=== PATIENT | female | born 1960 | race Caucasian/White ===

== ENCOUNTER 2016-06-13 12:26 | Inpatient (IN) | payer MEDICAID ==
[~2016-06-13] VITALS: Ht 157.5 cm; Wt 61.2 kg
[~2016-06-13 12:26] MED LIST: ALBU18; COLCRYS 0.6 MG TABLET PO; ENAL2.5T PO; LEVO500T3 PO; METO25TA5 PO; NOR5T PO; ONDA4TAB8 SL; PANT40TA2 PO; SUCR1TAB36 PO
[2016-06-13] MEDS ORDERED: SODIUM CHLORIDE 0.9% 1,000 ML IV ONE ×2 (13:19→21:45)
[2016-06-13] MEDS ORDERED: NALBUPHINE HCL 10 MG/1ml INJECTION IV ONE (13:30)
[2016-06-13] MEDS ORDERED: ONDANSETRON HCL 4 MG/2 ML VIAL IV ONE (13:30)
[2016-06-13 13:43] LABS: Basophils # (auto) 0 uL; Basophils % (auto) 0.1 % (0.0-2.0); Eosinophils # (auto) 0 uL; Eosinophils % (auto) 0.1 % (0.0-7.0); Hematocrit 43.8 % (36.0-46.0); Hemoglobin 14.3 g/dL (12.2-16.2); Lymphocytes # (auto) 0.5 uL; Lymphocytes % (auto) 4.2 % (10.0-50.0); Mean Corpuscular Hemoglobin 28.9 pg (28.0-32.0); Mean Corpuscular Hgb Conc. 32.6 g/dL (32.0-36.0); Mean Corpuscular Volume 88.7 fL (80.0-100.0); Mean Platelet Volume 8.5 fL (7.4-10.4); Monocytes # (auto) 0.5 uL; Monocytes % (auto) 4.6 % (0.0-12.0); Neutrophils # (auto) 10.1 uL; Platelet Count (auto) 272 10^3/uL (140-450); Red Cell Distribution Width 13.8 % (11.6-16.0); SUSPECT VIEW TRANSMISSION; White Blood Cell 11.1 10^3/uL (4.4-10.8)
[2016-06-13 13:55] LABS: Amylase 141 U/L (25-115)
[2016-06-13] MEDS ORDERED: PROMETHAZINE HCL 25 MG/ML 1ML IV ONE ×2 (14:45→15:30)
[2016-06-13 14:51] LABS: Albumin 4.2 g/dL (3.4-5.0); Bilirubin, Total 0.8 mg/dL (0.2-1.0); Calcium 9.6 mg/dL (8.5-10.1); Potassium 3.6 mmol/L (3.5-5.1); Total Protein 8.1 g/dL (6.4-8.2)
[2016-06-13] MEDS ORDERED: METOCLOPRAMIDE HCL 5MG/ml INJ 2ml VIAL IV ONE (15:15)
[2016-06-13 18:30] LABS: Urine Bilirubin Negative (Negative); Urine Color Yellow (Yellow); Urine Glucose Normal (Normal); Urine Mucus FEW (None Seen); Urine Nitrite Negative (Negative); Urine RBC 25 /hpf (0 - 4); Urine Squamous Epithelial Cell FEW /hpf (<5); Urine Urobilinogen Normal (Negative); Urine pH 5.5 (5.0-8.0)
[2016-06-13 18:31] LABS: Urine Blood 2+ /uL (Negative); Urine Ketone 2+ (Negative)
[2016-06-13] MEDS ORDERED: CIPROFLOXACIN 400MG/200ML 200 ML IV ONE (20:00)
[2016-06-13] MEDS ORDERED: NITROGLYCERIN 0.4 MG SL TAB SL PRN (21:45)
[2016-06-13] MEDS ORDERED: MORPHINE SULF INJ 2 MG/ML SYRINGE 1ML IV PRN (21:45)
[2016-06-13] MEDS: METOPROLOL TARTRATE 25 MG TAB PO SCH (22:00)
[2016-06-13] MEDS: ENOXAPARIN SOD 30 MG/0.3 ML SYRINGE SC SCH (22:17)
[2016-06-13] MEDS: SUCRALFATE 1 GM TAB PO SCH (22:17)
[2016-06-13] MEDS: ALBUTEROL SULF 2.5 MG/0.5ML(0.5%) NEB SOLN NEB SCH (22:20)
[2016-06-13 23:30] VITALS: BP 144/79
[2016-06-13] MEDS: ONDANSETRON HCL 4 MG/2 ML VIAL IV PRN (23:56)
[2016-06-13] MEDS: HYDROmorphone HCL 2 MG/ML VL IV PRN (23:56)
[2016-06-14] MEDS: ALBUTEROL SULF 2.5 MG/0.5ML(0.5%) NEB SOLN NEB SCH ×6 (02:33→22:20)
[2016-06-14 02:56] VITALS: BP 120/64
[2016-06-14 04:33] VITALS: BP 134/74
[2016-06-14] MEDS: ONDANSETRON HCL 4 MG/2 ML VIAL IV PRN ×4 (05:17→20:33)
[2016-06-14] MEDS: HYDROmorphone HCL 2 MG/ML VL IV PRN ×4 (05:17→20:33)
[2016-06-14] MEDS: SUCRALFATE 1 GM TAB PO SCH ×4 (05:59→22:19)
[2016-06-14 07:25] LABS: Albumin 3.3 g/dL (3.4-5.0); BUN/Creatinine Ratio 24.6; Bilirubin, Total 0.4 mg/dL (0.2-1.0); Calcium 8.2 mg/dL (8.5-10.1); Potassium 3.1 mmol/L (3.5-5.1); Total Protein 6.7 g/dL (6.4-8.2)
[2016-06-14 07:35] LABS: Basophils # (auto) 0 uL; Basophils % (auto) 0.2 % (0.0-2.0); Eosinophils # (auto) 0 uL; Hematocrit 37.7 % (36.0-46.0); Hemoglobin 12.1 g/dL (12.2-16.2); Lymphocytes # (auto) 1.2 uL; Lymphocytes % (auto) 15.3 % (10.0-50.0); Mean Corpuscular Hemoglobin 28.7 pg (28.0-32.0); Mean Corpuscular Hgb Conc. 32.1 g/dL (32.0-36.0); Mean Corpuscular Volume 89.3 fL (80.0-100.0); Mean Platelet Volume 8.8 fL (7.4-10.4); Monocytes # (auto) 0.9 uL; Monocytes % (auto) 11.5 % (0.0-12.0); Neutrophils # (auto) 5.8 uL; Platelet Count (auto) 196 10^3/uL (140-450); Red Cell Distribution Width 14.2 % (11.6-16.0); White Blood Cell 7.9 10^3/uL (4.4-10.8)
[2016-06-14 09:00] VITALS: BP 131/67
[2016-06-14] MEDS: METOPROLOL TARTRATE 25 MG TAB PO SCH ×2 (10:33→21:53)
[2016-06-14] MEDS: ENOXAPARIN SOD 30 MG/0.3 ML SYRINGE SC SCH (10:34)
[2016-06-14] MEDS: LEVOFLOXACIN 500MG 100 ML IV SCH (10:34)
[2016-06-14] MEDS: PANTOPRAZOLE SODIUM 40 MG/10 ML VIAL IV SCH (10:34)
[2016-06-14 13:09] VITALS: BP 140/80
[2016-06-14] MEDS ORDERED: HYDROcodone-ACET 7.5/325MG TAB PO PRN (15:00)
[2016-06-14 17:24] VITALS: BP 192/99
[2016-06-14] MEDS: METOCLOPRAMIDE HCL 5MG/ml INJ 2ml VIAL IV SCH (18:00)
[2016-06-14] MEDS ORDERED: diphenhdrAMINE HCL 50 MG/1 ML VL IV PRN (20:45)
[2016-06-14] MEDS ORDERED: POTASSIUM CHLORIDE 40 MEQ, LIDOCAINE 1% (LOCAL ANESTH.) 4 ML in SODIUM CHL 0.9% 250 ML IV ONE (21:00)
[2016-06-14 21:30] VITALS: BP 136/85
[2016-06-14] MEDS ORDERED: LIDOCAINE 1% HCL (LOCAL ANESTH.) INJ 20ML MDV ONE (22:47)
[2016-06-14] MEDS ORDERED: POTASSIUM CHL 20MEQ/100ML 200 ML IV ONE (22:49)
[2016-06-15] MEDS: METOCLOPRAMIDE HCL 5MG/ml INJ 2ml VIAL IV SCH ×3 (00:01→12:11)
[2016-06-15] MEDS: ONDANSETRON HCL 4 MG/2 ML VIAL IV PRN (01:44)
[2016-06-15 05:00] VITALS: BP 143/89
[2016-06-15] MEDS: SUCRALFATE 1 GM TAB PO SCH ×2 (06:20→12:11)
[2016-06-15] MEDS: ALBUTEROL SULF 2.5 MG/0.5ML(0.5%) NEB SOLN NEB SCH ×3 (06:53→14:00)
[2016-06-15 09:00] VITALS: BP 148/77
[2016-06-15] MEDS: ENOXAPARIN SOD 30 MG/0.3 ML SYRINGE SC SCH (10:13)
[2016-06-15] MEDS: PANTOPRAZOLE SODIUM 40 MG/10 ML VIAL IV SCH (10:13)
[2016-06-15] MEDS: METOPROLOL TARTRATE 25 MG TAB PO SCH (10:14)
[2016-06-15] MEDS: LEVOFLOXACIN 500MG 100 ML IV SCH (10:14)
[2016-06-15 14:01] VITALS: BP 148/77
== END 2016-06-15 14:45 | disposition home or self-care (01) | DRG 249 ==
LOC: EDBD 12:26 → ER 12:31 → CENTRAL 12:32
PROVIDERS: ADMIT Family Medicine; ATTEND Family Medicine
DX: A08.4 Viral intestinal infection, unspecified (principal); N39.0 Urinary tract infection, site not specified; K27.9 Peptic ulcer, site unspecified, unspecified as acute or chronic, without hemorrhage or perforation; K21.9 Gastro-esophageal reflux disease without esophagitis; K29.00 Acute gastritis without bleeding; I10 Essential (primary) hypertension; F17.210 Nicotine dependence, cigarettes, uncomplicated; F12.10 Cannabis abuse, uncomplicated; F41.9 Anxiety disorder, unspecified; Z91.018 Allergy to other foods; Z98.51 Tubal ligation status; Z90.49 Acquired absence of other specified parts of digestive tract
CPT/HCPCS: 36415; 71010; 74176; 80053; 81001; 82150; 83690; 84484; 85025; 86677; 87045; 87899; 93005; 94640; 96361; 96365; 96375; C9113; J1956; J2001; J2405; J3480

== ENCOUNTER 2017-09-26 20:27 | Emergency (ER) | payer MEDICAID ==
[~2017-09-26] VITALS: Ht 157.5 cm; Wt 68.0 kg
[~2017-09-26 20:27] MED LIST changes: +HYDR-4683 PO; -LEVO500T3 PO; -NOR5T PO; +ONDA-101 SL; -ONDA4TAB8 SL
[2017-09-26 22:12] LABS: Basophils # (auto) 0.1 uL; Basophils % (auto) 0.5 % (0.0-2.0); Eosinophils # (auto) 0 uL; Hematocrit 43.4 % (36.0-46.0); Hemoglobin 14.7 g/dL (12.2-16.2); Lymphocytes # (auto) 1.2 uL; Lymphocytes % (auto) 7.1 % (10.0-50.0); Mean Corpuscular Hemoglobin 30.1 pg (28.0-32.0); Mean Corpuscular Hgb Conc. 33.8 g/dL (32.0-36.0); Mean Corpuscular Volume 88.8 fL (80.0-100.0); Monocytes % (auto) 5.6 % (0.0-12.0); Neutrophils # (auto) 15.2 uL; Neutrophils % (auto) 86.8 % (37.0-80.0); Platelet Count (auto) 285 10^3/uL (140-450); Red Blood Cells 4.88 10^6/uL (4.0-5.20); Red Cell Distribution Width 13.9 % (11.8-14.3); White Blood Cell 17.5 10^3/uL (4.4-10.8)
[2017-09-26 22:38] LABS: Potassium 3.3 mmol/L (3.5-5.1)
[2017-09-26 22:45] LABS: Albumin 3.9 g/dL (3.4-5.0); BUN/Creatinine Ratio 16.2; Bilirubin, Total 0.9 mg/dL (0.2-1.0); Calcium 9.2 mg/dL (8.5-10.1)
[2017-09-26] MEDS ORDERED: SODIUM CHLORIDE 0.9% 1,000 ML IVB ONE (23:19)
[2017-09-26] MEDS ORDERED: ONDANSETRON HCL 4 MG/2 ML VIAL IV ONE (23:30)
[2017-09-26] MEDS ORDERED: MORPHINE SULFATE 4 MG/ML SYR/VIAL IV ONE (23:30)
[2017-09-26] MEDS ORDERED: PANTOPRAZOLE 40 MG/10 ML VIAL IV ONE (23:30)
[2017-09-26 23:37] LABS: Urine Bacteria NONE SEEN /hpf (None Seen); Urine Blood 1+ /uL (Negative); Urine Mucus FEW (None Seen); Urine Specific Gravity 1.018 (1.001-1.035); Urine WBC 1 /hpf (0 - 5)
[2017-09-26 23:50] LABS: INR 0.94 (0.9-1.15); Partial Thromboplastin Time 26.4 sec (22.64-33.71); Prothrombin Time 10.2 sec (9.37-12.3)
[2017-09-27 04:26] VITALS: BP 120/81
[2017-09-27] MEDS ORDERED: ONDANSETRON HCL 4 MG/2 ML VIAL IV ONE (04:30)
== END 2017-09-27 04:31 | disposition home or self-care (01) ==
LOC: EDBD 20:27 → ER 20:32
DX: K21.9 Gastro-esophageal reflux disease without esophagitis (principal); F17.210 Nicotine dependence, cigarettes, uncomplicated; F12.10 Cannabis abuse, uncomplicated; I10 Essential (primary) hypertension; Z98.51 Tubal ligation status; Z90.49 Acquired absence of other specified parts of digestive tract
CPT/HCPCS: 36415; 74176; 80053; 81001; 82150; 83690; 83735; 85025; 85610; 85730; 93005; 94761; 96361; 96374; 96375; 96376; 99285; C9113; J2270; J2405; J7030; 96360

== ENCOUNTER → 2017-09-28 18:25 | Emergency (ER) | payer MEDICAID ==
[~2017-09-28] VITALS: Ht 157.5 cm; Wt 63.5 kg
[~2017-09-28 18:25] MED LIST changes: +MORPHINE SULFATE 4 MG/ML SYR/VIAL IV ONE; +PANTOPRAZOLE 40 MG/10 ML VIAL IV STA; +POTASSIUM CHL 20 Meq TABLET PO ONE; +PROCHLORPERAZINE EDISYLATE 5 MG/ML 2ML VIAL IV ONE
[2017-09-28 19:10] LABS: Basophils # (auto) 0.1 uL; Basophils % (auto) 0.8 % (0.0-2.0); Eosinophils # (auto) 0 uL; Eosinophils % (auto) 0.1 % (0.0-7.0); Hematocrit 45.1 % (36.0-46.0); Hemoglobin 15.4 g/dL (12.2-16.2); Lymphocytes # (auto) 1.5 uL; Lymphocytes % (auto) 10.5 % (10.0-50.0); Mean Corpuscular Hemoglobin 30.8 pg (28.0-32.0); Mean Corpuscular Hgb Conc. 34.2 g/dL (32.0-36.0); Mean Corpuscular Volume 89.9 fL (80.0-100.0); Monocytes # (auto) 0.5 uL; Monocytes % (auto) 3.8 % (0.0-12.0); Neutrophils # (auto) 11.9 uL; Neutrophils % (auto) 84.8 % (37.0-80.0); Platelet Count (auto) 321 10^3/uL (140-450); Red Blood Cells 5.01 10^6/uL (4.0-5.20); Red Cell Distribution Width 13.7 % (11.8-14.3)
[2017-09-28 19:27] LABS: Albumin 4.5 g/dL (3.4-5.0); BUN/Creatinine Ratio 14.1; Bilirubin, Total 1.4 mg/dL (0.2-1.0); Calcium 9.5 mg/dL (8.5-10.1); Magnesium 2.2 mg/dL (1.6-2.6); Potassium 3.2 mmol/L (3.5-5.1); Total Protein 8.9 g/dL (6.4-8.2)
[2017-09-28 21:00] VITALS: BP 125/69
== END | disposition home or self-care (01) ==
LOC: EDUNIT# 18:10 → EDBD 18:25 → ER 18:25
DX: R10.84 Generalized abdominal pain (principal); R11.2 Nausea with vomiting, unspecified; F12.90 Cannabis use, unspecified, uncomplicated; F41.9 Anxiety disorder, unspecified; I10 Essential (primary) hypertension; J45.909 Unspecified asthma, uncomplicated; K21.9 Gastro-esophageal reflux disease without esophagitis; Z87.11 Personal history of peptic ulcer disease; F17.210 Nicotine dependence, cigarettes, uncomplicated; Z98.51 Tubal ligation status; Z90.49 Acquired absence of other specified parts of digestive tract
CPT/HCPCS: 36415; 80053; 83690; 83735; 84484; 85025; 93005; 94761; 96374; 96375; 99285; C9113; J0780; J2270; J7030

== ENCOUNTER 2017-10-04 20:51 | Emergency (ER) | payer MEDICAID ==
[~2017-10-04] VITALS: Ht 157.5 cm; Wt 59.0 kg
[~2017-10-04 20:51] MED LIST changes: -MORPHINE SULFATE 4 MG/ML SYR/VIAL IV ONE; -PANTOPRAZOLE 40 MG/10 ML VIAL IV STA; -POTASSIUM CHL 20 Meq TABLET PO ONE; -PROCHLORPERAZINE EDISYLATE 5 MG/ML 2ML VIAL IV ONE
[2017-10-05] MEDS ORDERED: NALBUPHINE HCL 10 MG/1ml INJECTION IV ONE
[2017-10-05] MEDS ORDERED: ONDANSETRON HCL 4 MG/2 ML VIAL IV ONE
[2017-10-05] MEDS ORDERED: SODIUM CHLORIDE 0.9% 1,000 ML IV ONE
[2017-10-05] MEDS ORDERED: PROMETHAZINE HCL 25 MG/ML 1ML ONE (03:28)
[2017-10-05] MEDS ORDERED: PROMETHAZINE HCL 25 MG/ML 1ML IV ONE (03:30)
[2017-10-05 04:24] LABS: Basophils # (auto) 0 uL; Basophils % (auto) 0.4 % (0.0-2.0); Eosinophils # (auto) 0.1 uL; Eosinophils % (auto) 1.2 % (0.0-7.0); Hematocrit 40.2 % (36.0-46.0); Lymphocytes % (auto) 19.1 % (10.0-50.0); Mean Corpuscular Hemoglobin 30.8 pg (28.0-32.0); Mean Corpuscular Hgb Conc. 34.7 g/dL (32.0-36.0); Mean Corpuscular Volume 88.7 fL (80.0-100.0); Monocytes # (auto) 1.1 uL; Monocytes % (auto) 10.6 % (0.0-12.0); Neutrophils # (auto) 7.3 uL; Neutrophils % (auto) 68.7 % (37.0-80.0); Platelet Count (auto) 284 10^3/uL (140-450); Red Blood Cells 4.53 10^6/uL (4.0-5.20); Red Cell Distribution Width 13.8 % (11.8-14.3); White Blood Cell 10.6 10^3/uL (4.4-10.8)
[2017-10-05 04:32] VITALS: BP 129/88
[2017-10-05 04:39] LABS: Albumin 3.5 g/dL (3.4-5.0); BUN/Creatinine Ratio 16.2; Calcium 8.1 mg/dL (8.5-10.1)
[2017-10-05 04:43] LABS: Bilirubin, Total 1.2 mg/dL (0.2-1.0); Total Protein 6.8 g/dL (6.4-8.2)
[2017-10-05 04:49] LABS: Potassium 2.7 mmol/L (3.5-5.1)
[2017-10-05] MEDS ORDERED: POTASSIUM CHL 20 Meq TABLET PO ONE (05:15)
[2017-10-05 06:09] LABS: Urine Bacteria NONE SEEN /hpf (None Seen); Urine Blood 1+ /uL (Negative); Urine Hyaline Cast FEW /lpf (0 - 2); Urine Mucus FEW (None Seen); Urine Specific Gravity 1.023 (1.001-1.035); Urine WBC 2 /hpf (0 - 5)
[2017-10-05 06:11] LABS: Alcohol, Urine < 3.0 mg/dL (0-5); Amphetamine Screen, Urine NEGATIVE (NEGATIVE); Barbiturate Scree,Urine NEGATIVE (NEGATIVE); Benzodiazephine Screen, Urine NEGATIVE (NEGATIVE); Cannabinoid Screen, Urine POSITIVE (NEGATIVE); Cocaine Screen, Urine NEGATIVE (NEGATIVE); Opiate Scree,Urine NEGATIVE (NEGATIVE); Phencyclidine Screen, Urine NEGATIVE (NEGATIVE)
== END 2017-10-05 06:31 | disposition home or self-care (01) ==
LOC: EDBD 20:51 → ER 20:51
DX: K29.00 Acute gastritis without bleeding (principal); R11.2 Nausea with vomiting, unspecified; F17.210 Nicotine dependence, cigarettes, uncomplicated; I10 Essential (primary) hypertension; J45.909 Unspecified asthma, uncomplicated; K21.9 Gastro-esophageal reflux disease without esophagitis; Z87.11 Personal history of peptic ulcer disease; Z90.49 Acquired absence of other specified parts of digestive tract; Z98.51 Tubal ligation status
CPT/HCPCS: 36415; 74176; 80053; 80307; 81001; 81002; 83690; 84484; 85025; 93005; 96361; 96374; 96375; 99285; J2300; J2405; J2550

== ENCOUNTER 2019-11-11 10:13 | Inpatient (IN) | payer MEDICAID ==
[~2019-11-11] VITALS: Ht 157.5 cm; Wt 62.1 kg
[~2019-11-11 10:13] MED LIST changes: -ALBU18; +ATOR20TA50 PO; -COLCRYS 0.6 MG TABLET PO; -ENAL2.5T PO; +ENAL2.5T7 PO; -HYDR-4683 PO; -ONDA-101 SL; +POTA10TA32 PO
--- NOTE | 2019-11-11 11:15 | NUR ---
Direct Admit Note SHEREELUIS admitted to Telemetry unit as a direct admit per MD order. Patient oriented to Janeth Gross RN primary RN, unit, room, bed, and unit policies regarding patient care and visiting hours. Patient now on continuous telemetry monitoring, tele box #[id number]. Patient placed on bedside oxygen, weighed by bedscale and encouraged to call if they need something. All questions and concerns addressed, patient verbalized understanding. MD notified of patients arrival and admit orders received.
[2019-11-11 11:30] VITALS: BP 115/84
[2019-11-11] MEDS ORDERED: MORPHINE SULF INJ 2 MG/ML SYRINGE 1ML IV PRN (11:30)
[2019-11-11] MEDS ORDERED: DOCUSATE SOD 100 MG CAP PO PRN (11:30)
[2019-11-11] MEDS ORDERED: NITROGLYCERIN 0.4 MG SL TAB SL PRN (11:30)
[2019-11-11] MEDS ORDERED: ALUM & MAG HYDROX-SIMETH LIQ(MAALOX) 30 ML PO PRN (11:30)
[2019-11-11] MEDS ORDERED: ACETAMINOPHEN 325 MG TAB PO PRN (11:30)
[2019-11-11] MEDS ORDERED: HYDROcodone-ACET 5/325MG TAB PO PRN (11:30)
[2019-11-11 12:00] VITALS: BP 115/84
--- NOTE | 2019-11-11 12:45 | NUR ---
EKG Done and filed in the chart.
--- NOTE | 2019-11-11 12:50 | NUR ---
Dr. Mcclendon at nurses station Dr. Mcclendon here for cardiology consultation. No new orders received. Will continue to monitor.
--- NOTE | 2019-11-11 13:35 | NUR ---
Urine sample Patient aware of need for urine sample. Supplies are at bedside. Will continue to monitor.
[2019-11-11 13:40] LABS: Basophils # (auto) 0.1 10 ^3/uL (0-0.2); Basophils % (auto) 0.3 % (0.0-2.0); Eosinophils # (auto) 0 10 ^3/uL (0-0.8); Eosinophils % (auto) 0.1 % (0.0-7.0); Hematocrit 43.8 % (36.0-46.0); Hemoglobin 14.5 g/dL (12.2-16.2); Lymphocytes # (auto) 2.1 10 ^3/uL (0.4-5.4); Lymphocytes % (auto) 11.5 % (10.0-50.0); Mean Corpuscular Hgb Conc. 33.1 g/dL (32.0-36.0); Mean Corpuscular Volume 90.7 fL (80.0-100.0); Monocytes # (auto) 1.4 10 ^3/uL (0-1.3); Neutrophils # (auto) 14.6 10 ^3/uL (1.6-8.6); Neutrophils % (auto) 80.1 % (37.0-80.0); Platelet Count (auto) 239 10^3/uL (140-450); Red Blood Cells 4.84 10^6/uL (4.0-5.20); Red Cell Distribution Width 14.8 % (11.8-14.3); White Blood Cell 18.2 10^3/uL (4.4-10.8)
[2019-11-11 13:59] LABS: Calcium 9.1 mg/dL (8.5-10.1); Potassium 4.3 mmol/L (3.5-5.1)
[2019-11-11 14:06] LABS: Albumin 3.9 g/dL (3.4-5.0); Bilirubin, Total 1.2 mg/dL (0.2-1.0); Magnesium 2.4 mg/dL (1.6-2.6); Total Protein 7.4 g/dL (6.4-8.2)
--- NOTE | 2019-11-11 14:23 | NUR ---
Critical Troponin Troponin: 0.649. MD Olmedo aware of critical troponin. No new orders received.
[2019-11-11] MEDS: SODIUM CHLOR 0.9% PF (SALINE LOCK) 10ML VIAL/SYR IV SCH ×2 (14:39→22:30)
[2019-11-11] MEDS: ONDANSETRON HCL 4 MG/2 ML VIAL IV PRN ×2 (15:55→22:48)
[2019-11-11] MEDS: MORPHINE SULF INJ 2 MG/ML SYRINGE 1ML IV PRN ×2 (15:56→22:49)
[2019-11-11 17:16] VITALS: BP 103/56
[2019-11-11 22:00] VITALS: BP 144/77
[2019-11-11] MEDS: CARVEDILOL 3.125 MG TAB PO SCH (22:30)
[2019-11-11] MEDS: ENOXAPARIN SOD 60 MG/0.6 ML SYRINGE SC SCH (22:31)
[2019-11-11] MEDS: ATORVASTATIN 20 MG TAB PO SCH (22:31)
[2019-11-12 05:30] VITALS: BP 106/72
[2019-11-12] MEDS: SODIUM CHLOR 0.9% PF (SALINE LOCK) 10ML VIAL/SYR IV SCH ×3 (06:39→22:00)
--- NOTE | 2019-11-12 07:15 | NUR ---
Opening Shift Note Assumed care of patient, resting with eyes closed at this time. Respirations are even and unlabored. No S/S of distress/SOB or pain. Bed is low, locked with 2x side rails up. Call light is within reach. Instructed on POC and to call for assist PRN, will continue to monitor for changes Q1hr and PRN.
--- NOTE | 2019-11-12 07:20 | NUR ---
Urine sample Collected and sent to lab for UA/UDS per MD order.
[2019-11-12 07:33] LABS: Urine Bacteria FEW /hpf (None Seen); Urine Blood 1+ /uL (Negative); Urine Hyaline Cast FEW /lpf (0 - 2); Urine Mucus FEW (None Seen); Urine Specific Gravity 1.033 (1.001-1.035); Urine WBC 13 /hpf (0 - 5)
[2019-11-12 07:52] LABS: Amphetamine Screen, Urine NEGATIVE (NEGATIVE); Barbiturate Scree,Urine POSITIVE (NEGATIVE); Benzodiazephine Screen, Urine NEGATIVE (NEGATIVE); Cannabinoid Screen, Urine POSITIVE (NEGATIVE); Cocaine Screen, Urine NEGATIVE (NEGATIVE); Phencyclidine Screen, Urine NEGATIVE (NEGATIVE)
[2019-11-12 07:59] LABS: Opiate Scree,Urine POSITIVE (NEGATIVE)
[2019-11-12 09:26] VITALS: BP 88/53
[2019-11-12] MEDS ORDERED: CLOPIDOGREL BISULFATE 75 MG TAB PO SCH (10:00)
[2019-11-12] MEDS ORDERED: PANTOPRAZOLE 40 MG TAB PO SCH (10:00)
[2019-11-12] MEDS: CARVEDILOL 3.125 MG TAB PO SCH ×2 (10:33→22:17)
[2019-11-12] MEDS: MORPHINE SULF INJ 2 MG/ML SYRINGE 1ML IV PRN ×2 (10:34→18:52)
[2019-11-12] MEDS: ONDANSETRON HCL 4 MG/2 ML VIAL IV PRN ×2 (10:34→18:52)
[2019-11-12] MEDS: ENOXAPARIN SOD 60 MG/0.6 ML SYRINGE SC SCH ×2 (10:34→22:16)
--- NOTE | 2019-11-12 10:34 | NUR ---
Pain Patient c/o right hip pain. 9/10 pain on adult pain scale. Medicated per MD order. Will reassess.
--- NOTE | 2019-11-12 11:04 | NUR ---
Pain reassessment 0/10 pain upon reassessment of pain level. Bed is low, locked with 2x side rails up. Call light is within reach. Will continue to monitor
[2019-11-12 13:00] VITALS: BP 91/50
[2019-11-12] MEDS ORDERED: ACETAMINOPHEN 325 MG TAB PO PRN (13:15)
[2019-11-12 15:35] LABS: Basophils # (auto) 0.1 10 ^3/uL (0-0.2); Basophils % (auto) 0.4 % (0.0-2.0); Eosinophils # (auto) 0.1 10 ^3/uL (0-0.8); Eosinophils % (auto) 1.1 % (0.0-7.0); Hematocrit 41.3 % (36.0-46.0); Hemoglobin 13.5 g/dL (12.2-16.2); Lymphocytes # (auto) 2.9 10 ^3/uL (0.4-5.4); Mean Corpuscular Hemoglobin 30.5 pg (28.0-32.0); Mean Corpuscular Hgb Conc. 32.6 g/dL (32.0-36.0); Mean Corpuscular Volume 93.4 fL (80.0-100.0); Neutrophils % (auto) 68.5 % (37.0-80.0); Nucleated Red Blood Cells % 0.1 %; Platelet Count (auto) 188 10^3/uL (140-450); Red Blood Cells 4.43 10^6/uL (4.0-5.20); Red Cell Distribution Width 14.1 % (11.8-14.3); White Blood Cell 13.1 10^3/uL (4.4-10.8)
[2019-11-12 15:52] LABS: BUN/Creatinine Ratio 21.9; Calcium 8.6 mg/dL (8.5-10.1); Potassium 3.4 mmol/L (3.5-5.1)
[2019-11-12] MEDS: SUCRALFATE 1 GM/10 ML ORAL SUSP PO SCH ×2 (16:41→22:20)
[2019-11-12 17:02] VITALS: BP 127/58
--- NOTE | 2019-11-12 19:30 | NUR ---
Opening Shift Note Assumed care of patient, awake and alert. Patient noted with nausea and vomiting. She states nausea and vomiting started after administration of Tylenol. Large amount of clear vomitus noted. Patient also complains of shortness of breath. O2 @ 2L/min via nasal canula O2 sat 97%. Skin color pink; denies chest pain. Head of bed up at 30 degrees. Instructed on POC and to call for assist PRN, will continue to monitor for changes Q1hr and PRN.
--- NOTE | 2019-11-12 20:00 | NUR ---
Patient continues to have nausea and vomiting. Dr. Robins notified of patient's status. New orders received: Reglan 10 mg IVP every 6 hours PRN and Phenergan 12.5 mg two hours later if N/V persist. Patient medicated with Reglan 10 mg as ordered.
[2019-11-12] MEDS ORDERED: PROMETHAZINE HCL 25 MG/ML 1ML IV ONE (20:15)
[2019-11-12] MEDS ORDERED: METOCLOPRAMIDE HCL 5MG/ml INJ 2ml VIAL IV ONE (20:15)
[2019-11-12 22:00] VITALS: BP 185/112
[2019-11-12] MEDS: PANTOPRAZOLE 40 MG TAB PO SCH (22:16)
[2019-11-12] MEDS: ATORVASTATIN 20 MG TAB PO SCH (22:16)
--- NOTE | 2019-11-12 23:00 | NUR ---
No vomiting noted at this time. Patient complains of nausea. Phenergan 12.5 mg IVP administered.
[2019-11-12] MEDS ORDERED: METOCLOPRAMIDE HCL 5MG/ml INJ 2ml VIAL IV PRN (23:30)
[2019-11-13] VITALS (7 sets, daily range): BP systolic 91–147; BP diastolic 51–96
[2019-11-13] MEDS ORDERED: METOCLOPRAMIDE HCL 5MG/ml INJ 2ml VIAL IV SCH
[2019-11-13] MEDS ORDERED: cloNIDine HCL 0.1 MG TAB PO ONE (01:00)
--- NOTE | 2019-11-13 01:15 | NUR ---
Patient's blood pressure 193/117. Patient noted sleeping. No acute distress. She is arousable denies C/P, dizziness and headache. Dr. Robins notified of elevated blood pressure. New order: Clonidine 0.1 mg now and Clonidine TID.
[2019-11-13] MEDS: SODIUM CHLOR 0.9% PF (SALINE LOCK) 10ML VIAL/SYR IV SCH (01:17)
--- NOTE | 2019-11-13 03:50 | NUR ---
B/P 147/96. Patient resting comfortably. No acute distress noted.
[2019-11-13] MEDS ORDERED: cloNIDine HCL 0.1 MG TAB PO SCH (06:00)
[2019-11-13] MEDS: SUCRALFATE 1 GM/10 ML ORAL SUSP PO SCH ×4 (06:40→21:08)
[2019-11-13 06:42] LABS: Basophils # (auto) 0 10 ^3/uL (0-0.2); Basophils % (auto) 0.2 % (0.0-2.0); Eosinophils # (auto) 0 10 ^3/uL (0-0.8); Hemoglobin 15.1 g/dL (12.2-16.2); Lymphocytes % (auto) 6.5 % (10.0-50.0); Mean Corpuscular Hemoglobin 30.3 pg (28.0-32.0); Mean Corpuscular Hgb Conc. 33.6 g/dL (32.0-36.0); Mean Corpuscular Volume 90.3 fL (80.0-100.0); Monocytes # (auto) 0.9 10 ^3/uL (0-1.3); Monocytes % (auto) 5.9 % (0.0-12.0); Neutrophils # (auto) 13.2 10 ^3/uL (1.6-8.6); Neutrophils % (auto) 87.4 % (37.0-80.0); Platelet Count (auto) 226 10^3/uL (140-450); Red Blood Cells 4.99 10^6/uL (4.0-5.20); Red Cell Distribution Width 13.8 % (11.8-14.3); White Blood Cell 15.1 10^3/uL (4.4-10.8)
[2019-11-13 06:47] LABS: INR 1.01 (0.9-1.15)
[2019-11-13 07:04] LABS: Potassium 3.1 mmol/L (3.5-5.1)
[2019-11-13 07:13] LABS: BUN/Creatinine Ratio 19.6; Calcium 9.4 mg/dL (8.5-10.1); Magnesium 2.2 mg/dL (1.6-2.6)
--- NOTE | 2019-11-13 07:20 | NUR ---
Opening Shift Note Assumed care of patient, alert and oriented x4. Respirations noted to be even and unlabored. No S/S of distress/SOB or pain. Bed is low, locked with 2x side rails up. Call light is within reach. Instructed on POC and to call for assist PRN, will continue to monitor for changes Q1hr and PRN.
[2019-11-13] MEDS: PANTOPRAZOLE 40 MG TAB PO SCH ×2 (09:52→21:09)
[2019-11-13] MEDS: CARVEDILOL 3.125 MG TAB PO SCH ×2 (09:53→21:07)
[2019-11-13] MEDS: ENOXAPARIN SOD 60 MG/0.6 ML SYRINGE SC SCH ×2 (10:00→16:04)
--- NOTE | 2019-11-13 10:30 | NUR ---
Medication held Patient is scheduled to have EGD tomorrow. Per Dr. Mcfarlane, do not administer Lovenox. Will continue to monitor.
--- NOTE | 2019-11-13 10:50 | NUR ---
Dr. Olmedo rounding Dr. Olmedo is at bedside updating patient on POC. New orders received/carried out. Will continue to monitor.
[2019-11-13] MEDS ORDERED: cloNIDine HCL 0.1 MG TAB PO PRN (11:30)
[2019-11-13] MEDS ORDERED: POTASSIUM CHL 20 Meq TABLET PO ONE (11:30)
--- NOTE | 2019-11-13 14:22 | NUR ---
Low blood pressure MD aware of low blood pressure (see interventions). New orders received for NS @ 125 ml/hr. Will carry out orders.
[2019-11-13] MEDS: SODIUM CHLORIDE 0.9% 1,000 ML IV SCH ×2 (14:37→21:26)
[2019-11-13] MEDS: MORPHINE SULF INJ 2 MG/ML SYRINGE 1ML IV PRN ×2 (17:11→21:25)
--- NOTE | 2019-11-13 17:11 | NUR ---
Pain Patient c/o abdominal and right hip pain. 10/10 pain on adult pain scale. Medicated with Morphine 2mg IV as per MD order. Will reassess.
--- NOTE | 2019-11-13 17:41 | NUR ---
Pain reassessment Upon reassessment pain is 6/10 on adult pain scale. Patient reports being comfortable at this time. IVF to left FA running at 125 ml/hr. Bed is low, locked with 2x side rails up. Call light is within reach.
--- NOTE | 2019-11-13 18:19 | NUR ---
Spoke with family Password verified Spoke with patient's son Volodymyr. Updated son on POC. Son aware of scheduled EGD tomorrow with Dr. Mcfarlane. All questions have been answered.
--- NOTE | 2019-11-13 18:51 | NUR ---
Reassessment: blood pressure BP: 102/65 HR: 89. Patient currently sitting up in a chair at this time. Patient is reporting some light headedness, no headache, N/V at this time. Advised patient to press call light when she wants to get back in bed. Patient verbalized understanding. NS at 125 ml/hr running at this time. Will continue to monitor.
--- NOTE | 2019-11-13 19:30 | NUR ---
Opening Shift Note Assumed care of patient, awake and alert, sitting up in chair. No S/S of distress/SOB or pain. Instructed on POC and to call for assist PRN, will continue to monitor for changes Q1hr and PRN.
--- NOTE | 2019-11-13 20:22 | NUR ---
Opening Shift Note Assumed care of patient, awake and alert, sitting up in chair, No S/S of distress/SOB or pain. Instructed on POC and to call for assist PRN, will continue to monitor for changes Q1hr and PRN.
[2019-11-13] MEDS: ATORVASTATIN 20 MG TAB PO SCH (21:09)
[2019-11-13] MEDS: ONDANSETRON HCL 4 MG/2 ML VIAL IV PRN (21:24)
--- NOTE | 2019-11-13 23:10 | NUR ---
pt signed consent for EGD. instructed pt to be NPO after midnight. verbalized understanding
[2019-11-14] MEDS: MORPHINE SULF INJ 2 MG/ML SYRINGE 1ML IV PRN ×2 (04:53→09:14)
[2019-11-14 05:00] VITALS: BP 123/75
[2019-11-14] MEDS: SUCRALFATE 1 GM/10 ML ORAL SUSP PO SCH ×3 (05:28→17:00)
[2019-11-14] MEDS: SODIUM CHLORIDE 0.9% 1,000 ML IV SCH ×2 (06:12→14:30)
[2019-11-14 07:09] LABS: Basophils # (auto) 0.1 10 ^3/uL (0-0.2); Basophils % (auto) 0.6 % (0.0-2.0); Eosinophils # (auto) 0.3 10 ^3/uL (0-0.8); Eosinophils % (auto) 3.1 % (0.0-7.0); Hematocrit 37.8 % (36.0-46.0); Hemoglobin 12.7 g/dL (12.2-16.2); Lymphocytes # (auto) 2.2 10 ^3/uL (0.4-5.4); Mean Corpuscular Hemoglobin 30.4 pg (28.0-32.0); Mean Corpuscular Hgb Conc. 33.5 g/dL (32.0-36.0); Mean Corpuscular Volume 90.7 fL (80.0-100.0); Monocytes # (auto) 0.8 10 ^3/uL (0-1.3); Monocytes % (auto) 7.7 % (0.0-12.0); Neutrophils # (auto) 6.7 10 ^3/uL (1.6-8.6); Neutrophils % (auto) 66.6 % (37.0-80.0); Nucleated Red Blood Cells % 0.1 %; Platelet Count (auto) 143 10^3/uL (140-450); Red Blood Cells 4.17 10^6/uL (4.0-5.20); White Blood Cell 10.1 10^3/uL (4.4-10.8)
--- NOTE | 2019-11-14 07:15 | NUR ---
pt sleeping at this time. respirations even and unlabored. Endorsed to ROMY Barron.
--- NOTE | 2019-11-14 07:30 | NUR ---
Opening Shift Note Assumed care of patient, awake and alert. No S/S of distress/SOB or pain. Instructed on POC and to call for assist PRN, will continue to monitor for changes Q1hr and PRN. Bed is locked and in lowest position. Call light within reach.
[2019-11-14 07:38] LABS: BUN/Creatinine Ratio 26.8; Calcium 8.6 mg/dL (8.5-10.1); Magnesium 2.3 mg/dL (1.6-2.6)
[2019-11-14 08:00] VITALS: BP 107/61
[2019-11-14] MEDS ORDERED: diphenhdrAMINE HCL 50 MG/1 ML VL ONE (08:11)
[2019-11-14] MEDS ORDERED: LIDOCAINE VISCOUS 2% 15ML UD ONE (08:11)
[2019-11-14] MEDS ORDERED: SODIUM CHLORIDE LOCK 10 ML ONE (08:11)
[2019-11-14 08:56] VITALS: BP 107/61
[2019-11-14] MEDS ORDERED: MORPHINE SULF INJ 2 MG/ML SYRINGE 1ML ONE (09:03)
[2019-11-14] MEDS: CARVEDILOL 3.125 MG TAB PO SCH (10:00)
[2019-11-14] MEDS: PANTOPRAZOLE 40 MG TAB PO SCH (10:00)
[2019-11-14] MEDS: ENOXAPARIN SOD 60 MG/0.6 ML SYRINGE SC SCH (10:00)
--- NOTE | 2019-11-14 10:00 | NUR ---
BP MEDS BLOOD PRESSURE MEDS HOLD FOR BP READING AT 107/61. PATIENT AWARE OF MEDICATION HOLD. WILL CONTINUE TO MONITOR BLOOD PRESSURE. PATIENT HAS NO S/S OF SOB OR CHEST PAIN.
--- NOTE | 2019-11-14 12:35 | NUR ---
PRE-OP PATIENT TAKEN DOWN TO PRE-OP WITH NO SIGNS OF DISTRESS OR SOB. PATIENT CONSENT SIGNED AND RING ON LEFT HAND TAPED. HU PRE-OP RN TOOK REPORT OF PATIENT.
[2019-11-14] MEDS: MIDAZOLAM HCL 5 MG/ML-1ML VIAL ONE ×2 (12:46→12:51)
[2019-11-14] MEDS: fentaNYL CITRATE 100 MCG/2 ML VL ONE ×2 (12:46→12:51)
[2019-11-14 13:07] VITALS: BP 130/80
--- NOTE | 2019-11-14 14:34 | NUR ---
Nutrition Assessment Notes please see attached link for complete assessment [employer] needs BW 62 [id number] kcals (23-25 kcal/kgBW), Est Protein needs: 62-68 gms/day (1.0-1.1 gm/kgBW). Will continue to monitor and reassess prn. Addendum: 11/14/19 at [address] Amended: Links added.
[2019-11-14 16:44] VITALS: BP 149/84
--- NOTE | 2019-11-14 19:02 | NUR ---
Discharge instructions given as ordered. Encourage to follow up with PMD as instructed. All questions and concerns addressed. Patient verbalized understanding. IV removed with catheter intact, pressure dressing applied, Telemetry unit returned to ICU. Patient taken to vehicle via wheelchair with all personal belongings, accompanied by staff and family member. No distress noted at time of departure.
== END 2019-11-14 18:30 | disposition home or self-care (01) | DRG 241 ==
LOC: TELE-WESTW 10:13
PROVIDERS: ADMIT Internal Medicine; ATTEND Internal Medicine
PROC: 0DJ08ZZ Inspection of Upper Intestinal Tract, Via Natural or Artificial Opening Endoscopic (ICD-10-PCS; principal; 2019-11-14 12:43)
DX: K29.70 Gastritis, unspecified, without bleeding (principal); D72.829 Elevated white blood cell count, unspecified; E78.5 Hyperlipidemia, unspecified; I10 Essential (primary) hypertension; K21.9 Gastro-esophageal reflux disease without esophagitis; K29.80 Duodenitis without bleeding; F12.90 Cannabis use, unspecified, uncomplicated; Z79.899 Other long term (current) drug therapy; Z90.49 Acquired absence of other specified parts of digestive tract; Z88.6 Allergy status to analgesic agent
CPT/HCPCS: 36415; 43235; 71046; 80048; 80053; 80307; 81001; 83735; 84484; 85025; 85610; 86677; 86850; 86900; 86901; 93005; 93306; G0378; J2250; J2405

== ENCOUNTER 2020-02-16 10:27 | Inpatient (IN) | payer MEDICAID ==
[~2020-02-16] VITALS: Ht 157.5 cm; Wt 62.0 kg
[2020-02-16] MEDS ORDERED: PANTOPRAZOLE 40 MG/10 ML VIAL INJ IV STA (10:59)
[2020-02-16] MEDS ORDERED: MORPHINE SULFATE 4 MG/ML SYR/VIAL IV ONE (11:00)
[2020-02-16] MEDS ORDERED: PROCHLORPERAZINE EDISYLATE 5 MG/ML 2ML VIAL IV ONE (11:00)
[2020-02-16] MEDS ORDERED: SODIUM CHLORIDE 0.9% 1,000 ML IVB ONE (11:00)
[2020-02-16 11:36] LABS: Basophils # (auto) 0.1 10 ^3/uL (0-0.2); Basophils % (auto) 0.5 % (0.0-2.0); Eosinophils # (auto) 0 10 ^3/uL (0-0.8); Eosinophils % (auto) 0.1 % (0.0-7.0); Hematocrit 43.2 % (36.0-46.0); Hemoglobin 14.7 g/dL (12.2-16.2); Lymphocytes # (auto) 1.2 10 ^3/uL (0.4-5.4); Lymphocytes % (auto) 8.5 % (10.0-50.0); Mean Corpuscular Hemoglobin 30.6 pg (28.0-32.0); Mean Corpuscular Hgb Conc. 34.1 g/dL (32.0-36.0); Mean Corpuscular Volume 89.9 fL (80.0-100.0); Monocytes # (auto) 0.5 10 ^3/uL (0-1.3); Monocytes % (auto) 3.6 % (0.0-12.0); Neutrophils # (auto) 12.4 10 ^3/uL (1.6-8.6); Neutrophils % (auto) 87.3 % (37.0-80.0); Platelet Count (auto) 335 10^3/uL (140-450); Red Cell Distribution Width 13.8 % (11.8-14.3); White Blood Cell 14.3 10^3/uL (4.4-10.8)
[2020-02-16 13:27] LABS: Albumin 4.4 g/dL (3.4-5.0); Calcium 9.5 mg/dL (8.5-10.1); Potassium 3.4 mmol/L (3.5-5.1)
[2020-02-16 13:39] LABS: BUN/Creatinine Ratio 16.1; Bilirubin, Total 1.1 mg/dL (0.2-1.0)
[2020-02-16] MEDS ORDERED: ONDANSETRON HCL 4 MG/2 ML VIAL IV ONE (15:00)
[2020-02-16] MEDS ORDERED: cloNIDine HCL 0.1 MG TAB PO ONE (15:00)
[2020-02-16] MEDS: hydrOXYzine HCL 10 MG TAB PO PRN ×2 (16:01→16:05)
[2020-02-16] MEDS ORDERED: NITROGLYCERIN 0.4 MG SL TAB SL PRN (16:15)
[2020-02-16] MEDS ORDERED: hydrALAZINE HCL 20 MG/ML VL IV PRN (17:00)
[2020-02-16] MEDS ORDERED: hydrALAZINE HCL 10 MG TAB PO PRN (17:15)
[2020-02-16] MEDS ORDERED: hydrALAZINE HCL 25 MG TAB PO ONE (18:00)
[2020-02-16] MEDS ORDERED: cloNIDine HCL 0.1 MG TAB PO PRN (18:00)
[2020-02-16 20:24] VITALS: BP 98/56
[2020-02-16] MEDS: ONDANSETRON HCL 4 MG/2 ML VIAL IV PRN (20:54)
[2020-02-16] MEDS: METOPROLOL TARTRATE 1MG/1ML-5ML VIAL IV SCH (22:00)
[2020-02-16] MEDS: MORPHINE SULF INJ 2 MG/ML SYRINGE 1ML IV PRN (23:33)
[2020-02-17 05:00] VITALS: BP 96/56
[2020-02-17 06:21] LABS: Basophils # (auto) 0 10 ^3/uL (0-0.2); Basophils % (auto) 0.3 % (0.0-2.0); Eosinophils # (auto) 0.1 10 ^3/uL (0-0.8); Eosinophils % (auto) 0.9 % (0.0-7.0); Hematocrit 39.5 % (36.0-46.0); Hemoglobin 13.2 g/dL (12.2-16.2); Lymphocytes # (auto) 2.4 10 ^3/uL (0.4-5.4); Lymphocytes % (auto) 20.2 % (10.0-50.0); Mean Corpuscular Hemoglobin 30.4 pg (28.0-32.0); Mean Corpuscular Hgb Conc. 33.3 g/dL (32.0-36.0); Monocytes % (auto) 8.1 % (0.0-12.0); Neutrophils # (auto) 8.4 10 ^3/uL (1.6-8.6); Neutrophils % (auto) 70.5 % (37.0-80.0); Nucleated Red Blood Cells % 0.1 %; Platelet Count (auto) 267 10^3/uL (140-450); Red Blood Cells 4.34 10^6/uL (4.0-5.20); White Blood Cell 11.9 10^3/uL (4.4-10.8)
[2020-02-17 06:32] LABS: Potassium 3.3 mmol/L (3.5-5.1)
[2020-02-17 06:45] LABS: Albumin 3.5 g/dL (3.4-5.0); BUN/Creatinine Ratio 16.2; Bilirubin, Total 1.2 mg/dL (0.2-1.0); Calcium 8.6 mg/dL (8.5-10.1); Total Protein 6.4 g/dL (6.4-8.2)
[2020-02-17 09:00] VITALS: BP 123/61
[2020-02-17] MEDS: METOPROLOL TARTRATE 1MG/1ML-5ML VIAL IV SCH ×2 (09:58→22:00)
[2020-02-17] MEDS ORDERED: POTASSIUM EFFERVESENT TAB 25 MEQ PO ONE (16:30)
[2020-02-17 17:06] VITALS: BP 110/63
[2020-02-17] MEDS: MORPHINE SULF INJ 2 MG/ML SYRINGE 1ML IV PRN (18:17)
[2020-02-17] MEDS: ONDANSETRON HCL 4 MG/2 ML VIAL IV PRN (18:17)
[2020-02-17 22:44] VITALS: BP 103/70
[2020-02-18] MEDS: MORPHINE SULF INJ 2 MG/ML SYRINGE 1ML IV PRN ×2 (01:48→09:34)
[2020-02-18] MEDS: ONDANSETRON HCL 4 MG/2 ML VIAL IV PRN ×2 (01:48→09:34)
[2020-02-18 09:00] VITALS: BP 124/75
[2020-02-18] MEDS: METOPROLOL TARTRATE 1MG/1ML-5ML VIAL IV SCH (09:29)
[2020-02-18 13:00] VITALS: BP 140/73
[2020-02-18 13:57] VITALS: BP 124/75
== END 2020-02-18 15:14 | disposition home or self-care (01) | DRG 251 ==
LOC: EDBD 10:27 → ER 10:27 → TELE 10:28 → TELE-WESTW 20:24 → UNDODISIN 02-18 15:14
PROVIDERS: ADMIT Internal Medicine; ATTEND Internal Medicine
DX: R10.9 Unspecified abdominal pain (principal); R11.2 Nausea with vomiting, unspecified; I10 Essential (primary) hypertension; I16.0 Hypertensive urgency; I25.10 Atherosclerotic heart disease of native coronary artery without angina pectoris; K21.9 Gastro-esophageal reflux disease without esophagitis; E87.6 Hypokalemia; R19.7 Diarrhea, unspecified; R77.8 Other specified abnormalities of plasma proteins; J44.9 Chronic obstructive pulmonary disease, unspecified; K59.09 Other constipation; E78.5 Hyperlipidemia, unspecified; I25.2 Old myocardial infarction; Z88.8 Allergy status to other drugs, medicaments and biological substances; Z88.6 Allergy status to analgesic agent; Z91.02 Food additives allergy status; Z98.51 Tubal ligation status; Z90.49 Acquired absence of other specified parts of digestive tract; Z87.11 Personal history of peptic ulcer disease; Z72.0 Tobacco use; Z88.1 Allergy status to other antibiotic agents
CPT/HCPCS: 36415; 74176; 80053; 83690; 84484; 85025; 96361; 96374; 96375; C9113; G0378; J2405

== ENCOUNTER 2020-12-11 15:17 | Inpatient (IN) | payer MEDICAID ==
[~2020-12-11] VITALS: Ht 157.5 cm; Wt 66.4 kg
[2020-12-11] MEDS ORDERED: SODIUM CHLORIDE 0.9% 1,000 ML IV ONE ×2 (15:30)
[2020-12-11] MEDS ORDERED: PROCHLORPERAZINE EDISYLATE 5 MG/ML 2ML VIAL IV ONE (15:30)
[2020-12-11] MEDS ORDERED: MORPHINE SULFATE 4 MG/ML SYR/VIAL IV ONE (15:30)
[2020-12-11] MEDS ORDERED: LABETALOL HCL 5 MG/ML 4ML SYRINGE IV ONE (17:00)
[2020-12-11 17:24] LABS: Basophils # (auto) 0.1 10 ^3/uL (0-0.2); Basophils % (auto) 0.3 % (0.0-2.0); Eosinophils # (auto) 0.2 10 ^3/uL (0-0.8); Eosinophils % (auto) 1.4 % (0.0-7.0); Hematocrit 42.3 % (36.0-46.0); Hemoglobin 14.3 g/dL (12.2-16.2); Lymphocytes # (auto) 2.1 10 ^3/uL (0.4-5.4); Lymphocytes % (auto) 11.8 % (10.0-50.0); Mean Corpuscular Hemoglobin 30.5 pg (28.0-32.0); Mean Corpuscular Hgb Conc. 33.8 g/dL (32.0-36.0); Mean Corpuscular Volume 90.2 fL (80.0-100.0); Monocytes # (auto) 0.9 10 ^3/uL (0-1.3); Monocytes % (auto) 5.4 % (0.0-12.0); Neutrophils # (auto) 14.2 10 ^3/uL (1.6-8.6); Neutrophils % (auto) 81.1 % (37.0-80.0); Red Blood Cells 4.69 10^6/uL (4.0-5.20); White Blood Cell 17.5 10^3/uL (4.4-10.8)
[2020-12-11 17:38] LABS: Blood Urea Nitrogen 10 mg/dL (7-18); Calcium 8.8 mg/dL (8.5-10.1); Chloride 111 mmol/L (98-107); Potassium 3.3 mmol/L (3.5-5.1); Sodium 142 mmol/L (136-145)
[2020-12-11 17:46] LABS: Alanine Aminotransferase 19 U/L (13-56); Alkaline Phosphatase 95 U/L (45-117); Anion Gap 9 (5-15); Aspartate Aminotransferase 14 U/L (15-37); BUN/Creatinine Ratio 12.7; Bilirubin, Total 0.9 mg/dL (0.2-1.0); Carbon Dioxide 22 mmol/L (21-32); GFR African American 96 mL/min; GFR Non-African American 79 mL/min; Glucose 104 mg/dL (74-106)
[2020-12-11] MEDS ORDERED: hydrALAZINE HCL 20 MG/ML VL IV ONE (18:15)
[2020-12-11] MEDS ORDERED: MORPHINE SULFATE INJECTION 2 MG/ML SYRG IV PRN (18:15)
[2020-12-11] MEDS ORDERED: LORazepam 2MG/ML-1ML VIAL IV PRN (18:15)
[2020-12-11] MEDS ORDERED: NITROGLYCERIN 0.4 MG SL TAB SL PRN (18:15)
[2020-12-11] MEDS: SODIUM CHLORIDE 0.9% 1,000 ML IV SCH (18:34)
[2020-12-11] MEDS ORDERED: POTASSIUM CHL 20MEQ/100ML 100 ML IV ONE (19:45)
[2020-12-11] MEDS: metroNIDAZOLE 500MG/100ML 100 ML IV SCH (22:30)
[2020-12-11] MEDS: ONDANSETRON HCL 4 MG/2 ML VIAL IV PRN (23:16)
[2020-12-11] MEDS: MORPHINE SULFATE INJECTION 2 MG/ML SYRG IV PRN (23:17)
[2020-12-11] MEDS: METOPROLOL TARTRATE 25 MG TAB PO SCH (23:19)
[2020-12-12] VITALS (7 sets, daily range): BP systolic 105–145; BP diastolic 60–85
[2020-12-12] MEDS ORDERED: hydrALAZINE HCL 20 MG/ML VL IV PRN
[2020-12-12 00:24] LABS: Alcohol, Urine < 3.0 mg/dL (0-10); Amphetamine Screen, Urine NEGATIVE (NEGATIVE); Barbiturate Scree,Urine NEGATIVE (NEGATIVE); Benzodiazephine Screen, Urine NEGATIVE (NEGATIVE); Cannabinoid Screen, Urine POSITIVE (NEGATIVE); Cocaine Screen, Urine NEGATIVE (NEGATIVE); Opiate Scree,Urine POSITIVE (NEGATIVE); Phencyclidine Screen, Urine NEGATIVE (NEGATIVE)
[2020-12-12 00:31] LABS: Urine Bacteria NONE SEEN /hpf (None Seen); Urine Blood Negative /uL (Negative); Urine Mucus FEW (None Seen); Urine Specific Gravity 1.013 (1.001-1.035); Urine WBC 2 /hpf (0 - 5)
[2020-12-12] MEDS: SODIUM CHLORIDE 0.9% 1,000 ML IV SCH ×2 (04:15→16:22)
[2020-12-12] MEDS: metroNIDAZOLE 500MG/100ML 100 ML IV SCH ×3 (05:22→21:51)
[2020-12-12] MEDS: MORPHINE SULFATE INJECTION 2 MG/ML SYRG IV PRN ×3 (05:22→20:09)
[2020-12-12] MEDS: ONDANSETRON HCL 4 MG/2 ML VIAL IV PRN ×2 (05:23→20:08)
[2020-12-12] MEDS: cefTRIAXone 1GM/50ML D5W 50 ML IV SCH (09:09)
[2020-12-12] MEDS: METOPROLOL TARTRATE 25 MG TAB PO SCH ×2 (09:10→21:52)
[2020-12-12] MEDS ORDERED: PANTOPRAZOLE 40 MG/10 ML VIAL INJ IV SCH (10:00)
[2020-12-12] MEDS ORDERED: FURO20TA3 PO (11:07)
[2020-12-12] MEDS ORDERED: FIDA200T PO (11:07)
[2020-12-12] MEDS ORDERED: MONT-8 PO (11:07)
[2020-12-12] MEDS: SUCRALFATE 1 GM/10 ML ORAL SUSP PO SCH ×3 (11:40→21:52)
[2020-12-12] MEDS ORDERED: ALBUTEROL SULF 2.5 MG/0.5ML(0.5%) NEB SOLN NEB PRN (11:45)
[2020-12-12] MEDS ORDERED: POLYETHYLENE GLYCOL 17 GM PWDR PO PRN (12:00)
[2020-12-12 13:05] LABS: Basophils # (auto) 0.1 10 ^3/uL (0-0.2); Basophils % (auto) 0.7 % (0.0-2.0); Eosinophils # (auto) 0.2 10 ^3/uL (0-0.8); Eosinophils % (auto) 2.1 % (0.0-7.0); Hematocrit 36.5 % (36.0-46.0); Hemoglobin 12.4 g/dL (12.2-16.2); Lymphocytes # (auto) 2.5 10 ^3/uL (0.4-5.4); Lymphocytes % (auto) 29.2 % (10.0-50.0); Mean Corpuscular Hemoglobin 30.7 pg (28.0-32.0); Mean Corpuscular Volume 90.4 fL (80.0-100.0); Monocytes # (auto) 0.5 10 ^3/uL (0-1.3); Monocytes % (auto) 6.3 % (0.0-12.0); Neutrophils # (auto) 5.3 10 ^3/uL (1.6-8.6); Neutrophils % (auto) 61.7 % (37.0-80.0); Nucleated Red Blood Cells % 0.1 %; Red Blood Cells 4.03 10^6/uL (4.0-5.20); Red Cell Distribution Width 13.8 % (11.8-14.3); White Blood Cell 8.7 10^3/uL (4.4-10.8)
[2020-12-12 13:50] LABS: Calcium 8.5 mg/dL (8.5-10.1); Potassium 3.5 mmol/L (3.5-5.1)
[2020-12-12] MEDS: ACETAMINOPHEN 500 MG TAB PO PRN (17:35)
[2020-12-12] MEDS: PANTOPRAZOLE 40 MG/10 ML VIAL INJ IV SCH (21:52)
[2020-12-13] MEDS: SODIUM CHLORIDE 0.9% 1,000 ML IV SCH ×3 (01:29→22:04)
[2020-12-13] MEDS: metroNIDAZOLE 500MG/100ML 100 ML IV SCH ×2 (04:57→13:36)
[2020-12-13] MEDS: ONDANSETRON HCL 4 MG/2 ML VIAL IV PRN ×3 (04:57→18:26)
[2020-12-13] MEDS: SUCRALFATE 1 GM/10 ML ORAL SUSP PO SCH ×3 (04:57→17:07)
[2020-12-13] MEDS: MORPHINE SULFATE INJECTION 2 MG/ML SYRG IV PRN ×4 (04:58→17:49)
[2020-12-13 05:00] VITALS: BP 153/94
[2020-12-13 06:25] LABS: Basophils # (auto) 0.1 10 ^3/uL (0-0.2); Eosinophils # (auto) 0.3 10 ^3/uL (0-0.8); Eosinophils % (auto) 4.2 % (0.0-7.0); Hematocrit 34.2 % (36.0-46.0); Lymphocytes # (auto) 2.1 10 ^3/uL (0.4-5.4); Lymphocytes % (auto) 31.3 % (10.0-50.0); Mean Corpuscular Hemoglobin 31.3 pg (28.0-32.0); Mean Corpuscular Hgb Conc. 34.9 g/dL (32.0-36.0); Mean Corpuscular Volume 89.7 fL (80.0-100.0); Monocytes # (auto) 0.5 10 ^3/uL (0-1.3); Monocytes % (auto) 7.1 % (0.0-12.0); Neutrophils # (auto) 3.7 10 ^3/uL (1.6-8.6); Neutrophils % (auto) 56.4 % (37.0-80.0); Nucleated Red Blood Cells % 0.1 %; Red Blood Cells 3.82 10^6/uL (4.0-5.20); Red Cell Distribution Width 13.6 % (11.8-14.3); White Blood Cell 6.6 10^3/uL (4.4-10.8)
[2020-12-13 06:46] LABS: Calcium 7.9 mg/dL (8.5-10.1); Potassium 3.2 mmol/L (3.5-5.1)
[2020-12-13 06:48] LABS: BUN/Creatinine Ratio 8.2
[2020-12-13 09:06] VITALS: BP 147/76
[2020-12-13] MEDS: cefTRIAXone 1GM/50ML D5W 50 ML IV SCH (09:10)
[2020-12-13] MEDS: METOPROLOL TARTRATE 25 MG TAB PO SCH (09:10)
[2020-12-13] MEDS: PANTOPRAZOLE 40 MG/10 ML VIAL INJ IV SCH (09:21)
[2020-12-13] MEDS ORDERED: ATORVASTATIN 20 MG TAB PO SCH (10:00)
[2020-12-13 12:42] VITALS: BP 138/74
[2020-12-13 16:29] VITALS: BP 143/87
[2020-12-13] MEDS ORDERED: POTASSIUM CHL 20 Meq TABLET PO ONE (18:30)
[2020-12-13 20:28] VITALS: BP 150/83
[2020-12-13] MEDS: ACETAMINOPHEN 500 MG TAB PO PRN (20:54)
== END 2020-12-13 22:11 | disposition home or self-care (01) | DRG 241 ==
LOC: ER 15:17 → EDBD 15:17 → TELE 18:19 → TELE-WESTW 22:47
PROVIDERS: ADMIT Nurse Practitioner Acute Care; ATTEND Internal Medicine
DX: K29.70 Gastritis, unspecified, without bleeding (principal); D25.9 Leiomyoma of uterus, unspecified; E78.5 Hyperlipidemia, unspecified; I16.0 Hypertensive urgency; K29.80 Duodenitis without bleeding; I25.10 Atherosclerotic heart disease of native coronary artery without angina pectoris; J45.909 Unspecified asthma, uncomplicated; E66.9 Obesity, unspecified; F17.210 Nicotine dependence, cigarettes, uncomplicated; I10 Essential (primary) hypertension; K43.9 Ventral hernia without obstruction or gangrene; K21.9 Gastro-esophageal reflux disease without esophagitis; F41.9 Anxiety disorder, unspecified; Z20.822 Contact with and (suspected) exposure to COVID-19; D72.829 Elevated white blood cell count, unspecified; F12.90 Cannabis use, unspecified, uncomplicated; Z79.899 Other long term (current) drug therapy; Z80.41 Family history of malignant neoplasm of ovary; Z68.26 Body mass index [BMI] 26.0-26.9, adult; I25.2 Old myocardial infarction; Z82.49 Family history of ischemic heart disease and other diseases of the circulatory system; Z87.11 Personal history of peptic ulcer disease; Z90.49 Acquired absence of other specified parts of digestive tract; Z88.5 Allergy status to narcotic agent; Z88.1 Allergy status to other antibiotic agents
CPT/HCPCS: 36415; 70450; 71045; 74176; 80048; 80053; 80307; 81001; 84484; 85025; 87040; 87426; 93005; 93306; 94640; 96361; 96365; 96375; C9113; G0378; J0696; J2405; J3480; J3490

== ENCOUNTER 2021-10-02 20:47 | Emergency (ER) | payer MEDICAID ==
[~2021-10-02] VITALS: Ht 162.6 cm; Wt 63.5 kg
[~2021-10-02 20:47] MED LIST changes: +FIDA200T PO; +FURO20TA3 PO; +MONT-8 PO
[2021-10-02 21:41] LABS: Basophils # (auto) 0.1 10 ^3/uL (0-0.2); Basophils % (auto) 0.3 % (0.0-2.0); Eosinophils # (auto) 0 10 ^3/uL (0-0.8); Hematocrit 46.6 % (36.0-46.0); Hemoglobin 15.8 g/dL (12.2-16.2); Lymphocytes # (auto) 1.1 10 ^3/uL (0.4-5.4); Mean Corpuscular Hemoglobin 30.3 pg (28.0-32.0); Mean Corpuscular Volume 89.3 fL (80.0-100.0); Monocytes # (auto) 0.8 10 ^3/uL (0-1.3); Monocytes % (auto) 3.8 % (0.0-12.0); Neutrophils # (auto) 20.3 10 ^3/uL (1.6-8.6); Neutrophils % (auto) 90.9 % (37.0-80.0); Red Blood Cells 5.22 10^6/uL (4.0-5.20); Red Cell Distribution Width 13.6 % (11.8-14.3); White Blood Cell 22.3 10^3/uL (4.4-10.8)
[2021-10-02] MEDS ORDERED: ONDANSETRON HCL 4 MG/2 ML VIAL IV ONE (21:45)
[2021-10-02] MEDS ORDERED: MORPHINE SULFATE 4 MG/ML SYR/VIAL IV ONE (21:45)
[2021-10-02 21:50] LABS: Albumin 4.5 g/dL (3.4-5.0); BUN/Creatinine Ratio 18.5; Calcium 10.3 mg/dL (8.5-10.1); Potassium 3.7 mmol/L (3.5-5.1)
[2021-10-02 21:53] LABS: Bilirubin, Total 1.4 mg/dL (0.2-1.0); Total Protein 8.2 g/dL (6.4-8.2)
[2021-10-02 23:48] VITALS: BP 98/48
[2021-10-02 23:56] LABS: Urine Bacteria NONE SEEN /hpf (None Seen); Urine Blood 2+ /uL (Negative); Urine Hyaline Cast FEW /lpf (0 - 2); Urine Mucus FEW (None Seen); Urine Specific Gravity 1.031 (1.001-1.035); Urine WBC 14 /hpf (0 - 5)
== END 2021-10-03 00:02 | disposition home or self-care (01) ==
LOC: EDBD 20:47 → ER 20:47
DX: R07.89 Other chest pain (principal); I25.2 Old myocardial infarction; F12.10 Cannabis abuse, uncomplicated; Z88.6 Allergy status to analgesic agent; Z90.49 Acquired absence of other specified parts of digestive tract; Z90.89 Acquired absence of other organs; Z98.51 Tubal ligation status
CPT/HCPCS: 36415; 71045; 74176; 80053; 81001; 83690; 84484; 85025; 93005; 96374; 96375; 99285; J2270; J2405

== ENCOUNTER 2021-12-07 21:08 | Inpatient (IN) | payer MEDICAID ==
[~2021-12-07] VITALS: Ht 157.5 cm; Wt 56.7 kg
[2021-12-07] MEDS ORDERED: MORPHINE SULFATE 4 MG/ML SYR/VIAL IV ONE (21:30)
[2021-12-07 22:01] LABS: Basophils # (auto) 0.1 10 ^3/uL (0-0.2); Basophils % (auto) 0.4 % (0.0-2.0); Eosinophils # (auto) 0 10 ^3/uL (0-0.8); Eosinophils % (auto) 0.1 % (0.0-7.0); Hematocrit 43.8 % (36.0-46.0); Hemoglobin 14.6 g/dL (12.2-16.2); Lymphocytes # (auto) 1.4 10 ^3/uL (0.4-5.4); Lymphocytes % (auto) 10.4 % (10.0-50.0); Mean Corpuscular Hemoglobin 29.3 pg (28.0-32.0); Mean Corpuscular Hgb Conc. 33.3 g/dL (32.0-36.0); Mean Corpuscular Volume 87.8 fL (80.0-100.0); Monocytes # (auto) 1.1 10 ^3/uL (0-1.3); Monocytes % (auto) 7.7 % (0.0-12.0); Neutrophils # (auto) 11.1 10 ^3/uL (1.6-8.6); Neutrophils % (auto) 81.4 % (37.0-80.0); Nucleated Red Blood Cells % 0.2 %; Red Blood Cells 4.98 10^6/uL (4.0-5.20); White Blood Cell 13.6 10^3/uL (4.4-10.8)
[2021-12-07 22:13] LABS: Albumin 4.2 g/dL (3.4-5.0); BUN/Creatinine Ratio 5.3; Calcium 9.6 mg/dL (8.5-10.1)
[2021-12-07 22:16] LABS: Bilirubin, Total 1.2 mg/dL (0.2-1.0); Total Protein 7.6 g/dL (6.4-8.2)
[2021-12-07] MEDS ORDERED: HEPARIN DRIP/D5W 100UNITS/ML 250 ML IV SCH (22:45)
[2021-12-07] MEDS ORDERED: HEPARIN SODIUM (PORCINE) 5000 UNITS/ML 1ML VIAL IV ONE (22:45)
[2021-12-07] MEDS ORDERED: ASPirin 325 MG TAB PO ONE (23:00)
[2021-12-07] MEDS ORDERED: DEXTROSE (50%) 50ML SYRG IV PRN (23:45)
[2021-12-07] MEDS ORDERED: FUROSEMIDE 20 MG/2 ML VIAL IV ONE (23:45)
[2021-12-07] MEDS ORDERED: NITROGLYCERIN 0.4 MG SL TAB SL PRN (23:45)
[2021-12-07] MEDS ORDERED: ACETAMINOPHEN 325 MG TAB PO PRN (23:45)
[2021-12-07] MEDS ORDERED: DOCUSATE SOD 100 MG CAP PO PRN (23:45)
[2021-12-07] MEDS ORDERED: hydrALAZINE HCL 20 MG/ML VL IV PRN (23:45)
[2021-12-07] MEDS ORDERED: MORPHINE SULFATE INJ 2 MG/ml SYRG IV PRN (23:45)
[2021-12-07 23:50] LABS: INR 1.03 (0.9-1.15); Partial Thromboplastin Time 27.9 sec (24.6-33.4)
[2021-12-08] MEDS: HEPARIN DRIP/D5W 100UNITS/ML 250 ML IV SCH
[2021-12-08] MEDS: ONDANSETRON HCL 4 MG/2 ML VIAL IV PRN ×4 (00:58→21:51)
[2021-12-08] MEDS: MAGNESIUM SULFATE 1GM/100ML 100 ML IV SCH ×2 (00:59→02:17)
[2021-12-08] MEDS: POTASSIUM CHL 20MEQ/100ML 100 ML IV SCH ×2 (01:00→04:21)
[2021-12-08] MEDS: MORPHINE SULFATE INJ 2 MG/ml SYRG IV PRN ×5 (01:23→21:51)
[2021-12-08 02:00] LABS: Alcohol, Urine < 3.0 mg/dL (0-10); Amphetamine Screen, Urine NEGATIVE (NEGATIVE); Barbiturate Scree,Urine NEGATIVE (NEGATIVE); Benzodiazephine Screen, Urine NEGATIVE (NEGATIVE); Cannabinoid Screen, Urine POSITIVE (NEGATIVE); Cocaine Screen, Urine NEGATIVE (NEGATIVE); Opiate Scree,Urine POSITIVE (NEGATIVE); Phencyclidine Screen, Urine NEGATIVE (NEGATIVE)
[2021-12-08 05:00] VITALS: BP 143/88
[2021-12-08] MEDS: SODIUM CHLOR 0.9% PF (SALINE LOCK) 10ML VIAL/SYR IV SCH ×3 (05:24→21:45)
[2021-12-08] MEDS: InsuLIN REG 1unit/0.01ml Soln (100units/ml) SC SCH ×4 (06:35→21:45)
[2021-12-08] MEDS: ACCU-CHEK COMFORT CURVE STRIP VI SCH ×4 (06:36→21:46)
[2021-12-08 08:56] LABS: Albumin 3.6 g/dL (3.4-5.0)
[2021-12-08 09:00] VITALS: BP 132/86
[2021-12-08 09:02] LABS: BUN/Creatinine Ratio 11.5; Bilirubin, Total 0.9 mg/dL (0.2-1.0); Calcium 8.3 mg/dL (8.5-10.1); Total Protein 6.6 g/dL (6.4-8.2)
[2021-12-08 09:03] LABS: Basophils # (auto) 0.1 10 ^3/uL (0-0.2); Basophils % (auto) 0.6 % (0.0-2.0); Eosinophils # (auto) 0.2 10 ^3/uL (0-0.8); Eosinophils % (auto) 1.9 % (0.0-7.0); Hematocrit 41.9 % (36.0-46.0); Lymphocytes # (auto) 2.4 10 ^3/uL (0.4-5.4); Lymphocytes % (auto) 23.7 % (10.0-50.0); Mean Corpuscular Hemoglobin 29.6 pg (28.0-32.0); Mean Corpuscular Hgb Conc. 33.5 g/dL (32.0-36.0); Mean Corpuscular Volume 88.5 fL (80.0-100.0); Monocytes % (auto) 9.5 % (0.0-12.0); Neutrophils # (auto) 6.6 10 ^3/uL (1.6-8.6); Neutrophils % (auto) 64.3 % (37.0-80.0); Nucleated Red Blood Cells % 0.1 %; Red Blood Cells 4.73 10^6/uL (4.0-5.20); Red Cell Distribution Width 13.7 % (11.8-14.3); White Blood Cell 10.2 10^3/uL (4.4-10.8)
[2021-12-08] MEDS: FAMOTIDINE (10MG/ML) 2ML VL IV SCH ×2 (09:54→21:51)
[2021-12-08] MEDS: ASPirin 81 mg TAB PO SCH (09:54)
[2021-12-08] MEDS: CARVEDILOL 12.5 MG TAB PO SCH ×2 (09:54→21:52)
[2021-12-08] MEDS ORDERED: FUROSEMIDE 20 MG/2 ML VIAL IV SCH (10:00)
[2021-12-08 10:21] LABS: INR 1.02 (0.9-1.15); Partial Thromboplastin Time 62.3 sec (24.6-33.4)
[2021-12-08 13:00] VITALS: BP 116/85
[2021-12-08] MEDS ORDERED: POTASSIUM CHL 20MEQ/100ML 100 ML IV ONE (13:00)
[2021-12-08] MEDS ORDERED: POTASSIUM CHL 20 Meq TABLET PO ONE (13:00)
[2021-12-08 15:54] LABS: INR 1.02 (0.9-1.15); Partial Thromboplastin Time 50.7 sec (24.6-33.4)
[2021-12-08 17:10] VITALS: BP 118/82
[2021-12-08 21:38] LABS: INR 0.97 (0.9-1.15); Partial Thromboplastin Time 50.3 sec (24.6-33.4)
[2021-12-08 22:00] VITALS: BP 113/69
[2021-12-08] MEDS ORDERED: ATORVASTATIN 20 MG TAB PO SCH (22:00)
[2021-12-09] MEDS: MORPHINE SULFATE INJ 2 MG/ml SYRG IV PRN ×2 (01:49→18:28)
[2021-12-09] MEDS: HEPARIN DRIP/D5W 100UNITS/ML 250 ML IV SCH (01:54)
[2021-12-09] MEDS: ONDANSETRON HCL 4 MG/2 ML VIAL IV PRN ×3 (01:56→18:31)
[2021-12-09] MEDS: SODIUM CHLOR 0.9% PF (SALINE LOCK) 10ML VIAL/SYR IV SCH ×2 (04:16→14:00)
[2021-12-09 05:04] VITALS: BP 101/64
[2021-12-09 05:29] LABS: Basophils # (auto) 0.1 10 ^3/uL (0-0.2); Basophils % (auto) 0.9 % (0.0-2.0); Eosinophils # (auto) 0.5 10 ^3/uL (0-0.8); Eosinophils % (auto) 6.1 % (0.0-7.0); Hematocrit 40.6 % (36.0-46.0); Hemoglobin 13.6 g/dL (12.2-16.2); Lymphocytes # (auto) 3.4 10 ^3/uL (0.4-5.4); Lymphocytes % (auto) 38.7 % (10.0-50.0); Mean Corpuscular Hemoglobin 29.7 pg (28.0-32.0); Mean Corpuscular Hgb Conc. 33.5 g/dL (32.0-36.0); Mean Corpuscular Volume 88.7 fL (80.0-100.0); Monocytes # (auto) 0.8 10 ^3/uL (0-1.3); Monocytes % (auto) 8.6 % (0.0-12.0); Neutrophils # (auto) 4.1 10 ^3/uL (1.6-8.6); Neutrophils % (auto) 45.7 % (37.0-80.0); Nucleated Red Blood Cells % 0.1 %; Red Blood Cells 4.58 10^6/uL (4.0-5.20); Red Cell Distribution Width 13.5 % (11.8-14.3); White Blood Cell 8.9 10^3/uL (4.4-10.8)
[2021-12-09 05:44] LABS: BUN/Creatinine Ratio 9.7; Calcium 8.8 mg/dL (8.5-10.1)
[2021-12-09] MEDS: InsuLIN REG 1unit/0.01ml Soln (100units/ml) SC SCH ×3 (06:07→17:00)
[2021-12-09] MEDS: ACCU-CHEK COMFORT CURVE STRIP VI SCH ×3 (06:07→17:00)
[2021-12-09 09:27] VITALS: BP 123/78
[2021-12-09] MEDS ORDERED: POTASSIUM CHL 20 Meq TABLET PO SCH (10:00)
[2021-12-09] MEDS ORDERED: FUROSEMIDE 20 MG TAB PO SCH (10:00)
[2021-12-09] MEDS: ASPirin 81 mg TAB PO SCH (10:51)
[2021-12-09] MEDS: FAMOTIDINE (10MG/ML) 2ML VL IV SCH (10:52)
[2021-12-09] MEDS: CARVEDILOL 12.5 MG TAB PO SCH (10:54)
[2021-12-09 13:00] VITALS: BP 109/74
[2021-12-09] MEDS ORDERED: POTASSIUM CHL 20MEQ/100ML 100 ML IV ONE (14:45)
[2021-12-09] MEDS ORDERED: POTASSIUM CHL 20 Meq TABLET PO ONE (14:45)
[2021-12-09] MEDS ORDERED: POTA-220 PO (14:54)
[2021-12-09 16:52] VITALS: BP 94/57
[2021-12-09 19:37] VITALS: BP 95/59
== END 2021-12-09 19:45 | disposition home or self-care (01) | DRG 198 ==
LOC: ER 21:08 → EDBD 21:08 → TELE 23:44 → TELE-EAST 12-08 04:57
PROVIDERS: ADMIT Nurse Practitioner Family; ATTEND Internal Medicine
DX: R07.9 Chest pain, unspecified (principal); I25.10 Atherosclerotic heart disease of native coronary artery without angina pectoris; D72.828 Other elevated white blood cell count; E78.5 Hyperlipidemia, unspecified; E87.6 Hypokalemia; I10 Essential (primary) hypertension; J45.909 Unspecified asthma, uncomplicated; F41.9 Anxiety disorder, unspecified; R73.9 Hyperglycemia, unspecified; F12.90 Cannabis use, unspecified, uncomplicated; Z20.822 Contact with and (suspected) exposure to COVID-19; K21.9 Gastro-esophageal reflux disease without esophagitis; I25.2 Old myocardial infarction; Z80.41 Family history of malignant neoplasm of ovary; Z82.49 Family history of ischemic heart disease and other diseases of the circulatory system; Z87.11 Personal history of peptic ulcer disease; Z90.49 Acquired absence of other specified parts of digestive tract; Z91.19 Patient's noncompliance with other medical treatment and regimen; Z88.5 Allergy status to narcotic agent; Z91.018 Allergy to other foods; Z71.6 Tobacco abuse counseling
CPT/HCPCS: 36415; 71045; 74176; 80048; 80053; 80307; 82962; 83036; 83690; 83735; 83880; 84484; 85025; 85610; 85730; 93005; 93306; 96365; 96375; 99291; G0378; J2405; J3480; J3490

== ENCOUNTER 2022-02-02 14:28 | Emergency (ER) | payer MEDICAID ==
[~2022-02-02] VITALS: Ht 167.6 cm; Wt 77.0 kg
[~2022-02-02 14:28] MED LIST changes: +POTA-220 PO
[2022-02-02] MEDS ORDERED: MORPHINE SULFATE 4 MG/ML SYR/VIAL IV ONE (14:30)
[2022-02-02] MEDS ORDERED: PANTOPRAZOLE 40 MG/10 ML VIAL INJ IV ONE (14:30)
[2022-02-02] MEDS ORDERED: SODIUM CHLORIDE 0.9% 500 ML IVB ONE (14:30)
[2022-02-02] MEDS ORDERED: PROCHLORPERAZINE EDISYLATE 5 MG/ML 2ML VIAL IV ONE (14:30)
[2022-02-02 15:30] LABS: Hematocrit 45.4 % (36.0-46.0); Hemoglobin 14.8 g/dL (12.2-16.2); Mean Corpuscular Hemoglobin 29.5 pg (28.0-32.0); Mean Corpuscular Hgb Conc. 32.6 g/dL (32.0-36.0); Mean Corpuscular Volume 90.6 fL (80.0-100.0); Red Blood Cells 5.01 10^6/uL (4.0-5.20); Red Cell Distribution Width 14.4 % (11.8-14.3); White Blood Cell 15.5 10^3/uL (4.4-10.8)
[2022-02-02 15:43] LABS: Basophils % (manual) 0 (0.0-2.0); Blast Cells 0; Eosinophils % (manual) 0 (0-7); Metamyelocytes % 0; Myelocytes % 0; Promyelocytes % 0; Reactive Lymphocytes 0
[2022-02-02 15:45] LABS: Albumin 4.3 g/dL (3.4-5.0); Calcium 9.7 mg/dL (8.5-10.1); Potassium 3.9 mmol/L (3.5-5.1)
[2022-02-02 15:49] LABS: Bilirubin, Total 0.7 mg/dL (0.2-1.0)
[2022-02-02 16:00] LABS: Band Neutrophils % (manual) 2; Lymphocytes % (manual) 14 (10.0-50.0); Monocytes % (manual) 5 (0-12)
[2022-02-02] MEDS ORDERED: ONDA-144 PO (19:18)
[2022-02-02] MEDS ORDERED: PANT40TA2 PO (19:18)
[2022-02-02 22:42] VITALS: BP 115/64
== END 2022-02-02 23:20 | disposition home or self-care (01) ==
LOC: EDBD 14:28 → ER 14:28
DX: R10.84 Generalized abdominal pain (principal); R11.2 Nausea with vomiting, unspecified; I10 Essential (primary) hypertension; I25.2 Old myocardial infarction; I25.10 Atherosclerotic heart disease of native coronary artery without angina pectoris; K21.9 Gastro-esophageal reflux disease without esophagitis; E78.5 Hyperlipidemia, unspecified; J45.909 Unspecified asthma, uncomplicated; Z90.49 Acquired absence of other specified parts of digestive tract; Z90.89 Acquired absence of other organs; Z79.899 Other long term (current) drug therapy; Z91.018 Allergy to other foods; Z88.5 Allergy status to narcotic agent
CPT/HCPCS: 36415; 74176; 80053; 82150; 83690; 84484; 85007; 85027; 93005; 96361; 96374; 96375; 99285; C9113; J0780; J2270; J7040

== ENCOUNTER 2022-10-13 17:24 | Inpatient (IN) | payer MEDICAID, OTHER ==
[~2022-10-13] VITALS: Ht 160 cm; Wt 62.4 kg
[~2022-10-13 17:24] MED LIST changes: +ENAL1TAB42 PO; -ENAL2.5T7 PO; +ONDA-144 PO; +POTA-228 PO; -POTA10TA32 PO
[2022-10-13] MEDS ORDERED: MORPHINE SULFATE INJ 2 MG/ml SYRG IV PRN (19:45)
[2022-10-13] MEDS ORDERED: NITROGLYCERIN 0.4 MG SL TAB SL PRN (19:45)
[2022-10-13] MEDS ORDERED: ALBUTEROL SULF 2.5 MG/0.5ML(0.5%) NEB SOLN NEB PRN (19:45)
[2022-10-13] MEDS ORDERED: hydrALAZINE HCL 10 MG TAB PO PRN (19:45)
[2022-10-13] MEDS ORDERED: ACETAMINOPHEN 325 MG TAB PO PRN (19:45)
[2022-10-13] MEDS: ONDANSETRON HCL 4 MG/2 ML VIAL IV PRN (20:36)
[2022-10-13] MEDS: HYDROcodone-ACET 5/325MG TAB PO PRN (20:37)
[2022-10-13] MEDS ORDERED: cefTRIAXone 1GM/50ML D5W 50 ML IV SCH (21:00)
[2022-10-13 21:09] VITALS: BP 129/95
[2022-10-13] MEDS: ATORVASTATIN 20 MG TAB PO SCH (21:37)
[2022-10-13 22:00] VITALS: BP 164/119
[2022-10-13] MEDS ORDERED: METOPROLOL TARTRATE 25 MG TAB PO SCH (22:00)
[2022-10-13] MEDS ORDERED: ENOXAPARIN SOD 100 MG/1 ML SYRINGE SC SCH (22:00)
[2022-10-13 22:31] LABS: Basophils # (auto) 0 10 ^3/uL (0-0.2); Basophils % (auto) 0.1 % (0.0-2.0); Eosinophils # (auto) 0 10 ^3/uL (0-0.8); Hematocrit 43.2 % (36.0-46.0); Hemoglobin 14.5 g/dL (12.2-16.2); Lymphocytes # (auto) 1.2 10 ^3/uL (0.4-5.4); Lymphocytes % (auto) 6.9 % (10.0-50.0); Mean Corpuscular Hemoglobin 30.6 pg (28.0-32.0); Mean Corpuscular Hgb Conc. 33.5 g/dL (32.0-36.0); Mean Corpuscular Volume 91.4 fL (80.0-100.0); Monocytes # (auto) 1.1 10 ^3/uL (0-1.3); Monocytes % (auto) 6.6 % (0.0-12.0); Neutrophils # (auto) 14.5 10 ^3/uL (1.6-8.6); Neutrophils % (auto) 86.4 % (37.0-80.0); Red Blood Cells 4.73 10^6/uL (4.0-5.20); Red Cell Distribution Width 13.7 % (11.8-14.3); White Blood Cell 16.8 10^3/uL (4.4-10.8)
[2022-10-13 22:57] LABS: Calcium 8.7 mg/dL (8.5-10.1); Potassium 3.5 mmol/L (3.5-5.1)
[2022-10-14] VITALS (51 sets, daily range): BP systolic 78–139; BP diastolic 55–100
[2022-10-14] MEDS ORDERED: MORPHINE SULFATE INJ 2 MG/ml SYRG ONE (03:34)
[2022-10-14] MEDS: ONDANSETRON HCL 4 MG/2 ML VIAL IV PRN ×2 (03:35→21:59)
[2022-10-14] MEDS ORDERED: SODIUM CHLORIDE 0.9% 1,000 ML IV SCH (04:00)
[2022-10-14] MEDS ORDERED: MORPHINE SULFATE 4 MG/ML SYR/VIAL IV PRN (04:00)
[2022-10-14 04:38] LABS: Basophils # (auto) 0 10 ^3/uL (0-0.2); Basophils % (auto) 0.2 % (0.0-2.0); Eosinophils # (auto) 0 10 ^3/uL (0-0.8); Eosinophils % (auto) 0.1 % (0.0-7.0); Hematocrit 39.7 % (36.0-46.0); Hemoglobin 13.9 g/dL (12.2-16.2); Lymphocytes # (auto) 2.1 10 ^3/uL (0.4-5.4); Lymphocytes % (auto) 10.3 % (10.0-50.0); Mean Corpuscular Hemoglobin 31.1 pg (28.0-32.0); Mean Corpuscular Hgb Conc. 34.9 g/dL (32.0-36.0); Mean Corpuscular Volume 88.9 fL (80.0-100.0); Monocytes # (auto) 1.5 10 ^3/uL (0-1.3); Monocytes % (auto) 7.7 % (0.0-12.0); Neutrophils # (auto) 16.3 10 ^3/uL (1.6-8.6); Neutrophils % (auto) 81.7 % (37.0-80.0); Nucleated Red Blood Cells % 0.1 %; Red Blood Cells 4.46 10^6/uL (4.0-5.20); White Blood Cell 19.9 10^3/uL (4.4-10.8)
[2022-10-14 05:00] LABS: Lactic Acid w/Reflex 2.9 mmol/L (0.4-2.0)
[2022-10-14 05:02] LABS: Anion Gap 13 (5-15); BUN/Creatinine Ratio 18.9 (10.0-20.0); Blood Urea Nitrogen 14 mg/dL (7-18); Calcium 9.1 mg/dL (8.5-10.1); Carbon Dioxide 17 mmol/L (21-32); Chloride 109 mmol/L (98-107); GFR African American 103 mL/min; GFR Non-African American 85 mL/min; Glucose 136 mg/dL (74-106); Potassium 3.3 mmol/L (3.5-5.1); Sodium 139 mmol/L (136-145)
[2022-10-14] MEDS: HYDROcodone-ACET 5/325MG TAB PO PRN (05:47)
[2022-10-14] MEDS: ASPirin 81 mg TAB PO SCH (10:00)
[2022-10-14] MEDS: ENOXAPARIN SOD 60 MG/0.6 ML SYRINGE SC SCH ×2 (10:28→22:00)
[2022-10-14] MEDS: PANTOPRAZOLE 40 MG/10 ML VIAL INJ IV SCH (10:28)
[2022-10-14] MEDS ORDERED: POTASSIUM CHL 20MEQ/100ML 100 ML IV ONE (10:45)
[2022-10-14] MEDS ORDERED: AZITHROMYCIN 500MG/ 250ML 250 ML IV SCH (10:45)
[2022-10-14] MEDS ORDERED: OPTISON 3ml Vial for INJ IV ONE (10:54)
[2022-10-14] MEDS ORDERED: SODIUM CHLORIDE 0.9% 500 ML IV ONE (11:00)
[2022-10-14] MEDS: SODIUM CHLORIDE 0.9% 1,000 ML IV SCH (11:40)
[2022-10-14 12:03] LABS: Urine Bacteria NONE SEEN /hpf (None Seen); Urine Blood 2+ /uL (Negative); Urine Mucus FEW (None Seen); Urine Specific Gravity 1.025 (1.001-1.035); Urine WBC 71 /hpf (0 - 5)
[2022-10-14 12:37] LABS: Alcohol, Urine < 3.0 mg/dL (0-10)
[2022-10-14] MEDS: CEFEPIME 1GM/ 50ML 50 ML IV SCH ×3 (12:47→22:01)
[2022-10-14 12:58] LABS: Amphetamine Screen, Urine NEGATIVE (NEGATIVE); Barbiturate Scree,Urine NEGATIVE (NEGATIVE); Benzodiazephine Screen, Urine NEGATIVE (NEGATIVE); Cannabinoid Screen, Urine POSITIVE (NEGATIVE); Cocaine Screen, Urine NEGATIVE (NEGATIVE); Opiate Scree,Urine POSITIVE (NEGATIVE); Phencyclidine Screen, Urine NEGATIVE (NEGATIVE)
[2022-10-14] MEDS ORDERED: VERAPAMIL 2.5MG/ML INJ 2ML VIAL IV ONE (14:51)
[2022-10-14] MEDS ORDERED: HEPARIN SODIUM (PORCINE) 5000 UNITS/ML 1ML VIAL ONE (14:51)
[2022-10-14] MEDS ORDERED: fentaNYL CITRATE 100 MCG/2 ML VL ONE (14:51)
[2022-10-14] MEDS ORDERED: ANGIOMAX 250 MG VIAL IV ONE (14:51)
[2022-10-14] MEDS ORDERED: SODIUM CHL 0.9% 0 ML ONE (14:52)
[2022-10-14] MEDS ORDERED: MIDAZOLAM HCL 2MG/2ML 2ml VIAL (1mg/ml) ONE (14:52)
[2022-10-14] MEDS ORDERED: IODIXANOL 320MG/ML 100ML BTL IV ONE (14:52)
[2022-10-14 18:32] LABS: INR 1.05 (0.9-1.15); Partial Thromboplastin Time 50.4 sec (24.6-33.4)
[2022-10-14] MEDS: MORPHINE SULFATE INJ 2 MG/ml SYRG IV PRN (21:58)
[2022-10-14] MEDS: ATORVASTATIN 20 MG TAB PO SCH (21:59)
[2022-10-14] MEDS ORDERED: SACUBITRIL-VALSARTAN 24mg/26mg TAB PO SCH (22:00)
[2022-10-15] VITALS (18 sets, daily range): BP systolic 81–125; BP diastolic 45–85
[2022-10-15] MEDS: SODIUM CHLORIDE 0.9% 1,000 ML IV SCH ×2 (01:07→07:00)
[2022-10-15] MEDS: ONDANSETRON HCL 4 MG/2 ML VIAL IV PRN (03:19)
[2022-10-15] MEDS: MORPHINE SULFATE INJ 2 MG/ml SYRG IV PRN ×2 (03:20→08:56)
[2022-10-15 04:24] LABS: Basophils # (auto) 0.1 10 ^3/uL (0-0.2); Basophils % (auto) 0.7 % (0.0-2.0); Eosinophils # (auto) 0.1 10 ^3/uL (0-0.8); Eosinophils % (auto) 0.7 % (0.0-7.0); Hematocrit 35.8 % (36.0-46.0); Hemoglobin 11.9 g/dL (12.2-16.2); Lymphocytes # (auto) 2.8 10 ^3/uL (0.4-5.4); Mean Corpuscular Hemoglobin 30.9 pg (28.0-32.0); Mean Corpuscular Hgb Conc. 33.3 g/dL (32.0-36.0); Mean Corpuscular Volume 92.6 fL (80.0-100.0); Monocytes # (auto) 0.9 10 ^3/uL (0-1.3); Monocytes % (auto) 6.8 % (0.0-12.0); Neutrophils # (auto) 8.8 10 ^3/uL (1.6-8.6); Neutrophils % (auto) 69.8 % (37.0-80.0); Nucleated Red Blood Cells % 0.1 %; Red Blood Cells 3.87 10^6/uL (4.0-5.20); Red Cell Distribution Width 13.6 % (11.8-14.3); White Blood Cell 12.6 10^3/uL (4.4-10.8)
[2022-10-15 04:53] LABS: BUN/Creatinine Ratio 22.6 (10.0-20.0); Calcium 8.3 mg/dL (8.5-10.1); Potassium 3.5 mmol/L (3.5-5.1)
[2022-10-15] MEDS: CEFEPIME 1GM/ 50ML 50 ML IV SCH (05:30)
[2022-10-15] MEDS ORDERED: HCTZ 25 MG TAB PO SCH (10:00)
[2022-10-15] MEDS ORDERED: POTASSIUM CHL 20 Meq TABLET PO SCH (10:00)
[2022-10-15] MEDS ORDERED: POTASSIUM CHL 20 Meq TABLET PO ONE (10:45)
[2022-10-15] MEDS ORDERED: SACU1TAB PO (10:51)
[2022-10-15] MEDS ORDERED: ASPI-325 PO (10:51)
[2022-10-15] MEDS ORDERED: BACDST PO (10:52)
[2022-10-15] MEDS: PANTOPRAZOLE 40 MG/10 ML VIAL INJ IV SCH (11:12)
[2022-10-15] MEDS: ASPirin 81 mg TAB PO SCH (11:12)
[2022-10-16] MEDS ORDERED: ENOXAPARIN SOD 40 MG/0.4 ML SYRINGE SC SCH (10:00)
== END 2022-10-15 17:00 | disposition home or self-care (01) | DRG 720 ==
LOC: EAST 19:22 → TELE-EAST 19:56 → ICU WEST 10-14 02:11
PROVIDERS: ADMIT Internal Medicine; ATTEND Internal Medicine
PROC: 4A023N7 Measurement of Cardiac Sampling and Pressure, Left Heart, Percutaneous Approach (ICD-10-PCS; principal; 2022-10-14)
PROC: B211YZZ Fluoroscopy of Multiple Coronary Arteries using Other Contrast (ICD-10-PCS; 2022-10-14)
PROC: B215YZZ Fluoroscopy of Left Heart using Other Contrast (ICD-10-PCS; 2022-10-14)
PROC: 05HF33Z Insertion of Infusion Device into Left Cephalic Vein, Percutaneous Approach (ICD-10-PCS; 2022-10-14)
PROC: B54NZZA Ultrasonography of Left Upper Extremity Veins, Guidance (ICD-10-PCS; 2022-10-14)
DX: A41.9 Sepsis, unspecified organism (principal); I21.4 Non-ST elevation (NSTEMI) myocardial infarction; I51.81 Takotsubo syndrome; N39.0 Urinary tract infection, site not specified; I10 Essential (primary) hypertension; D64.9 Anemia, unspecified; F41.9 Anxiety disorder, unspecified; I25.10 Atherosclerotic heart disease of native coronary artery without angina pectoris; J45.909 Unspecified asthma, uncomplicated; K21.9 Gastro-esophageal reflux disease without esophagitis; E78.5 Hyperlipidemia, unspecified; R73.9 Hyperglycemia, unspecified; E87.6 Hypokalemia; I25.2 Old myocardial infarction; Z90.49 Acquired absence of other specified parts of digestive tract
CPT/HCPCS: 36415; 71045; 76937; 80048; 80307; 81001; 83036; 83605; 83735; 84484; 85025; 85610; 85730; 87040; 87081; 87086; 93005; 93306; 99152; 99153; C9113; G0378; J0696; J2250; J2405; J3480; Q9956; Q9967

== ENCOUNTER 2022-10-16 12:50 | Inpatient (IN) | payer MEDICAID, OTHER ==
[~2022-10-16] VITALS: Ht 157.5 cm; Wt 60.5 kg
[~2022-10-16 12:50] MED LIST changes: +ASPI-325 PO; +BACDST PO; -ENAL1TAB42 PO; -FIDA200T PO; -METO25TA5 PO; -POTA-220 PO; +SACU1TAB PO
[2022-10-16 13:28] LABS: Basophils # (auto) 0.1 10 ^3/uL (0-0.2); Basophils % (auto) 0.6 % (0.0-2.0); Eosinophils # (auto) 0.1 10 ^3/uL (0-0.8); Eosinophils % (auto) 1.1 % (0.0-7.0); Hematocrit 33.9 % (36.0-46.0); Hemoglobin 11.6 g/dL (12.2-16.2); Lymphocytes % (auto) 22.3 % (10.0-50.0); Mean Corpuscular Hemoglobin 30.9 pg (28.0-32.0); Mean Corpuscular Hgb Conc. 34.2 g/dL (32.0-36.0); Mean Corpuscular Volume 90.5 fL (80.0-100.0); Monocytes # (auto) 0.9 10 ^3/uL (0-1.3); Monocytes % (auto) 9.9 % (0.0-12.0); Neutrophils # (auto) 5.8 10 ^3/uL (1.6-8.6); Neutrophils % (auto) 66.1 % (37.0-80.0); Nucleated Red Blood Cells % 0.1 %; Red Blood Cells 3.74 10^6/uL (4.0-5.20); Red Cell Distribution Width 13.4 % (11.8-14.3); White Blood Cell 8.8 10^3/uL (4.4-10.8)
[2022-10-16 13:41] LABS: Albumin 2.9 g/dL (3.4-5.0); Calcium 7.4 mg/dL (8.5-10.1); Magnesium 1.8 mg/dL (1.6-2.6)
[2022-10-16 13:44] LABS: BUN/Creatinine Ratio 11.8 (10.0-20.0); Bilirubin, Total 0.6 mg/dL (0.2-1.0); Total Protein 5.4 g/dL (6.4-8.2)
[2022-10-16 14:17] LABS: INR 1.03 (0.9-1.15); Partial Thromboplastin Time 30.5 sec (24.6-33.4)
[2022-10-16] MEDS ORDERED: POTASSIUM CHL 20 Meq TABLET PO ONE (14:30)
[2022-10-16 18:42] LABS: Urine Bacteria NONE SEEN /hpf (None Seen); Urine Blood TRACE /uL (Negative); Urine Hyaline Cast FEW /lpf (0 - 2); Urine Mucus FEW (None Seen); Urine Specific Gravity 1.013 (1.001-1.035); Urine WBC 2 /hpf (0 - 5)
[2022-10-16] MEDS ORDERED: ALBUMIN 25% 100 ML IV ONE (21:30)
[2022-10-16] MEDS ORDERED: HEPARIN SODIUM (PORCINE) 5000 UNITS/ML 1ML VIAL IV ONE (21:30)
[2022-10-16] MEDS ORDERED: FUROSEMIDE 20 MG/2 ML VIAL IV ONE (21:30)
[2022-10-16] MEDS ORDERED: DOCUSATE SOD 100 MG CAP PO PRN (21:30)
[2022-10-16] MEDS: SODIUM CHLOR 0.9% PF (SALINE LOCK) 10ML VIAL/SYR IV SCH (21:51)
[2022-10-16] MEDS: ATORVASTATIN 20 MG TAB PO SCH (21:52)
[2022-10-16] MEDS: ACETAMINOPHEN 325 MG TAB PO PRN (21:52)
[2022-10-16] MEDS: CARVEDILOL 3.125 MG TAB PO SCH (22:44)
[2022-10-16] MEDS ORDERED: NITROGLYCERIN 0.4 MG SL TAB SL PRN (23:30)
[2022-10-16] MEDS ORDERED: MORPHINE SULFATE INJ 2 MG/ml SYRG IV PRN (23:30)
[2022-10-17 04:48] LABS: Basophils # (auto) 0.1 10 ^3/uL (0-0.2); Basophils % (auto) 1.1 % (0.0-2.0); Eosinophils # (auto) 0.4 10 ^3/uL (0-0.8); Eosinophils % (auto) 4.8 % (0.0-7.0); Hematocrit 35.4 % (36.0-46.0); Hemoglobin 12.2 g/dL (12.2-16.2); Lymphocytes # (auto) 2.4 10 ^3/uL (0.4-5.4); Lymphocytes % (auto) 29.7 % (10.0-50.0); Mean Corpuscular Hemoglobin 30.6 pg (28.0-32.0); Mean Corpuscular Hgb Conc. 34.4 g/dL (32.0-36.0); Mean Corpuscular Volume 88.9 fL (80.0-100.0); Monocytes # (auto) 0.7 10 ^3/uL (0-1.3); Monocytes % (auto) 9.1 % (0.0-12.0); Neutrophils # (auto) 4.4 10 ^3/uL (1.6-8.6); Neutrophils % (auto) 55.3 % (37.0-80.0); Nucleated Red Blood Cells % 0.2 %; Red Blood Cells 3.98 10^6/uL (4.0-5.20); Red Cell Distribution Width 13.5 % (11.8-14.3)
[2022-10-17 05:03] LABS: Albumin 3.8 g/dL (3.4-5.0); Calcium 8.5 mg/dL (8.5-10.1); Potassium 3.5 mmol/L (3.5-5.1)
[2022-10-17 05:07] LABS: BUN/Creatinine Ratio 10.5 (10.0-20.0); Bilirubin, Total 0.7 mg/dL (0.2-1.0)
[2022-10-17] MEDS: SODIUM CHLOR 0.9% PF (SALINE LOCK) 10ML VIAL/SYR IV SCH ×3 (06:00→23:30)
[2022-10-17] MEDS: ACETAMINOPHEN 325 MG TAB PO PRN ×2 (06:46→12:53)
[2022-10-17] MEDS: ONDANSETRON HCL 4 MG/2 ML VIAL IV PRN ×2 (06:46→12:54)
[2022-10-17] MEDS: CARVEDILOL 3.125 MG TAB PO SCH ×2 (10:28→22:00)
[2022-10-17] MEDS: ASPirin 81 mg TAB PO SCH (10:28)
[2022-10-17] MEDS: FUROSEMIDE 20 MG/2 ML VIAL IV SCH (10:29)
[2022-10-17] MEDS: HEPARIN SODIUM (PORCINE) 5000 UNITS/ML 1ML VIAL SC SCH ×3 (10:31→23:17)
[2022-10-17 10:59] VITALS: BP 128/91
[2022-10-17 12:21] VITALS: BP 128/91
[2022-10-17 13:00] VITALS: BP 128/91
[2022-10-17 17:00] VITALS: BP 119/88
[2022-10-17 18:16] VITALS: BP 119/88
[2022-10-17] MEDS: HYDROcodone-ACET 5/325MG TAB PO PRN (18:36)
[2022-10-17 22:00] VITALS: BP 102/70
[2022-10-17] MEDS: ATORVASTATIN 20 MG TAB PO SCH (23:16)
[2022-10-18] MEDS: HYDROcodone-ACET 5/325MG TAB PO PRN (00:43)
[2022-10-18] MEDS: ONDANSETRON HCL 4 MG/2 ML VIAL IV PRN (00:47)
[2022-10-18 05:00] VITALS: BP 99/62
[2022-10-18] MEDS: SODIUM CHLOR 0.9% PF (SALINE LOCK) 10ML VIAL/SYR IV SCH ×2 (06:27→14:00)
[2022-10-18 08:59] VITALS: BP 101/63
[2022-10-18] MEDS: HEPARIN SODIUM (PORCINE) 5000 UNITS/ML 1ML VIAL SC SCH (10:00)
[2022-10-18] MEDS: ASPirin 81 mg TAB PO SCH (10:50)
[2022-10-18] MEDS: FUROSEMIDE 20 MG/2 ML VIAL IV SCH (10:50)
[2022-10-18] MEDS: CARVEDILOL 3.125 MG TAB PO SCH (10:50)
[2022-10-18 13:00] VITALS: BP 111/69
[2022-10-18 16:45] VITALS: BP 111/72
[2022-10-18 16:55] VITALS: BP 111/69
== END 2022-10-18 18:20 | disposition home health service (06) | DRG 198 ==
LOC: ER 12:50 → EDBD 12:50 → TELE 23:23 → TELE-WESTW 10-17 11:18
PROVIDERS: ADMIT Nurse Practitioner Family; ATTEND Internal Medicine
DX: R07.9 Chest pain, unspecified (principal); I25.2 Old myocardial infarction; I42.8 Other cardiomyopathies; I50.22 Chronic systolic (congestive) heart failure; I11.0 Hypertensive heart disease with heart failure; D64.9 Anemia, unspecified; E87.6 Hypokalemia; F41.9 Anxiety disorder, unspecified; K21.9 Gastro-esophageal reflux disease without esophagitis; E78.5 Hyperlipidemia, unspecified; J44.9 Chronic obstructive pulmonary disease, unspecified; F17.210 Nicotine dependence, cigarettes, uncomplicated; J45.909 Unspecified asthma, uncomplicated; Z80.41 Family history of malignant neoplasm of ovary; Z82.49 Family history of ischemic heart disease and other diseases of the circulatory system; Z87.11 Personal history of peptic ulcer disease; Z91.018 Allergy to other foods; Z88.5 Allergy status to narcotic agent; Z90.49 Acquired absence of other specified parts of digestive tract; Z90.89 Acquired absence of other organs; Z98.51 Tubal ligation status
CPT/HCPCS: 36415; 71046; 80053; 81001; 83735; 83880; 84484; 85025; 85610; 85730; 87081; 93005; 96365; 96375; G0378; J2405; P9047

== ENCOUNTER 2022-10-21 20:50 | Inpatient (IN) | payer MEDICAID, OTHER ==
[~2022-10-21] VITALS: Ht 157.5 cm; Wt 58.4 kg
[2022-10-21 21:59] LABS: Basophils # (auto) 0.1 10 ^3/uL (0-0.2); Basophils % (auto) 0.5 % (0.0-2.0); Eosinophils # (auto) 0.1 10 ^3/uL (0-0.8); Eosinophils % (auto) 0.5 % (0.0-7.0); Hematocrit 42.7 % (36.0-46.0); Hemoglobin 14.1 g/dL (12.2-16.2); Lymphocytes # (auto) 2.2 10 ^3/uL (0.4-5.4); Lymphocytes % (auto) 14.4 % (10.0-50.0); Mean Corpuscular Hemoglobin 30.1 pg (28.0-32.0); Mean Corpuscular Hgb Conc. 33.1 g/dL (32.0-36.0); Mean Corpuscular Volume 90.9 fL (80.0-100.0); Monocytes # (auto) 0.9 10 ^3/uL (0-1.3); Monocytes % (auto) 5.7 % (0.0-12.0); Neutrophils # (auto) 11.8 10 ^3/uL (1.6-8.6); Neutrophils % (auto) 78.9 % (37.0-80.0); Nucleated Red Blood Cells % 0.1 %
[2022-10-21 22:19] LABS: Partial Thromboplastin Time 27.6 sec (24.6-33.4)
[2022-10-21] MEDS ORDERED: ONDANSETRON HCL 4 MG/2 ML VIAL IV ONE (22:30)
[2022-10-21] MEDS ORDERED: HYDROmorphone HCL 2 MG/ML VL/or syr IV ONE (22:30)
[2022-10-21 22:38] LABS: Albumin 4.8 g/dL (3.4-5.0); Calcium 9.8 mg/dL (8.5-10.1); Magnesium 1.9 mg/dL (1.6-2.6); Potassium 3.6 mmol/L (3.5-5.1)
[2022-10-21 22:41] LABS: BUN/Creatinine Ratio 15.3 (10.0-20.0); Bilirubin, Total 0.9 mg/dL (0.2-1.0); Total Protein 8.2 g/dL (6.4-8.2)
[2022-10-22] MEDS ORDERED: ONDANSETRON HCL 4 MG/2 ML VIAL IV ONE ×2 (00:30→03:45)
[2022-10-22] MEDS ORDERED: amLODIPine BESYLATE 5 MG TAB PO ONE ×2 (00:30)
[2022-10-22] MEDS ORDERED: LORazepam 2MG/ML-1ML VIAL IV ONE ×3 (00:30→03:45)
[2022-10-22] MEDS ORDERED: AZITHROMYCIN 500MG/ 250ML 250 ML IV ONE (02:15)
[2022-10-22] MEDS ORDERED: cefTRIAXone 1GM/50ML D5W 50 ML IV ONE (02:15)
[2022-10-22] MEDS ORDERED: HALOPERIDOL LACTATE 5 MG/ML INJ VIAL IM ONE (05:00)
[2022-10-22] MEDS ORDERED: MORPHINE SULFATE INJ 2 MG/ml SYRG IV PRN (05:30)
[2022-10-22] MEDS ORDERED: NITROGLYCERIN 0.4 MG SL TAB SL PRN (05:30)
[2022-10-22] MEDS ORDERED: TEMAZEPAM 15 MG CAP PO PRN (05:30)
[2022-10-22] MEDS ORDERED: ONDANSETRON HCL 4 MG/2 ML VIAL IV PRN (05:30)
[2022-10-22 05:31] LABS: Urine Bacteria NONE SEEN /hpf (None Seen); Urine Blood Negative /uL (Negative); Urine Mucus FEW (None Seen); Urine WBC 1 /hpf (0 - 5)
[2022-10-22 06:06] LABS: Urine Specific Gravity > 1.050 (1.001-1.035)
[2022-10-22 09:19] LABS: Alcohol, Urine < 3.0 mg/dL (0-10); Amphetamine Screen, Urine NEGATIVE (NEGATIVE); Barbiturate Scree,Urine NEGATIVE (NEGATIVE); Benzodiazephine Screen, Urine NEGATIVE (NEGATIVE); Cannabinoid Screen, Urine POSITIVE (NEGATIVE); Cocaine Screen, Urine NEGATIVE (NEGATIVE)
[2022-10-22 09:27] LABS: Opiate Scree,Urine NEGATIVE (NEGATIVE); Phencyclidine Screen, Urine NEGATIVE (NEGATIVE)
[2022-10-22] MEDS: METOPROLOL TARTRATE 25 MG TAB PO SCH ×2 (10:00→22:48)
[2022-10-22] MEDS: cefTRIAXone 1GM/50ML D5W 50 ML IV SCH (10:14)
[2022-10-22] MEDS: PANTOPRAZOLE 40 MG TAB PO SCH (10:15)
[2022-10-22] MEDS: ASPirin 81 mg TAB PO SCH (10:15)
[2022-10-22] MEDS: ENOXAPARIN SOD 40 MG/0.4 ML SYRINGE SC SCH (10:16)
[2022-10-22 14:27] LABS: Basophils # (auto) 0.1 10 ^3/uL (0-0.2); Basophils % (auto) 0.6 % (0.0-2.0); Eosinophils # (auto) 0.1 10 ^3/uL (0-0.8); Eosinophils % (auto) 1.2 % (0.0-7.0); Hematocrit 36.1 % (36.0-46.0); Hemoglobin 12.3 g/dL (12.2-16.2); Lymphocytes # (auto) 3.1 10 ^3/uL (0.4-5.4); Lymphocytes % (auto) 29.8 % (10.0-50.0); Monocytes # (auto) 0.9 10 ^3/uL (0-1.3); Monocytes % (auto) 8.6 % (0.0-12.0); Neutrophils # (auto) 6.3 10 ^3/uL (1.6-8.6); Neutrophils % (auto) 59.8 % (37.0-80.0); Nucleated Red Blood Cells % 0.1 %; Red Blood Cells 3.97 10^6/uL (4.0-5.20); White Blood Cell 10.5 10^3/uL (4.4-10.8)
[2022-10-22] MEDS ORDERED: ALBUMIN 5% 250 ML IV ONE (21:45)
[2022-10-22] MEDS ORDERED: ATORVASTATIN 20 MG TAB PO SCH (22:00)
[2022-10-22] MEDS: SACUBITRIL-VALSARTAN 24mg/26mg TAB PO SCH (22:49)
[2022-10-22] MEDS: SUCRALFATE 1 GM TAB PO SCH (22:51)
[2022-10-22] MEDS ORDERED: IBUPROFEN 600 MG TAB PO ONE (23:30)
[2022-10-23] MEDS ORDERED: ALBUMIN 5% 250 ML IV ONE (02:45)
[2022-10-23] MEDS: SUCRALFATE 1 GM TAB PO SCH ×2 (06:22→14:16)
[2022-10-23 07:11] LABS: Basophils # (auto) 0.1 10 ^3/uL (0-0.2); Basophils % (auto) 0.9 % (0.0-2.0); Eosinophils # (auto) 0.2 10 ^3/uL (0-0.8); Eosinophils % (auto) 3.4 % (0.0-7.0); Hematocrit 37.2 % (36.0-46.0); Hemoglobin 12.7 g/dL (12.2-16.2); Lymphocytes # (auto) 2.3 10 ^3/uL (0.4-5.4); Lymphocytes % (auto) 38.5 % (10.0-50.0); Mean Corpuscular Hemoglobin 31.1 pg (28.0-32.0); Mean Corpuscular Hgb Conc. 34.2 g/dL (32.0-36.0); Mean Corpuscular Volume 90.9 fL (80.0-100.0); Monocytes # (auto) 0.6 10 ^3/uL (0-1.3); Monocytes % (auto) 9.2 % (0.0-12.0); Neutrophils # (auto) 2.9 10 ^3/uL (1.6-8.6); Nucleated Red Blood Cells % 0.1 %; Red Blood Cells 4.09 10^6/uL (4.0-5.20)
[2022-10-23 07:21] LABS: Albumin 3.8 g/dL (3.4-5.0); Potassium 3.7 mmol/L (3.5-5.1)
[2022-10-23 07:25] LABS: BUN/Creatinine Ratio 15.7 (10.0-20.0); Bilirubin, Total 1.2 mg/dL (0.2-1.0); Total Protein 6.5 g/dL (6.4-8.2)
[2022-10-23] MEDS: cefTRIAXone 1GM/50ML D5W 50 ML IV SCH (08:47)
[2022-10-23] MEDS: METOPROLOL TARTRATE 25 MG TAB PO SCH (10:00)
[2022-10-23] MEDS: SACUBITRIL-VALSARTAN 24mg/26mg TAB PO SCH (10:00)
[2022-10-23 10:26] VITALS: BP_SYST 100; BP_SYST 113; BP_DIAS 62; BP_DIAS 71
[2022-10-23 10:30] VITALS: BP 100/62
[2022-10-23] MEDS: PANTOPRAZOLE 40 MG TAB PO SCH (10:46)
[2022-10-23] MEDS: ASPirin 81 mg TAB PO SCH (10:46)
[2022-10-23] MEDS: ENOXAPARIN SOD 40 MG/0.4 ML SYRINGE SC SCH (10:47)
[2022-10-23 12:30] VITALS: BP 113/71
[2022-10-23] MEDS ORDERED: ACETAMINOPHEN/CODEINE#3 (300/30mg) TAB PO PRN (12:30)
[2022-10-23] MEDS ORDERED: POLYETHYLENE GLYCOL 17 GM PWDR PO ONE (12:30)
[2022-10-23 17:26] VITALS: BP 105/73
[2022-10-23 17:54] VITALS: BP 105/73
== END 2022-10-23 18:35 | disposition home or self-care (01) | DRG 249 ==
LOC: EDBD 20:50 → ER 20:56 → TELE 10-22 05:26 → TELE-EAST 10-23 09:39
PROVIDERS: ADMIT Nurse Practitioner; ATTEND Internal Medicine
DX: R11.2 Nausea with vomiting, unspecified (principal); I21.A1 Myocardial infarction type 2; I11.0 Hypertensive heart disease with heart failure; I42.8 Other cardiomyopathies; I95.9 Hypotension, unspecified; I50.9 Heart failure, unspecified; E86.0 Dehydration; D72.829 Elevated white blood cell count, unspecified; D25.9 Leiomyoma of uterus, unspecified; E78.5 Hyperlipidemia, unspecified; I25.10 Atherosclerotic heart disease of native coronary artery without angina pectoris; F12.90 Cannabis use, unspecified, uncomplicated; F41.9 Anxiety disorder, unspecified; F17.210 Nicotine dependence, cigarettes, uncomplicated; G89.29 Other chronic pain; K21.9 Gastro-esophageal reflux disease without esophagitis; J44.9 Chronic obstructive pulmonary disease, unspecified; Z80.41 Family history of malignant neoplasm of ovary; Z87.11 Personal history of peptic ulcer disease; Z82.49 Family history of ischemic heart disease and other diseases of the circulatory system; Z88.6 Allergy status to analgesic agent; Z91.018 Allergy to other foods; Z88.1 Allergy status to other antibiotic agents; Z88.5 Allergy status to narcotic agent; Z90.49 Acquired absence of other specified parts of digestive tract
CPT/HCPCS: 36415; 71045; 74176; 74177; 80053; 80307; 81001; 83690; 83735; 83880; 84484; 85025; 85610; 85730; 87081; 93005; 93306; 96365; 96375; G0378; J0696; J2405

== ENCOUNTER 2023-04-13 11:36 | Day surgery (SDC) | payer MEDICAID ==
[~2023-04-13] VITALS: Ht 157.5 cm; Wt 62.1 kg
[2023-04-13] VITALS (9 sets, daily range): BP systolic 107–141; BP diastolic 68–86; PULSE 52–74; RESP 11–16; TEMP 98.1; O2SAT 94–100
[~2023-04-13 11:36] MED LIST changes: -BACDST PO
[2023-04-13] MEDS ORDERED: VERAPAMIL 2.5MG/ML INJ 2ML VIAL IV ONE (13:53)
[2023-04-13] MEDS ORDERED: fentaNYL CITRATE 100 MCG/2 ML VL ONE (13:53)
[2023-04-13] MEDS ORDERED: SODIUM CHL 0.9% 0 ML ONE (13:53)
[2023-04-13] MEDS ORDERED: MIDAZOLAM HCL 2MG/2ML 2ml VIAL (1mg/ml) ONE (13:53)
[2023-04-13] MEDS ORDERED: HEPARIN SODIUM (PORCINE) 5000 UNITS/ML 1ML VIAL ONE (13:53)
[2023-04-13] MEDS ORDERED: ANGIOMAX 250 MG VIAL IV ONE (13:53)
[2023-04-13] MEDS ORDERED: LIDOCAINE 2%HCL (LOCAL ANESTH.) INJ 20ML MDV ONE (14:01)
[2023-04-13] MEDS ORDERED: ACETAMINOPHEN 500 MG TAB PO ONE ×2 (15:58→16:00)
== END 2023-04-13 16:35 | disposition home or self-care (01) ==
LOC: CATH 11:36
PROVIDERS: ATTEND Internal Medicine
DX: R94.39 Abnormal result of other cardiovascular function study (principal); I20.9 Angina pectoris, unspecified; J44.9 Chronic obstructive pulmonary disease, unspecified; I50.9 Heart failure, unspecified; F41.8 Other specified anxiety disorders; F17.210 Nicotine dependence, cigarettes, uncomplicated; F12.90 Cannabis use, unspecified, uncomplicated; Z82.49 Family history of ischemic heart disease and other diseases of the circulatory system; Z87.01 Personal history of pneumonia (recurrent); Z82.5 Family history of asthma and other chronic lower respiratory diseases; Z83.49 Family history of other endocrine, nutritional and metabolic diseases; Z83.42 Family history of familial hypercholesterolemia; Z80.41 Family history of malignant neoplasm of ovary; Z91.018 Allergy to other foods; Z88.6 Allergy status to analgesic agent; Z79.82 Long term (current) use of aspirin; Z79.899 Other long term (current) drug therapy; Z98.51 Tubal ligation status; Z98.891 History of uterine scar from previous surgery; Z98.890 Other specified postprocedural states
CPT/HCPCS: 93458; C1725; C1894; J1644; J2250; J3010; 99152

== ENCOUNTER 2023-10-26 14:30 | Inpatient (IN) | payer MEDICAID, OTHER ==
[~2023-10-26] VITALS: Ht 157.5 cm; Wt 75.0 kg
[2023-10-26 15:29] LABS: Basophils # (auto) 0.1 10 ^3/uL (0-0.2); Basophils % (auto) 0.8 % (0.0-2.0); Eosinophils # (auto) 0.1 10 ^3/uL (0-0.8); Hemoglobin 14.1 g/dL (12.2-16.2); Mean Corpuscular Hemoglobin 30.5 pg (28.0-32.0); Mean Corpuscular Hgb Conc. 33.6 g/dL (32.0-36.0); Mean Corpuscular Volume 90.8 fL (80.0-100.0); Monocytes # (auto) 0.6 10 ^3/uL (0-1.3); Monocytes % (auto) 5.7 % (0.0-12.0); Neutrophils # (auto) 7.1 10 ^3/uL (1.6-8.6); Neutrophils % (auto) 72.5 % (37.0-80.0); Red Blood Cells 4.62 10^6/uL (4.0-5.20); Red Cell Distribution Width 14.7 % (11.8-14.3); White Blood Cell 9.8 10^3/uL (4.4-10.8)
[2023-10-26 15:50] LABS: Alanine Aminotransferase 13 U/L (7-40); Albumin 4.8 g/dL (3.2-4.8); Alkaline Phosphatase 88 U/L (46-116); Anion Gap 6 (5-15); Aspartate Aminotransferase 11 U/L (13-40); Bilirubin, Total 0.8 mg/dL (0.2-1.0); Blood Urea Nitrogen 9 mg/dL (9-23); Calcium 10.5 mg/dL (8.5-10.1); Carbon Dioxide 20 mmol/L (20-30); Chloride 116 mmol/L (98-107); Glucose 121 mg/dL (74-106); Sodium 142 mmol/L (136-145); Total Protein 7.7 g/dL (5.7-8.2)
[2023-10-26] MEDS ORDERED: DOCUSATE SOD 100 MG CAP PO PRN (16:45)
[2023-10-26] MEDS ORDERED: HYDROcodone-ACET 5/325MG TAB PO PRN (16:45)
[2023-10-26] MEDS: SODIUM CHLORIDE 0.9% 1,000 ML IV ONE ×2 (20:30→20:31)
[2023-10-26] MEDS: KETOROLAC TROMETH 30 MG/ML 1ML VIAL IV ONE (20:30)
[2023-10-26] MEDS: ONDANSETRON HCL 4 MG/2 ML VIAL IV ONE (20:30)
[2023-10-26] MEDS: SODIUM CHLORIDE 0.9% 1,000 ML IV SCH (20:39)
[2023-10-26 20:57] VITALS: PULSE 99; RESP 16; O2SAT 95
[2023-10-26] MEDS: LORazepam 0.5 MG TAB PO PRN (22:21)
[2023-10-27] MEDS: hydrALAZINE HCL 20 MG/ML VL IV PRN (02:45)
[2023-10-27 09:27] VITALS: BP 138/92; PULSE 110; RESP 18; TEMP 98.9; O2SAT 98
[2023-10-27] MEDS: MORPHINE SULFATE INJ 2 MG/ml SYRG IV PRN (09:51)
[2023-10-27] MEDS: ENOXAPARIN SOD 40 MG/0.4 ML SYRINGE SC SCH (09:52)
[2023-10-27 10:00] VITALS: PULSE 108; RESP 20; O2SAT 97
[2023-10-27] MEDS: ACETAMINOPHEN 325 MG TAB PO PRN (12:05)
[2023-10-27 12:55] VITALS: BP 138/84; PULSE 103; RESP 16; TEMP 98.8; O2SAT 98
[2023-10-27 16:35] VITALS: BP 153/67; PULSE 75; RESP 18; TEMP 98.9; O2SAT 100
[2023-10-27 20:00] VITALS: PULSE 99
[2023-10-27 21:00] VITALS: BP 132/93; PULSE 79; RESP 14; TEMP 98; O2SAT 98
[2023-10-28 01:00] VITALS: BP 132/81; PULSE 80; RESP 18; TEMP 97.9; O2SAT 94
[2023-10-28 05:00] VITALS: BP 126/84; PULSE 67; RESP 18; TEMP 98.6; O2SAT 97
[2023-10-28 08:57] VITALS: BP 133/70; PULSE 52; RESP 19; TEMP 98.2; O2SAT 99
[2023-10-28 12:03] VITALS: BP 132/71; PULSE 64; RESP 19; TEMP 98.4; O2SAT 98
[2023-10-28 12:58] LABS: Urine Bacteria None Seen /hpf (None Seen)
[2023-10-28 13:11] LABS: Urine Blood 3+ /uL (Negative); Urine Clarity Ex.Turbid (Clear); Urine Color Light-Orange (Yellow); Urine Mucus MANY (None Seen); Urine Protein, UAD 2+ (Negative); Urine Urobilinogen 2 mg/dL (Negative); Urine WBC 50 /hpf (0 - 5)
[2023-10-28 13:25] LABS: Amphetamine Screen, Urine Neg (NEGATIVE); Barbiturate Scree,Urine Neg (NEGATIVE); Benzodiazephine Screen, Urine Neg (NEGATIVE); Cocaine Screen, Urine Neg (NEGATIVE); Opiate Scree,Urine Pos (NEGATIVE); Phencyclidine Screen, Urine Neg (NEGATIVE)
[2023-10-28 13:26] LABS: Cannabinoid Screen, Urine Pos (NEGATIVE)
[2023-10-28 15:29] VITALS: BP 131/71; PULSE 66; RESP 16; TEMP 36.9; O2SAT 98
[2023-10-28 16:44] VITALS: BP 150/87; PULSE 67; RESP 19; TEMP 97.9; O2SAT 97
== END 2023-10-28 17:15 | disposition home or self-care (01) | DRG 243 ==
LOC: ER 14:30 → EDBD 14:30 → OVERFLOW 16:40 → WEST WING 10-27 08:47
PROVIDERS: ADMIT Internal Medicine; ATTEND Internal Medicine
DX: K21.9 Gastro-esophageal reflux disease without esophagitis (principal); I11.0 Hypertensive heart disease with heart failure; I50.9 Heart failure, unspecified; E78.5 Hyperlipidemia, unspecified; F12.90 Cannabis use, unspecified, uncomplicated; F17.210 Nicotine dependence, cigarettes, uncomplicated; I25.10 Atherosclerotic heart disease of native coronary artery without angina pectoris; J44.9 Chronic obstructive pulmonary disease, unspecified; F41.9 Anxiety disorder, unspecified; Z88.5 Allergy status to narcotic agent; Z91.018 Allergy to other foods; Z90.49 Acquired absence of other specified parts of digestive tract; Z87.11 Personal history of peptic ulcer disease; Z79.82 Long term (current) use of aspirin; I25.2 Old myocardial infarction; Z98.51 Tubal ligation status; Z80.9 Family history of malignant neoplasm, unspecified; Z82.49 Family history of ischemic heart disease and other diseases of the circulatory system
CPT/HCPCS: 36415; 74176; 80053; 80307; 81001; 84484; 85025; 97163; G0378; J1885; J2405

== ENCOUNTER 2023-12-13 15:17 | Inpatient (IN) | payer MEDICAID ==
[~2023-12-13] VITALS: Ht 157.5 cm; Wt 62.0 kg
[~2023-12-13 15:17] MED LIST changes: +LACT10SO3 PO; +ONDA-188 PO
[2023-12-13] MEDS: PANTOPRAZOLE 40 MG/10 ML VIAL INJ IV ONE (15:30)
[2023-12-13] MEDS: SODIUM CHLORIDE 0.9% 1,000 ML IVB ONE (15:30)
[2023-12-13] MEDS: PROCHLORPERAZINE EDISYLATE 5 MG/ML 2ML VIAL IV ONE (15:30)
[2023-12-13] MEDS: MORPHINE SULFATE 4 MG/ML SYR/VIAL IV ONE ×2 (15:30→19:09)
[2023-12-13 16:18] LABS: Basophils # (auto) 0.1 10 ^3/uL (0-0.2); Basophils % (auto) 0.3 % (0.0-2.0); Eosinophils # (auto) 0 10 ^3/uL (0-0.8); Hematocrit 42.9 % (36.0-46.0); Hemoglobin 14.5 g/dL (12.2-16.2); Lymphocytes # (auto) 1.4 10 ^3/uL (0.4-5.4); Mean Corpuscular Hemoglobin 30.9 pg (28.0-32.0); Mean Corpuscular Hgb Conc. 33.7 g/dL (32.0-36.0); Mean Corpuscular Volume 91.6 fL (80.0-100.0); Monocytes % (auto) 4.9 % (0.0-12.0); Neutrophils # (auto) 17.5 10 ^3/uL (1.6-8.6); Neutrophils % (auto) 87.8 % (37.0-80.0); Red Blood Cells 4.69 10^6/uL (4.0-5.20); Red Cell Distribution Width 14.3 % (11.8-14.3)
[2023-12-13 16:36] LABS: Alanine Aminotransferase 11 U/L (7-40); Alkaline Phosphatase 80 U/L (46-116); Anion Gap 15 (5-15); Calcium 10.5 mg/dL (8.7-10.4); Carbon Dioxide 19 mmol/L (20-30); Chloride 112 mmol/L (98-107); Glucose 179 mg/dL (74-106); Lipase 28 U/L (12-53); Potassium 4.1 mmol/L (3.5-5.1); Sodium 146 mmol/L (136-145)
[2023-12-13 16:37] LABS: Albumin 4.9 g/dL (3.2-4.8); Aspartate Aminotransferase 13 U/L (13-40); BUN/Creatinine Ratio 12.9 (10.0-20.0); Bilirubin, Total 1.2 mg/dL (0.2-1.0); Blood Urea Nitrogen 11 mg/dL (9-23); Total Protein 7.8 g/dL (5.7-8.2)
[2023-12-13 17:00] VITALS: PULSE 94; RESP 14; O2SAT 95
[2023-12-13 17:57] LABS: Amphetamine Screen, Urine Neg (NEGATIVE); Barbiturate Scree,Urine Neg (NEGATIVE); Benzodiazephine Screen, Urine Neg (NEGATIVE); Cannabinoid Screen, Urine Pos (NEGATIVE); Cocaine Screen, Urine Neg (NEGATIVE); Opiate Scree,Urine Pos (NEGATIVE); Phencyclidine Screen, Urine Neg (NEGATIVE)
[2023-12-13 18:15] LABS: Urine Bacteria FEW /hpf (None Seen); Urine Blood 2+ /uL (Negative); Urine Budding Yeast OCCASIONAL /hpf (None Seen); Urine Clarity Clear (Clear); Urine Hyaline Cast FEW /lpf (0 - 2); Urine Mucus FEW (None Seen); Urine Protein, UAD TRACE (Negative); Urine Specific Gravity 1.008 (1.001-1.035); Urine Urobilinogen Normal (Negative); Urine WBC 2 /hpf (0 - 5); Urine pH 7.5 (5.0-9.0)
[2023-12-13 18:17] LABS: Urine Color STRAW (Yellow)
[2023-12-13] MEDS: hydrALAZINE HCL 20 MG/ML VL IV ONE (18:49)
[2023-12-13] MEDS: ONDANSETRON HCL 4 MG/2 ML VIAL IV ONE (19:09)
[2023-12-13 20:00] VITALS: PULSE 112; RESP 18; O2SAT 97
[2023-12-13] MEDS ORDERED: DOCUSATE SOD 100 MG CAP PO PRN (20:30)
[2023-12-13] MEDS ORDERED: MORPHINE SULFATE INJ 2 MG/ml SYRG IV PRN (20:30)
[2023-12-13] MEDS ORDERED: PROCHLORPERAZINE EDISYLATE 5 MG/ML 2ML VIAL IV PRN (20:30)
[2023-12-13] MEDS ORDERED: NITROGLYCERIN 0.4 MG SL TAB SL PRN (20:30)
[2023-12-13] MEDS: SOD CHL 0.45% 1,000 ML IV SCH (20:30)
[2023-12-13] MEDS ORDERED: cloNIDine HCL 0.1 MG TAB PO PRN (20:30)
[2023-12-13] MEDS ORDERED: ONDANSETRON HCL 4 MG/2 ML VIAL IV PRN (20:30)
[2023-12-13] MEDS ORDERED: ACETAMINOPHEN 325 MG TAB PO PRN (20:30)
[2023-12-13 20:58] LABS: Hematocrit 45.3 % (36.0-46.0); Mean Corpuscular Hemoglobin 30.5 pg (28.0-32.0); Mean Corpuscular Hgb Conc. 33.2 g/dL (32.0-36.0); Red Blood Cells 4.92 10^6/uL (4.0-5.20); Red Cell Distribution Width 14.4 % (11.8-14.3); White Blood Cell 19.7 10^3/uL (4.4-10.8)
[2023-12-13 21:00] LABS: Band Neutrophils % (manual) 0; Basophils % (manual) 0 (0.0-2.0); Eosinophils % (manual) 0 (0-7)
[2023-12-13 21:01] LABS: Blast Cells 0; Metamyelocytes % 0; Myelocytes % 0; Promyelocytes % 0; Reactive Lymphocytes 0
[2023-12-13] MEDS: hydrALAZINE HCL 20 MG/ML VL IV PRN (21:03)
[2023-12-13] MEDS: dilTIAZem 25 MG/5 ML VIAL IV ONE (22:10)
[2023-12-13] MEDS: LORazepam 2MG/ML-1ML VIAL IV PRN (22:26)
[2023-12-13 22:32] LABS: Lymphocytes % (manual) 6 (10.0-50.0); Monocytes % (manual) 3 (0-12); Platelet Estimate Adequate
[2023-12-13] MEDS: PIPERACILLIN-TAZOB 3.375GM 100 ML IV SCH (22:54)
[2023-12-14] VITALS (11 sets, daily range): BP systolic 92–166; BP diastolic 59–100; PULSE 61–100; RESP 16–20; TEMP 98.3–99.3; O2SAT 91–99
[2023-12-14] MEDS: METOPROLOL TARTRATE 25 MG TAB PO ONE (01:06)
[2023-12-14] MEDS: ONDANSETRON HCL 4 MG/2 ML VIAL IV PRN (01:34)
[2023-12-14] MEDS: MORPHINE SULFATE INJ 2 MG/ml SYRG IV PRN (01:36)
[2023-12-14 08:16] LABS: Basophils # (auto) 0 10 ^3/uL (0-0.2); Basophils % (auto) 0.3 % (0.0-2.0); Eosinophils # (auto) 0 10 ^3/uL (0-0.8); Hematocrit 43.9 % (36.0-46.0); Hemoglobin 14.6 g/dL (12.2-16.2); Lymphocytes # (auto) 1.4 10 ^3/uL (0.4-5.4); Lymphocytes % (auto) 8.2 % (10.0-50.0); Mean Corpuscular Hemoglobin 30.1 pg (28.0-32.0); Mean Corpuscular Hgb Conc. 33.1 g/dL (32.0-36.0); Mean Corpuscular Volume 90.7 fL (80.0-100.0); Monocytes # (auto) 1.3 10 ^3/uL (0-1.3); Monocytes % (auto) 7.6 % (0.0-12.0); Neutrophils # (auto) 14.2 10 ^3/uL (1.6-8.6); Neutrophils % (auto) 83.9 % (37.0-80.0); Red Blood Cells 4.84 10^6/uL (4.0-5.20); Red Cell Distribution Width 14.7 % (11.8-14.3)
[2023-12-14 08:32] LABS: Chloride 110 mmol/L (98-107); Potassium 3.3 mmol/L (3.5-5.1); Sodium 144 mmol/L (136-145)
[2023-12-14 08:33] LABS: Anion Gap 11 (5-15); Calcium 10.2 mg/dL (8.7-10.4); Carbon Dioxide 23 mmol/L (20-30)
[2023-12-14 08:38] LABS: BUN/Creatinine Ratio 18.9 (10.0-20.0); Blood Urea Nitrogen 14 mg/dL (9-23); Glucose 123 mg/dL (74-106); Magnesium 1.7 mg/dL (1.6-2.6)
[2023-12-14] MEDS: ENOXAPARIN SOD 40 MG/0.4 ML SYRINGE SC SCH (10:00)
[2023-12-14] MEDS: METOPROLOL TARTRATE 25 MG TAB PO SCH (11:27)
[2023-12-14] MEDS: MANNITOL 20% SOLN 100 gm/500ml 300 ML IV ONE (17:00)
[2023-12-15] VITALS (7 sets, daily range): BP systolic 102–137; BP diastolic 57–84; PULSE 54–63; RESP 16–18; TEMP 98–98.3; O2SAT 93–98
[2023-12-15 06:20] LABS: Chloride 105 mmol/L (98-107); Potassium 3.3 mmol/L (3.5-5.1); Sodium 140 mmol/L (136-145)
[2023-12-15 06:21] LABS: Anion Gap 9 (5-15); Calcium 9.9 mg/dL (8.7-10.4); Carbon Dioxide 26 mmol/L (20-30)
[2023-12-15 06:22] LABS: Basophils # (auto) 0.1 10 ^3/uL (0-0.2); Basophils % (auto) 0.5 % (0.0-2.0); Eosinophils # (auto) 0.1 10 ^3/uL (0-0.8); Eosinophils % (auto) 0.6 % (0.0-7.0); Hematocrit 41.3 % (36.0-46.0); Lymphocytes # (auto) 2.8 10 ^3/uL (0.4-5.4); Lymphocytes % (auto) 20.4 % (10.0-50.0); Mean Corpuscular Hemoglobin 30.7 pg (28.0-32.0); Mean Corpuscular Hgb Conc. 33.8 g/dL (32.0-36.0); Mean Corpuscular Volume 90.7 fL (80.0-100.0); Monocytes # (auto) 0.9 10 ^3/uL (0-1.3); Monocytes % (auto) 6.8 % (0.0-12.0); Neutrophils # (auto) 9.7 10 ^3/uL (1.6-8.6); Neutrophils % (auto) 71.7 % (37.0-80.0); Red Blood Cells 4.56 10^6/uL (4.0-5.20); Red Cell Distribution Width 14.6 % (11.8-14.3); White Blood Cell 13.5 10^3/uL (4.4-10.8)
[2023-12-15 06:26] LABS: BUN/Creatinine Ratio 16.9 (10.0-20.0); Blood Urea Nitrogen 12 mg/dL (9-23); Glucose 92 mg/dL (74-106)
[2023-12-15] MEDS: POTASSIUM CHL 20 Meq TABLET PO ONE (11:38)
[2023-12-15] MEDS: MAGNESIUM SULFATE 1GM/100ML 100 ML IV SCH (11:38)
[2023-12-15] MEDS: traMADol HCL 50 MG TAB PO PRN (13:09)
[2023-12-15] MEDS ORDERED: ESCI10TA PO (16:39)
[2023-12-15] MEDS ORDERED: PANT40TA2 PO (16:39)
[2023-12-15] MEDS ORDERED: ALBU108A5 INH (16:39)
[2023-12-15] MEDS ORDERED: MET25T PO (16:39)
[2023-12-15] MEDS ORDERED: DICY10CA PO (16:39)
[2023-12-15] MEDS ORDERED: FEZO45TA PO (16:39)
[2023-12-15] MEDS ORDERED: ZOLPIDEM TARTRATE 5 MG TAB PO PRN (20:15)
[2023-12-15] MEDS: ZOLPIDEM TARTRATE 5 MG TAB PO PRN (22:19)
[2023-12-16] VITALS (8 sets, daily range): BP systolic 99–139; BP diastolic 52–72; PULSE 48–62; RESP 16–19; TEMP 97.6–98.8; O2SAT 94–97
[2023-12-16 10:21] LABS: Basophils # (auto) 0.1 10 ^3/uL (0-0.2); Basophils % (auto) 0.6 % (0.0-2.0); Eosinophils # (auto) 0.1 10 ^3/uL (0-0.8); Eosinophils % (auto) 1.6 % (0.0-7.0); Hematocrit 41.2 % (36.0-46.0); Hemoglobin 13.5 g/dL (12.2-16.2); Lymphocytes # (auto) 2.1 10 ^3/uL (0.4-5.4); Lymphocytes % (auto) 27.5 % (10.0-50.0); Mean Corpuscular Hemoglobin 30.3 pg (28.0-32.0); Mean Corpuscular Hgb Conc. 32.9 g/dL (32.0-36.0); Mean Corpuscular Volume 92.1 fL (80.0-100.0); Monocytes # (auto) 0.6 10 ^3/uL (0-1.3); Monocytes % (auto) 7.4 % (0.0-12.0); Neutrophils # (auto) 4.9 10 ^3/uL (1.6-8.6); Neutrophils % (auto) 62.9 % (37.0-80.0); Red Blood Cells 4.47 10^6/uL (4.0-5.20); Red Cell Distribution Width 14.3 % (11.8-14.3); White Blood Cell 7.8 10^3/uL (4.4-10.8)
[2023-12-16 10:44] LABS: Chloride 105 mmol/L (98-107); Potassium 3.6 mmol/L (3.5-5.1); Sodium 138 mmol/L (136-145)
[2023-12-16 10:45] LABS: Anion Gap 6 (5-15); Carbon Dioxide 27 mmol/L (20-30)
[2023-12-16 10:46] LABS: Calcium 9.2 mg/dL (8.7-10.4)
[2023-12-16 10:50] LABS: BUN/Creatinine Ratio 9.2 (10.0-20.0); Blood Urea Nitrogen 7 mg/dL (9-23); Glucose 100 mg/dL (74-106)
[2023-12-17] VITALS (8 sets, daily range): BP systolic 106–152; BP diastolic 55–92; PULSE 51–58; RESP 16–20; TEMP 97.9–98.8; O2SAT 94–100
[2023-12-17 06:18] LABS: Chloride 106 mmol/L (98-107); Potassium 3.7 mmol/L (3.5-5.1); Sodium 141 mmol/L (136-145)
[2023-12-17 06:19] LABS: Anion Gap 6 (5-15); Carbon Dioxide 29 mmol/L (20-30)
[2023-12-17 06:20] LABS: Calcium 9.4 mg/dL (8.7-10.4)
[2023-12-17 06:22] LABS: Basophils # (auto) 0 10 ^3/uL (0-0.2); Basophils % (auto) 0.6 % (0.0-2.0); Eosinophils # (auto) 0.3 10 ^3/uL (0-0.8); Eosinophils % (auto) 4.4 % (0.0-7.0); Hematocrit 39.1 % (36.0-46.0); Lymphocytes # (auto) 2.2 10 ^3/uL (0.4-5.4); Lymphocytes % (auto) 34.4 % (10.0-50.0); Mean Corpuscular Hemoglobin 30.5 pg (28.0-32.0); Mean Corpuscular Hgb Conc. 33.3 g/dL (32.0-36.0); Mean Corpuscular Volume 91.8 fL (80.0-100.0); Monocytes # (auto) 0.6 10 ^3/uL (0-1.3); Monocytes % (auto) 9.5 % (0.0-12.0); Neutrophils # (auto) 3.3 10 ^3/uL (1.6-8.6); Neutrophils % (auto) 51.1 % (37.0-80.0); Red Blood Cells 4.25 10^6/uL (4.0-5.20); Red Cell Distribution Width 13.9 % (11.8-14.3); White Blood Cell 6.5 10^3/uL (4.4-10.8)
[2023-12-17 06:24] LABS: BUN/Creatinine Ratio 8.5 (10.0-20.0); Blood Urea Nitrogen 6 mg/dL (9-23); Glucose 105 mg/dL (74-106)
[2023-12-17 16:13] LABS: Prothrombin Time 10.6 sec (9.3-11.8)
[2023-12-18] VITALS (8 sets, daily range): BP systolic 92–129; BP diastolic 42–72; PULSE 51–92; RESP 11–22; TEMP 97.6–98.1; O2SAT 96–100
[2023-12-18 06:56] LABS: Anion Gap 6 (5-15); Carbon Dioxide 27 mmol/L (20-30); Chloride 108 mmol/L (98-107); Potassium 3.8 mmol/L (3.5-5.1); Sodium 141 mmol/L (136-145)
[2023-12-18 06:57] LABS: Calcium 9.1 mg/dL (8.7-10.4)
[2023-12-18 07:02] LABS: Glucose 99 mg/dL (74-106)
[2023-12-18 07:04] LABS: BUN/Creatinine Ratio 8.5 (10.0-20.0); Blood Urea Nitrogen < 5 mg/dL (9-23)
[2023-12-18] MEDS ORDERED: fentaNYL CITRATE 100 MCG/2 ML VL ONE (11:41)
[2023-12-18] MEDS ORDERED: KETOROLAC TROMETH 30 MG/ML 1ML VIAL ONE (11:41)
[2023-12-18] MEDS ORDERED: MIDAZOLAM HCL 2MG/2ML 2ml VIAL (1mg/ml) ONE (11:41)
[2023-12-18] MEDS ORDERED: LIDOCAINE 2% (LOCAL ANESTH.) PF 5ml SDV ONE (11:41)
[2023-12-18] MEDS ORDERED: DexAMETHasone SOD PHOS 10MG/1ML VIAL INJ ONE (11:41)
[2023-12-18] MEDS ORDERED: GLYCOPYRROLATE 0.2 MG/ML 1ML VIAL ONE (11:41)
[2023-12-18] MEDS ORDERED: PROPOFOL 10 MG/ML 20 ML IV ONE (11:41)
[2023-12-18] MEDS ORDERED: ONDANSETRON HCL 4 MG/2 ML VIAL ONE (11:41)
[2023-12-18] MEDS ORDERED: MEPERIDINE HCL (25 MG/ML) 1ML VIAL ONE (11:46)
[2023-12-18] MEDS ORDERED: HYDROmorphone HCL 2 MG/ML VL/or syr IV PRN (12:15)
[2023-12-18] MEDS: IOHEXOL 300 MG/ML 100ML BOTTLE IJ ONE (12:19)
[2023-12-18] MEDS: CIPROFLOXACIN 400MG/200ML 200 ML IV ONE (12:22)
[2023-12-18] MEDS ORDERED: MEPERIDINE HCL (50 MG/ML) 1 ML VIAL ONE (12:53)
[2023-12-18] MEDS ORDERED: FUROSEMIDE 20 MG/2 ML VIAL ONE (13:46)
[2023-12-19] VITALS (8 sets, daily range): BP systolic 107–134; BP diastolic 52–82; PULSE 58–90; RESP 18–22; TEMP 97.6–98.6; O2SAT 93–100
[2023-12-19] MEDS: SODIUM CHLORIDE 0.9% 500 ML IV ONE (08:00)
[2023-12-19] MEDS: MANNITOL FTV 25% 12.5 GM/50 ML 50 ML IV ONE (09:49)
[2023-12-19] MEDS ORDERED: HYDR-4902 PO (13:50)
[2023-12-19] MEDS ORDERED: AUG875T PO (13:50)
[2023-12-20] VITALS (8 sets, daily range): BP systolic 111–149; BP diastolic 55–98; PULSE 56–63; RESP 18–20; TEMP 97.5–98.9; O2SAT 95–100
[2023-12-20 14:31] LABS: Hematocrit 37.4 % (36.0-46.0); Hemoglobin 12.6 g/dL (12.2-16.2)
[2023-12-21 01:00] VITALS: BP 103/59; PULSE 65; RESP 18; TEMP 98.5; O2SAT 95
[2023-12-21 08:00] VITALS: PULSE 58; PULSE 62; RESP 18; O2SAT 95
[2023-12-21 09:00] VITALS: BP 137/81; PULSE 56; RESP 18; TEMP 98.8; O2SAT 100
[2023-12-21 13:00] VITALS: BP 137/69; PULSE 57; RESP 18; TEMP 98.5; O2SAT 99
[2023-12-21 15:28] VITALS: BP 137/69; PULSE 57; RESP 16; TEMP 98.5; O2SAT 99
== END 2023-12-21 16:41 | disposition home or self-care (01) | DRG 465 ==
LOC: ER 15:17 → EDBD 15:17 → EDUNIT# 15:17 → TELE 20:35 → TELE-EAST 12-14 03:30
PROVIDERS: ADMIT Nurse Practitioner Family; ATTEND Internal Medicine
PROC: 0TF68ZZ Fragmentation in Right Ureter, Via Natural or Artificial Opening Endoscopic (ICD-10-PCS; 2023-12-18)
PROC: 0T768DZ Dilation of Right Ureter with Intraluminal Device, Via Natural or Artificial Opening Endoscopic (ICD-10-PCS; principal; 2023-12-18 12:22)
DX: N13.2 Hydronephrosis with renal and ureteral calculous obstruction (principal); I24.89 Other forms of acute ischemic heart disease; I11.0 Hypertensive heart disease with heart failure; D25.9 Leiomyoma of uterus, unspecified; D72.829 Elevated white blood cell count, unspecified; F11.20 Opioid dependence, uncomplicated; K21.9 Gastro-esophageal reflux disease without esophagitis; I25.10 Atherosclerotic heart disease of native coronary artery without angina pectoris; K59.00 Constipation, unspecified; E87.6 Hypokalemia; F12.20 Cannabis dependence, uncomplicated; J44.9 Chronic obstructive pulmonary disease, unspecified; F17.210 Nicotine dependence, cigarettes, uncomplicated; R31.0 Gross hematuria; Z79.899 Other long term (current) drug therapy; Z91.018 Allergy to other foods; Z90.49 Acquired absence of other specified parts of digestive tract; I25.2 Old myocardial infarction; Z87.11 Personal history of peptic ulcer disease; Z82.49 Family history of ischemic heart disease and other diseases of the circulatory system; Z80.41 Family history of malignant neoplasm of ovary; Z79.82 Long term (current) use of aspirin
CPT/HCPCS: 36415; 74018; 74176; 76775; 80048; 80053; 80307; 81001; 82962; 83690; 83735; 84484; 85007; 85014; 85018; 85025; 85027; 85610; 86850; 86900; 86901; 87040; 93005; 93306; G0378; J1100; J1885; J2001; J2250; J2405; J2470; J2543; J2704

== ENCOUNTER 2024-11-06 08:52 | Inpatient (IN) | payer MEDICAID ==
[~2024-11-06] VITALS: Ht 157.5 cm; Wt 61.7 kg
[~2024-11-06 08:52] MED LIST changes: +ALBU108A5 INH; +AUG875T PO; +DICY10CA PO; +ESCI10TA PO; +FEZO45TA PO; +HYDR-4902 PO; +MET25T PO; -ONDA-144 PO
--- NOTE | 2024-11-06 09:12 | ED.PDOC ---
GI ASSESSMENT HPI Comments 64 year old female presents to the ED via EMS with a chief compliant of abdominal pain onset 2 days. Patient states she began experiencing abdominal pain, epigastric region, 2 days ago, noticed pain worsen today. Patient is currently experiencing nausea, vomiting, constipation. Per EMS, patient was given Zofran PO in route to ED. She has been seen at [facility] multiple times for similar symptoms, last admission October 2023, patient was recommended to stop marijuana use, patient admits she continues smoking marijuana. PMHx Anemia, anxiety, asthma, CAD, CHF, COPD, GERD, HLD, HTN, KS, PUD, peptic ulcer. Denies chest pain, shortness of breath, dizziness, blurry vision, dysuria, hematuria, fevers. No other symptoms or modifying factors present at this time. Chief Complaint: Abdominal Pain Time Seen by MD: 09:00 Primary Care Provider: NONE Reviewed Notes: Medications, Allergies Allergies: Coded Allergies: Codeine (Verified Allergy, Unknown, 02/16/20) Hydrocodone (Verified Allergy, Unknown, 04/08/23) Mushroom Extract Complex (Verified Allergy, Unknown, MUSHROOMS, 04/08/23) Uncoded Allergies: ACID FRUITS, MUSHROOMS (Allergy, Unknown, 03/28/14) Home Meds Active Scripts Hydrocodone-Acetaminophen (Hydrocodone Bitartrate/AC 5-325 mg) 1 Tab Tab, 1 TAB PO Q8HP PRN, #12 TAB Prov:RUSSELL HARRELL MD 12/19/23 Amoxicillin & Pot Clavulanate (AUGMENTIN TABLET) 875 Mg Tb, 875 MG PO BID for 3 Days, #6 TAB Prov:RUSSELL HARRELL MD 12/19/23 Sacubitril-Valsartan (Entresto 24-26 mg) 1 Tab Tab, 1 TAB PO BID, #60 TAB Prov:ANISHA WILD MD 10/15/22 Aspirin (Aspirin Low Dose) 81 Mg Tab, 81 MG PO DAILY, #30 TAB Prov:ANISHA WILD MD 10/15/22 Potassium Chloride (Potassium Chloride ER) 10 Meq Tab, 10 MEQ PO DAILY, #30 Prov:ANISHA WILD MD 09/21/18 Reported Medications Fezolinetant (Veozah) 45 Mg Tab, 1 TAB PO DAILY 12/15/23 Albuterol Sulfate (Albuterol Sulfate Hfa) 108 Mcg/Act Aer, 2 PUFF INH Q4-6HR PRN for WHEEZING 12/15/23 Dicyclomine Hcl (BENTYL CAPSULE) 10 Mg Cp, 1 CAP PO TID PRN for UPSET STOMACH 12/15/23 Lactulose (Lactulose) 10 Gm/15 Ml Anali, 15 ML PO QPM for 15 Days, #237 12/15/23 Escitalopram Oxalate (Lexapro) 10 Mg Tab, 1 TAB PO DAILY 12/15/23 Metoprolol Tartrate (Lopressor) 25 Mg Tb, 1 TAB PO DAILY 12/15/23 Pantoprazole Sodium Sesquihydr (Protonix) 40 Mg Tab, 1 TAB PO DAILY 12/15/23 Ondansetron HCl (Ondansetron Hydrochloride) 4 Mg Tab, 1 TAB PO Q8HR PRN for NAUSEA / VOMITING for 15 Days, #30 12/15/23 Montelukast Sodium (MONTELUKAST SODIUM) 10 Mg Tab, 1 TAB PO DAILY, #30 TAB 5 Refills 12/12/20 Furosemide (Furosemide) 20 Mg Tab, 20 MG PO DAILY for 30 Days, MG 12/12/20 Atorvastatin Calcium (ATORVASTATIN CALCIUM) 20 Mg Tab, 1 TAB PO DAILY, #30 TAB 5 Refills 09/18/18 Sucralfate (Carafate) 1 Gm Tb, 1 TAB PO BID, #90 TAB 11 Refills 08/10/15 Information Source: Patient, Emergency Med Personnel Mode of Arrival: EMS Timing: Days Duration: Since onset Prehospital treatment: Other (Zofran) Quality: Sharp Severity: Moderate Recent: None Recent Hx of: None Pain Location: Epigastric Modifying Factors: Nothing Associated sign and symptoms: Nausea, Vomiting, Constipation, Abdominal Pain Past Medical History PAST MEDICAL HISTORY: Anemia, Anxiety, Asthma, CAD, CHF, COPD, GERD, High Lipids, HTN, KS, PUD Surgical History: BTL, Cholecystectomy, , Tonsillectomy 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 Family History Family History: Family hx of Cancer, Family hx of heart bernardo Social History Smoker: Cigarettes Alcohol: Denies ETOH Use Drugs: Marijuana Lives In: Home Constitutional: denies: chills, diaphoresis, fatigue, fever, malaise, sweats, weakness, others EENTM: denies: blurred vision, double vision, ear bleeding, ear discharge, ear drainage, ear pain, ear ringing, eye pain, eye redness, hearing loss, mouth pain, mouth swelling, nasal discharge, nose bleeding, nose congestion, nose pain, photophobia, tearing, throat pain, throat swelling, voice changes, others Respiratory: denies: cough, hemoptysis, orthopnea, SOB at rest, shortness of breath, SOB with excertion, stridor, wheezing, others Cardiovascular: denies: chest pain, dizzy spells, diaphoresis, Dyspnea on exertion, edema, irregular heart beat, left arm pain, lightheadedness, palpitations, PND, syncope, others Gastrointestinal: reports: abdominal pain, constipated, nausea, vomiting; denies: abdomen distended, blood streaked bowels, diarrhea, dysphagia, difficulty swallowing, hematemesis, melena, poor appetite, poor fluid intake, rectal bleeding, rectal pain, others Genitourinary: denies: abnormal vagina bleeding, burning, dyspareunia, dysuria, flank pain, frequency, hematuria, incontinence, pain, , vagina di scharge, urgency, others Neurological: denies: dizziness, fainting, headache, left sided numbness, left sided weakness, numbness, paresthesia, pre-existing deficit, right sided numbness, right sided weakness, seizure, speech problems, tingling, tremors, weakness, others Musculoskeletal: denies: back pain, gout, joint pain, joint swelling, muscle pain, muscle stiffness, neck pain, others Integumetry: denies: bruises, change in color, change in hair/nails, dryness, laceration, lesions, lumps, rash, wounds, others Allergic/Immunocompromised: denies: Difficulty Healing, Frequent Infections, Hives, Itching, others Hematologic/Lymphatic: denies: anemia, blood clots, easy bleeding, easy bruising, swollen glands, others Endocrine: denies: excessive hunger, excessive sweating, excessive thirst, excessive urination, flushing, intolerance to cold, intolerance to heat, unexplained weight gain, unexplained weight loss, others Psychiatric: denies: anxiety, bipolar disorder, depression, hopeless, panic disorder, schizophrenia, sleepless, suicidal, others All Other Systems: Reviewed and Negative Physical Exam General Appearance: Normal HEENT: Normal ENT Inspection, Pharynx Normal, TMs Normal Neck: Full Range of Motion, Non-Tender, Normal, Normal Inspection Respiratory: Chest Non-Tender, Lungs Clear, No Accessory Muscle Use, No Respiratory Distress, Normal Breath Sounds Cardiovascular: No Edema, No JVD, No Murmur, No Gallop, Normal Peripheral Pulses, Regular Rate/Rhythm Breast Exam: Deferred Gastrointestinal: No Organomegaly, No Pulsatile Mass, Other (decreased bowel s ounds, spitting foam) Genitalia: Deferred Pelvic: Deferred Rectal: Deferred Extremities: No calf tenderness, Normal capillary refill, Normal inspection, Normal range of motion, Non-tender, No pedal edema Musculoskeletal : Apperance: Normal Neurologic: Alert, putty mixer and applier II-XII nml as Tested, No Motor Deficits, Normal Affect, Normal Mood, No Sensory Deficits Cerebellar Function: Normal Reflexes: Normal Skin: Dry, Normal Color, Warm Lymphatic: No Adenopathy Was a procedure done? Was a procedure done?: No GI differential Dx Differential Diagnosis: Bowel Obstruction, Constipation, Gastritis/PUD, Gastroenteritis, Inflammatory BD, Ischemic Bowel, Electrolyte Imbalance, Food Poisoning, Viral, Hypovolemia, Impaction, Mass, Stress Ulcer, Other ([facility]) X-Ray, Labs, Meds, VS Vital Signs Date Time Temp Pulse Resp B/P (MAP) Pulse Ox O2 Delivery O2 Flow Rate FiO2 11/06/24 09:55 100 Room Air* 0 21 11/06/24 09:25 97.6 114 24 150/88 (108) 100 97.6 11/06/24 08:57 97.1 100 26 156/90 (112) 94 97.1 Lab Test 11/06/24 09:25 Range/Units White Blood Count 13.9 H 4.4-10.8 10^3/uL Red Blood Count 4.90 4.0-5.20 10^6/uL Hemoglobin 14.5 12.2-16.2 g/dL Hematocrit 43.4 36.0-46.0 % Mean Corpuscular Volume 88.6 80.0-100.0 fL Mean Corpuscular Hemoglobin 29.7 28.0-32.0 pg Mean Corpuscular Hemoglobin Concent 33.5 32.0-36.0 g/dL Red Cell Distribution Width 14.3 11.8-14.3 % Platelet Count 285 140-450 10^3/uL Mean Platelet Volume 7.4 6.9-10.8 fL Neutrophils (%) (Auto) 80.9 H 37.0-80.0 % Lymphocytes (%) (Auto) 14.5 10.0-50.0 % Monocytes (%) (Auto) 3.7 0.0-12.0 % Eosinophils (%) (Auto) 0.4 0.0-7.0 % Basophils (%) (Auto) 0.5 0.0-2.0 % Neutrophils # (Auto) 11.3 H 1.6-8.6 10 ^3/uL Lymphocytes # (Auto) 2.0 0.4-5.4 10 ^3/uL Monocytes # (Auto) 0.5 0-1.3 10 ^3/uL Eosinophils # (Auto) 0.1 0-0.8 10 ^3/uL Basophils # (Auto) 0.1 0-0.2 10 ^3/uL Nucleated Red Blood Cells 0.0 % Sodium Level 145 136-145 mmol/L Potassium Level 4.1 3.5-5.1 mmol/L Chloride Level 113 H 98-107 mmol/L Carbon Dioxide Level 18 L 20-31 mmol/L Anion Gap 14 5-15 Blood Urea Nitrogen 15 9-23 mg/dL Creatinine 0.90 0.550-1.02 mg/dL Glomerular Filtration Rate Calc 72 >90 mL/min BUN/Creatinine Ratio 16.7 10.0-20.0 Serum Glucose 178 H 74-106 mg/dL Calcium Level 10.2 8.7-10.4 mg/dL Total Bilirubin 0.6 0.2-1.0 mg/dL Aspartate Amino Transferase (AST) 18 <34 U/L Alanine Aminotransferase (ALT) 11 7-40 U/L Alkaline Phosphatase 101 46-116 U/L Troponin I High Sensitivity 8 </=34 ng/L Total Protein 7.8 5.7-8.2 g/dL Albumin 4.9 H 3.2-4.8 g/dL Lipase 47 12-53 U/L Current Medications Medications (Trade) Dose Ordered Sig/Nathan Route Start Time Stop Time Status Last Admin Haloperidol Lactate (Haldol) 5 mg ONCE ONCE IM 11/06/24 09:15 11/06/24 09:35 DC 11/06/24 10:00 Diphenhydramine HCl (Benadryl Injection) 50 mg ONCE ONCE IM 11/06/24 09:15 11/06/24 09:35 DC 11/06/24 10:00 Sodium Chloride 1,000 ml @ 125 mls/hr Q8H ONCE IV 11/06/24 09:15 11/06/24 17:14 11/06/24 09:53 Lorazepam (Ativan Inj) 1 mg ONCE ONCE IV 11/06/24 10:15 11/06/24 10:16 DC 11/06/24 10:15 [place] [address] Ph: [phone] DIAGNOSTIC IMAGING Diagnostic Imaging Report : [id number] Signed PATIENT: LUIS BENTLEY ACCT: [id number] UNIT: [id number] : 1960 LOC: ER ROOM / BED: / AGE / SEX: 64 / F ADM STATUS: REG ER SERVICE 0907 ORDERING PHYSICIAN: DAHLIA COHEN MD PROCEDURE(s): KUB - KUB ABDOMEN SINGLE VIEW REASON: vomiting ORDER NUMBER(s): [id number], ACCESSION NUMBER(s): [id number] ABDOMEN X-RAY: 1 view(s) was obtained HISTORY: vomiting COMPARISON: XY KUB ABDOMEN SINGLE VIEW on DOS: 12/18/23, XY KUB ABDOMEN SINGLE VIEW on DOS: 12/15/23 FINDINGS: Non obstructive bowel gas pattern. Mild rectal and colonic stool burden. Cholycystectomy clips are noted. Mild facet arthrosis within the lower lumbar spine. No acute osseus abnormality. IMPRESSION: 1. Mild rectal and colonic stool burden 2. No acute intra-abdominal findings ATED BY: NABEEL SUNSHINE MD DICTATED DATE/TIME: 11/06/24 1007 SIGNED BY: NABEEL SUNSHINE MD SIGNED DATE/TIME: 11/06/24 1007 CC: [address] [address] Ph: [phone] DIAGNOSTIC IMAGING Diagnostic Imaging Report : [id number] Signed PATIENT: LUIS BENTLEY ACCT: [id number] UNIT: [id number] : 1960 LOC: ER ROOM / BED: / AGE / SEX: 64 / F ADM STATUS: REG ER SERVICE 0907 ORDERING PHYSICIAN: DAHLIA COHEN MD PROCEDURE(s): CXRP - CHEST PORTABLE REASON: vomiting ORDER NUMBER(s): [id number], ACCESSION NUMBER(s): [id number] CHEST XRAY: 1 view(s) was obtained HISTORY: 64 years old, Female; vomiting. COMPARISON: XY CHEST PORTABLE on DOS: 10/21/22, XY CHEST PORTABLE on DOS: 10/14/22, CHEST PORTABLE on DOS: 12/07/21, CXRP on DOS: 10/02/21, CHEST PORTABLE on DOS: 10/02/21 FINDINGS: Lungs are clear. Heart border normal in size. Image upper abdomen and osseus structures are unmarkable. IMPRESSION: 1. No acute cardio pulmonary findings ATED BY: NABEEL SUNSHINE MD DICTATED DATE/TIME: 11/06/24 1006 SIGNED BY: NABEEL SUNSHINE MD SIGNED DATE/TIME: 11/06/24 1006 CC: Time of 1ST Reevaluation: 09:30 Reevaluation 1ST: Unchanged Time of 2ND Reevaluation: 11:04 Reevaluation 2ND: Unchanged Patient Education/Counseling: Diagnosis, Treatment, Prognosis Family Education/Counseling: No Family Present Comments pt has had multiple episodes of the same intractable emesis. pt has had multiple CTs, all negative. she was instructed to stop smoking marijuana at the last admission, but continues to smoke. i am suspecting the CHS may be the cause of these cyclic vomiting episodes. her workup is unremarkable, but i will admit her for symptom control, and and continual evaluations Additional Information Previous visits reviewed: 11/2023 abdominal pain, abdominal pain, 01/2022 abdominal pain, 09/2021 chest pain The following tests were ordered, and results were reviewed by me: EKG, CBC, BMP, LIPASE, TROP, XY CHEST, CY KUB ABDOMEN Additional Information was gathered from interviewing the following independent historians: EMS I reviewed and agreed with the following test results read by other providers: XY CHEST, CY KUB ABDOMEN I discussed treatment and results with medical personnel and: patient Comprehensive systems review obtained and negative except for what is stated in the HPI. SEPSIS Sepsis Screen Date sepsis recognized/suspect: Nov 06, 2024 Time Sepsis recognized/suspect: 0850 Recent Procedure: No On Antibiotic Therapy: No Respiratory Rate >20: Yes Heart Rate >90: Yes Temp<36 C (96.8 F) or >38.3 C: No SBP <90 or MAP <65 mmHG: No New Acute Mental Status Change: No Is the patient on CPAP, BIPAP,: No Physician Orders Sodium Chloride 0.9% (11/06/24 09:15) Kub Abdomen Single View (11/06/24 09:07) Electrocardigram (11/06/24 09:07) Chest Portable (11/06/24 09:07) Vital Signs Date Time Temp Pulse Resp B/P (MAP) Pulse Ox O2 Delivery O2 Flow Rate FiO2 11/06/24 09:55 100 Room Air* 0 21 11/06/24 09:25 97.6 114 24 150/88 (108) 100 97.6 11/06/24 08:57 97.1 100 26 156/90 (112) 94 97.1 Laboratory Tests Test 11/06/24 09:25 White Blood Count 13.9 10^3/uL (4.4-10.8) H Medications Medications Dose Ordered Sig/Nathan Route Start Time Stop Time Status Last Admin Dose Admin Diphenhydramine HCl 50 mg ONCE ONCE IM 11/06/24 09:15 11/06/24 09:35 DC 11/06/24 10:00 Haloperidol Lactate 5 mg ONCE ONCE IM 11/06/24 09:15 11/06/24 09:35 DC 11/06/24 10:00 Lorazepam 1 mg ONCE ONCE IV 11/06/24 10:15 11/06/24 10:16 DC 11/06/24 10:15 Sodium Chloride 1,000 ml @ 125 mls/hr Q8H ONCE IV 11/06/24 09:15 11/06/24 17:14 11/06/24 09:53 Departure 1 Departure Time of Disposition: 11:06 Impression: Primary Impression: Intractable nausea and vomiting Additional Impressions: Cannabinoid hyperemesis syndrome Cyclic vomiting syndrome Disposition: ADMITTED INPATIENT Admit to: Med Surg Condition: Stable Discharged With: Self Critical Care Note Critical Care Time?: No Stability Stability form required: No I personally scribed for VICKI,HAICHI S MD ([facility] on 11/06/24 at 09:12. Electronically submitted by Christi Gracia ([email or web address]). I personally scribed for DAHLIA COHEN MD ([facility]) on 11/06/24 at 09:15. Electronically submitted by Christi Gracia ([email or web address]). I personally scribed for DAHLIA COHEN MD ([facility]) on 11/06/24 at 10:22. Electronically submitted by Christi Gracia ([email or web address]). DAHLIA COHEN MD Nov 06, 2024 09:12
[2024-11-06 09:43] LABS: Basophils # (auto) 0.1 10 ^3/uL (0-0.2); Basophils % (auto) 0.5 % (0.0-2.0); Eosinophils # (auto) 0.1 10 ^3/uL (0-0.8); Eosinophils % (auto) 0.4 % (0.0-7.0); Hematocrit 43.4 % (36.0-46.0); Hemoglobin 14.5 g/dL (12.2-16.2); Lymphocytes % (auto) 14.5 % (10.0-50.0); Mean Corpuscular Hemoglobin 29.7 pg (28.0-32.0); Mean Corpuscular Hgb Conc. 33.5 g/dL (32.0-36.0); Mean Corpuscular Volume 88.6 fL (80.0-100.0); Monocytes # (auto) 0.5 10 ^3/uL (0-1.3); Monocytes % (auto) 3.7 % (0.0-12.0); Neutrophils # (auto) 11.3 10 ^3/uL (1.6-8.6); Neutrophils % (auto) 80.9 % (37.0-80.0); Platelet Count (auto) 285 10^3/uL (140-450); Red Cell Distribution Width 14.3 % (11.8-14.3); White Blood Cell 13.9 10^3/uL (4.4-10.8)
[2024-11-06] MEDS: SODIUM CHLORIDE 0.9% 1,000 ML IV ONE (09:53)
[2024-11-06 09:55] VITALS: O2SAT 100
[2024-11-06] MEDS: diphenhdrAMINE HCL 50 MG/1 ML VL IM ONE (10:00)
[2024-11-06] MEDS: HALOPERIDOL LACTATE 5 MG/ML INJ VIAL IM ONE (10:00)
[2024-11-06 10:04] LABS: Alanine Aminotransferase 11 U/L (7-40); Alkaline Phosphatase 101 U/L (46-116); Anion Gap 14 (5-15); Aspartate Aminotransferase 18 U/L (<34); BUN/Creatinine Ratio 16.7 (10.0-20.0); Blood Urea Nitrogen 15 mg/dL (9-23); Calcium 10.2 mg/dL (8.7-10.4); Lipase 47 U/L (12-53); Potassium 4.1 mmol/L (3.5-5.1); Total Protein 7.8 g/dL (5.7-8.2)
[2024-11-06 10:05] LABS: Bilirubin, Total 0.6 mg/dL (0.2-1.0)
[2024-11-06 10:06] LABS: Albumin 4.9 g/dL (3.2-4.8); Carbon Dioxide 18 mmol/L (20-31); Chloride 113 mmol/L (98-107); Glucose 178 mg/dL (74-106); Sodium 145 mmol/L (136-145)
--- NOTE | 2024-11-06 10:08 | DVH ---
CHEST XRAY: 1 view(s) was obtained HISTORY: 64 years old, Female; vomiting. COMPARISON: XY CHEST PORTABLE on DOS: 10/21/22, XY CHEST PORTABLE on DOS: 10/14/22, CHEST PORTABLE on DO S: 12/07/21, CXRP on DOS: 10/02/21, CHEST PORTABLE on DOS: 10/02/21 FINDINGS: Lungs are clear. Heart border normal in size. Image upper abdomen and osseus structures are unmarkabl e. IMPRESSION: 1. No acute cardio pulmonary findings
--- NOTE | 2024-11-06 10:10 | DVH ---
ABDOMEN X-RAY: 1 view(s) was obtained HISTORY: vomiting COMPARISON: XY KUB ABDOMEN SINGLE VIEW on DOS: 12/18/23, XY KUB ABDOMEN SINGLE VIEW on DOS: 12/15/23 FINDINGS: Non obstructive bowel gas pattern. Mild rectal and colonic stool burden. Cholycystectomy clips are no daryl. Mild facet arthrosis within the lower lumbar spine. No acute osseus abnormality. IMPRESSION: 1. Mild rectal and colonic stool burden 2. No acute intra-abdominal findings
[2024-11-06] MEDS: LORazepam 2MG/ML-1ML VIAL IV ONE (10:15)
[2024-11-06] MEDS ORDERED: MORPHINE SULFATE INJ 2 MG/ml SYRG IV PRN (14:45)
[2024-11-06] MEDS ORDERED: ACETAMINOPHEN 325 MG TAB PO PRN (14:45)
[2024-11-06] MEDS ORDERED: HYDROcodone-ACET 5/325MG TAB PO PRN (14:45)
--- NOTE | 2024-11-06 15:16 | DVHHP2 ---
History of Present Illness History of Present Illness 64 year old female presents to the ED via EMS with a chief compliant of abdominal pain onset 2 days. Patient states she began experiencing abdominal pain, epigastric region, 2 days ago, noticed pain worsen today. Patient is currently experiencing nausea, vomiting, constipation. Per EMS, patient was given Zofran PO in route to ED. She has been seen at [facility] multiple times for similar symptoms, last admission October 2023, patient was recommended to stop marijuana use, patient admits she continues smoking marijuana. PMHx Anemia, anxiety, asthma, CAD, CHF, COPD, GERD, HLD, HTN, [place], PUD, peptic ulcer. Denies chest pain, shortness of breath, dizziness, blurry vision, dysuria, hematuria, fevers. No other symptoms or modifying factors present at this time. Review of Systems Allergies: Coded Allergies: Codeine (Verified Allergy, Unknown, 02/16/20) Hydrocodone (Verified Allergy, Unknown, 04/08/23) Mushroom Extract Complex (Verified Allergy, Unknown, MUSHROOMS, 04/08/23) Uncoded Allergies: ACID FRUITS, MUSHROOMS (Allergy, Unknown, 03/28/14) Exam Vital Signs Vital Signs Date Time Temp Pulse Resp B/P (MAP) Pulse Ox O2 Delivery O2 Flow Rate FiO2 11/06/24 14:06 98.0 89 21 159/87 (111) 100 98.0 11/06/24 09:55 Room Air* 0 21 Exam GEN: Healthy appearing, well-developed, NAD. HEENT: NC/AT; MMM. CV: RRR, no m/r/g. LUNGS: CTAB, no w/r/c. ABD: Epigastrium tenderness, hypoactive bowel sounds EXT: skin Warm, well perfused. no rashes. No clubbing, cyanosis, or edema. NEURO: Ambulating with no limitations. No focal deficits. Labs/Xrays Labs Test 11/06/24 09:25 Range/Units White Blood Count 13.9 H 4.4-10.8 10^3/uL Red Blood Count 4.90 4.0-5.20 10^6/uL Hemoglobin 14.5 12.2-16.2 g/dL Hematocrit 43.4 36.0-46.0 % Mean Corpuscular Volume 88.6 80.0-100.0 fL Mean Corpuscular Hemoglobin 29.7 28.0-32.0 pg Mean Corpuscular Hemoglobin Concent 33.5 32.0-36.0 g/dL Red Cell Distribution Width 14.3 11.8-14.3 % Platelet Count 285 140-450 10^3/uL Mean Platelet Volume 7.4 6.9-10.8 fL Neutrophils (%) (Auto) 80.9 H 37.0-80.0 % Lymphocytes (%) (Auto) 14.5 10.0-50.0 % Monocytes (%) (Auto) 3.7 0.0-12.0 % Eosinophils (%) (Auto) 0.4 0.0-7.0 % Basophils (%) (Auto) 0.5 0.0-2.0 % Neutrophils # (Auto) 11.3 H 1.6-8.6 10 ^3/uL Lymphocytes # (Auto) 2.0 0.4-5.4 10 ^3/uL Monocytes # (Auto) 0.5 0-1.3 10 ^3/uL Eosinophils # (Auto) 0.1 0-0.8 10 ^3/uL Basophils # (Auto) 0.1 0-0.2 10 ^3/uL Nucleated Red Blood Cells 0.0 % Sodium Level 145 136-145 mmol/L Potassium Level 4.1 3.5-5.1 mmol/L Chloride Level 113 H 98-107 mmol/L Carbon Dioxide Level 18 L 20-31 mmol/L Anion Gap 14 5-15 Blood Urea Nitrogen 15 9-23 mg/dL Creatinine 0.90 0.550-1.02 mg/dL Glomerular Filtration Rate Calc 72 >90 mL/min BUN/Creatinine Ratio 16.7 10.0-20.0 Serum Glucose 178 H 74-106 mg/dL Calcium Level 10.2 8.7-10.4 mg/dL Total Bilirubin 0.6 0.2-1.0 mg/dL Aspartate Amino Transferase (AST) 18 <34 U/L Alanine Aminotransferase (ALT) 11 7-40 U/L Alkaline Phosphatase 101 46-116 U/L Troponin I High Sensitivity 8 </=34 ng/L Total Protein 7.8 5.7-8.2 g/dL Albumin 4.9 H 3.2-4.8 g/dL Lipase 47 12-53 U/L Assessment/Plan Assessment/Plan Gastroenteritis possible, infectious etiology likely Rule out SBO constipation possible PUD exacerbation possible Anemia anxiety asthma CAD CHF COPD GERD HLD HTN [place] PUD - CT abpelv noncon - IV antibiotics - IV fluids - Protonix iv bid, and sucralfate - Antiemetics - Prn analgesia - Continue home medications diet cardiac gi phlx - ppi iv bid dvt phlx - lovenox daily medsurg full code Plan discussed with: Patient Date of Service: Nov 06, 2024 Billing Provider: RUDY RENTERIA MD Common Visit Codes: [id number] INP/OBS CARE (HIGH) Secondary Visit Codes: [id number] CARE PLAN 30 MINUTES RUDY RENTERIA MD Nov 06, 2024 15:16
[2024-11-06] MEDS: AMPICILLIN & SULBACTAM SODIUM 3 GM in SODIUM CHL 0.9% 100 ML IV SCH (15:39)
[2024-11-06] MEDS: D5W/SOD CHL 0.45% 1,000 ML IV ONE (16:27)
[2024-11-06 19:30] VITALS: O2SAT 100
[2024-11-06] MEDS: ATORVASTATIN 20 MG TAB PO SCH (20:11)
[2024-11-06] MEDS: SUCRALFATE 1 GM/10 ML ORAL SUSP PO SCH (20:11)
[2024-11-06] MEDS: SACUBITRIL-VALSARTAN 24mg/26mg TAB PO SCH (20:11)
[2024-11-06] MEDS: PANTOPRAZOLE 40 MG/10 ML VIAL INJ IV SCH (20:11)
[2024-11-06] MEDS: ONDANSETRON HCL 4 MG/2 ML VIAL IV PRN (20:12)
[2024-11-06 20:59] VITALS: BP 178/97; PULSE 89; RESP 19; TEMP 99.3; O2SAT 98
[2024-11-06 21:35] VITALS: BP 167/91; PULSE 87; RESP 17; TEMP 99.3; O2SAT 96
--- NOTE | 2024-11-06 22:30 | DVH ---
Exam: CT CT AB PEL WO CON-NO ORAL OR IV History: abd pain. r/o acute process Comparison Study: CT CT AB PEL WO CON-NO ORAL OR IV on DOS: 12/13/23, CT CT AB PEL WO CON-NO ORAL OR I V on DOS: 10/26/23, CT CT AB PEL WO CON-NO ORAL OR IV on DOS: 10/21/22 TECHNIQUE: Multidetector CT of the abdomen was performed from lung bases to pubic symphysis. Imaging was performed without IV contrast. Axial, coronal and sagittal multiplanar reformats were obtained fr om the axial data set by the technologist. Radiation Dose Information: CT Dose: CTDI volume is 7.59 mGy. Dose-length product is 330.59 mGy*cm FINDINGS: Evaluation of solid organs is limited due to lack of intravenous contrast use. Findings: Lung Bases: No acute or significant lung base finding. Normal heart size. No pleural or pericardial effusion. Liver: The liver is normal in size. No focal lesions. Gallbladder and Biliary Tree: Gallbladder has been surgically removed. Spleen: Unremarkable Pancreas: The pancreas is grossly normal in appearance. Adrenal Glands: Unremarkable Kidneys: Kidneys are grossly normal without calculi or hydronephrosis. Bladder: Grossly unremarkable for degree of distention. Bowel: The stomach is grossly normal in appearance. Small bowel and colon are normal in caliber and d istribution. Colon appears devoid of stool with diffuse thickening wall of the colon correlate for po ssible colitis. The appendix is not visualized; however, no secondary findings of acute appendicitis identified. Ascites: Absent Lymphadenopathy: No mesenteric, retroperitoneal or periportal lymphadenopathy. Abdominal Wall and Mesentery: Unremarkable. Vasculature: The visualized abdominal aorta is normal in size and caliber. Evaluation of abdominal a nd pelvic vessels is limited due to lack of intravenous contrast. Pelvic Organs: Multiple calcified uterine fibroids. Musculoskeletal: No aggressive focal bony lesions, acute fractures or dislocation. Soft tissues: Unremarkable IMPRESSION: 1. Diffuse thickening of the wall of the colon correlate for possible colitis. 2. Punctate calculus upper pole right kidney no hydronephrosis 3. Calcified uterine fibroids. 4. 2-3 mm anterior spondylolisthesis l 4 over L5. Degenerative disc changes L4-5 and L5-S1. Radiation optimization: All CT scans at this facility use at least one of these dose optimization te chniques: automated exposure control mA and/or kV adjustment per patient size (includes targeted exa ms where dose is matched to clinical indication) or iterative reconstruction. HS:Y
[2024-11-07] VITALS (8 sets, daily range): BP systolic 102–174; BP diastolic 78–108; PULSE 62–96; RESP 16–19; TEMP 97.9–99.7; O2SAT 96–98
[2024-11-07] MEDS: METOPROLOL TARTRATE 25 MG TAB PO SCH (02:31)
[2024-11-07 06:32] LABS: Basophils # (auto) 0 10 ^3/uL (0-0.2); Basophils % (auto) 0.2 % (0.0-2.0); Eosinophils # (auto) 0 10 ^3/uL (0-0.8); Hemoglobin 15.4 g/dL (12.2-16.2); Lymphocytes # (auto) 1.3 10 ^3/uL (0.4-5.4); Lymphocytes % (auto) 7.4 % (10.0-50.0); Mean Corpuscular Hemoglobin 30.1 pg (28.0-32.0); Mean Corpuscular Hgb Conc. 34.1 g/dL (32.0-36.0); Mean Corpuscular Volume 88.3 fL (80.0-100.0); Monocytes # (auto) 1.3 10 ^3/uL (0-1.3); Neutrophils # (auto) 15.4 10 ^3/uL (1.6-8.6); Neutrophils % (auto) 85.4 % (37.0-80.0); Platelet Count (auto) 309 10^3/uL (140-450); Red Cell Distribution Width 14.5 % (11.8-14.3); White Blood Cell 18.1 10^3/uL (4.4-10.8)
[2024-11-07 06:49] LABS: Alanine Aminotransferase 11 U/L (7-40); Alkaline Phosphatase 87 U/L (46-116); Anion Gap 15 (5-15); Aspartate Aminotransferase 30 U/L (<34); BUN/Creatinine Ratio 11.9 (10.0-20.0); Carbon Dioxide 22 mmol/L (20-31); Chloride 105 mmol/L (98-107); Sodium 142 mmol/L (136-145); Total Protein 8.2 g/dL (5.7-8.2)
[2024-11-07 06:53] LABS: Albumin 5.1 g/dL (3.2-4.8); Bilirubin, Total 1.4 mg/dL (0.2-1.0); Blood Urea Nitrogen 8 mg/dL (9-23); Calcium 10.4 mg/dL (8.7-10.4); Glucose 129 mg/dL (74-106)
[2024-11-07] MEDS: ASPirin-EC 81 mg tab PO SCH (09:45)
[2024-11-07] MEDS: FUROSEMIDE 20 MG TAB PO SCH (09:46)
[2024-11-07] MEDS: ENOXAPARIN SOD 40 MG/0.4 ML SYRINGE SC SCH (09:47)
[2024-11-07] MEDS: ESCITALOPRAM OXALATE 10 MG PO SCH (09:47)
[2024-11-07] MEDS ORDERED: METOPROLOL TARTRATE 25 MG TAB PO SCH (10:00)
--- NOTE | 2024-11-07 16:23 | DVHPN2 ---
Subjective Patient is improving slowly she has anxiety. Reviewed: H&P Changes from previous H/P or p: No Changes General: Per HPI Objective Vitals Vital Signs Date Time Temp Pulse Resp B/P (MAP) Pulse Ox O2 Delivery O2 Flow Rate FiO2 11/07/24 13:00 98.2 96 19 152/97 (115) 98 98.2 11/07/24 08:30 Room Air* 0 21 Intake/Output Intake and Output 11/07/24 07:00 Intake Total 1325 ml Output Total 500 ml Balance 825 ml Intake Oral 250 ml IV Total 1075 ml Output Urine Total 500 ml # Bowel Movements 2 Exam GEN: Healthy appearing, well-developed, NAD. HEENT: NC/AT; MMM. CV: RRR, no m/r/g. LUNGS: CTAB, no w/r/c. ABD: Epigastrium tenderness, hypoactive bowel sounds EXT: skin Warm, well perfused. no rashes. No clubbing, cyanosis, or edema. NEURO: Ambulating with no limitations. No focal deficits. Medications Current Medications Medications Dose Ordered Sig/Nathan Route Start Time Stop Time Status Last Admin Dose Admin Acetaminophen/ Hydrocodone Bitart 1 tab Q4HP PRN PO 11/06/24 14:45 Hold Ondansetron HCl 4 mg Q4HP PRN IV 11/06/24 14:45 11/07/24 01:22 4 MG Enoxaparin Sodium 40 mg DAILY SC 11/07/24 10:00 11/07/24 09:47 40 MG Acetaminophen 650 mg Q6HP PRN PO 11/06/24 14:45 Morphine Sulfate 2 mg Q4HPRN PRN IV 11/06/24 14:45 Hold Aspirin 81 mg DAILY PO 11/07/24 10:00 11/07/24 09:45 81 MG Atorvastatin Calcium 20 mg HS PO 11/06/24 22:00 11/06/24 20:11 20 MG Furosemide 20 mg DAILY PO 11/07/24 10:00 11/07/24 09:46 20 MG Sacubitril/ Valsartan 1 tab BID PO 11/06/24 22:00 11/07/24 09:45 1 TAB Patient Own Medication 1 tab DAILY PO 11/07/24 10:00 Patient Own Medication 1 tab DAILY PO 11/07/24 10:00 Pantoprazole Sodium 40 mg BID IV 11/06/24 22:00 11/07/24 09:45 40 MG Sucralfate 1 gm BID@0600,2200 PO 11/06/24 22:00 11/07/24 05:11 1 GM Ampicillin Sodium/ Sulbactam Sodium 3 gm/Sodium Chloride 100 ml @ 100 mls/hr Q6H IV 11/06/24 14:45 11/07/24 15:35 100 MLS/HR Metoprolol Tartrate 25 mg DAILY PO 11/07/24 02:30 11/07/24 09:46 25 MG Laboratory Results Laboratory Tests 11/07/24 04:56 Chemistry Test 11/07/24 04:56 Albumin 5.1 g/dL (3.2-4.8) H Calcium Level 10.4 mg/dL (8.7-10.4) Total Protein 8.2 g/dL (5.7-8.2) LFT Test 11/07/24 04:56 Alanine Aminotransferase (ALT) 11 U/L (7-40) Alkaline Phosphatase 87 U/L (46-116) Aspartate Amino Transferase (AST) 30 U/L (<34) Total Bilirubin 1.4 mg/dL (0.2-1.0) H Labs and/or images reviewed: Labs reviewed by me, Image(s) reviewed by me Assessment/Plan Assessment/Plan 11/07 patient is here for intractable abdominal pain. Appears could be likely gastroenteritis. CT abdomen and pelvis non-con done yesterday confirmed colitis. Continue on Unasyn. Patient improving. CTA abdomen pelvis also shows fibroids with calcifications. We will do trial of Protonix as location is more epigastrium. She wants something for anxiety which we will start p.o. Ativan. Otherwise continue plan below. Diagnosis: Gastroenteritis possible, infectious etiology likely Rule out SBO constipation possible PUD exacerbation possible Anemia anxiety asthma CAD CHF COPD GERD HLD HTN [place] PUD - CT abpelv noncon - colitis and fibroids seen - IV antibiotics - IV Unasyn - IV fluids completed tolerating p.o. now - Protonix iv bid, and sucralfate - Antiemetics - Prn analgesia - Continue home medications diet cardiac gi phlx - ppi iv bid dvt phlx - lovenox daily medsurg full code Plan discussed with: Patient Date of Service: Nov 07, 2024 Billing Provider: RUDY RENTERIA MD Common Visit Codes: [id number] INP/OBS CARE(HIGH) RUDY RENTERIA MD Nov 07, 2024 16:23
[2024-11-07] MEDS: LORazepam 0.5 MG TAB PO PRN (19:32)
[2024-11-07] MEDS: POTASSIUM CHLORIDE 60 MEQ, LIDOCAINE 1% (LOCAL ANESTH.) 6 ML in SODIUM CHL 0.9% 500 ML IV ONE (19:33)
[2024-11-07] MEDS: MORPHINE SULFATE 4 MG/ML SYR/VIAL IV PRN (21:56)
[2024-11-07 23:15] LABS: Urine Bacteria None Seen /hpf (None Seen)
[2024-11-07 23:20] LABS: Urine Blood 2+ /uL (Negative); Urine Clarity Clear (Clear); Urine Color Yellow (Yellow); Urine Mucus FEW (None Seen); Urine Protein, UAD 1+ (Negative); Urine Specific Gravity 1.027 (1.001-1.035); Urine Squamous Epithelial Cell FEW /hpf (<5); Urine Urobilinogen Normal (Negative); Urine WBC 2 /HPF (0-5)
[2024-11-08 05:00] VITALS: BP 104/72; PULSE 62; RESP 16; TEMP 97.6; O2SAT 94
[2024-11-08 06:23] LABS: Basophils # (auto) 0 10 ^3/uL (0-0.2); Basophils % (auto) 0.4 % (0.0-2.0); Eosinophils # (auto) 0.1 10 ^3/uL (0-0.8); Eosinophils % (auto) 1.3 % (0.0-7.0); Hematocrit 41.2 % (36.0-46.0); Hemoglobin 13.9 g/dL (12.2-16.2); Lymphocytes % (auto) 29.5 % (10.0-50.0); Mean Corpuscular Hemoglobin 30.1 pg (28.0-32.0); Mean Corpuscular Hgb Conc. 33.8 g/dL (32.0-36.0); Monocytes # (auto) 0.9 10 ^3/uL (0-1.3); Monocytes % (auto) 8.3 % (0.0-12.0); Neutrophils # (auto) 6.2 10 ^3/uL (1.6-8.6); Neutrophils % (auto) 60.5 % (37.0-80.0); Nucleated Red Blood Cells % 0.1 %; Platelet Count (auto) 257 10^3/uL (140-450); Red Blood Cells 4.63 10^6/uL (4.0-5.20); Red Cell Distribution Width 14.5 % (11.8-14.3); White Blood Cell 10.3 10^3/uL (4.4-10.8)
[2024-11-08 06:33] LABS: Alanine Aminotransferase 14 U/L (7-40); Albumin 3.8 g/dL (3.2-4.8); Alkaline Phosphatase 64 U/L (46-116); Anion Gap 10 (5-15); Aspartate Aminotransferase 28 U/L (<34); BUN/Creatinine Ratio 19.2 (10.0-20.0); Bilirubin, Total 1.1 mg/dL (0.2-1.0); Blood Urea Nitrogen 15 mg/dL (9-23); Carbon Dioxide 22 mmol/L (20-31); Glucose 95 mg/dL (74-106); Magnesium 1.7 mg/dL (1.6-2.6); Potassium 3.7 mmol/L (3.5-5.1); Sodium 141 mmol/L (136-145); Total Protein 6.1 g/dL (5.7-8.2)
[2024-11-08 06:49] LABS: Calcium 8.5 mg/dL (8.7-10.4); Chloride 109 mmol/L (98-107)
[2024-11-08 08:30] VITALS: PULSE 65; RESP 16; O2SAT 97
[2024-11-08 09:00] VITALS: BP 132/59; PULSE 65; RESP 16; TEMP 97.9; O2SAT 97
[2024-11-08] MEDS ORDERED: AUG875T PO (11:58)
--- NOTE | 2024-11-08 12:03 | DVHDS2 ---
Discharge Summary Date of Admission Nov 06, 2024 at 14:42 Date of Discharge: Nov 08, 2024 Labs/Diagnostic Data: Laboratory Results Test 11/08/24 05:16 11/07/24 23:00 11/06/24 09:25 White Blood Count 10.3 10^3/uL (4.4-10.8) Red Blood Count 4.63 10^6/uL (4.0-5.20) Hemoglobin 13.9 g/dL (12.2-16.2) Hematocrit 41.2 % (36.0-46.0) Mean Corpuscular Volume 89.0 fL (80.0-100.0) Mean Corpuscular Hemoglobin 30.1 pg (28.0-32.0) Mean Corpuscular Hemoglobin Concent 33.8 g/dL (32.0-36.0) Red Cell Distribution Width 14.5 % (11.8-14.3) Platelet Count 257 10^3/uL (140-450) Mean Platelet Volume 7.7 fL (6.9-10.8) Neutrophils (%) (Auto) 60.5 % (37.0-80.0) Lymphocytes (%) (Auto) 29.5 % (10.0-50.0) Monocytes (%) (Auto) 8.3 % (0.0-12.0) Eosinophils (%) (Auto) 1.3 % (0.0-7.0) Basophils (%) (Auto) 0.4 % (0.0-2.0) Neutrophils # (Auto) 6.2 10 ^3/uL (1.6-8.6) Lymphocytes # (Auto) 3.0 10 ^3/uL (0.4-5.4) Monocytes # (Auto) 0.9 10 ^3/uL (0-1.3) Eosinophils # (Auto) 0.1 10 ^3/uL (0-0.8) Basophils # (Auto) 0 10 ^3/uL (0-0.2) Nucleated Red Blood Cells 0.1 % Sodium Level 141 mmol/L (136-145) Potassium Level 3.7 mmol/L (3.5-5.1) Chloride Level 109 mmol/L (98-107) Carbon Dioxide Level 22 mmol/L (20-31) Anion Gap 10 (5-15) Blood Urea Nitrogen 15 mg/dL (9-23) Creatinine 0.78 mg/dL (0.550-1.02) Glomerular Filtration Rate Calc 86 mL/min (>90) BUN/Creatinine Ratio 19.2 (10.0-20.0) Serum Glucose 95 mg/dL (74-106) Lactic Acid Level 1.2 mmol/L (0.4-2.0) Calcium Level 8.5 mg/dL (8.7-10.4) Magnesium Level 1.7 mg/dL (1.6-2.6) Total Bilirubin 1.1 mg/dL (0.2-1.0) Aspartate Amino Transferase (AST) 28 U/L (<34) Alanine Aminotransferase (ALT) 14 U/L (7-40) Alkaline Phosphatase 64 U/L (46-116) Total Protein 6.1 g/dL (5.7-8.2) Albumin 3.8 g/dL (3.2-4.8) Thyroid Stimulating Hormone (TSH) 3.49 uIU/mL (0.55-4.78) Urine Color Yellow (Yellow) Urine Clarity Clear (Clear) Urine pH 6.0 (5.0-9.0) Urine Specific [place] 1.027 (1.001-1.035) Urine Protein 1+ (Negative) Urine Ketones 1+ (Negative) Urine Blood 2+ /uL (Negative) Urine Nitrite Negative (Negative) Urine Bilirubin Negative (Negative) Urine Urobilinogen Normal mg/dL (Negative) Urine Leukocyte Esterase Negative /uL (Negative) Urine RBC 9 /hpf (0 - 4) Urine Microscopic WBC 2 /HPF (0-5) Urine Squamous Epithelial Cells Few /hpf (<5) Urine Bacteria None seen /hpf (None Seen) Urine Mucus Few (None Seen) Urine Glucose Normal mg/dL (Normal) Troponin I High Sensitivity 8 ng/L (</=34) Lipase 47 U/L (12-53) Other Laboratory Tests 11/08/24 05:16 Brief Hx & Hospital Course: 64 year old female presents to the ED via EMS with a chief compliant of abdominal pain onset 2 days. Patient states she began experiencing abdominal pain, epigastric region, 2 days ago, noticed pain worsen today. Patient is currently experiencing nausea, vomiting, constipation. Per EMS, patient was given Zofran PO in route to ED. She has been seen at [facility] multiple times for similar symptoms, last admission October 2023, patient was recommended to stop marijuana use, patient admits she continues smoking marijuana. PMHx Anemia, anxiety, asthma, CAD, CHF, COPD, GERD, HLD, HTN, [place], PUD, peptic ulcer. Denies chest pain, shortness of breath, dizziness, blurry vision, dysuria, hematuria, fevers. No other symptoms or modifying factors present at this time. 11/07 patient is here for intractable abdominal pain. Appears could be likely gastroenteritis. CT abdomen and pelvis non-con done yesterday confirmed colitis. Continue on Unasyn. Patient improving. CTA abdomen pelvis also shows fibroids with calcifications. We will do trial of Protonix as location is more epigastrium. She wants something for anxiety which we will start p.o. Ativan. Otherwise continue plan below. 11/08 patient is now tolerating liquid diet and abdominal pain is now tolerable. She is passing gas, tolerating p.o.. Patient already has a GI specialist which she will have to continuous scheduled follow up with. Patient stable for discharge as per plan below. Diagnosis: Gastroenteritis possible, infectious etiology likely Ruled out SBO constipation possible PUD exacerbation possible Anemia anxiety asthma CAD CHF COPD GERD HLD HTN [place] PUD Discharge plan: - Augmentin 875 twice daily for 5 days - Continue Protonix 40 mg daily, continue Carafate 1 tab daily - Avoid excessive use of NSAIDs ( ibuprofen, Motrin, Aleve, BC powder) - continue full liquid diet for 5 more days until abdominal pain subsiding -Close follow up with PCP 1-2 weeks to review discharge - close follow up with GI as scheduled Condition at Discharge: Fair Final Diagnosis/Problems List Diagnosis: Gastroenteritis possible, infectious etiology likely Ruled out SBO constipation possible PUD exacerbation possible Anemia anxiety asthma CAD CHF COPD GERD HLD HTN [place] PUD Discharge Disposition: Home Discharge Instruct/Medications Diet: See Comment Diet comment: Liquid diet Activity: No Restrictions, As Tolerated Follow Up/Referral: See below Medications: See below Discharge Statement: "Patient was advised to return to the ER or call 911 if any headaches, dizziness, shortness of breath, chest pain, abdominal pain, bleeding, fevers, or worsening of medical condition. Patient was counseled about treatment plan, medications, possible side effects, patientverbalized understanding. All questions were answered to the best of my ability. This discharge took greater then 30 minutes in planning, reviewing documentation, counseling the patient, and discussing with other team members." Date of Service: Nov 08, 2024 Billing Provider: RUDY RENTERIA MD Common Visit Codes: 92214-[id number] DISCH DAY >30min RUDY RENTERIA MD Nov 08, 2024 12:03
[2024-11-08 13:30] VITALS: BP 113/79; PULSE 52; RESP 16; TEMP 98.3; O2SAT 98
== END 2024-11-08 15:01 | disposition home or self-care (01) | DRG 241 ==
LOC: EDBD 08:52 → ER 08:52 → OVERFLOW 14:42 → WEST WING 20:59
PROVIDERS: ADMIT Student in an Organized Health Care Education/Training Program; ATTEND Student in an Organized Health Care Education/Training Program
DX: K27.9 Peptic ulcer, site unspecified, unspecified as acute or chronic, without hemorrhage or perforation (principal); I11.0 Hypertensive heart disease with heart failure; I50.9 Heart failure, unspecified; A09 Infectious gastroenteritis and colitis, unspecified; D64.9 Anemia, unspecified; K21.9 Gastro-esophageal reflux disease without esophagitis; E78.5 Hyperlipidemia, unspecified; K59.00 Constipation, unspecified; J44.89 Other specified chronic obstructive pulmonary disease; F41.9 Anxiety disorder, unspecified; F17.210 Nicotine dependence, cigarettes, uncomplicated; I25.10 Atherosclerotic heart disease of native coronary artery without angina pectoris; R11.15 Cyclical vomiting syndrome unrelated to migraine; Z87.11 Personal history of peptic ulcer disease; Z88.5 Allergy status to narcotic agent; I25.2 Old myocardial infarction; Z91.018 Allergy to other foods; F12.90 Cannabis use, unspecified, uncomplicated; Z79.899 Other long term (current) drug therapy
CPT/HCPCS: 36415; 71045; 74018; 74176; 80053; 81001; 83605; 83690; 83735; 84443; 84484; 85025; 96360; 96372; G0378; J2003; J2405; J2470

== ENCOUNTER 2025-01-06 19:20 | Inpatient (IN) | payer MEDICAID ==
[~2025-01-06] VITALS: Ht 157.5 cm; Wt 65.4 kg
[2025-01-06] MEDS: ONDANSETRON HCL 4 MG/2 ML VIAL IV ONE (20:00)
[2025-01-06 20:19] LABS: Hematocrit 42.7 % (36.0-46.0); Hemoglobin 14.2 g/dL (12.2-16.2); Mean Corpuscular Hemoglobin 30.2 pg (28.0-32.0); Mean Corpuscular Volume 90.6 fL (80.0-100.0); Nucleated Red Blood Cells % 0.0 %
[2025-01-06 20:33] LABS: Albumin 4.2 g/dL (3.2-4.8); Alkaline Phosphatase 87 U/L (46-116); Anion Gap 11 (5-15); BUN/Creatinine Ratio 8.2 (10.0-20.0); Bilirubin, Total 1.1 mg/dL (0.2-1.0); Calcium 9.1 mg/dL (8.7-10.4); Lipase 29 U/L (12-53); Potassium 3.8 mmol/L (3.5-5.1); Sodium 142 mmol/L (136-145); Total Protein 6.9 g/dL (5.7-8.2)
[2025-01-06 20:40] LABS: Alanine Aminotransferase 9 U/L (7-40); Blood Urea Nitrogen 8 mg/dL (9-23); Carbon Dioxide 19 mmol/L (20-31); Chloride 112 mmol/L (98-107); Glucose 141 mg/dL (74-106)
[2025-01-06 20:56] LABS: Lactic Acid w/Reflex 3.9 mmol/L (0.4-2.0)
--- NOTE | 2025-01-06 21:13 | ED.PDOC ---
GI ASSESSMENT HPI Comments A 64-year-old female presents to the ED via EMS with a chief complaint of nausea, vomiting, diarrhea, and abdominal pain that began this morning. The patient reports being awakened by the vomiting, which she describes as bile, and has also experienced dark brown diarrhea. Initially, she felt the abdominal pain in the upper abdomen, but it has since become more diffuse, involving the lower abdomen as well. The patient denies any bloody stools, blood clots, hematemesis, fever, or chills. Vitals Temp: 98.9 F HR: 98 BP: 148/73 SPO2: 99% RA RR: 18 Past medical history:Anemia, anxiety, CAD, CHF, COPD, GERD, HLD, HTN, GA, PUD Past surgical history: Cholecystectomy, BTL, , tonsillectomy Allergies: Codeine, Hydrocodone, HPI: Poor Historian. Yellow vomit and brown diarrhea and generalized abdominal pain. REVIEW OF SYSTEMS: CONSTITUTIONAL: Denies acute: fever, diaphoresis, chills, HEAD: Denies acute: headache, photophobia Eyes: Denies acute: Double vision, vision loss, eye pain, eye discharge. EARS: Denies acute: tinnitus, hearing loss, ear discharge, ear pain, THROAT: Denies acute: sore throat, swelling, difficulty swallowing , pain with swallowing, change in voice. NECK: Denies acute: neck pain, neck swelling, stiff neck. HEART: Denies acute : chest pain, palpitations, LUNGS: Denies acute: SOB, wheezing, cough, hemoptysis ABDOMEN: Denies acute: melena , hematemesis, hematochezia SKIN: Denies acute: rash, redness, lesions, itchiness. EXTREMITIES: Denies acute: calf pain, numbness, tingling, weakness, denies pain in extremity. Denies acute: Low back pain. Neuro: Denies acute: focal neurological deficit, motor or sensory focal neurological deficit, tremors, seizure like activity, confusion, dizziness, change in mental status, loss of bowel or bladder function, cauda equina like symptoms. : Denies acute: dysuria, hematuria, flank pain, increase in urinary frequency. PSYCH: Denies acute: hallucination, suicidal ideation, homicidal ideation. FEMALE: Denies acute: abnormal vaginal bleeding, foul odor, unusual discharge. PHYSICAL EXAM: General: ----moderate----acute distress, awake and alert. Head: normocephalic, atraumatic. Neck: supple, trachea is midline, no swelling. Throat: Normal phonation. Eyes:, no erythema, no purulent discharge, no proptosis, no icterus. Heart: regular rate, regular rhythm, no significant murmur appreciated. Lungs: no apparent respiratory distress, Able to speak in full sentences. No wheezing, no rhonchi, no crackles. No stridors Clear to auscultation bilaterally. Abdomen: Generalized tender to palpation, non distended, soft, no guarding, no rebound, + bowel sounds. Neuro: Awake, Alert, oriented to name, self, situation, follows commands GCS=15. Speech is normal. Skin: no petechia, no purpura, no cyanosis, non-pale, not jaundice. Lower extremities: --no - Pitting edema no deformity, no focal swelling, no calf TTP. Makes eye contact. moves all four extremities. Face: no apparent facial droop. ED COURSE: DISCLAIMER: This medical document was created using an electronic medical record system with voice recognition software and computerized dictation system. Although this document has been carefully reviewed, there might still be some phonetic and typographical errors. Occasional wrong-word or "sound-alike" substitutions may have occurred due to the inherent limitations of voice recognition software. These areas are purely typographical due to imperfections of the software programs and do not reflect any compromise in the patient's medical care. Please read the chart carefully and recognize, using context, where these substitutions have occurred. Chief Complaint: Abdominal Pain Time Seen by MD: 21:08 Primary Care Provider: NONE Reviewed Notes: Allergies Allergies: Coded Allergies: Hydrocodone (Verified Allergy, Unknown, 04/08/23) Mushroom Extract Complex (Verified Allergy, Unknown, MUSHROOMS, 04/08/23) Uncoded Allergies: ACID FRUITS, MUSHROOMS (Allergy, Unknown, 03/28/14) Home Meds Active Scripts Amoxicillin & Pot Clavulanate (AUGMENTIN TABLET) 875 Mg Tb, 875 MG PO BID for 5 Days, #10 TAB 0 Refills Prov:FROILAN AZIZ,FARIQ MD 11/08/24 Hydrocodone-Acetaminophen (Hydrocodone Bitartrate/AC 5-325 mg) 1 Tab Tab, 1 TAB PO Q8HP PRN, #12 TAB Prov:RUSSELL HARRELL MD 12/19/23 Sacubitril-Valsartan (Entresto 24-26 mg) 1 Tab Tab, 1 TAB PO BID, #60 TAB Prov:ANISHA WILD MD 10/15/22 Aspirin (Aspirin Low Dose) 81 Mg Tab, 81 MG PO DAILY, #30 TAB Prov:ANISHA WILD MD 10/15/22 Potassium Chloride (Potassium Chloride ER) 10 Meq Tab, 10 MEQ PO DAILY, #30 Prov:ANISHA WILD MD 09/21/18 Reported Medications Fezolinetant (Veozah) 45 Mg Tab, 1 TAB PO DAILY 12/15/23 Albuterol Sulfate (Albuterol Sulfate Hfa) 108 Mcg/Act Aer, 2 PUFF INH Q4-6HR PRN for WHEEZING 12/15/23 Dicyclomine Hcl (BENTYL CAPSULE) 10 Mg Cp, 1 CAP PO TID PRN for UPSET STOMACH 12/15/23 Lactulose (Lactulose) 10 Gm/15 Ml Anali, 15 ML PO QPM for 15 Days, #237 12/15/23 Escitalopram Oxalate (Lexapro) 10 Mg Tab, 1 TAB PO DAILY 12/15/23 Metoprolol Tartrate (Lopressor) 25 Mg Tb, 1 TAB PO DAILY 12/15/23 Pantoprazole Sodium Sesquihydr (Protonix) 40 Mg Tab, 1 TAB PO DAILY 12/15/23 Ondansetron HCl (Ondansetron Hydrochloride) 4 Mg Tab, 1 TAB PO Q8HR PRN for NAUSEA / VOMITING for 15 Days, #30 12/15/23 Montelukast Sodium (MONTELUKAST SODIUM) 10 Mg Tab, 1 TAB PO DAILY, #30 TAB 5 Refills 12/12/20 Furosemide (Furosemide) 20 Mg Tab, 20 MG PO DAILY for 30 Days, MG 12/12/20 Atorvastatin Calcium (ATORVASTATIN CALCIUM) 20 Mg Tab, 1 TAB PO DAILY, #30 TAB 5 Refills 09/18/18 Sucralfate (Carafate) 1 Gm Tb, 1 TAB PO BID, #90 TAB 11 Refills 08/10/15 Information Source: Patient Mode of Arrival: Ambulatory Timing: Days Duration: Since onset Past Medical History PAST MEDICAL HISTORY: Anemia, Anxiety, Asthma, CAD, CHF, COPD, GERD, High Lipids, HTN, GA, PUD Surgical History: BTL, Cholecystectomy, , Tonsillectomy 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 Was a procedure done?: No GI differential Dx Differential Diagnosis: Cholangitis, Cholecystitis, Gastroenteritis, Pancreatitis, Other (DDX include Diverticulitis, colitis, gastroenteritis, acute abdomen, SBO, enteritis, constipation, volvulus, appendicitis, Gallbladder disease, choledocolithiasis, ascending cholangitis, pancreatitis, intraAbdominal mass/neoplasm, hepatitis, UTI, pylonephritis, kidney stone, aneurysm, dissection, Inflammatory bowel disease, gastroparesis, ischemic bowel, ovarian torsion, tubo-ovarian abscess, , PID, STD.) X-Ray, Labs, Meds, VS Vital Signs Date Time Temp Pulse Resp B/P (MAP) Pulse Ox O2 Delivery O2 Flow Rate FiO2 01/07/25 04:33 75 189/99 01/07/25 04:00 90 01/07/25 03:33 95 185/109 01/07/25 03:12 98.1 95 184/118 (140) 98.1 01/07/25 02:43 98.1 93 22 155/98 (117) 97 98.1 01/07/25 00:08 97.9 103 22 152/107 (122) 96 97.9 01/07/25 00:08 82 22 96 Room Air* 0 21 01/07/25 00:00 104 01/06/25 22:02 98.0 74 18 128/81 (97) 100 98.0 01/06/25 19:20 98.9 98 18 148/73 99 98.9 Lab Test 01/06/25 21:26 01/06/25 19:54 Range/Units Lactic Acid Level 1.4 3.9 *H 0.4-2.0 mmol/L Troponin I High Sensitivity 8 < 3 L </=34 ng/L White Blood Count 11.2 H 4.4-10.8 10^3/uL Red Blood Count 4.72 4.0-5.20 10^6/uL Hemoglobin 14.2 12.2-16.2 g/dL Hematocrit 42.7 36.0-46.0 % Mean Corpuscular Volume 90.6 80.0-100.0 fL Mean Corpuscular Hemoglobin 30.2 28.0-32.0 pg Mean Corpuscular Hemoglobin Concent 33.3 32.0-36.0 g/dL Red Cell Distribution Width 14.2 11.8-14.3 % Platelet Count 246 140-450 10^3/uL Mean Platelet Volume 7.3 6.9-10.8 fL Neutrophils (%) (Auto) 89.8 H 37.0-80.0 % Lymphocytes (%) (Auto) 5.8 L 10.0-50.0 % Monocytes (%) (Auto) 3.8 0.0-12.0 % Eosinophils (%) (Auto) 0.3 0.0-7.0 % Basophils (%) (Auto) 0.3 0.0-2.0 % Neutrophils # (Auto) 10.1 H 1.6-8.6 10 ^3/uL Lymphocytes # (Auto) 0.7 0.4-5.4 10 ^3/uL Monocytes # (Auto) 0.4 0-1.3 10 ^3/uL Eosinophils # (Auto) 0 0-0.8 10 ^3/uL Basophils # (Auto) 0 0-0.2 10 ^3/uL Nucleated Red Blood Cells 0.0 % Sodium Level 142 136-145 mmol/L Potassium Level 3.8 3.5-5.1 mmol/L Chloride Level 112 H 98-107 mmol/L Carbon Dioxide Level 19 L 20-31 mmol/L Anion Gap 11 5-15 Blood Urea Nitrogen 8 L 9-23 mg/dL Creatinine 0.98 0.550-1.02 mg/dL Glomerular Filtration Rate Calc 65 >90 mL/min BUN/Creatinine Ratio 8.2 L 10.0-20.0 Serum Glucose 141 H 74-106 mg/dL Calcium Level 9.1 8.7-10.4 mg/dL Total Bilirubin 1.1 H 0.2-1.0 mg/dL Aspartate Amino Transferase (AST) 17 13-40 U/L Alanine Aminotransferase (ALT) 9 7-40 U/L Alkaline Phosphatase 87 46-116 U/L Total Protein 6.9 5.7-8.2 g/dL Albumin 4.2 3.2-4.8 g/dL Lipase 29 12-53 U/L [place] [id number] Ph: [phone] DIAGNOSTIC IMAGING Diagnostic Imaging Report : [id number] Signed PATIENT: LUIS BENTLEY ACCT: [id number] UNIT: [id number] : 1960 LOC: ER ROOM / BED: / AGE / SEX: 64 / F ADM STATUS: REG ER SERVICE [id number] ORDERING PHYSICIAN: CHIRAG GARCIA DO PROCEDURE(s): CXRP - CHEST PORTABLE REASON: r/o aspiration ORDER NUMBER(s): [id number], ACCESSION NUMBER(s): [id number] INDICATION: r/o aspiration, SOB TECHNIQUE: Frontal view of the chest. COMPARISON: XY CHEST PORTABLE on DOS: 11/06/24, XY CHEST PORTABLE on DOS: 10/21/22, XY CHEST TWO VIEWS ROUTINE on DOS: 10/16/22, XY CHEST PORTABLE on DOS: 10/14/22, CHEST PORTABLE on DOS: 12/07/21 FINDINGS/IMPRESSION: Please note, the left costophrenic angle is excluded from field of view. There is mild prominence of the interstitial markings. Unchanged cardiomediastinal silhouette. No definite pleural effusion or pneumothorax. Unchanged osseous structures. ATED BY: NABEEL SUNSHINE MD DICTATED DATE/TIME: 01/07/2511 SIGNED BY: NABEEL SUNSHINE MD SIGNED DATE/TIME: 01/07/2511 CC: [address] [id number] Ph: [phone] DIAGNOSTIC IMAGING Diagnostic Imaging Report : [id number] Signed PATIENT: LUIS BENTLEY ACCT: [id number] UNIT: [id number] : 1960 LOC: ER ROOM / BED: / AGE / SEX: 64 / F ADM STATUS: REG ER SERVICE 45 ORDERING PHYSICIAN: CHIRAG GARCIA DO PROCEDURE(s): ABPL - CT AB PEL WO CON-NO ORAL OR IV REASON: abd pain n/v/d ORDER NUMBER(s): [id number], ACCESSION NUMBER(s): [id number] Exam: CT CT AB PEL WO CON-NO ORAL OR IV History: abd pain n/v/d Comparison Study: CT CT AB PEL WO CON-NO ORAL OR IV on DOS: 11/06/24, CT CT AB PEL WO CON-NO ORAL OR IV on DOS: 12/13/23, CT CT AB PEL WO CON-NO ORAL OR IV on DOS: 10/26/23, CT CT AB PEL WO CON-NO ORAL OR IV on DOS: 10/21/22, CT ABD PELVIS WO CONTRAST on DOS: 02/02/22 Technique: Multidetector spiral CT of the abdomen was performed from lung bases to pubic symphysis. Imaging was performed without IV contrast. Axial, coronal and sagittal multiplanar reformats were obtained from the axial data set by the technologist. Radiation Dose : 1. Abdomen/Pelvis: CTDIvol 6.68 mGy, DLP 3.92 mGy*cm. Findings: Evaluation of solid organs is limited due to lack of intravenous contrast use. Lung Bases: No acute or significant lung base finding. Normal heart size. No pleural or pericardial effusion. Liver: The liver is normal in size. No focal lesions. Gallbladder and Biliary Tree: Gallbladder is surgically absent. Spleen: Unremarkable Pancreas: The pancreas is grossly normal in appearance. Adrenal Glands: Unremarkable Kidneys: Kidneys are grossly normal without calculi or hydronephrosis. Bladder: Grossly unremarkable for degree of distention. Bowel: The stomach is grossly normal in appearance. Concentric wall thickening throughout the distal colon may reflect mild colitis. The appendix is not visualized; however, no secondary findings of acute appendicitis identified. Ascites: Absent Lymphadenopathy: No mesenteric, retroperitoneal or periportal lymphadenopathy. Abdominal Wall and Mesentery: Unremarkable. Vasculature: The visualized abdominal aorta is normal in size and caliber. Evaluation of abdominal and pelvic vessels is limited due to lack of intravenous contrast. Pelvic Organs: Unremarkable Musculoskeletal: No aggressive focal bony lesions, acute fractures or dislocation. IMPRESSION: 1. Concentric wall thickening throughout the distal colon may reflect mild colitis. Radiation optimization: All CT scans at this facility use at least one of these dose optimization techniques: automated exposure control mA and/or kV adjustment per patient size (includes targeted exams where dose is matched to clinical indication) or iterative reconstruction. ATED BY: JANY NICOLE MD DICTATED DATE/TIME: 01/06/252250 SIGNED BY: JANY NICOLE MD SIGNED DATE/TIME: 01/06/252250 CC: Time of 1ST Reevaluation: 22:30 Reevaluation 1ST: Unchanged Patient Education/Counseling: Diagnosis, Treatment Family Education/Counseling: No Family Present Comments MDM: patient presented with the above HPI.--abdominal pain and GI s ymptoms----workup was initiated. patient was found with the above mentioned diagnosis. the following medications were ordered: please refer to order lists of meds and tests obtained by myself Dr. Garcia. Patient ED course and VS have been stabilized. Patient has been reassessed in the ED and remained in a stable condition. Pertinent incidental findings were discussed with the patient and/or family. Patient/family voices understanding and is agreeable with plan. Patient has been observed in the ED adequate length of time to insure improvement/stability. Escalation of care considered: Consideration of escalation to observation or admission Patient was ADMITTED to the medicine team for further evaluation and treatment of their presentation. All the reports of any imaging studies that were ordered by myself were reviewed by myself. Departure 1 Departure Time of Disposition: 23:10 Impression: Primary Impression: Non-specific colitis Additional Impressions: Nausea and vomiting Elevated lactic acid level Disposition: ADMITTED INPATIENT Admit to: Tele Condition: Guarded Discharged With: Self Critical Care Note Critical Care Time?: Yes (35 min-critical care time only) I personally scribed for CHIRAG GARCIA DO ([email or web address]) on 01/06/25 at 21:13. Electronically submitted by Deisy Liu ([facility]). I personally scribed for CHIRAG GARCIA DO ([email or web address]) on 01/07/25 at 05:11. Electronically submitted by Antoine Espinal ([facility]). CHIRAG GARCIA DO Jan 06, 2025 21:13
[2025-01-06] MEDS: SODIUM CHLORIDE 0.9% 1,000 ML IV ONE ×2 (21:30→23:45)
--- NOTE | 2025-01-06 22:54 | DVH ---
Exam: CT CT AB PEL WO CON-NO ORAL OR IV History: abd pain n/v/d Comparison Study: CT CT AB PEL WO CON-NO ORAL OR IV on DOS: 11/06/24, CT CT AB PEL WO CON-NO ORAL OR I V on DOS: 12/13/23, CT CT AB PEL WO CON-NO ORAL OR IV on DOS: 10/26/23, CT CT AB PEL WO CON-NO ORAL OR IV on DOS: 10/21/22, CT ABD PELVIS WO CONTRAST on DOS: 02/02/22 Technique: Multidetector spiral CT of the abdomen was performed from lung bases to pubic symphysis. Imaging was performed without IV contrast. Axial, coronal and sagittal multiplanar reformats were ob tained from the axial data set by the technologist. Radiation Dose : 1. Abdomen/Pelvis: CTDIvol 6.68 mGy, DLP 3.92 mGy*cm. Findings: Evaluation of solid organs is limited due to lack of intravenous contrast use. Lung Bases: No acute or significant lung base finding. Normal heart size. No pleural or pericardial effusion. Liver: The liver is normal in size. No focal lesions. Gallbladder and Biliary Tree: Gallbladder is surgically absent. Spleen: Unremarkable Pancreas: The pancreas is grossly normal in appearance. Adrenal Glands: Unremarkable Kidneys: Kidneys are grossly normal without calculi or hydronephrosis. Bladder: Grossly unremarkable for degree of distention. Bowel: The stomach is grossly normal in appearance. Concentric wall thickening throughout the distal colon may reflect mild colitis. The appendix is not visualized; however, no secondary findings of ac [place] appendicitis identified. Ascites: Absent Lymphadenopathy: No mesenteric, retroperitoneal or periportal lymphadenopathy. Abdominal Wall and Mesentery: Unremarkable. Vasculature: The visualized abdominal aorta is normal in size and caliber. Evaluation of abdominal a nd pelvic vessels is limited due to lack of intravenous contrast. Pelvic Organs: Unremarkable Musculoskeletal: No aggressive focal bony lesions, acute fractures or dislocation. IMPRESSION: 1. Concentric wall thickening throughout the distal colon may reflect mild colitis. Radiation optimization: All CT scans at this facility use at least one of these dose optimization arthur hniques: automated exposure control mA and/or kV adjustment per patient size (includes targeted exam s where dose is matched to clinical indication) or iterative reconstruction.
[2025-01-06] MEDS: CIPROFLOXACIN 400MG/200ML 200 ML IV ONE (23:15)
[2025-01-07 00:08] VITALS: PULSE 82; RESP 22; O2SAT 96
--- NOTE | 2025-01-07 00:16 | DVH ---
INDICATION: r/o aspiration, SOB TECHNIQUE: Frontal view of the chest. COMPARISON: XY CHEST PORTABLE on DOS: 11/06/24, XY CHEST PORTABLE on DOS: 10/21/22, XY CHEST TWO VIEWS R OUTINE on DOS: 10/16/22, XY CHEST PORTABLE on DOS: 10/14/22, CHEST PORTABLE on DOS: 12/07/21 FINDINGS/IMPRESSION: Please note, the left costophrenic angle is excluded from field of view. There is mild prominence of the interstitial markings. Unchanged cardiomediastinal silhouette. No definite pleural effusion or pneumothorax. Unchanged osseous structures.
[2025-01-07] MEDS: METOCLOPRAMIDE HCL 5MG/ml INJ 2ml VIAL IV ONE (01:45)
[2025-01-07] MEDS: LORazepam 2MG/ML-1ML VIAL IV ONE (02:45)
[2025-01-07] MEDS: LABETALOL HCL 20 MG/4 ML VL IV ONE (03:33)
[2025-01-07] MEDS: LOSARTAN POTASSIUM 50 MG TAB PO ONE (05:06)
[2025-01-07] MEDS: cloNIDine 0.2 mg/24hr 7DAY PATCH TD ONE (05:07)
[2025-01-07] MEDS: SODIUM CHLOR 0.9% PF (SALINE LOCK) 10ML VIAL/SYR IV SCH (05:21)
[2025-01-07] MEDS: ATORVASTATIN 20 MG TAB PO ONE (05:56)
--- NOTE | 2025-01-07 06:32 | DVHHPRES ---
History of Present Illness Resident Creating Document: BACILIO OLIVAS RESIDENT History of Present Illness 64-year-old female with previous history of [place], asthma, GERD, ? CHF, presents to the ER with with the complaints of diarrhea, nausea, lower abdominal pain since this morning. Denies any history of recent travel or sick contacts. The stool was dark brown, not mixed with blood. The contents of vomiting was bilious. She denies any chest pain, shortness of breath, fever or any other complaints. She takes omeprazole regularly for gastroesophageal reflux disease, which might be contributing to her colitis found on CT. However Gastroenterology, consult may be considered. The patient is started on ceftriaxone and metronidazole. Initial lactic acid was 3.9 which is downtrending, now 1.4. Creatinine is normal. Serum glucose is 141, HbA1c ordered. Chest x-ray revealed prominent interstitial markings. Azithromycin started based on concern for atypical pneumonia or viral pneumonia. Her blood pressure is elevated at 180s /100s. She received labetalol 5 mg, clonidine 0.2 mg and losartan 50 mg. However her blood pressure was uncontrolled despite these medications. Carvedilol 3.125 mg was started. Continuous blood pressure monitoring is required. EKG was done, which showed only 1 strip. Repeating 12 lead EKG might be c onsidered. The patient home medications include Entresto, furosemide, however patient is not aware of congestive heart failure. Echocardiography was ordered, results pending. Starting home medications for heart failure might be considered based on echo findings and cardiology consult if necessary. Past medical history: Asthma, GERD, hypertension, [place] Past surgical history: C-sections, cholecystectomy Allergies: Codeine, hydrocodone, mushrooms, acidic fruits Smokin pack years. Alcohol: in the past Drugs: Active marijuana use Code status: Full code Review of Systems Gastrointestinal: Abdominal Pain, Diarrhea Allergies: Coded Allergies: Codeine (Verified Allergy, Unknown, 02/16/20) Hydrocodone (Verified Allergy, Unknown, 04/08/23) Mushroom Extract Complex (Verified Allergy, Unknown, MUSHROOMS, 04/08/23) Uncoded Allergies: ACID FRUITS, MUSHROOMS (Allergy, Unknown, 03/28/14) Medications Current Medications Medications Dose Ordered Sig/Nathan Route Start Time Stop Time Status Last Admin Dose Admin Sodium Chloride 10 ml Q8HR IV 01/07/25 06:00 01/07/25 05:21 10 ML Sodium Chloride 1,000 ml @ 60 mls/hr [id number] IV 01/07/25 05:00 Ondansetron HCl 4 mg Q4HP PRN IV 01/07/25 05:00 Losartan Potassium 50 mg DAILY PO 01/07/25 10:00 Aspirin 81 mg DAILY PO 01/07/25 10:00 Pantoprazole Sodium 40 mg BID IV 01/07/25 10:00 Exam Vital Signs Vital Signs Date Time Temp Pulse Resp B/P (MAP) Pulse Ox O2 Delivery O2 Flow Rate FiO2 01/07/25 05:43 98.1 84 20 185/106 (132) 95 98.1 01/07/25 00:08 Room Air* 0 21 Exam Pt is lying on bed General Appearance: Alert, Oriented X3, Cooperative, Mild distress HEENT: Atraumatic, Mucous membranes moist/pink Respiratory: Clear to auscultation, Normal air movement, No added sounds Cardiovascular: Regular rate, Normal S1, Normal S2, No murmurs Abdominal/ : Active bowel sounds, Soft, no distention, right and left lower quadrant and suprapubic tenderness present Extremities: No edema, Normal pulses, No tenderness/swelling Skin: No Significant rash, except past surgical scars Neuro: Normal speech, sensorimotor deficits none Psych/Mental Status: Mental status NL, Mood NL Nurse was there as icing maker during examination Labs/Xrays Labs Test 01/07/25 06:00 01/06/25 21:26 01/06/25 19:54 Range/Units Lactic Acid Level 1.4 0.4-2.0 mmol/L Troponin I High Sensitivity 8 </=34 ng/L White Blood Count 11.2 H 4.4-10.8 10^3/uL Red Blood Count 4.72 4.0-5.20 10^6/uL Hemoglobin 14.2 12.2-16.2 g/dL Hematocrit 42.7 36.0-46.0 % Mean Corpuscular Volume 90.6 80.0-100.0 fL Mean Corpuscular Hemoglobin 30.2 28.0-32.0 pg Mean Corpuscular Hemoglobin Concent 33.3 32.0-36.0 g/dL Red Cell Distribution Width 14.2 11.8-14.3 % Platelet Count 246 140-450 10^3/uL Mean Platelet Volume 7.3 6.9-10.8 fL Neutrophils (%) (Auto) 89.8 H 37.0-80.0 % Lymphocytes (%) (Auto) 5.8 L 10.0-50.0 % Monocytes (%) (Auto) 3.8 0.0-12.0 % Eosinophils (%) (Auto) 0.3 0.0-7.0 % Basophils (%) (Auto) 0.3 0.0-2.0 % Neutrophils # (Auto) 10.1 H 1.6-8.6 10 ^3/uL Lymphocytes # (Auto) 0.7 0.4-5.4 10 ^3/uL Monocytes # (Auto) 0.4 0-1.3 10 ^3/uL Eosinophils # (Auto) 0 0-0.8 10 ^3/uL Basophils # (Auto) 0 0-0.2 10 ^3/uL Nucleated Red Blood Cells 0.0 % Sodium Level 142 136-145 mmol/L Potassium Level 3.8 3.5-5.1 mmol/L Chloride Level 112 H 98-107 mmol/L Carbon Dioxide Level 19 L 20-31 mmol/L Anion Gap 11 5-15 Blood Urea Nitrogen 8 L 9-23 mg/dL Creatinine 0.98 0.550-1.02 mg/dL Glomerular Filtration Rate Calc 65 >90 mL/min BUN/Creatinine Ratio 8.2 L 10.0-20.0 Serum Glucose 141 H 74-106 mg/dL Calcium Level 9.1 8.7-10.4 mg/dL Total Bilirubin 1.1 H 0.2-1.0 mg/dL Aspartate Amino Transferase (AST) 17 13-40 U/L Alanine Aminotransferase (ALT) 9 7-40 U/L Alkaline Phosphatase 87 46-116 U/L Total Protein 6.9 5.7-8.2 g/dL Albumin 4.2 3.2-4.8 g/dL Lipase 29 12-53 U/L SEPSIS Sepsis Screen Date sepsis recognized/suspect: Jan 07, 2025 Time Sepsis recognized/suspect: 0011 Recent Procedure: No On Antibiotic Therapy: No Respiratory Rate >20: No Heart Rate >90: No Temp<36 C (96.8 F) or >38.3 C: No SBP <90 or MAP <65 mmHG: No New Acute Mental Status Change: No Is the patient on CPAP, BIPAP,: No Physician Orders Chest Portable (8/22/25 23:38) B-Type Natriuretic Peptide (01/07/25 04:51) Admit (01/07/25 04:57) Allergies (01/07/25 04:57) Code Status (01/07/25 04:57) Sodium Chloride Lock (Saline Lock Ns) (01/07/25 06:00) Sodium Chloride 0.9% (01/07/25 05:00) Oxygen Per Hour (01/07/25 04:57) Ondansetron Hcl (Zofran) (01/07/25 05:00) Complete Blood Count (01/08/25 04:00) Comprehensive Metabolic Panel (01/08/25 04:00) Clear Liq Diet (01/07/25 Breakfast) Notify Of Changes From Base (01/07/25 04:57) Losartan Tablet (Cozaar Tablet) (01/07/25 10:00) Aspirin Tablet (01/07/25 10:00) Pantoprazole (Protonix) (01/07/25 10:00) Vital Signs Date Time Temp Pulse Resp B/P (MAP) Pulse Ox O2 Delivery O2 Flow Rate FiO2 01/07/25 05:43 98.1 84 20 185/106 (132) 95 98.1 01/07/25 05:07 189/99 01/07/25 05:06 189/99 01/07/25 04:33 75 189/99 01/07/25 04:00 90 01/07/25 03:33 95 185/109 01/07/25 03:12 98.1 95 184/118 (140) 98.1 01/07/25 02:43 98.1 93 22 155/98 (117) 97 98.1 01/07/25 00:08 97.9 103 22 152/107 (122) 96 97.9 01/07/25 00:08 82 22 96 Room Air* 0 21 01/07/25 00:00 104 Laboratory Tests Test 01/06/25 19:54 01/06/25 21:26 Lactic Acid Level 3.9 mmol/L (0.4-2.0) *H 1.4 mmol/L (0.4-2.0) White Blood Count 11.2 10^3/uL (4.4-10.8) H Medications Medications Dose Ordered Sig/Nathan Route Start Time Stop Time Status Last Admin Dose Admin Atorvastatin Calcium 20 mg ONCE ONCE PO 01/07/25 05:30 01/07/25 05:37 DC 01/07/25 05:56 20 MG Ciprofloxacin 200 ml @ 200 mls/hr ONCE ONCE IV 01/06/25 23:15 01/07/25 00:14 DC 01/06/25 23:15 200 MLS/HR Clonidine HCl 0.2 mg ONCE ONCE TD 01/07/25 05:00 01/07/25 05:01 DC 01/07/25 05:07 0.2 MG Labetalol HCl 5 mg ONCE ONCE IV 01/07/25 03:30 01/07/25 03:31 DC 01/07/25 03:33 5 MG Lorazepam 1 mg ONCE ONCE IV 01/07/25 02:45 01/07/25 02:46 DC 01/07/25 02:45 1 MG Losartan Potassium 50 mg ONCE ONCE PO 01/07/25 05:00 01/07/25 05:01 DC 01/07/25 05:06 50 MG Metoclopramide HCl 5 mg ONCE ONCE IV 01/07/25 01:45 01/07/25 01:46 DC 01/07/25 01:45 5 MG Metronidazole 100 ml @ 100 mls/hr ONCE ONCE IV 01/06/25 23:15 01/07/25 00:14 DC 01/06/25 23:15 100 MLS/HR Ondansetron HCl 8 mg ONCE ONCE IV 01/06/25 20:00 01/06/25 20:01 DC 01/06/25 20:00 8 MG Sodium Chloride 10 ml Q8HR IV 01/07/25 06:00 01/07/25 05:21 10 ML Sodium Chloride 1,000 ml @ 1,000 mls/hr Q1H ONCE IV 01/06/25 20:00 01/06/25 20:59 DC 01/06/25 23:45 1,000 MLS/HR Sodium Chloride 1,000 ml @ 1,000 mls/hr Q1H ONCE IV 01/06/25 21:30 01/06/25 22:29 DC 01/06/25 21:30 1,000 MLS/HR Assessment/Plan Assessment/Plan Abdominal pain due to colitis CT abdomen and pelvis: Concentric wall thickening throughout the distal colon may reflect mild colitis. Ceftriaxone and metronidazole started NPO and IV fluid given Lactic acid downtrending from 3.9-1.4 Uncontrolled hypertension Monitor blood pressures Losartan 50 mg b.i.d. daily Carvedilol 3.125 mg b.i.d. daily Rule out end-organ damage Single strip EKG showed no ischemia, Order 12 lead EKG Possible congestive heart failure History of coronary artery disease Ordered echocardiography, pending results Consider restarting Entresto or furosemide based on echo results. . Consult Cardiology if necessary Started home medications aspirin 81 mg, atorvastatin 20 mg GI prophylaxis: Pantoprazole DVT prophylaxis: Lovenox Diet: Clear liquid Goals of care discussed with the patient for more than 27 minutes: Full code status Case discussed with , patient and RN Plan discussed with: Patient, Other (RN) My Orders Orders - BACILIO OLIVAS Procedure Category Date Status Time Admit ADMIT 01/07/25 Transmitted 04:57 Allergies PRAVEEN 01/07/25 In Process 04:57 Code Status CODE 01/07/25 Transmitted 04:57 Sodium Chloride Lock PHA 01/07/25 In Process (Saline Lock Ns) 06:00 Sodium Chloride 0.9% PHA 01/07/25 In Process 05:00 Oxygen Per Hour RT 01/07/25 Transmitted 04:57 Ondansetron Hcl PHA 01/07/25 In Process (Zofran) 05:00 Complete Blood Count LAB 01/08/25 Verified 04:00 Comprehensive LAB 01/08/25 Verified Metabolic Panel 04:00 Clear Liq Diet DIET 01/07/25 Transmitted Breakfast Notify Md Of Changes PRAVEEN 01/07/25 In Process From Base 04:57 Losartan Tablet PHA 01/07/25 In Process (Cozaar Tablet) 10:00 Aspirin Tablet PHA 01/07/25 In Process 10:00 Pantoprazole PHA 01/07/25 In Process (Protonix) 10:00 Date of Service: Jan 07, 2025 Billing Provider: KALINA AVITIA MD Common Visit Codes: [id number] INP/OBS CARE (HIGH) BACILIO OLIVAS Jan 07, 2025 06:31 KALINA AVITIA MD Jan 07, 2025 13:56
[2025-01-07] MEDS: CARVEDILOL 3.125 MG TAB PO ONE (06:55)
[2025-01-07 07:50] VITALS: PULSE 82; RESP 16; O2SAT 98
[2025-01-07] MEDS: SODIUM CHLORIDE 0.9% 1,000 ML IV SCH (07:57)
[2025-01-07] MEDS: ONDANSETRON HCL 4 MG/2 ML VIAL IV PRN (08:05)
[2025-01-07] MEDS: AZITHROMYCIN 500MG/ 250ML 250 ML IV ONE (08:53)
[2025-01-07] MEDS: LOSARTAN POTASSIUM 50 MG TAB PO SCH (10:42)
[2025-01-07] MEDS: PANTOPRAZOLE 40 MG/10 ML VIAL INJ IV SCH (10:43)
--- NOTE | 2025-01-07 16:52 | DVHSR ---
APPROVED REPORT EXAM: Two-dimensional and M-mode echocardiogram with Doppler and color Doppler. Blood Pressure: 165/102 mmHg INDICATION Possible CHF RISK FACTORS Height: 5' 6", Weight: 178 DIMENSIONS LVDd4.9 (3.8-5.7cm)LA (2D)4.2 (1.9-4.0cm)Aortic Root3.1 (2.0-3.7cm) LVDs4.1 (2.5-4.0cm)LA (MM) (1.9-4.0cm)Aortic Cusp Exc1.7 (1.5-2.0cm) EF (%) 35.0 (55-70%)Rt. Atrium3.9 (1.9-4.0cm)Asc. Aorta cm IVSd0.9 (0.7-1.1cm)RV (D) (1.8-2.4cm) PWd1.0 (0.7-1.1cm) Mitral Valve MitralMitral Stenosis E wave0.80m/sMV Mean GR.mmHg A wave0.50m/sMV Peak GR.mmHg E/A ratio1.62D MVAcm2 Aortic Valve Aortic ValveAortic Stenosis V10.70m/Myriam Mean GR.2mmHg V20.90m/Myriam Peak GR.4mmHg LVOT Diameter2.2 (1.8-2.4cm)Doppler AVA2.96cm2 Pulmonic Valve V20.60m/s Tricuspid Valve TR Velocity3.60m/s [id number] Conclusion lvef 50% tachycardia during study RV not well seen, likely normal function left atirum enlarged mild RA not well seen moderate to severe tricupsid regurg PH not assessed,
--- NOTE | 2025-01-07 18:27 | DVHPN2 ---
Subjective I am assuming the care of the patient from today onwards. Patient was seen and evaluated by me. Patient's came in with the nausea and vomiting diarrhea found to have distal colon colitis currently on IV antibiotics. Stool for C diff and stool culture is pending. 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 Medications Current Medications Medications Dose Ordered Sig/Nathan Route Start Time Stop Time Status Last Admin Dose Admin Sodium Chloride 10 ml Q8HR IV 01/07/25 06:00 01/07/25 13:52 10 ML Sodium Chloride 1,000 ml @ 60 mls/hr [id number] IV 01/07/25 05:00 01/07/25 07:57 60 MLS/HR Ondansetron HCl 4 mg Q4HP PRN IV 01/07/25 05:00 01/07/25 08:05 4 MG Losartan Potassium 50 mg DAILY PO 01/07/25 10:00 01/07/25 10:42 50 MG Aspirin 81 mg DAILY PO 01/07/25 10:00 01/07/25 10:42 81 MG Pantoprazole Sodium 40 mg BID IV 01/07/25 10:00 01/07/25 10:43 40 MG Carvedilol 3.125 mg Q12HR PO 01/07/25 22:00 Azithromycin 250 ml @ 125 mls/hr DAILY IV 01/08/25 10:00 Alprazolam 0.25 mg Q8HP PRN PO 01/07/25 14:45 Laboratory Results Laboratory Tests 01/06/25 19:54 Chemistry Test 01/06/25 19:54 Albumin 4.2 g/dL (3.2-4.8) Calcium Level 9.1 mg/dL (8.7-10.4) Total Protein 6.9 g/dL (5.7-8.2) Lipid panel Test 01/06/25 19:54 Lipase 29 U/L (12-53) Cardiac Markers Test 01/07/25 06:00 B-Type Natriuretic Peptide 246.28 pg/mL (0-100) LFT Test 01/06/25 19:54 Alanine Aminotransferase (ALT) 9 U/L (7-40) Alkaline Phosphatase 87 U/L (46-116) Aspartate Amino Transferase (AST) 17 U/L (13-40) Total Bilirubin 1.1 mg/dL (0.2-1.0) H Assessment/Plan Assessment/Plan 64-year-old female with a known history of coronary artery disease, GERD, asthma, COPD, chronic tobacco use disorder, chronic marijuana use presented to the hospital with a nausea and vomiting abdominal pain and diarrhea found to have 1. Diarrhea with CT evidence of distal colitis, rule out C diff 2. Coronary artery disease 3. Abdominal pain nausea and vomiting secondary to above 4. COPD currently not in exacerbation 5. GERD 6. Chronic tobacco use disorder 7. Chronic marijuana use -neck stool for C diff, stool culture, GI consultation, IV antibiotics. 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
[2025-01-07] MEDS: ALPRAZolam 0.25 MG TAB PO PRN (18:31)
[2025-01-07] MEDS: MORPHINE SULFATE INJ 2 MG/ml SYRG IV PRN (19:03)
[2025-01-07 19:53] VITALS: PULSE 75; RESP 13; O2SAT 94
[2025-01-07] MEDS: CARVEDILOL 3.125 MG TAB PO SCH (22:00)
[2025-01-08 05:46] LABS: Hematocrit 40.4 % (36.0-46.0); Hemoglobin 13.8 g/dL (12.2-16.2); Mean Corpuscular Hemoglobin 30.6 pg (28.0-32.0); Mean Corpuscular Volume 89.7 fL (80.0-100.0); Nucleated Red Blood Cells % 0.1 %
[2025-01-08 06:04] LABS: Alanine Aminotransferase 23 U/L (7-40); Albumin 4.1 g/dL (3.2-4.8); Alkaline Phosphatase 74 U/L (46-116); Anion Gap 9 (5-15); BUN/Creatinine Ratio 10.7 (10.0-20.0); Blood Urea Nitrogen 8 mg/dL (9-23); Calcium 9.1 mg/dL (8.7-10.4); Carbon Dioxide 21 mmol/L (20-31); Chloride 109 mmol/L (98-107); Glucose 91 mg/dL (74-106); Potassium 3.3 mmol/L (3.5-5.1); Sodium 139 mmol/L (136-145); Total Protein 6.3 g/dL (5.7-8.2)
[2025-01-08 06:05] LABS: Bilirubin, Total 0.5 mg/dL (0.2-1.0)
[2025-01-08 08:31] VITALS: PULSE 60; RESP 12; O2SAT 97
[2025-01-08] MEDS: AZITHROMYCIN 500MG/ 250ML 250 ML IV SCH (09:52)
[2025-01-08 15:01] VITALS: PULSE 60; RESP 18; O2SAT 95
--- NOTE | 2025-01-08 17:36 | DVHINCON2 ---
Date of service: Jan 08, [address] OLIVAS Reason for Consultation Abdominal pain diarrhea nausea History of Present Illness This 64-year-old female with presenting with complaints of abdominal pain and diarrhea nausea the pain is mostly in the lower abdomen patient has got history of asthma [place] in the past and GERD and congestive heart failure. Denied any hematemesis or melena patient had a CAT scan which showed there was evidence of colitis involving the colon especially the sigmoid colon. Patient has been started on ceftriaxone metronidazole Stool tests are still pending Past Medical History Asthma GERD hypertension [place] Past Surgical History Cholecystectomy Family History: Cancer G8 MOTHER (thyroid) Family history: Cardiovascular disease G8 FATHER (murmur) G8 SISTER (murmur) Family history: Thyroid disorder 19 CHILD (hyperthyroid) Malignant neoplasm of ovary Family History Non contribute Social History No smoking or drinking but marijuana abuse smoke heavily Allergies: Coded Allergies: Codeine (Verified Allergy, Unknown, 02/16/20) Hydrocodone (Verified Allergy, Unknown, 04/08/23) Mushroom Extract Complex (Verified Allergy, Unknown, MUSHROOMS, 04/08/23) Uncoded Allergies: ACID FRUITS, MUSHROOMS (Allergy, Unknown, 03/28/14) Home Meds Active Scripts Amoxicillin & Pot Clavulanate (AUGMENTIN TABLET) 875 Mg Tb, 875 MG PO BID for 5 Days, #10 TAB 0 Refills Prov:RUDY RENTERIA MD 11/08/24 Hydrocodone-Acetaminophen (Hydrocodone Bitartrate/AC 5-325 mg) 1 Tab Tab, 1 TAB PO Q8HP PRN, #12 TAB Prov:RUSSELL HARRELL MD 12/19/23 Sacubitril-Valsartan (Entresto 24-26 mg) 1 Tab Tab, 1 TAB PO BID, #60 TAB Prov:ANISHA WILD MD 10/15/22 Aspirin (Aspirin Low Dose) 81 Mg Tab, 81 MG PO DAILY, #30 TAB Prov:ANISHA WILD MD 10/15/22 Potassium Chloride (Potassium Chloride ER) 10 Meq Tab, 10 MEQ PO DAILY, #30 Prov:ANISHA WILD MD 09/21/18 Reported Medications Fezolinetant (Veozah) 45 Mg Tab, 1 TAB PO DAILY 12/15/23 Albuterol Sulfate (Albuterol Sulfate Hfa) 108 Mcg/Act Aer, 2 PUFF INH Q4-6HR PRN for WHEEZING 12/15/23 Dicyclomine Hcl (BENTYL CAPSULE) 10 Mg Cp, 1 CAP PO TID PRN for UPSET STOMACH 12/15/23 Lactulose (Lactulose) 10 Gm/15 Ml Anali, 15 ML PO QPM for 15 Days, #237 12/15/23 Escitalopram Oxalate (Lexapro) 10 Mg Tab, 1 TAB PO DAILY 12/15/23 Metoprolol Tartrate (Lopressor) 25 Mg Tb, 1 TAB PO DAILY 12/15/23 Pantoprazole Sodium Sesquihydr (Protonix) 40 Mg Tab, 1 TAB PO DAILY 12/15/23 Ondansetron HCl (Ondansetron Hydrochloride) 4 Mg Tab, 1 TAB PO Q8HR PRN for NAUSEA / VOMITING for 15 Days, #30 12/15/23 Montelukast Sodium (MONTELUKAST SODIUM) 10 Mg Tab, 1 TAB PO DAILY, #30 TAB 5 Refills 12/12/20 Furosemide (Furosemide) 20 Mg Tab, 20 MG PO DAILY for 30 Days, MG 12/12/20 Atorvastatin Calcium (ATORVASTATIN CALCIUM) 20 Mg Tab, 1 TAB PO DAILY, #30 TAB 5 Refills 09/18/18 Sucralfate (Carafate) 1 Gm Tb, 1 TAB PO BID, #90 TAB 11 Refills 08/10/15 Current Medications Current Medications Medications (Trade) Dose Ordered Sig/Nathan Route PRN Reason Start Time Stop Time Status Last Admin Carvedilol (Coreg Tablet) 3.125 mg Q12HR PO 01/07/25 22:00 Azithromycin 250 ml @ 125 mls/hr DAILY IV 01/08/25 10:00 01/08/25 09:52 Morphine Sulfate 2 mg Q4HPRN PRN IV SEVERE PAIN (7-10 PAIN SCALE) 01/07/25 18:45 01/08/25 08:21 Review of Systems Noncontributory Vital Signs Vital Signs Date Time Temp Pulse Resp B/P (MAP) Pulse Ox O2 Delivery O2 Flow Rate FiO2 01/08/25 16:00 57 11 99/60 (73) 98 01/08/25 15:01 Room Air* 0 21 01/08/25 15:01 98.3 98.3 Physical Exam Moderately built and nourished female in no acute distress vital signs stable HEENT examination no pallor no icterus Neck is supple Lungs clear Vascular unremarkable Abdomen is soft mild tenderness in both lower quadrants no rigidity no guarding no mass Extremities no edema no clubbing Labs/Diagnostic Data Labs Test 01/08/25 05:26 01/07/25 06:00 01/06/25 21:26 01/06/25 19:54 Range/Units White Blood Count 10.0 4.4-10.8 10^3/uL Red Blood Count 4.51 4.0-5.20 10^6/uL Hemoglobin 13.8 12.2-16.2 g/dL Hematocrit 40.4 36.0-46.0 % Mean Corpuscular Volume 89.7 80.0-100.0 fL Mean Corpuscular Hemoglobin 30.6 28.0-32.0 pg Mean Corpuscular Hemoglobin Concent 34.1 32.0-36.0 g/dL Red Cell Distribution Width 14.6 H 11.8-14.3 % Platelet Count 268 140-450 10^3/uL Mean Platelet Volume 7.7 6.9-10.8 fL Neutrophils (%) (Auto) 68.2 37.0-80.0 % Lymphocytes (%) (Auto) 20.6 10.0-50.0 % Monocytes (%) (Auto) 9.4 0.0-12.0 % Eosinophils (%) (Auto) 1.3 0.0-7.0 % Basophils (%) (Auto) 0.5 0.0-2.0 % Neutrophils # (Auto) 6.8 1.6-8.6 10 ^3/uL Lymphocytes # (Auto) 2.1 0.4-5.4 10 ^3/uL Monocytes # (Auto) 0.9 0-1.3 10 ^3/uL Eosinophils # (Auto) 0.1 0-0.8 10 ^3/uL Basophils # (Auto) 0 0-0.2 10 ^3/uL Nucleated Red Blood Cells 0.1 % Sodium Level 139 136-145 mmol/L Potassium Level 3.3 L 3.5-5.1 mmol/L Chloride Level 109 H 98-107 mmol/L Carbon Dioxide Level 21 20-31 mmol/L Anion Gap 9 5-15 Blood Urea Nitrogen 8 L 9-23 mg/dL Creatinine 0.75 0.550-1.02 mg/dL Glomerular Filtration Rate Calc 90 >90 mL/min BUN/Creatinine Ratio 10.7 10.0-20.0 Serum Glucose 91 74-106 mg/dL Calcium Level 9.1 8.7-10.4 mg/dL Total Bilirubin 0.5 0.2-1.0 mg/dL Aspartate Amino Transferase (AST) 45 H 13-40 U/L Alanine Aminotransferase (ALT) 23 7-40 U/L Alkaline Phosphatase 74 46-116 U/L Total Protein 6.3 5.7-8.2 g/dL Albumin 4.1 3.2-4.8 g/dL B-Type Natriuretic Peptide 246.28 0-100 pg/mL Lactic Acid Level 1.4 0.4-2.0 mmol/L Troponin I High Sensitivity 8 </=34 ng/L Lipase 29 12-53 U/L Assessment 62-year-old female with a history of nausea vomiting diarrhea and patient has history of [place] asthma GERD congestive heart failure has got tenderness in both lower abdomen no bleeding physical examination is tiny showing tenderness in both lower quadrants CAT scan showed concentric wall thickening throughout the distal colon possible colitis patient is on antibiotics now still nauseated S clinical impression is possible gastroenteritis Plan/Recommendation Continue with antibiotics watch closely await the stool results if symptoms persist may need further evaluation necessary Infectious disease consult also if symptoms persist Thank you Dr. Judd Plan discussed with: Patient AZRA JUDD MD Jan 08, 2025 17:36
--- NOTE | 2025-01-08 18:05 | DVHPN2 ---
Subjective Patient was seen and evaluated by me. Patient's came in with the nausea and vomiting diarrhea found to have distal colon colitis currently on IV antibiotics. Stool for C diff and stool culture is pending. 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 Medications Current Medications Medications Dose Ordered Sig/Nathan Route Start Time Stop Time Status Last Admin Dose Admin Sodium Chloride 10 ml Q8HR IV 01/07/25 06:00 01/08/25 14:56 10 ML Sodium Chloride 1,000 ml @ 60 mls/hr [id number] IV 01/07/25 05:00 01/08/25 14:56 60 MLS/HR Ondansetron HCl 4 mg Q4HP PRN IV 01/07/25 05:00 01/08/25 16:14 4 MG Losartan Potassium 50 mg DAILY PO 01/07/25 10:00 01/07/25 10:42 50 MG Aspirin 81 mg DAILY PO 01/07/25 10:00 01/08/25 09:52 81 MG Pantoprazole Sodium 40 mg BID IV 01/07/25 10:00 01/08/25 09:51 40 MG Carvedilol 3.125 mg Q12HR PO 01/07/25 22:00 Azithromycin 250 ml @ 125 mls/hr DAILY IV 01/08/25 10:00 01/08/25 09:52 125 MLS/HR Alprazolam 0.25 mg Q8HP PRN PO 01/07/25 14:45 01/08/25 11:25 0.25 MG Morphine Sulfate 2 mg Q4HPRN PRN IV 01/07/25 18:45 01/08/25 08:21 2 MG Laboratory Results Laboratory Tests 01/08/25 05:26 Chemistry Test 01/08/25 05:26 Albumin 4.1 g/dL (3.2-4.8) Calcium Level 9.1 mg/dL (8.7-10.4) Total Protein 6.3 g/dL (5.7-8.2) LFT Test 01/08/25 05:26 Alanine Aminotransferase (ALT) 23 U/L (7-40) Alkaline Phosphatase 74 U/L (46-116) Aspartate Amino Transferase (AST) 45 U/L (13-40) H Total Bilirubin 0.5 mg/dL (0.2-1.0) Assessment/Plan Assessment/Plan 64-year-old female with a known history of coronary artery disease, GERD, asthma, COPD, chronic tobacco use disorder, chronic marijuana use presented to the hospital with a nausea and vomiting abdominal pain and diarrhea found to have 1. Diarrhea with CT evidence of distal colitis, rule out C diff 2. Coronary artery disease 3. Abdominal pain nausea and vomiting secondary to above 4. COPD currently not in exacerbation 5. GERD 6. Chronic tobacco use disorder 7. Chronic marijuana use -stool for C diff, stool culture, GI consultation, IV antibiotics. -outpatient colonoscopy in 6-8 weeks once colitis resolves. Plan discussed with: Patient My Orders Orders - RUSSELL HARRELL MD Procedure Category Date Status Time * Gi Dvh Inspector Purchased Parts CONS 01/07/25 Transmitted 18:22 Morphine Sulfate PHA 01/07/25 In Process Injection 18:45 Date of Service: Jan 08, 2025 Billing Provider: RUSSELL HARRELL MD Common Visit Codes: [id number] INP/OBS CARE(MOD) RUSSELL HARRELL MD Jan 08, 2025 18:05
[2025-01-09] VITALS (9 sets, daily range): BP systolic 96–121; BP diastolic 61–72; PULSE 48–58; RESP 15–18; TEMP 97.6–98.4; O2SAT 97–100
--- NOTE | 2025-01-09 08:24 | ECG ---
[facility] Test Date: 2025-01-06 Test Time: 19:30:31 Pat Name: LUIS BENLTEY Department: [facility] ED Patient ID: [id number] Room: 0201 A Gender: F Ui Engineer: TRACE : [id number] Requested By: CHIRAG GARCIA Order Number: [id number] Reading MD: Ravinder Pabon Measurements Intervals Terrell Rate: 90 P: 80 CT: 141 QRS: 48 QRSD: 103 T: 85 QT: 409 QTc: 501 Interpretive Statements Sinus rhythm Right atrial enlargement Anteroseptal infarct, age indeterminate Prolonged QT interval Artifact in lead(s) I,II,III,aVR,aVL,aVF,V1,V2,V3,V4,V5,V6 Electronically Signed On 01-10-2025 14:34:47 PDT by Ravinder Pabon Please click the below link to view image of tracing.
--- NOTE | 2025-01-09 10:53 | DVHPN2 ---
Subjective Patient doing well, seen at bedside today. Reviewed: Care Plan Changes from previous H/P or p: No Changes General: Per HPI Gastrointestinal: Abdominal Pain, Diarrhea Objective Vitals Vital Signs Date Time Temp Pulse Resp B/P (MAP) Pulse Ox O2 Delivery O2 Flow Rate FiO2 01/09/25 10:44 52 15 108/61 01/09/25 08:55 98.4 100 98.4 01/09/25 04:30 Room Air* 0 21 Intake/Output Intake and Output 01/09/25 07:00 Intake Total 2155 ml Balance 2155 ml Intake Oral 0 ml IV Total 2155 ml Exam GEN: Healthy appearing, well-developed, NAD. HEENT: NC/AT; MMM. CV: RRR, no m/r/g. LUNGS: CTAB, no w/r/c. ABD: Soft, NT/ND, NBS, no masses or organomegaly. Diffuse abdominal tenderness vague/mild EXT: skin Warm, well perfused. no rashes. No clubbing, cyanosis, or edema. NEURO: Ambulating with no limitations. No focal deficits. Medications Current Medications Medications Dose Ordered Sig/Nathan Route Start Time Stop Time Status Last Admin Dose Admin Sodium Chloride 10 ml Q8HR IV 01/07/25 06:00 01/09/25 10:43 10 ML Sodium Chloride 1,000 ml @ 60 mls/hr [id number] IV 01/07/25 05:00 01/08/25 14:56 60 MLS/HR Ondansetron HCl 4 mg Q4HP PRN IV 01/07/25 05:00 01/09/25 10:43 4 MG Losartan Potassium 50 mg DAILY PO 01/07/25 10:00 01/07/25 10:42 50 MG Aspirin 81 mg DAILY PO 01/07/25 10:00 01/09/25 10:43 81 MG Pantoprazole Sodium 40 mg BID IV 01/07/25 10:00 01/09/25 10:43 40 MG Carvedilol 3.125 mg Q12HR PO 01/07/25 22:00 Azithromycin 250 ml @ 125 mls/hr DAILY IV 01/08/25 10:00 01/09/25 10:43 125 MLS/HR Alprazolam 0.25 mg Q8HP PRN PO 01/07/25 14:45 01/08/25 11:25 0.25 MG Morphine Sulfate 2 mg Q4HPRN PRN IV 01/07/25 18:45 01/09/25 10:44 2 MG Laboratory Results Laboratory Tests 01/08/25 05:26 Labs and/or images reviewed: Labs reviewed by me, Image(s) reviewed by me Assessment/Plan Assessment/Plan 64-year-old female with a known history of coronary artery disease, GERD, asthma, COPD, chronic tobacco use disorder, chronic marijuana use presented to the hospital with a nausea and vomiting abdominal pain and diarrhea. 01/09: Patient being treated for colitis. No significant bowel movement 2 days. Stool culture was canceled. Possible need abdominal x-ray, continue liquid diet, continue IV antibiotics. Abdominal sounds present, normoactive to hyperactive, no high-pitched sounds, patient endorses diffuse tenderness. 1. Diarrhea with CT evidence of distal colitis, rule out C diff 2. Coronary artery disease 3. Abdominal pain nausea and vomiting secondary to above 4. COPD currently not in exacerbation 5. GERD 6. Chronic tobacco use disorder 7. Chronic marijuana use -stool for C diff, stool culture, GI consultation, IV antibiotics. -outpatient colonoscopy in 6-8 weeks once colitis resolves. Med surge Full code Plan discussed with: Patient Date of Service: Jan 09, 2025 Billing Provider: RUDY RENTERIA MD Common Visit Codes: [id number] INP/OBS CARE(HIGH) RUDY RENTERIA MD Jan 09, 2025 10:53
[2025-01-09 12:03] LABS: Sodium 139 mmol/L (136-145)
[2025-01-09 12:04] LABS: Anion Gap 6 (5-15); Carbon Dioxide 23 mmol/L (20-31)
[2025-01-09 12:09] LABS: BUN/Creatinine Ratio 19.1 (10.0-20.0); Blood Urea Nitrogen 13 mg/dL (9-23); Glucose 100 mg/dL (74-106)
[2025-01-09 12:15] LABS: Calcium 8.5 mg/dL (8.7-10.4); Chloride 110 mmol/L (98-107); Potassium 3.5 mmol/L (3.5-5.1)
--- NOTE | 2025-01-09 14:02 | DVH ---
Date: 01/09/2025 01:33 PM Examination: XY KUB ABDOMEN SINGLE VIEW History: Abdominal pain, no bowel movement Comparison: CT CT AB PEL WO CON-NO ORAL OR IV on DOS: 01/06/25, CT CT AB PEL WO CON-NO ORAL OR IV on D OS: 11/06/24, XY KUB ABDOMEN SINGLE VIEW on DOS: 11/06/24, US KIDNEY on DOS: 12/21/23, XY KUB ABDOMEN SIN GLE VIEW on DOS: 12/18/23 TECHNIQUE: Frontal views of the abdomen was obtained. FINDINGS: Bowel gas pattern is unremarkable. Surgical clips project over the right upper quadrant. The lung bases are unremarkable. No acute osseous abnormality identified. IMPRESSION: Nonobstructive bowel gas pattern.
[2025-01-10 01:00] VITALS: BP 129/89; PULSE 56; RESP 18; TEMP 98.3; O2SAT 98
[2025-01-10 05:00] VITALS: BP 129/83; PULSE 51; RESP 18; TEMP 97.8; O2SAT 98
[2025-01-10 08:00] VITALS: PULSE 53; RESP 18; O2SAT 100
[2025-01-10 09:00] VITALS: BP 152/88; PULSE 53; RESP 18; TEMP 97.7; O2SAT 100
--- NOTE | 2025-01-10 09:26 | DVHDS2 ---
Discharge Summary Date of Admission Jan 07, 2025 at 04:57 Date of Discharge: Jan 10, 2025 Labs/Diagnostic Data: Laboratory Results Test 01/09/25 21:30 01/09/25 11:34 01/08/25 05:26 01/07/25 06:00 Stool Occult Blood Negative (Negative) Stool Occult Blood Sample #3 (Negative) Stool for White Cells None seen Sodium Level 139 mmol/L (136-145) Potassium Level 3.5 mmol/L (3.5-5.1) Chloride Level 110 mmol/L (98-107) Carbon Dioxide Level 23 mmol/L (20-31) Anion Gap 6 (5-15) Blood Urea Nitrogen 13 mg/dL (9-23) Creatinine 0.68 mg/dL (0.550-1.02) Glomerular Filtration Rate Calc 98 mL/min (>90) BUN/Creatinine Ratio 19.1 (10.0-20.0) Serum Glucose 100 mg/dL (74-106) Calcium Level 8.5 mg/dL (8.7-10.4) White Blood Count 10.0 10^3/uL (4.4-10.8) Red Blood Count 4.51 10^6/uL (4.0-5.20) Hemoglobin 13.8 g/dL (12.2-16.2) Hematocrit 40.4 % (36.0-46.0) Mean Corpuscular Volume 89.7 fL (80.0-100.0) Mean Corpuscular Hemoglobin 30.6 pg (28.0-32.0) Mean Corpuscular Hemoglobin Concent 34.1 g/dL (32.0-36.0) Red Cell Distribution Width 14.6 % (11.8-14.3) Platelet Count 268 10^3/uL (140-450) Mean Platelet Volume 7.7 fL (6.9-10.8) Neutrophils (%) (Auto) 68.2 % (37.0-80.0) Lymphocytes (%) (Auto) 20.6 % (10.0-50.0) Monocytes (%) (Auto) 9.4 % (0.0-12.0) Eosinophils (%) (Auto) 1.3 % (0.0-7.0) Basophils (%) (Auto) 0.5 % (0.0-2.0) Neutrophils # (Auto) 6.8 10 ^3/uL (1.6-8.6) Lymphocytes # (Auto) 2.1 10 ^3/uL (0.4-5.4) Monocytes # (Auto) 0.9 10 ^3/uL (0-1.3) Eosinophils # (Auto) 0.1 10 ^3/uL (0-0.8) Basophils # (Auto) 0 10 ^3/uL (0-0.2) Nucleated Red Blood Cells 0.1 % Total Bilirubin 0.5 mg/dL (0.2-1.0) Aspartate Amino Transferase (AST) 45 U/L (13-40) Alanine Aminotransferase (ALT) 23 U/L (7-40) Alkaline Phosphatase 74 U/L (46-116) Total Protein 6.3 g/dL (5.7-8.2) Albumin 4.1 g/dL (3.2-4.8) B-Type Natriuretic Peptide 246.28 pg/mL (0-100) Test 01/06/25 21:26 01/06/25 19:54 Lactic Acid Level 1.4 mmol/L (0.4-2.0) Troponin I High Sensitivity 8 ng/L (</=34) Lipase 29 U/L (12-53) Other Laboratory Tests 01/09/25 11:34 01/08/25 05:26 Brief Hx & Hospital Course: 64-year-old female with a known history of coronary artery disease, GERD, asthma, COPD, chronic tobacco use disorder, chronic marijuana use presented to the hospital with a nausea and vomiting abdominal pain and diarrhea. 01/09: Patient being treated for colitis. No significant bowel movement 2 days. Stool culture was canceled. Possible need abdominal x-ray, continue liquid diet, continue IV antibiotics. Abdominal sounds present, normoactive to hyperactive, no high-pitched sounds, patient endorses diffuse tenderness. 01/10: Patient feeling better, bowel movement was formed abdominal pain resolving. Likely gastroenteritis and some background constipation. We will discharge with antibiotics Augmentin 875 b.i.d. for 5 days and probiotics yogurt tbsp twice daily, MiraLax once daily for 7 days with docusate 100 twice daily for 14 days. Patient to follow up with PCP to review discharge. Diagnosis: distal colitis, Infectious etiology likely ruled out C diff Coronary artery disease Abdominal pain nausea and vomiting secondary to above , resolved Diarrhea due to above, resolved COPD currently not in exacerbation GERD Chronic tobacco use disorder Chronic marijuana use discharge plan: discharge with antibiotics Augmentin 875 b.i.d. for 5 days and probiotics yogurt tbsp twice daily, MiraLax once daily for 7 days with docusate 100 twice daily for 14 days. continue home medications. Patient to follow up with PCP to review discharge Condition at Discharge: Fair Final Diagnosis/Problems List distal colitis, Infectious etiology likely ruled out C diff Coronary artery disease Abdominal pain nausea and vomiting secondary to above , resolved Diarrhea due to above, resolved COPD currently not in exacerbation GERD Chronic tobacco use disorder Chronic marijuana use Discharge Disposition: Home Discharge Instruct/Medications Scheduled Amoxicillin & Pot Clavulanate (Augmentin Tablet), 875 MG PO BID Amoxicillin & Pot Clavulanate (Augmentin Tablet), 875 MG PO BID Aspirin (Aspirin Low Dose), 81 MG PO DAILY Atorvastatin Calcium (Atorvastatin Calcium), 1 TAB PO DAILY, (Reported) Docusate Sodium (Docusate Sodium), 100 MG PO BID Escitalopram Oxalate (Lexapro), 1 TAB PO DAILY, (Reported) Fezolinetant (Veozah), 1 TAB PO DAILY, (Reported) Furosemide (Furosemide), 20 MG PO DAILY, (Reported) Lactulose (Lactulose), 15 ML PO QPM, (Reported) Metoprolol Tartrate (Lopressor), 1 TAB PO DAILY, (Reported) Montelukast Sodium (Montelukast Sodium), 1 TAB PO DAILY, (Reported) Pantoprazole Sodium Sesquihydr (Protonix), 1 TAB PO DAILY, (Reported) Polyethylene Glycol 3350 (Goodsense Clearlax), 17 GM PO DAILY Potassium Chloride (Potassium Chloride ER), 10 MEQ PO DAILY Sacubitril-Valsartan (Entresto 24-26 mg), 1 TAB PO BID Sucralfate (Carafate), 1 TAB PO BID, (Reported) Scheduled PRN Albuterol Sulfate (Albuterol Sulfate Hfa), 2 PUFF INH Q4-6HR PRN for WHEEZING, (Reported) Dicyclomine Hcl (Bentyl Capsule), 1 CAP PO TID PRN for UPSET STOMACH, (Reported) Hydrocodone-Acetaminophen (Hydrocodone Bitartrate/AC 5-325 mg), 1 TAB PO Q8HP PRN Ondansetron HCl (Ondansetron Hydrochloride), 1 TAB PO Q8HR PRN for NAUSEA / VOMITING, (Reported) Discharge Statement: "Patient was advised to return to the ER or call 911 if any headaches, dizziness, shortness of breath, chest pain, abdominal pain, bleeding, fevers, or worsening of medical condition. Patient was counseled about treatment plan, medications, possible side effects, patientverbalized understanding. All questions were answered to the best of my ability. This discharge took greater then 30 minutes in planning, reviewing documentation, counseling the patient, and discussing with other team members." ASSESSMENT ASSESSMENT Assessment Date of Service: Jan 10, 2025 Billing Provider: RUDY RENTERIA MD Common Visit Codes: 70804-ICS/OBS DISCH DAY >30min RUDY RENTERIA MD Jan 10, 2025 09:26
[2025-01-10 13:00] VITALS: BP 147/90; PULSE 56; RESP 18; TEMP 98.2; O2SAT 99
[2025-01-10] MEDS ORDERED: DOCU-265 PO (14:47)
[2025-01-10] MEDS ORDERED: AUG875T PO (14:47)
[2025-01-10] MEDS ORDERED: POLYPOW59 PO (14:47)
[2025-01-10 15:19] VITALS: BP 147/90; PULSE 56; RESP 18; TEMP 98.6; O2SAT 99
== END 2025-01-10 16:15 | disposition home or self-care (01) | DRG 720 ==
LOC: EDBD 19:20 → ER 19:20 → OVERFLOW 01-07 04:57 → CENTRAL 01-09 03:59
PROVIDERS: ADMIT Student in an Organized Health Care Education/Training Program; ATTEND Student in an Organized Health Care Education/Training Program
DX: A41.9 Sepsis, unspecified organism (principal); E87.20 Acidosis, unspecified; I50.9 Heart failure, unspecified; I11.0 Hypertensive heart disease with heart failure; A09 Infectious gastroenteritis and colitis, unspecified; E78.5 Hyperlipidemia, unspecified; F41.9 Anxiety disorder, unspecified; I25.10 Atherosclerotic heart disease of native coronary artery without angina pectoris; J44.89 Other specified chronic obstructive pulmonary disease; K59.00 Constipation, unspecified; K21.9 Gastro-esophageal reflux disease without esophagitis; F12.10 Cannabis abuse, uncomplicated; F17.210 Nicotine dependence, cigarettes, uncomplicated; I25.2 Old myocardial infarction; Z80.41 Family history of malignant neoplasm of ovary; Z82.49 Family history of ischemic heart disease and other diseases of the circulatory system; Z87.11 Personal history of peptic ulcer disease; Z88.5 Allergy status to narcotic agent; Z88.8 Allergy status to other drugs, medicaments and biological substances; Z90.49 Acquired absence of other specified parts of digestive tract
CPT/HCPCS: 36415; 71045; 74018; 74176; 80048; 80053; 82270; 83605; 83690; 83880; 84484; 85025; 85048; 87177; 93005; 93306; 96361; 96374; G0378; J2405; J2470; J3490

== ENCOUNTER 2025-03-13 12:22 | Inpatient (IN) | payer MEDICAID ==
[~2025-03-13] VITALS: Ht 157.5 cm; Wt 61.5 kg
[~2025-03-13 12:22] MED LIST changes: +DOCU-265 PO; +POLYPOW59 PO
[2025-03-13 12:48] VITALS: PULSE 74; RESP 21; O2SAT 98
--- NOTE | 2025-03-13 13:13 | ED.PDOC ---
History of Present Illness HPI Comments 65F presents to the ER w/ prior MHx of HTN, Gastritis, CAD(no stent placed), NV and the c/c of CP. EMS report on the pt having sharp and constant CP associated w/ diffuse ABD pain and N/V-bright yellow which all started this morning. EMS note that the pt was given [address] and the pt having a BS of 127. Denies any other symptoms at this time. Denies chills, fever, N/V/D, SOB, CP. Denies any other associated symptom's, modifiers, or recent injuries or sick contact at this time. Chief Complaint: Chest Pain Time Seen by MD: 13:10 Primary Care Provider: NONE Reviewed Notes: Nurses Notes, Medications, Allergies Allergies: Coded Allergies: Hydrocodone (Verified Allergy, Unknown, 04/08/23) Mushroom Extract Complex (Verified Allergy, Unknown, MUSHROOMS, 04/08/23) Uncoded Allergies: ACID FRUITS, MUSHROOMS (Allergy, Unknown, 03/28/14) Home Meds Active Scripts Docusate Sodium (Docusate Sodium) 100 Mg Cap, 100 MG PO BID for 14 Days, #30 CAP 0 Refills Prov:RUDY RENTERIA MD 01/10/25 Polyethylene Glycol 3350 (Goodsense Clearlax) 17 Gm/Scoop Pow, 17 GM PO DAILY for 7 Days, #14 POW 0 Refills Prov:RUDY RENTERIA MD 01/10/25 Amoxicillin & Pot Clavulanate (AUGMENTIN TABLET) 875 Mg Tb, 875 MG PO BID for 5 Days, #10 TAB 0 Refills Prov:RUDY RENTERIA MD 01/10/25 Hydrocodone-Acetaminophen (Hydrocodone Bitartrate/AC 5-325 mg) 1 Tab Tab, 1 TAB PO Q8HP PRN, #12 TAB Prov:RUSSELL HARRELL MD 12/19/23 Sacubitril-Valsartan (Entresto 24-26 mg) 1 Tab Tab, 1 TAB PO BID, #60 TAB Prov:ANISHA WILD MD 10/15/22 Aspirin (Aspirin Low Dose) 81 Mg Tab, 81 MG PO DAILY, #30 TAB Prov:ANISHA WILD MD 10/15/22 Potassium Chloride (Potassium Chloride ER) 10 Meq Tab, 10 MEQ PO DAILY, #30 Prov:ANISHA WILD MD 09/21/18 Reported Medications Fezolinetant (Veozah) 45 Mg Tab, 1 TAB PO DAILY 12/15/23 Albuterol Sulfate (Albuterol Sulfate Hfa) 108 Mcg/Act Aer, 2 PUFF INH Q4-6HR PRN for WHEEZING 12/15/23 Dicyclomine Hcl (BENTYL CAPSULE) 10 Mg Cp, 1 CAP PO TID PRN for UPSET STOMACH 12/15/23 Lactulose (Lactulose) 10 Gm/15 Ml Anali, 15 ML PO QPM for 15 Days, #237 12/15/23 Escitalopram Oxalate (Lexapro) 10 Mg Tab, 1 TAB PO DAILY 12/15/23 Metoprolol Tartrate (Lopressor) 25 Mg Tb, 1 TAB PO DAILY 12/15/23 Pantoprazole Sodium Sesquihydr (Protonix) 40 Mg Tab, 1 TAB PO DAILY 12/15/23 Ondansetron HCl (Ondansetron Hydrochloride) 4 Mg Tab, 1 TAB PO Q8HR PRN for NAUSEA / VOMITING for 15 Days, #30 12/15/23 Montelukast Sodium (MONTELUKAST SODIUM) 10 Mg Tab, 1 TAB PO DAILY, #30 TAB 5 Refills 12/12/20 Furosemide (Furosemide) 20 Mg Tab, 20 MG PO DAILY for 30 Days, MG 12/12/20 Atorvastatin Calcium (ATORVASTATIN CALCIUM) 20 Mg Tab, 1 TAB PO DAILY, #30 TAB 5 Refills 09/18/18 Sucralfate (Carafate) 1 Gm Tb, 1 TAB PO BID, #90 TAB 11 Refills 08/10/15 Information Source: Patient Mode of Arrival: EMS Severity: Moderate Timing: Hours Duration: Since onset, Hours Prehospital treatment: None Past Medical History PAST MEDICAL HISTORY: CAD, HTN, NV Past Medical History (Other): Gastritis Surgical History: Unknown DIRECTOR HUMAN SERVICES History: No Pertinent DIRECTOR HUMAN SERVICES History Family History Family History: Reviewed,noncontributory to illness, Unknown Social History Smoker: Unknown Alcohol: Unknown Drugs: Unknown Lives In: Home Constitutional: denies: chills, diaphoresis, fatigue, fever, malaise, sweats, weakness, others EENTM: denies: blurred vision, double vision, ear bleeding, ear discharge, ear drainage, ear pain, ear ringing, eye pain, eye redness, hearing loss, mouth pain, mouth swelling, nasal discharge, nose bleeding, nose congestion, nose pain, photophobia, tearing, throat pain, throat swelling, voice changes, others Respiratory: denies: cough, hemoptysis, orthopnea, SOB at rest, shortness of breath, SOB with excertion, stridor, wheezing, others Cardiovascular: reports: chest pain; denies: dizzy spells, diaphoresis, Dyspnea on exertion, edema, irregular heart beat, left arm pain, lightheadedness, palpitations, PND, syncope, others Gastrointestinal: reports: abdominal pain, nausea, vomiting; denies: abdomen distended, blood streaked bowels, constipated, diarrhea, dysphagia, difficulty swallowing, hematemesis, melena, poor appetite, poor fluid intake, rectal bleeding, rectal pain, others Genitourinary: denies: abnormal vagina bleeding, burning, dyspareunia, dysuria, flank pain, frequency, hematuria, incontinence, pain, , vagina discharge, urgency, others Neurological: denies: dizziness, fainting, headache, left sided numbness, left sided weakness, numbness, paresthesia, pre-existing deficit, right sided numbness, right sided weakness, seizure, speech problems, tingling, tremors, weakness, others Musculoskeletal: denies: back pain, gout, joint pain, joint swelling, muscle pain, muscle stiffness, neck pain, others Integumetry: denies: bruises, change in color, change in hair/nails, dryness, laceration, lesions, lumps, rash, wounds, others Allergic/Immunocompromised: denies: Difficulty Healing, Frequent Infections, Hives, Itching, others Hematologic/Lymphatic: denies: anemia, blood clots, easy bleeding, easy bruising, swollen glands, others Endocrine: denies: excessive hunger, excessive sweating, excessive thirst, excessive urination, flushing, intolerance to cold, intolerance to heat, unexplained weight gain, unexplained weight loss, others Psychiatric: denies: anxiety, bipolar disorder, depression, hopeless, panic disorder, schizophrenia, sleepless, suicidal, others All Other Systems: Reviewed and Negative Physical Exam General Appearance: Moderate Distress, Normal HEENT: Normal ENT Inspection, Pharynx Normal, TMs Normal Neck: Full Range of Motion, Non-Tender, Normal, Normal Inspection Respiratory: Chest Non-Tender, Lungs Clear, No Accessory Muscle Use, No Respiratory Distress, Normal Breath Sounds Cardiovascular: No Edema, No JVD, No Murmur, No Gallop, Normal Peripheral Pulses, Regular Rate/Rhythm Breast Exam: Deferred Gastrointestinal: No Organomegaly, Non Tender, No Pulsatile Mass, Normal Bowel Sounds, Soft Genitalia: Deferred Pelvic: Deferred Rectal: Deferred Extremities: No calf tenderness, Normal capillary refill, Normal inspection, Normal range of motion, Non-tender, No pedal edema Musculoskeletal : Apperance: Normal Neurologic: Alert, hr director II-XII nml as Tested, No Motor Deficits, Normal Affect, Normal Mood, No Sensory Deficits Cerebellar Function: NOT DONE Reflexes: NOT DONE Skin: Dry, Normal Color, Warm Peripheral Pulses: 3+ Radial (R), 3+ Radial (L) Lymphatic: No Adenopathy Was a procedure done? Was a procedure done?: No Differential Dx Considerations may include: Anemia Electrolyte imbalance X-Ray, Labs, Meds, VS Vital Signs Date Time Temp Pulse Resp B/P (MAP) Pulse Ox O2 Delivery O2 Flow Rate FiO2 03/13/25 16:00 64 22 148/69 (95) 94 03/13/25 15:29 72 03/13/25 14:00 58 14 130/87 (101) 94 03/13/25 13:28 61 03/13/25 13:05 58 03/13/25 12:48 98.2 74 11 131/92 (105) 98.2 03/13/25 12:48 74 21 98 Room Air* 0 21 03/13/25 12:27 62 03/13/25 12:22 98.3 61 18 121/75 98 98.3 Lab Test 03/13/25 16:30 03/13/25 14:24 03/13/25 13:09 Range/Units Troponin I High Sensitivity 9 7 7 </=34 ng/L White Blood Count 9.8 4.4-10.8 10^3/uL Red Blood Count 4.61 4.0-5.20 10^6/uL Hemoglobin 13.9 12.2-16.2 g/dL Hematocrit 41.4 36.0-46.0 % Mean Corpuscular Volume 89.8 80.0-100.0 fL Mean Corpuscular Hemoglobin 30.1 28.0-32.0 pg Mean Corpuscular Hemoglobin Concent 33.5 32.0-36.0 g/dL Red Cell Distribution Width 14.6 H 11.8-14.3 % Platelet Count 259 140-450 10^3/uL Mean Platelet Volume 7.9 6.9-10.8 fL Neutrophils (%) (Auto) 73.7 37.0-80.0 % Lymphocytes (%) (Auto) 17.8 10.0-50.0 % Monocytes (%) (Auto) 6.6 0.0-12.0 % Eosinophils (%) (Auto) 1.3 0.0-7.0 % Basophils (%) (Auto) 0.6 0.0-2.0 % Neutrophils # (Auto) 7.3 1.6-8.6 10 ^3/uL Lymphocytes # (Auto) 1.7 0.4-5.4 10 ^3/uL Monocytes # (Auto) 0.6 0-1.3 10 ^3/uL Eosinophils # (Auto) 0.1 0-0.8 10 ^3/uL Basophils # (Auto) 0.1 0-0.2 10 ^3/uL Nucleated Red Blood Cells 0.4 % Sodium Level 144 136-145 mmol/L Potassium Level 3.6 3.5-5.1 mmol/L Chloride Level 112 H 98-107 mmol/L Carbon Dioxide Level 23 20-31 mmol/L Anion Gap 9 5-15 Blood Urea Nitrogen 10 9-23 mg/dL Creatinine 0.84 0.550-1.02 mg/dL Glomerular Filtration Rate Calc 78 >90 mL/min BUN/Creatinine Ratio 11.9 10.0-20.0 Serum Glucose 96 74-106 mg/dL Calcium Level 9.6 8.7-10.4 mg/dL Current Medications Medications (Trade) Dose Ordered Sig/Nathan Route Start Time Stop Time Status Last Admin Sodium Chloride 1,000 ml @ 1,000 mls/hr Q1H ONCE IV 03/13/25 14:00 03/13/25 14:59 DC 03/13/25 14:15 Ondansetron HCl (Zofran) 4 mg ONCE ONCE IV 03/13/25 14:00 03/13/25 14:01 DC 03/13/25 14:14 Patient alert. Vitals stable. Continues to have chest pain. Answering questions. Complaining of abdominal pain. Establish intravenous access. Was given fluids pain Was given Zofran. WBC within normal limits. Cardiac marker within normal limits. Continues to have chest pain. Possibly need echocardiogram. Cardiology consultation. Explained to the patient. Continue to monitor. Time of 1ST Reevaluation: 13:40 Reevaluation 1ST: Unchanged Patient Education/Counseling: Diagnosis, Treatment, Prognosis Family Education/Counseling: No Family Present SEPSIS Sepsis Screen Date sepsis recognized/suspect: Mar 13, 2025 Time Sepsis recognized/suspect: 8 Recent Procedure: No On Antibiotic Therapy: No Respiratory Rate >20: No Heart Rate >90: No Temp<36 C (96.8 F) or >38.3 C: No SBP <90 or MAP <65 mmHG: No New Acute Mental Status Change: No Is the patient on CPAP, BIPAP,: No Physician Orders Electrocardigram (03/13/25 12:28) Electrocardigram (03/13/25 13:28) Electrocardigram (03/13/25 15:28) Urinalysis (03/13/25 13:59) Ct Ab Pel Wo Con-No Oral Or Iv (03/13/25 14:02) Vital Signs Date Time Temp Pulse Resp B/P (MAP) Pulse Ox O2 Delivery O2 Flow Rate FiO2 03/13/25 16:00 64 22 148/69 (95) 94 03/13/25 15:29 72 03/13/25 14:00 58 14 130/87 (101) 94 03/13/25 13:28 61 03/13/25 13:05 58 03/13/25 12:48 98.2 74 11 131/92 (105) 98.2 03/13/25 12:48 74 21 98 Room Air* 0 21 03/13/25 12:27 62 03/13/25 12:22 98.3 61 18 121/75 98 98.3 Laboratory Tests Test 03/13/25 13:09 White Blood Count 9.8 10^3/uL (4.4-10.8) Medications Medications Dose Ordered Sig/Nathan Route Start Time Stop Time Status Last Admin Dose Admin Ondansetron HCl 4 mg ONCE ONCE IV 03/13/25 14:00 03/13/25 14:01 DC 03/13/25 14:14 Sodium Chloride 1,000 ml @ 1,000 mls/hr Q1H ONCE IV 03/13/25 14:00 03/13/25 14:59 DC 03/13/25 14:15 Departure 1 Departure Time of Disposition: 17:37 Impression: Primary Impression: Chest pain of unknown etiology Additional Impression: Gastritis Qualified Codes: K29.00 - Acute gastritis without bleeding Disposition: ADMITTED INPATIENT Admit to: Med Surg Condition: Guarded Critical Care Note Critical Care Time?: No Stability Stability form required: No Heart Score Heart Score: Heart Score Response (Comments) Value History Slightly Suspicious 0 EKG Normal 0 Age 45-64 1 Risk Factors >3 or Hx ASHD 2 Troponin Normal limit 0 Total 3 I personally scribed for KORY SULLIVAN MD ([email or web address]) on 03/13/25 at 13:13. Electronically submitted by Chase Lu ([email or web address]). KORY SULLIVAN MD Mar 13, 2025 13:13
[2025-03-13] MEDS: ONDANSETRON HCL 4 MG/2 ML VIAL IV ONE (14:14)
[2025-03-13] MEDS: SODIUM CHLORIDE 0.9% 1,000 ML IV ONE (14:15)
[2025-03-13 14:29] LABS: Anion Gap 9 (5-15); Carbon Dioxide 23 mmol/L (20-31); Potassium 3.6 mmol/L (3.5-5.1); Sodium 144 mmol/L (136-145)
[2025-03-13 14:30] LABS: Calcium 9.6 mg/dL (8.7-10.4)
[2025-03-13 14:31] LABS: Hematocrit 41.4 % (36.0-46.0); Hemoglobin 13.9 g/dL (12.2-16.2); Mean Corpuscular Hemoglobin 30.1 pg (28.0-32.0); Mean Corpuscular Volume 89.8 fL (80.0-100.0); Nucleated Red Blood Cells % 0.4 %
[2025-03-13 14:34] LABS: Glucose 96 mg/dL (74-106)
[2025-03-13 14:35] LABS: BUN/Creatinine Ratio 11.9 (10.0-20.0); Blood Urea Nitrogen 10 mg/dL (9-23)
[2025-03-13 14:37] LABS: Chloride 112 mmol/L (98-107)
--- NOTE | 2025-03-13 14:42 | DVH ---
CT CT AB PEL WO CON-NO ORAL OR IV INDICATION: enteritis EXAM DATE: 03/13/2025 02:06 PM COMPARISON: CT CT AB PEL WO CON-NO ORAL OR IV on DOS: 01/06/25, CT CT AB PEL WO CON-NO ORAL OR IV on D OS: 11/06/24, CT ABD/PEL on DOS: 08/04/24 RADIATION DOSE: CTDIvol: 5.71 mGy, DLP: 308.84 mGy*cm PROCEDURE: Helical CT images were obtained of the abdomen and pelvis without IV contrast Sagittal and coronal reconstructions are provided. ORAL CONTRAST: None. ADDITIONAL IMAGES / REFORMATS: None All C T scans at this medical facility are performed using dose modulation techniques as appropriate to a p erformed exam including the following: Automated exposure control was utilized; adjustment of the MA and/or KV according to patient size; and use of iterative reconstruction technique. FINDINGS: LUNG BASE: Normal. LIVER: Normal. GALLBLADDER AND BILIARY TREE: Absent gallbladder. No intra- or extrahepatic biliary ductal dilation. PANCREAS: Normal. SPLEEN: Normal. BOWEL: Mild diverticulosis. Normal appendix. ADRENALS: Normal. KIDNEYS AND URETER: Punctate nonobstructive right kidney stone. BLADDER: Normal. REPRODUCTIVE ORGANS: Multiple calcified small uterine fibroids. LYMPH NODES:No lymphadenopathy. PERITONEUM: No ascites or free air. No other fluid collection. VESSELS: Scattered atherosclerotic calcifications are noted. RETROPERITONEUM: Normal. ABDOMINAL WALL: Complex fat containing ventral wall hernia. BONES: Scattered osseous degenerative changes are noted. IMPRESSION: No acute intraabdominal abnormality. Punctate nonobstructive right kidney stone.
[2025-03-13] MEDS ORDERED: MORPHINE SULFATE INJ 2 MG/ml SYRG IV PRN (18:00)
[2025-03-13] MEDS ORDERED: NITROGLYCERIN 0.4 MG SL TAB SL PRN (18:00)
[2025-03-13] MEDS: ATORVASTATIN 20 MG TAB PO ONE (19:00)
--- NOTE | 2025-03-13 19:09 | DVHHPRES ---
History of Present Illness Resident Creating Document: YAIR REID RESIDENT History of Present Illness Sharri Rosen is a 65-year-old female with past medical history of GERD, hypertension, asthma, COPD, diverticulitis, dyslipidemia, osteoarthritis, anxiety, CAD who presented to the hospital complaints of chest pain, shortness of breath, vomiting, diarrhea, abdominal pain since 2 days. Patient states that the symptoms have worsened since today morning. She reports the episodes of vomit vomiting today and 1 episode of diarrhea. She rates the chest with 10 on 10 in intensity, sharp, on and off, radiating to the right arm, increasing on exercise and decreasing on resting. 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 PMHx:GERD, hypertension, asthma, COPD, diverticulitis, dyslipidemia, osteoarthritis, anxiety, CAD PSHx: section, cholecystectomy Family history: History of CAD in father and mother Social history: Denies alcohol use, 30 pack year smoking history, admits to using marijuana daily Home medication: Aspirin, atorvastatin, metoprolol, Entresto, Lasix Allergic history: Hydrocodone Review of Systems Review of Systems General: patient denies fever, fatigue, weaknes, sweating, any recent changes in appetite and weight HEENT: No headaches, visiual changes, hearing loss, tinnitus, nasal congestion and discharge, and sore throat. Cardiovascular: Denies palpitations, or claudication. Complains of chest pain and shortness breath Respiratory: No cough, and wheezing. Gastrointestinal: Denies nausea, dysphagia, odynophagia, heartburn, flatulence, bloating, diarrhea, constipation, change in stool, or blood in stool. Complains of vomiting, abdominal pain Genitourinary: No dysuria, hematuria, discharge, frequency, urgency, nocturia, incontinence, and urinary retention. Endocrine: No heat or cold intolerance, polydipsia, polyuria, and polyphagia. Neurological: No dizziness, extremity weakness and numbness, tremors, gait disturbance, seizures, and memory impairment. Psychiatric: Denies depression, anxiety,or insomnia. Musculoskeletal: Denies neck pain, stiffness and swelling, back pain, muscle weakness, joint pain, stiffness, swelling, or limited range of motion. Skin: No rashes, itching, skin lesion, changes in hair, nail, skin texture and breast. Hematologic/Lymphatic: Denies easy bruising, bleeding tendencies, or lymph node enlargement. Allergies: Coded Allergies: Hydrocodone (Verified Allergy, Unknown, 04/08/23) Mushroom Extract Complex (Verified Allergy, Unknown, MUSHROOMS, 04/08/23) Uncoded Allergies: ACID FRUITS, MUSHROOMS (Allergy, Unknown, 03/28/14) Medications Current Medications Medications Dose Ordered Sig/Nathan Route Start Time Stop Time Status Last Admin Dose Admin Nitroglycerin 0.4 mg Q5MINP PRN SL 03/13/25 18:00 Morphine Sulfate 2 mg Q30M PRN IV 03/13/25 18:00 Pantoprazole Sodium 40 mg DAILY IV 03/14/25 10:00 UNV Aspirin 81 mg DAILY PO 03/14/25 10:00 UNV Atorvastatin Calcium 40 mg HS PO 03/14/25 22:00 UNV Exam Vital Signs Vital Signs Date Time Temp Pulse Resp B/P (MAP) Pulse Ox O2 Delivery O2 Flow Rate FiO2 03/13/25 18:00 61 15 152/86 (108) 95 03/13/25 12:48 98.2 98.2 03/13/25 12:48 Room Air* 0 21 Exam General Appearance: Alert, Oriented X3, Cooperative, patient is in moderate distress HEENT: Atraumatic, PERRLA, EOMI, Mucous membrane moist/pink Respiratory: Clear to auscultation, Normal air movement Cardiovascular: Regular rate, Normal S1, Normal S2, No murmurs, chest wall tenderness present Abdominal: Normal bowel sounds, Soft, No hepatospenomegaly, No masses diffuse abdominal tenderness present Extremities: No clubbing, No cyanosis, No edema, Normal pulses, No tenderne ss/swelling Skin: No rashes, No breakdown, No significant lesion Neuro: Normal gait, Normal speech, Strength at 5/5 X4 ext, Normal tone, Sensation intact, Cranial nerves 3-12 NL, Reflexes 2+ Psych/Mental Status: Mental status NL, Mood NL Labs/Xrays Labs Test 03/13/25 18:53 03/13/25 16:30 03/13/25 13:09 Range/Units Troponin I High Sensitivity 9 </=34 ng/L White Blood Count 9.8 4.4-10.8 10^3/uL Red Blood Count 4.61 4.0-5.20 10^6/uL Hemoglobin 13.9 12.2-16.2 g/dL Hematocrit 41.4 36.0-46.0 % Mean Corpuscular Volume 89.8 80.0-100.0 fL Mean Corpuscular Hemoglobin 30.1 28.0-32.0 pg Mean Corpuscular Hemoglobin Concent 33.5 32.0-36.0 g/dL Red Cell Distribution Width 14.6 H 11.8-14.3 % Platelet Count 259 140-450 10^3/uL Mean Platelet Volume 7.9 6.9-10.8 fL Neutrophils (%) (Auto) 73.7 37.0-80.0 % Lymphocytes (%) (Auto) 17.8 10.0-50.0 % Monocytes (%) (Auto) 6.6 0.0-12.0 % Eosinophils (%) (Auto) 1.3 0.0-7.0 % Basophils (%) (Auto) 0.6 0.0-2.0 % Neutrophils # (Auto) 7.3 1.6-8.6 10 ^3/uL Lymphocytes # (Auto) 1.7 0.4-5.4 10 ^3/uL Monocytes # (Auto) 0.6 0-1.3 10 ^3/uL Eosinophils # (Auto) 0.1 0-0.8 10 ^3/uL Basophils # (Auto) 0.1 0-0.2 10 ^3/uL Nucleated Red Blood Cells 0.4 % Sodium Level 144 136-145 mmol/L Potassium Level 3.6 3.5-5.1 mmol/L Chloride Level 112 H 98-107 mmol/L Carbon Dioxide Level 23 20-31 mmol/L Anion Gap 9 5-15 Blood Urea Nitrogen 10 9-23 mg/dL Creatinine 0.84 0.550-1.02 mg/dL Glomerular Filtration Rate Calc 78 >90 mL/min BUN/Creatinine Ratio 11.9 10.0-20.0 Serum Glucose 96 74-106 mg/dL Calcium Level 9.6 8.7-10.4 mg/dL SEPSIS Sepsis Screen Date sepsis recognized/suspect: Mar 13, 2025 Time Sepsis recognized/suspect: 1238 Recent Procedure: No On Antibiotic Therapy: No Respiratory Rate >20: No Heart Rate >90: No Temp<36 C (96.8 F) or >38.3 C: No SBP <90 or MAP <65 mmHG: No New Acute Mental Status Change: No Is the patient on CPAP, BIPAP,: No Physician Orders Electrocardigram (03/13/25 12:28) Electrocardigram (03/13/25 13:28) Electrocardigram (03/13/25 15:28) Urinalysis (03/13/25 13:59) Ct Ab Pel Wo Con-No Oral Or Iv (03/13/25 14:02) Admit (03/13/25 18:00) Allergies (03/13/25 18:00) Code Status (03/13/25 18:00) Complete Blood Count (03/14/25 04:00) Comprehensive Metabolic Panel (03/14/25 04:00) Condition: Fair (03/13/25 18:00) Nitroglycerin Sublingual (Ntrostat Subli (03/13/25 18:00) Morphine Sulfate Injection (03/13/25 18:00) Stat Ekg For Chest Pain (03/13/25 18:00) Income Tax Investigator For 24 Hours (03/13/25 18:00) Drug Screen (03/13/25 18:19) Chest Portable (03/13/25 18:19) Covid19 Antigen Natty (03/13/25 ) Rapid Influenza A&B (03/13/25 18:19) B-Type Natriuretic Peptide (03/13/25 18:19) Lactic Acid W/ Reflex Order (03/13/25 18:19) Echo 2d Mode Cardiac Dop (03/13/25 18:19) C-Reactive Protein (03/13/25 18:19) Erythrocyte Sedimentation Rate (03/13/25 18:19) Urinalysis (03/13/25 18:19) Stool Occult Blood (03/13/25 18:43) D-Dimer (03/13/25 18:43) Pantoprazole (Protonix) (03/14/25 10:00) Aspirin Tablet (03/14/25 10:00) Atorvastatin (Lipitor) (03/14/25 22:00) Atorvastatin (Lipitor) (03/13/25 19:00) Aspirin Tablet (03/13/25 19:00) Vital Signs Date Time Temp Pulse Resp B/P (MAP) Pulse Ox O2 Delivery O2 Flow Rate FiO2 03/13/25 18:00 61 15 152/86 (108) 95 10/27/25 16:00 64 22 148/69 (95) 94 03/13/25 15:29 72 03/13/25 14:00 58 14 130/87 (101) 94 03/13/25 13:28 61 03/13/25 13:05 58 03/13/25 12:48 98.2 74 11 131/92 (105) 98.2 03/13/25 12:48 74 21 98 Room Air* 0 21 03/13/25 12:27 62 03/13/25 12:22 98.3 61 18 121/75 98 98.3 Laboratory Tests Test 03/13/25 13:09 03/13/25 18:53 White Blood Count 9.8 10^3/uL (4.4-10.8) Lactic Acid Level Pending Medications Medications Dose Ordered Sig/Nathan Route Start Time Stop Time Status Last Admin Dose Admin Ondansetron HCl 4 mg ONCE ONCE IV 03/13/25 14:00 03/13/25 14:01 DC 03/13/25 14:14 4 MG Sodium Chloride 1,000 ml @ 1,000 mls/hr Q1H ONCE IV 03/13/25 14:00 03/13/25 14:59 DC 03/13/25 14:15 1,000 MLS/HR Assessment/Plan Assessment/Plan Assessment and plan ? Hiatal hernia GERD Gastritis IV fluids NPO Protonix ? Gastro enteritis Follow Stool culture Follow up Stool WBC Chest pain to rule out ACS History of coronary artery disease Aspirin Atorvastatin Follow echo Normal troponins Essential hypertension Continue home medications Target in-hospital blood pressure under 140/90 COPD, no acute exacerbation Asthma, no acute exacerbation Outpatient follow up with PCP on discharge Dyslipidemia Continue atorvastatin Follow lipid profile Osteoarthritis Outpatient follow-up with PCP on discharge Anxiety disorder Continue home medications Congestive heart failure Hold on Lasix Entresto DIET: NPO DVT PROPHYLAXIS: Lovenox GI PROPHYLAXIS:: Protonix CODE STATUS: Goal of care discussed for more than 18 minutes, full code DISPOSITION: Med/surge RECONCILED HOME MEDS: Atorvastatin, metoprolol, Entresto, Lasix PCP: Yeni Ibarra Patient's status and plan discussed with the patient. Case discussed with Plan discussed with: Patient My Orders Orders - YAIR REID RESIDENT Procedure Category Date Status Time Admit ADMIT 03/13/25 Transmitted 18:00 Allergies PRAVEEN 03/13/25 In Process 18:00 Code Status CODE 03/13/25 Transmitted 18:00 Complete Blood Count LAB 03/14/25 Verified 04:00 Comprehensive LAB 03/14/25 Verified Metabolic Panel 04:00 Condition: Fair PRAVEEN 03/13/25 In Process 18:00 Nitroglycerin PHA 03/13/25 In Process Sublingual (Ntrostat 18:00 Morphine Sulfate PHA 03/13/25 In Process Injection 18:00 Stat Ekg For Chest PRAVEEN 03/13/25 In Process Pain 18:00 Income Tax Investigator For PRAVEEN 03/13/25 In Process 24 Hours 18:00 Stool Occult Blood LAB 03/13/25 Logged 18:43 D-Dimer LAB 03/13/25 Logged 18:43 Pantoprazole PHA 03/14/25 Logged (Protonix) 10:00 Aspirin Tablet PHA 03/14/25 Logged 10:00 Atorvastatin (Lipitor) PHA 03/14/25 Logged 22:00 Atorvastatin (Lipitor) PHA 03/13/25 Logged 19:00 Aspirin Tablet PHA 03/13/25 Logged 19:00 Date of Service: Mar 13, 2025 Billing Provider: EMILY GARCIA MD Common Visit Codes: [id number] INP/OBS CARE (HIGH) Secondary Visit Codes: [id number] CARE PLAN 30 MINUTES YAIR REID Mar 13, 2025 19:08
[2025-03-13] MEDS ORDERED: ATORVASTATIN 20 MG TAB PO ONE (19:15)
--- NOTE | 2025-03-13 19:25 | DVH ---
CHEST RADIOGRAPH REASON FOR EXAM: chest pain COMPARISON: XY CHEST PORTABLE on DOS: 01/06/25, XY CHEST PORTABLE on DOS: 11/06/24, XR CHEST 1 VIEW on DOS: 08/04/24, XR CHEST 1 VIEW on DOS: 03/04/23, XR CHEST 1 VIEW on DOS: 02/01/23 TECHNIQUE: One view of the chest is provided FINDINGS: The cardiomediastinal silhouette is stable. There is no significant pleural effusion. There is no pneumothorax. There is diffuse prominence of the interstitium, likely chronic changes. No foca l airspace disease is identified. IMPRESSION: No radiographic evidence of acute cardiopulmonary process.
[2025-03-13 19:55] LABS: COVID19 ANTIGEN SOFIA FIA NEGATIVE (NEGATIVE)
[2025-03-13 20:00] VITALS: PULSE 71; RESP 13; O2SAT 94
[2025-03-13] MEDS: ONDANSETRON HCL 4 MG/2 ML VIAL IV PRN (20:55)
[2025-03-13] MEDS: SUCRALFATE 1 GM/10 ML ORAL SUSP GT SCH (21:48)
[2025-03-13] MEDS: SACUBITRIL-VALSARTAN 24mg/26mg TAB PO SCH (21:49)
[2025-03-13 21:55] VITALS: BP 136/100; PULSE 63; RESP 21; TEMP 98; O2SAT 98
[2025-03-13] MEDS: METOCLOPRAMIDE HCL 5MG/ml INJ 2ml VIAL IV ONE (23:29)
[2025-03-14] VITALS (8 sets, daily range): BP systolic 122–151; BP diastolic 67–90; PULSE 51–66; RESP 16–21; TEMP 97.7–98.3; O2SAT 96–100
[2025-03-14 07:27] LABS: Hematocrit 39.7 % (36.0-46.0); Hemoglobin 13.1 g/dL (12.2-16.2); Mean Corpuscular Hemoglobin 29.9 pg (28.0-32.0); Mean Corpuscular Volume 90.7 fL (80.0-100.0); Nucleated Red Blood Cells % 0.1 %
--- NOTE | 2025-03-14 07:38 | ECG ---
[facility] Test Date: 2025-03-13 Test Time: 15:29:47 Pat Name: LUIS BENTLEY Department: [facility] ED Room: 0280T Gender: F Rfp Writer: tammy : 1960 Requested By: KORY SULLIVAN Order Number: [id number] Reading MD: Measurements Intervals [place] Rate: 72 P: 79 DC: 140 QRS: 82 QRSD: 117 T: 74 QT: 463 QTc: 507 Interpretive Statements Sinus rhythm Nonspecific intraventricular conduction delay Anterior infarct, age indeterminate Please click the below link to view image of tracing.
[2025-03-14 07:48] LABS: Alanine Aminotransferase 10 U/L (7-40); Alkaline Phosphatase 76 U/L (46-116); Anion Gap 8 (5-15); BUN/Creatinine Ratio 12.1 (10.0-20.0); Calcium 8.8 mg/dL (8.7-10.4); Carbon Dioxide 22 mmol/L (20-31); Glucose 86 mg/dL (74-106); Potassium 3.5 mmol/L (3.5-5.1); Sodium 143 mmol/L (136-145); Total Protein 6.5 g/dL (5.7-8.2)
[2025-03-14 07:49] LABS: Albumin 4.0 g/dL (3.2-4.8); Bilirubin, Total 1.0 mg/dL (0.2-1.0)
[2025-03-14 07:51] LABS: Blood Urea Nitrogen 8 mg/dL (9-23); Chloride 113 mmol/L (98-107)
[2025-03-14 07:51] LABS: Urine Budding Yeast OCCASIONAL /hpf (None Seen); Urine Protein, UAD Negative (Negative)
[2025-03-14 08:04] LABS: Amphetamine Screen, Urine Neg (NEGATIVE); Barbiturate Scree,Urine Neg (NEGATIVE); Benzodiazephine Screen, Urine Neg (NEGATIVE); Cannabinoid Screen, Urine Pos (NEGATIVE); Cocaine Screen, Urine Neg (NEGATIVE); Opiate Scree,Urine Neg (NEGATIVE); Phencyclidine Screen, Urine Neg (NEGATIVE)
[2025-03-14] MEDS: PANTOPRAZOLE 40 MG/10 ML VIAL INJ IV SCH (09:12)
--- NOTE | 2025-03-14 12:09 | DVH ---
US BiLat Lower DVT HISTORY: r/o dvt COMPARISON: None TECHNIQUE: Duplex doppler evaluation of the deep venous system of the lower extremity from the common femoral veins, superficial femoral vein, great saphenous vein, deep femoral vein, popliteal vein, an d calf veins, including color doppler and spectral/pulsed waveform analysis, was performed. FINDINGS: Right: - Common femoral vein: Compressible - Deep femoral vein: Compressible - Femoral vein: Compressible - Popliteal vein: Compressible - Posterior tibial vein: Waveforms present - Other: Nothing Left: - Common femoral vein: Compressible - Deep femoral vein: Compressible - Femoral vein: Compressible - Popliteal vein: Compressible - Posterior tibial vein: Waveforms present - Other: Nothing IMPRESSION: No right or left lower extremity deep venous thrombosis.
[2025-03-14] MEDS ORDERED: HYDROcodone-ACET 5/325MG TAB PO PRN (13:15)
--- NOTE | 2025-03-14 13:44 | ECG ---
[facility] Test Date: 2025-03-13 Test Time: 13:28:14 Pat Name: LUIS BENTLEY Department: [facility] ED Patient ID: [facility]-[id number] Room: 0280T Gender: F Occasional Caregiver: COCO : 1960 Requested By: KORY SULLIVAN Order Number: [id number] Reading MD: Measurements Intervals [place] Rate: 61 P: 65 IA: 147 QRS: -17 QRSD: 123 T: 39 QT: 476 QTc: 480 Interpretive Statements Sinus rhythm Ventricular premature complex Nonspecific intraventricular conduction delay Anteroseptal infarct, age indeterminate Please click the below link to view image of tracing.
--- NOTE | 2025-03-14 13:44 | ECG ---
[facility] Test Date: 2025-03-13 Test Time: 12:27:58 Pat Name: LUIS BENTLEY Department: [facility] ED Patient ID: [id number] Room: 0280T Gender: F Senior Front End Web Developer: tammy : 1960 Requested By: KORY SULLIVAN Order Number: [id number] Reading MD: Measurements Intervals [place] Rate: 62 P: 71 UT: 141 QRS: -2 QRSD: 100 T: 77 QT: 472 QTc: 480 Interpretive Statements Sinus rhythm Atrial premature complex Low voltage, extremity leads Consider anterior infarct Nonspecific T abnormalities, lateral leads Please click the below link to view image of tracing.
--- NOTE | 2025-03-14 14:43 | DVHPNRES ---
Progress Note Date Seen: Mar 14, 2025 Resident Creating Document: YAIR REID RESIDENT Medical Necessity Reason Pt with a Central, PICC or Fol: No Subjective Review of Systems Patient seen at bedside. Complains of abdominal pain, but she says the pain has reduced from yesterday. History of Present Illness Sharri Rosen is a 65-year-old female with past medical history of GERD, hypertension, asthma, COPD, diverticulitis, dyslipidemia, osteoarthritis, anxiety, CAD who presented to the hospital complaints of chest pain, shortness of breath, vomiting, diarrhea, abdominal pain since 2 days. Patient states that the symptoms have worsened since today morning. She reports the episodes of vomit vomiting today and 1 episode of diarrhea. She rates the chest with 10 on 10 in intensity, sharp, on and off, radiating to the right arm, increasing on exercise and decreasing on resting. 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 PMHx:GERD, hypertension, asthma, COPD, diverticulitis, dyslipidemia, osteoarthritis, anxiety, CAD PSHx: section, cholecystectomy Family history: History of CAD in father and mother Social history: Denies alcohol use, 30 pack year smoking history, admits to using marijuana daily Home medication: Aspirin, atorvastatin, metoprolol, Entresto, Lasix Allergic history: Hydrocodone General: patient denies fever, fatigue, weakness, sweating, any recent changes in appetite and weight HEENT: No headaches, visiual changes, hearing loss, tinnitus, nasal congestion and discharge, and sore throat. Cardiovascular: Denies palpitations, or claudication. Complains of chest pain and shortness breath Respiratory: No cough, and wheezing. Gastrointestinal: Denies nausea, dysphagia, odynophagia, heartburn, flatulence, bloating, diarrhea, constipation, change in stool, or blood in stool. Complains of vomiting, abdominal pain Genitourinary: No dysuria, hematuria, discharge, frequency, urgency, nocturia, incontinence, and urinary retention. Endocrine: No heat or cold intolerance, polydipsia, polyuria, and polyphagia. Neurological: No dizziness, extremity weakness and numbness, tremors, gait disturbance, seizures, and memory impairment. Psychiatric: Denies depression, anxiety,or insomnia. Musculoskeletal: Denies neck pain, stiffness and swelling, back pain, muscle weakness, joint pain, stiffness, swelling, or limited range of motion. Skin: No rashes, itching, skin lesion, changes in hair, nail, skin texture and breast. Hematologic/Lymphatic: Denies easy bruising, bleeding tendencies, or lymph node enlargement. Objective vital signs Vital Sign Date Time Temp Pulse Resp B/P (MAP) Pulse Ox O2 Delivery O2 Flow Rate FiO2 03/14/25 09:00 97.7 51 17 151/81 (104) 100 97.7 03/14/25 08:00 Room Air* 0 21 Total Intake and Output 03/13/25 03/13/25 03/14/25 15:00 23:00 07:00 Intake Total 1000 ml 250 ml Balance 1000 ml 250 ml medications Current Medications Medications Dose Ordered Sig/Nathan Route Start Time Stop Time Status Last Admin Dose Admin Nitroglycerin 0.4 mg Q5MINP PRN SL 03/13/25 18:00 Morphine Sulfate 2 mg Q30M PRN IV 03/13/25 18:00 Pantoprazole Sodium 40 mg DAILY IV 03/14/25 10:00 03/14/25 09:12 40 MG Aspirin 81 mg DAILY PO 03/14/25 10:00 03/14/25 09:13 81 MG Atorvastatin Calcium 40 mg HS PO 03/14/25 22:00 Ondansetron HCl 4 mg Q8HPRN PRN IV 03/13/25 19:45 03/14/25 05:54 4 MG Sacubitril/ Valsartan 0.5 tab BID PO 03/13/25 22:00 03/14/25 09:12 0.5 TAB Sucralfate 1 gm TID@0600,1130,2200 GT 03/13/25 22:00 03/14/25 11:08 1 GM Acetaminophen 325 mg Q4HP PRN PO 03/14/25 10:45 Acetaminophen/ Hydrocodone Bitart 1 tab Q6HPRN PRN PO 03/14/25 13:15 Hold Examination General Appearance: Alert, Oriented X3, Cooperative, patient is in moderate distress HEENT: Atraumatic, PERRLA, EOMI, Mucous membrane moist/pink Respiratory: Clear to auscultation, Normal air movement Cardiovascular: Regular rate, Normal S1, Normal S2, No murmurs, chest wall tenderness present Abdominal: Normal bowel sounds, Soft, No hepatospenomegaly, No masses diffuse abdominal tenderness present Extremities: No clubbing, No cyanosis, No edema, Normal pulses, No tenderness/swelling Skin: No rashes, No breakdown, No significant lesion Neuro: Normal gait, Normal speech, Strength at 5/5 X4 ext, Normal tone, Sensation intact, Cranial nerves 3-12 NL, Reflexes 2+ Psych/Mental Status: Mental status NL, Mood NL laboratory and microbiology Laboratory Tests 03/14/25 05:36 Test 03/14/25 05:36 Range/Units Serum Glucose 86 74-106 mg/dL Problem List/Assessment/Plan Problem List/Assessment/Plan Assessment and plan ? Hiatal hernia GERD Gastritis IV fluids NPO Protonix [place] Pain medications ? Gastro enteritis Follow Stool culture Follow up Stool WBC cannabis hyperemesis syndrome Continue IV Zofran Chest pain to rule out ACS History of coronary artery disease Aspirin Atorvastatin Follow echo Normal troponins Cardiology consult Essential hypertension Continue home medications Target in-hospital blood pressure under 140/90 COPD, no acute exacerbation Asthma, no acute exacerbation Outpatient follow up with PCP on discharge Dyslipidemia Continue atorvastatin Follow lipid profile Osteoarthritis Outpatient follow-up with PCP on discharge Anxiety disorder Continue home medications Congestive heart failure Hold on Lasix Entresto DIET: NPO DVT PROPHYLAXIS: Lovenox GI PROPHYLAXIS:: Protonix CODE STATUS: Goal of care discussed for more than 18 minutes, full code DISPOSITION: Med/surge RECONCILED HOME MEDS: Atorvastatin, metoprolol, Entresto, Lasix PCP: Yeni Ibarra Patient's status and plan discussed with the patient. Case discussed with Plan discussed with: Patient Plan discussed with: Patient My Orders My Orders Orders - YAIR REID RESIDENT Procedure Category Date Status Time Admit ADMIT 03/13/25 Transmitted 18:00 Allergies PRAVEEN 03/13/25 In Process 18:00 Code Status CODE 03/13/25 Transmitted 18:00 Condition: Fair PRAVEEN 03/13/25 In Process 18:00 Nitroglycerin PHA 03/13/25 In Process Sublingual (Ntrostat 18:00 Morphine Sulfate PHA 03/13/25 In Process Injection 18:00 Stat Ekg For Chest PRAVEEN 03/13/25 In Process Pain 18:00 Vest Front Presser For PRAVEEN 03/13/25 In Process 24 Hours 18:00 Stool Occult Blood LAB 03/13/25 Logged 18:43 Pantoprazole PHA 03/14/25 In Process (Protonix) 10:00 Aspirin Tablet PHA 03/14/25 In Process 10:00 Atorvastatin (Lipitor) PHA 03/14/25 In Process 22:00 Ondansetron Hcl PHA 03/13/25 In Process (Zofran) 19:45 Stool Bacterial GERRI 03/13/25 Uncollected Culture 19:34 Stool Wbc LAB 03/13/25 Logged 19:34 Sacubitril-Valsartan PHA 03/13/25 In Process (Entresto 24-26 Mg 22:00 Hydrocodone-Acet PHA 03/14/25 In Process 5/325mg Tab ([place] 13:15 Date of Service: Mar 14, 2025 Billing Provider: EMILY GARCIA MD Common Visit Codes: [id number] INP/OBS CARE(HIGH) YAIR REID RESIDENT Mar 14, 2025 14:43
[2025-03-14] MEDS: ACETAMINOPHEN 325 MG TAB PO PRN (17:03)
[2025-03-14] MEDS: MORPHINE SULFATE INJ 2 MG/ml SYRG IV PRN (18:01)
[2025-03-14] MEDS: ATORVASTATIN 20 MG TAB PO SCH (21:47)
--- NOTE | 2025-03-15 | DVHINCON2 ---
Date of service: Mar 14, 2025 Referring Physician Nagi Reason for Consultation Chest pain, HFrEF History of Present Illness This is a 65 year old female with a PMH of HTN, Gastritis, CAD(no stent placed), [place] who presents to the ED by EMS with complaints of chest pain. EMS reports on the patient having sharp and constant chest pain associated w/ diffuse abdominal pain and N/V-bright yellow which all started this morning. EMS notes that the patient was given [address] and the patient having a BS of 127. D-dimer 0.56.Troponin negative x 3. Chest x-ray shows NAD. CT ABD PEL shows no acute intraabdominal abnormality.Punctate nonobstructive right kidney stone. Patient was admitted to the hospital. I am asked to consult on this patient Family History: Cancer G8 MOTHER (thyroid) Family history: Cardiovascular disease G8 FATHER (murmur) G8 SISTER (murmur) Family history: Thyroid disorder G8 MOTHER Malignant neoplasm of ovary Allergies: Coded Allergies: Hydrocodone (Verified Allergy, Unknown, 04/08/23) Mushroom Extract Complex (Verified Allergy, Unknown, MUSHROOMS, 04/08/23) Uncoded Allergies: ACID FRUITS, MUSHROOMS (Allergy, Unknown, 03/28/14) Home Meds Active Scripts Docusate Sodium (Docusate Sodium) 100 Mg Cap, 100 MG PO BID for 14 Days, #30 CAP 0 Refills Prov:RUDY RENTERIA MD 01/10/25 Polyethylene Glycol 3350 (Goodsense Clearlax) 17 Gm/Scoop Pow, 17 GM PO DAILY for 7 Days, #14 POW 0 Refills Prov:RUDY RENTERIA MD 01/10/25 Amoxicillin & Pot Clavulanate (AUGMENTIN TABLET) 875 Mg Tb, 875 MG PO BID for 5 Days, #10 TAB 0 Refills Prov:RUDY RENTERIA MD 01/10/25 Hydrocodone-Acetaminophen (Hydrocodone Bitartrate/AC 5-325 mg) 1 Tab Tab, 1 TAB PO Q8HP PRN, #12 TAB Prov:RUSSELL HARRELL MD 12/19/23 Sacubitril-Valsartan (Entresto 24-26 mg) 1 Tab Tab, 1 TAB PO BID, #60 TAB Prov:ANISHA WILD MD 10/15/22 Aspirin (Aspirin Low Dose) 81 Mg Tab, 81 MG PO DAILY, #30 TAB Prov:ANISHA WILD MD 10/15/22 Potassium Chloride (Potassium Chloride ER) 10 Meq Tab, 10 MEQ PO DAILY, #30 Prov:ANISHA WILD MD 09/21/18 Reported Medications Fezolinetant (Veozah) 45 Mg Tab, 1 TAB PO DAILY 12/15/23 Albuterol Sulfate (Albuterol Sulfate Hfa) 108 Mcg/Act Aer, 2 PUFF INH Q4-6HR PRN for WHEEZING 12/15/23 Dicyclomine Hcl (BENTYL CAPSULE) 10 Mg Cp, 1 CAP PO TID PRN for UPSET STOMACH 12/15/23 Lactulose (Lactulose) 10 Gm/15 Ml Anali, 15 ML PO QPM for 15 Days, #237 12/15/23 Escitalopram Oxalate (Lexapro) 10 Mg Tab, 1 TAB PO DAILY 12/15/23 Metoprolol Tartrate (Lopressor) 25 Mg Tb, 1 TAB PO DAILY 12/15/23 Pantoprazole Sodium Sesquihydr (Protonix) 40 Mg Tab, 1 TAB PO DAILY 12/15/23 Ondansetron HCl (Ondansetron Hydrochloride) 4 Mg Tab, 1 TAB PO Q8HR PRN for NAUSEA / VOMITING for 15 Days, #30 12/15/23 Montelukast Sodium (MONTELUKAST SODIUM) 10 Mg Tab, 1 TAB PO DAILY, #30 TAB 5 Refills 12/12/20 Furosemide (Furosemide) 20 Mg Tab, 20 MG PO DAILY for 30 Days, MG 12/12/20 Atorvastatin Calcium (ATORVASTATIN CALCIUM) 20 Mg Tab, 1 TAB PO DAILY, #30 TAB 5 Refills 09/18/18 Sucralfate (Carafate) 1 Gm Tb, 1 TAB PO BID, #90 TAB 11 Refills 08/10/15 Current Medications Current Medications Medications (Trade) Dose Ordered Sig/Nathan Route PRN Reason Start Time Stop Time Status Last Admin Pantoprazole Sodium (Protonix) 40 mg DAILY IV 03/14/25 10:00 03/14/25 09:12 Aspirin 81 mg DAILY PO 03/14/25 10:00 03/14/25 09:13 Atorvastatin Calcium (Lipitor) 40 mg HS PO 03/14/25 22:00 Ondansetron HCl (Zofran) 4 mg Q8HPRN PRN IV NAUSEA / VOMITING 03/13/25 19:45 03/14/25 05:54 Sacubitril/ Valsartan (Entresto 24-26 Mg tab) 0.5 tab BID PO 03/13/25 22:00 03/14/25 09:12 Sucralfate (Carafate Susp) 1 gm TID@0600,1130,2200 GT 03/13/25 22:00 03/14/25 11:08 Tramadol HCl (Ultram) 50 mg Q6HP PRN PO SEVERE PAIN (7-10 PAIN SCALE) 03/13/25 21:30 03/14/25 13:13 DC 03/14/25 05:46 Acetaminophen (Tylenol Tablet) 325 mg Q4HP PRN PO PAIN SCALE 1-3 OR TEMP>100.4 03/14/25 10:45 03/14/25 17:03 Acetaminophen/ Hydrocodone Bitart ([place]olson 5/325MG Tab) 1 tab Q6HPRN PRN PO MODERATE PAIN (4-6 PAIN SCALE) 03/14/25 13:15 03/14/25 17:13 DC Morphine Sulfate 1 mg Q4HP PRN IV MODERATE PAIN (4-6 PAIN SCALE) 03/14/25 17:15 03/14/25 18:01 Review of Systems Constitutional: denies: chills, diaphoresis, fatigue, fever, malaise, sweats, weakness, others EENTM: denies: blurred vision, double vision, ear bleeding, ear discharge, ear drainage, ear pain, ear ringing, eye pain, eye redness, hearing loss, mouth pain, mouth swelling, nasal discharge, nose bleeding, nose congestion, nose pain, photophobia, tearing, throat pain, throat swelling, voice changes, others Respiratory: denies: cough, hemoptysis, orthopnea, SOB at rest, shortness of breath, SOB with excertion, stridor, wheezing, others Cardiovascular: reports: chest pain; denies: dizzy spells, diaphoresis, Dyspnea on exertion, edema, irregular heart beat, left arm pain, lightheadedness, palpitations, PND, syncope, others Gastrointestinal: reports: abdominal pain, nausea, vomiting; denies: abdomen distended, blood streaked bowels, constipated, diarrhea, dysphagia, difficulty swallowing, hematemesis, melena, poor appetite, poor fluid intake, rectal bleeding, rectal pain, others Genitourinary: denies: abnormal vagina bleeding, burning, dyspareunia, dysuria, flank pain, frequency, hematuria, incontinence, pain, , vagina discharge, urgency, others Neurological: denies: dizziness, fainting, headache, left sided numbness, left sided weakness, numbness, paresthesia, pre-existing deficit, right sided numbness, right sided weakness, seizure, speech problems, tingling, tremors, weakness, others Musculoskeletal: denies: back pain, gout, joint pain, joint swelling, muscle pain, muscle stiffness, neck pain, others Integumetry: denies: bruises, change in color, change in hair/nails, dryness, laceration, lesions, lumps, rash, wounds, others Allergic/Immunocompromised: denies: Difficulty Healing, Frequent Infections, Hives, Itching, others Hematologic/Lymphatic: denies: anemia, blood clots, easy bleeding, easy bruising, swollen glands, others Endocrine: denies: excessive hunger, excessive sweating, excessive thirst, excessive urination, flushing, intolerance to cold, intolerance to heat, unexplained weight gain, unexplained weight loss, others Psychiatric: denies: anxiety, bipolar disorder, depression, hopeless, panic disorder, schizophrenia, sleepless, suicidal, others All Other Systems: Reviewed and Negative Vital Signs Vital Signs Date Time Temp Pulse Resp B/P (MAP) Pulse Ox O2 Delivery O2 Flow Rate FiO2 03/14/25 18:31 59 18 144/86 03/14/25 17:00 98.3 97 98.3 03/14/25 08:00 Room Air* 0 21 Physical Exam GENERAL: Alert and oriented x 3. No acute distress. EYES: PERRL, EOMI. Anicteric. HENT: Moist mucous membranes. LUNGS: Clear to auscultation bilaterally. CARDIOVASCULAR: Regular rate and rhythm. ABDOMEN: Soft, nontender and nondistended. EXTREMITIES: No edema. NEUROLOGIC: No focal neurological deficits. SKIN: Warm, dry. Labs/Diagnostic Data Labs Test 03/14/25 06:00 03/14/25 05:36 03/13/25 19:25 03/13/25 18:53 Range/Units Urine Color Yellow Yellow Urine Clarity Turbid H Clear Urine pH 7.0 5.0-9.0 Urine Specific [place] 1.020 1.001-1.035 Urine Protein Negative Negative Urine Ketones 1+ H Negative Urine Blood 2+ H Negative /uL Urine Nitrite Negative Negative Urine Bilirubin Negative Negative Urine Urobilinogen 2 H Negative mg/dL Urine Leukocyte Esterase 3+ Negative /uL Urine RBC 56 0 - 4 /hpf Urine Microscopic WBC 7 H 0-5 /HPF Urine Squamous Epithelial Cells Few <5 /hpf Urine Bacteria Few H None Seen /hpf Urine Hyaline Casts Few 0 - 2 /lpf Urine Mucus Few None Seen Urine Yeast (Budding) Occasional None Seen /hpf Urine Glucose Normal Normal mg/dL Urine Opiates Screen Neg NEGATIVE Urine Fentanyl Screen Neg NEGATIVE Urine Barbiturates Screen Neg NEGATIVE Urine Phencyclidine Screen Neg NEGATIVE Urine Amphetamines Screen Neg NEGATIVE Urine Benzodiazepines Screen Neg NEGATIVE Urine Cocaine Screen Neg NEGATIVE Urine Cannabinoids Screen Pos NEGATIVE White Blood Count 7.8 4.4-10.8 10^3/uL Red Blood Count 4.38 4.0-5.20 10^6/uL Hemoglobin 13.1 12.2-16.2 g/dL Hematocrit 39.7 36.0-46.0 % Mean Corpuscular Volume 90.7 80.0-100.0 fL Mean Corpuscular Hemoglobin 29.9 28.0-32.0 pg Mean Corpuscular Hemoglobin Concent 33.0 32.0-36.0 g/dL Red Cell Distribution Width 14.5 H 11.8-14.3 % Platelet Count 247 140-450 10^3/uL Mean Platelet Volume 7.8 6.9-10.8 fL Neutrophils (%) (Auto) 55.7 37.0-80.0 % Lymphocytes (%) (Auto) 32.7 10.0-50.0 % Monocytes (%) (Auto) 8.2 0.0-12.0 % Eosinophils (%) (Auto) 2.7 0.0-7.0 % Basophils (%) (Auto) 0.7 0.0-2.0 % Neutrophils # (Auto) 4.4 1.6-8.6 10 ^3/uL Lymphocytes # (Auto) 2.6 0.4-5.4 10 ^3/uL Monocytes # (Auto) 0.6 0-1.3 10 ^3/uL Eosinophils # (Auto) 0.2 0-0.8 10 ^3/uL Basophils # (Auto) 0.1 0-0.2 10 ^3/uL Nucleated Red Blood Cells 0.1 % Sodium Level 143 136-145 mmol/L Potassium Level 3.5 3.5-5.1 mmol/L Chloride Level 113 H 98-107 mmol/L Carbon Dioxide Level 22 20-31 mmol/L Anion Gap 8 5-15 Blood Urea Nitrogen 8 L 9-23 mg/dL Creatinine 0.66 0.550-1.02 mg/dL Glomerular Filtration Rate Calc 99 >90 mL/min BUN/Creatinine Ratio 12.1 10.0-20.0 Serum Glucose 86 74-106 mg/dL Calcium Level 8.8 8.7-10.4 mg/dL Total Bilirubin 1.0 0.2-1.0 mg/dL Aspartate Amino Transferase (AST) 20 13-40 U/L Alanine Aminotransferase (ALT) 10 7-40 U/L Alkaline Phosphatase 76 46-116 U/L Total Protein 6.5 5.7-8.2 g/dL Albumin 4.0 3.2-4.8 g/dL Thyroid Stimulating Hormone (TSH) 4.14 0.55-4.78 uIU/mL D-Dimer, Quantitative 0.56 H 0.0-0.49 mg/L FEU Lactic Acid Level 1.0 0.4-2.0 mmol/L Lipase 34 12-53 U/L Test 03/13/25 18:38 03/13/25 16:30 03/13/25 13:09 Range/Units Influenza Type A Antigen Negative Negative Influenza Type B Antigen Negative Negative SARS-CoV-2 Antigen (Rapid) Negative NEGATIVE Troponin I High Sensitivity 9 </=34 ng/L C-Reactive Protein High Sensitivity < 0.02 <1.0 mg/dL Erythrocyte Sedimentation Rate 5 0-20 mm/hr B-Type Natriuretic Peptide 19.60 0-100 pg/mL Assessment GERD. Gastritis. Cannabis hyperemesis syndrome. Chest pain. History of coronary artery disease. Essential hypertension. COPD, no acute exacerbation. Asthma, no acute exacerbation. Dyslipidemia. Osteoarthritis. Anxiety disorder. Congestive heart failure. Plan/Recommendation I agree with your ongoing assessment and care of plan. Telemetry reviewed. Echocardiogram. Aspirin, Lipitor. Morphine and Tylenol for pain management. Nitro SL. GI prophylactics. Entresto. Additional plan as per the hospital course. A total of 45 minutes was spent reviewing the patient record, examining the patient, making a diagnostic and therapeutic plan, discussing this plan with medical personnel, following up on diagnostic studies and following the patient for clinical stability excluding any and all procedures. At least 50% of this time was spent in direct, [id number] contact. Plan discussed with: Patient MYLES MARAVILLA MD Mar 14, 2025 19:22
[2025-03-15 01:00] VITALS: BP 120/80; PULSE 53; RESP 17; TEMP 97.8; O2SAT 98
[2025-03-15 05:00] VITALS: BP 140/85; PULSE 61; RESP 18; TEMP 98; O2SAT 99
[2025-03-15 06:57] LABS: Hematocrit 42.8 % (36.0-46.0); Hemoglobin 14.3 g/dL (12.2-16.2); Mean Corpuscular Hemoglobin 30.2 pg (28.0-32.0); Mean Corpuscular Volume 90.3 fL (80.0-100.0); Nucleated Red Blood Cells % 0.1 %
[2025-03-15 07:14] LABS: Alanine Aminotransferase 14 U/L (7-40); Albumin 4.2 g/dL (3.2-4.8); Alkaline Phosphatase 81 U/L (46-116); Anion Gap 8 (5-15); BUN/Creatinine Ratio 9.7 (10.0-20.0); Calcium 9.3 mg/dL (8.7-10.4); Carbon Dioxide 24 mmol/L (20-31); Glucose 95 mg/dL (74-106); Sodium 140 mmol/L (136-145); Total Protein 7.0 g/dL (5.7-8.2)
[2025-03-15 07:15] LABS: Bilirubin, Total 1.0 mg/dL (0.2-1.0)
[2025-03-15 07:16] LABS: Blood Urea Nitrogen 6 mg/dL (9-23); Chloride 108 mmol/L (98-107); Potassium 3.3 mmol/L (3.5-5.1)
[2025-03-15 07:30] VITALS: PULSE 62
--- NOTE | 2025-03-15 07:41 | DVHINCON2 ---
Date of service: Mar 15, 2025 History of Present Illness History of Present Illness Sharri Rosen is a 65-year-old female with past medical history of GERD, hypertension, asthma, COPD, diverticulitis, dyslipidemia, osteoarthritis, anxiety, CAD who presented to the hospital complaints of chest pain, shortness of breath, vomiting, diarrhea, abdominal pain since 2 days. Patient states that the symptoms have worsened since today morning. She reports the episodes of vomit vomiting today and 1 episode of diarrhea. She rates the chest with 10 on 10 in intensity, sharp, on and off, radiating to the right arm, increasing on exercise and decreasing on resting. 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 PMHx:GERD, hypertension, asthma, COPD, diverticulitis, dyslipidemia, osteoarthritis, anxiety, CAD PSHx: section, cholecystectomy Family history: History of CAD in father and mother Social history: Denies alcohol use, 30 pack year smoking history, admits to using marijuana daily Home medication: Aspirin, atorvastatin, metoprolol, Entresto, Lasix Allergic history: Hydrocodone Past Medical History reviewed Family History: Cancer G8 MOTHER (thyroid) Family history: Cardiovascular disease G8 FATHER (murmur) G8 SISTER (murmur) Family history: Thyroid disorder G8 MOTHER Malignant neoplasm of ovary Allergies: Coded Allergies: Hydrocodone (Verified Allergy, Unknown, 04/08/23) Mushroom Extract Complex (Verified Allergy, Unknown, MUSHROOMS, 04/08/23) Uncoded Allergies: ACID FRUITS, MUSHROOMS (Allergy, Unknown, 03/28/14) Home Meds Active Scripts Docusate Sodium (Docusate Sodium) 100 Mg Cap, 100 MG PO BID for 14 Days, #30 CAP 0 Refills Prov:RUDY RENTERIA MD 01/10/25 Polyethylene Glycol 3350 (Goodsense Clearlax) 17 Gm/Scoop Pow, 17 GM PO DAILY for 7 Days, #14 POW 0 Refills Prov:RUDY RENTERIA MD 01/10/25 Amoxicillin & Pot Clavulanate (AUGMENTIN TABLET) 875 Mg Tb, 875 MG PO BID for 5 Days, #10 TAB 0 Refills Prov:RUDY RENTERIA MD 01/10/25 Hydrocodone-Acetaminophen (Hydrocodone Bitartrate/AC 5-325 mg) 1 Tab Tab, 1 TAB PO Q8HP PRN, #12 TAB Prov:RUSSELL HARRELL MD 12/19/23 Sacubitril-Valsartan (Entresto 24-26 mg) 1 Tab Tab, 1 TAB PO BID, #60 TAB Prov:ANISHA WILD MD 10/15/22 Aspirin (Aspirin Low Dose) 81 Mg Tab, 81 MG PO DAILY, #30 TAB Prov:ANISHA WILD MD 10/15/22 Potassium Chloride (Potassium Chloride ER) 10 Meq Tab, 10 MEQ PO DAILY, #30 Prov:ANISHA WILD MD 09/21/18 Reported Medications Fezolinetant (Veozah) 45 Mg Tab, 1 TAB PO DAILY 12/15/23 Albuterol Sulfate (Albuterol Sulfate Hfa) 108 Mcg/Act Aer, 2 PUFF INH Q4-6HR PRN for WHEEZING 12/15/23 Dicyclomine Hcl (BENTYL CAPSULE) 10 Mg Cp, 1 CAP PO TID PRN for UPSET STOMACH 12/15/23 Lactulose (Lactulose) 10 Gm/15 Ml Anali, 15 ML PO QPM for 15 Days, #237 12/15/23 Escitalopram Oxalate (Lexapro) 10 Mg Tab, 1 TAB PO DAILY 12/15/23 Metoprolol Tartrate (Lopressor) 25 Mg Tb, 1 TAB PO DAILY 12/15/23 Pantoprazole Sodium Sesquihydr (Protonix) 40 Mg Tab, 1 TAB PO DAILY 12/15/23 Ondansetron HCl (Ondansetron Hydrochloride) 4 Mg Tab, 1 TAB PO Q8HR PRN for NAUSEA / VOMITING for 15 Days, #30 12/15/23 Montelukast Sodium (MONTELUKAST SODIUM) 10 Mg Tab, 1 TAB PO DAILY, #30 TAB 5 Refills 12/12/20 Furosemide (Furosemide) 20 Mg Tab, 20 MG PO DAILY for 30 Days, MG 12/12/20 Atorvastatin Calcium (ATORVASTATIN CALCIUM) 20 Mg Tab, 1 TAB PO DAILY, #30 TAB 5 Refills 09/18/18 Sucralfate (Carafate) 1 Gm Tb, 1 TAB PO BID, #90 TAB 11 Refills 08/10/15 Current Medications Current Medications Medications (Trade) Dose Ordered Sig/Nathan Route PRN Reason Start Time Stop Time Status Last Admin Pantoprazole Sodium (Protonix) 40 mg DAILY IV 03/14/25 10:00 03/14/25 09:12 Aspirin 81 mg DAILY PO 03/14/25 10:00 03/14/25 09:13 Atorvastatin Calcium (Lipitor) 40 mg HS PO 03/14/25 22:00 03/14/25 21:47 Acetaminophen (Tylenol Tablet) 325 mg Q4HP PRN PO PAIN SCALE 1-3 OR TEMP>100.4 03/14/25 10:45 03/15/25 02:04 Acetaminophen/ Hydrocodone Bitart ([place]arrass 5/325MG Tab) 1 tab Q6HPRN PRN PO MODERATE PAIN (4-6 PAIN SCALE) 03/14/25 13:15 03/14/25 17:13 DC Morphine Sulfate 1 mg Q4HP PRN IV MODERATE PAIN (4-6 PAIN SCALE) 03/14/25 17:15 03/14/25 22:51 Review of Systems 10 pt ros otherwise negative Vital Signs Vital Signs Date Time Temp Pulse Resp B/P (MAP) Pulse Ox O2 Delivery O2 Flow Rate FiO2 03/15/25 05:00 98.0 61 18 140/85 (103) 99 98.0 03/14/25 20:00 Room Air* 0 21 Physical Exam nad s1 s2 rrr ctab soft nt/nd no edema Labs/Diagnostic Data Labs Test 03/15/25 06:00 03/14/25 06:00 03/14/25 05:36 03/13/25 19:25 Range/Units White Blood Count 8.1 4.4-10.8 10^3/uL Red Blood Count 4.74 4.0-5.20 10^6/uL Hemoglobin 14.3 12.2-16.2 g/dL Hematocrit 42.8 36.0-46.0 % Mean Corpuscular Volume 90.3 80.0-100.0 fL Mean Corpuscular Hemoglobin 30.2 28.0-32.0 pg Mean Corpuscular Hemoglobin Concent 33.5 32.0-36.0 g/dL Red Cell Distribution Width 14.1 11.8-14.3 % Platelet Count 238 140-450 10^3/uL Mean Platelet Volume 7.9 6.9-10.8 fL Neutrophils (%) (Auto) 60.1 37.0-80.0 % Lymphocytes (%) (Auto) 27.6 10.0-50.0 % Monocytes (%) (Auto) 7.4 0.0-12.0 % Eosinophils (%) (Auto) 4.3 0.0-7.0 % Basophils (%) (Auto) 0.6 0.0-2.0 % Neutrophils # (Auto) 4.9 1.6-8.6 10 ^3/uL Lymphocytes # (Auto) 2.2 0.4-5.4 10 ^3/uL Monocytes # (Auto) 0.6 0-1.3 10 ^3/uL Eosinophils # (Auto) 0.3 0-0.8 10 ^3/uL Basophils # (Auto) 0 0-0.2 10 ^3/uL Nucleated Red Blood Cells 0.1 % Sodium Level 140 136-145 mmol/L Potassium Level 3.3 L 3.5-5.1 mmol/L Chloride Level 108 H 98-107 mmol/L Carbon Dioxide Level 24 20-31 mmol/L Anion Gap 8 5-15 Blood Urea Nitrogen 6 L 9-23 mg/dL Creatinine 0.62 0.550-1.02 mg/dL Glomerular Filtration Rate Calc 100 >90 mL/min BUN/Creatinine Ratio 9.7 L 10.0-20.0 Serum Glucose 95 74-106 mg/dL Calcium Level 9.3 8.7-10.4 mg/dL Total Bilirubin 1.0 0.2-1.0 mg/dL Aspartate Amino Transferase (AST) 25 13-40 U/L Alanine Aminotransferase (ALT) 14 7-40 U/L Alkaline Phosphatase 81 46-116 U/L Total Protein 7.0 5.7-8.2 g/dL Albumin 4.2 3.2-4.8 g/dL Urine Color Yellow Yellow Urine Clarity Turbid H Clear Urine pH 7.0 5.0-9.0 Urine Specific [place] 1.020 1.001-1.035 Urine Protein Negative Negative Urine Ketones 1+ H Negative Urine Blood 2+ H Negative /uL Urine Nitrite Negative Negative Urine Bilirubin Negative Negative Urine Urobilinogen 2 H Negative mg/dL Urine Leukocyte Esterase 3+ Negative /uL Urine RBC 56 0 - 4 /hpf Urine Microscopic WBC 7 H 0-5 /HPF Urine Squamous Epithelial Cells Few <5 /hpf Urine Bacteria Few H None Seen /hpf Urine Hyaline Casts Few 0 - 2 /lpf Urine Mucus Few None Seen Urine Yeast (Budding) Occasional None Seen /hpf Urine Glucose Normal Normal mg/dL Urine Opiates Screen Neg NEGATIVE Urine Fentanyl Screen Neg NEGATIVE Urine Barbiturates Screen Neg NEGATIVE Urine Phencyclidine Screen Neg NEGATIVE Urine Amphetamines Screen Neg NEGATIVE Urine Benzodiazepines Screen Neg NEGATIVE Urine Cocaine Screen Neg NEGATIVE Urine Cannabinoids Screen Pos NEGATIVE Thyroid Stimulating Hormone (TSH) 4.14 0.55-4.78 uIU/mL D-Dimer, Quantitative 0.56 H 0.0-0.49 mg/L FEU Test 03/13/25 18:53 03/13/25 18:38 03/13/25 16:30 03/13/25 13:09 Range/Units Lactic Acid Level 1.0 0.4-2.0 mmol/L Lipase 34 12-53 U/L Influenza Type A Antigen Negative Negative Influenza Type B Antigen Negative Negative SARS-CoV-2 Antigen (Rapid) Negative NEGATIVE Troponin I High Sensitivity 9 </=34 ng/L C-Reactive Protein High Sensitivity < 0.02 <1.0 mg/dL Erythrocyte Sedimentation Rate 5 0-20 mm/hr B-Type Natriuretic Peptide 19.60 0-100 pg/mL Assessment r/o acs htn HL marijuana use Plan/Recommendation negative trops [facility] in past 1-2 years was - fu GI---pt has hiatal hernia causing pain no further cv workup at this time outpt fu Plan discussed with: Patient JAELYN YANEZ MD Mar 15, 2025 07:41
[2025-03-15 09:00] VITALS: BP 155/87; PULSE 65; RESP 20; TEMP 97.4; O2SAT 98
[2025-03-15] MEDS ORDERED: NITR-52 PO (10:34)
[2025-03-15] MEDS ORDERED: PANT40T PO (11:28)
[2025-03-15] MEDS ORDERED: SUCR1TAB31 OR (11:29)
[2025-03-15] MEDS: POTASSIUM EFFERVESENT TAB 25 MEQ PO ONE (11:54)
[2025-03-15 13:00] VITALS: BP 145/88; PULSE 57; RESP 19; TEMP 98.2; O2SAT 99
--- NOTE | 2025-03-15 15:12 | DVHDSRES ---
Discharge Summary Date of Admission Resident Creating Document: YAIR REID RESIDENT Mar 13, 2025 at 18:00 Date of Discharge: Mar 15, 2025 Labs/Diagnostic Data: Laboratory Results Test 03/15/25 06:00 03/14/25 06:00 03/14/25 05:36 03/13/25 19:25 White Blood Count 8.1 10^3/uL (4.4-10.8) Red Blood Count 4.74 10^6/uL (4.0-5.20) Hemoglobin 14.3 g/dL (12.2-16.2) Hematocrit 42.8 % (36.0-46.0) Mean Corpuscular Volume 90.3 fL (80.0-100.0) Mean Corpuscular Hemoglobin 30.2 pg (28.0-32.0) Mean Corpuscular Hemoglobin Concent 33.5 g/dL (32.0-36.0) Red Cell Distribution Width 14.1 % (11.8-14.3) Platelet Count 238 10^3/uL (140-450) Mean Platelet Volume 7.9 fL (6.9-10.8) Neutrophils (%) (Auto) 60.1 % (37.0-80.0) Lymphocytes (%) (Auto) 27.6 % (10.0-50.0) Monocytes (%) (Auto) 7.4 % (0.0-12.0) Eosinophils (%) (Auto) 4.3 % (0.0-7.0) Basophils (%) (Auto) 0.6 % (0.0-2.0) Neutrophils # (Auto) 4.9 10 ^3/uL (1.6-8.6) Lymphocytes # (Auto) 2.2 10 ^3/uL (0.4-5.4) Monocytes # (Auto) 0.6 10 ^3/uL (0-1.3) Eosinophils # (Auto) 0.3 10 ^3/uL (0-0.8) Basophils # (Auto) 0 10 ^3/uL (0-0.2) Nucleated Red Blood Cells 0.1 % Sodium Level 140 mmol/L (136-145) Potassium Level 3.3 mmol/L (3.5-5.1) Chloride Level 108 mmol/L (98-107) Carbon Dioxide Level 24 mmol/L (20-31) Anion Gap 8 (5-15) Blood Urea Nitrogen 6 mg/dL (9-23) Creatinine 0.62 mg/dL (0.550-1.02) Glomerular Filtration Rate Calc 100 mL/min (>90) BUN/Creatinine Ratio 9.7 (10.0-20.0) Serum Glucose 95 mg/dL (74-106) Calcium Level 9.3 mg/dL (8.7-10.4) Total Bilirubin 1.0 mg/dL (0.2-1.0) Aspartate Amino Transferase (AST) 25 U/L (13-40) Alanine Aminotransferase (ALT) 14 U/L (7-40) Alkaline Phosphatase 81 U/L (46-116) Total Protein 7.0 g/dL (5.7-8.2) Albumin 4.2 g/dL (3.2-4.8) Urine Color Yellow (Yellow) Urine Clarity Turbid (Clear) Urine pH 7.0 (5.0-9.0) Urine Specific [place] 1.020 (1.001-1.035) Urine Protein Negative (Negative) Urine Ketones 1+ (Negative) Urine Blood 2+ /uL (Negative) Urine Nitrite Negative (Negative) Urine Bilirubin Negative (Negative) Urine Urobilinogen 2 mg/dL (Negative) Urine Leukocyte Esterase 3+ /uL (Negative) Urine RBC 56 /hpf (0 - 4) Urine Microscopic WBC 7 /HPF (0-5) Urine Squamous Epithelial Cells Few /hpf (<5) Urine Bacteria Few /hpf (None Seen) Urine Hyaline Casts Few /lpf (0 - 2) Urine Mucus Few (None Seen) Urine Yeast (Budding) Occasional /hpf (None Urine Glucose Normal mg/dL (Normal) Urine Opiates Screen Neg (NEGATIVE) Urine Fentanyl Screen Neg (NEGATIVE) Urine Barbiturates Screen Neg (NEGATIVE) Urine Phencyclidine Screen Neg (NEGATIVE) Urine Amphetamines Screen Neg (NEGATIVE) Urine Benzodiazepines Screen Neg (NEGATIVE) Urine Cocaine Screen Neg (NEGATIVE) Urine Cannabinoids Screen Pos (NEGATIVE) Thyroid Stimulating Hormone (TSH) 4.14 uIU/mL (0.55-4.78) D-Dimer, Quantitative 0.56 mg/L FEU (0.0-0.49) Test 03/13/25 18:53 03/13/25 18:38 03/13/25 16:30 03/13/25 13:09 Lactic Acid Level 1.0 mmol/L (0.4-2.0) Lipase 34 U/L (12-53) Influenza Type A Antigen Negative (Negative) Influenza Type B Antigen Negative (Negative) SARS-CoV-2 Antigen (Rapid) Negative (NEGATIVE) Troponin I High Sensitivity 9 ng/L (</=34) C-Reactive Protein High Sensitivity < 0.02 mg/dL (<1.0) Erythrocyte Sedimentation Rate 5 mm/hr (0-20) B-Type Natriuretic Peptide 19.60 pg/mL (0-100) Other Laboratory Tests 03/15/25 06:00 Brief Hx & Hospital Course: Sharri Rosen is a 65-year-old female with past medical history of GERD, hypertension, asthma, COPD, diverticulitis, dyslipidemia, osteoarthritis, anxiety, CAD who presented to the hospital complaints of chest pain, shortness of breath, vomiting, diarrhea, abdominal pain since 2 days. Patient states that the symptoms have worsened since today morning. She reports the episodes of vomit vomiting today and 1 episode of diarrhea. She rates the chest with 10 on 10 in intensity, sharp, on and off, radiating to the right arm, increasing on exercise and decreasing on resting. 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 while in the hospital extremity venous study was done which was negative for DVT. CT abdomen showed a punctate nonobstructive right kidney stone. Potassium was replenished since patient was hypokalemic. The hospital she was treated with IV fluids, Protonix, pain killers. during the course of the hospital stay the patient was clinically better and hence being discharged Condition at Discharge: Fair Final Diagnosis/Problems List Hiatal hernia GERD Gastritis ruled out Gastro enteritis cannabis hyperemesis syndrome ruled out ACS History of coronary artery disease Essential hypertension COPD, no acute exacerbation Asthma, no acute exacerbation Dyslipidemia Osteoarthritis Anxiety disorder Congestive heart failure Discharge Disposition: Home Discharge Instruct/Medications Diet: Cardiac 2g Na,low cholest Diet comment: please do not eat spicy food and avoid NSAID. Activity: No Restrictions, As Tolerated Follow Up/Referral: f/u PCP GI follow up and Cardiology as needed. Medications: as per EHR Scheduled Amoxicillin & Pot Clavulanate (Augmentin Tablet), 875 MG PO BID Aspirin (Aspirin Low Dose), 81 MG PO DAILY Atorvastatin Calcium (Atorvastatin Calcium), 1 TAB PO DAILY, (Reported) Docusate Sodium (Docusate Sodium), 100 MG PO BID Escitalopram Oxalate (Lexapro), 1 TAB PO DAILY, (Reported) Fezolinetant (Veozah), 1 TAB PO DAILY, (Reported) Furosemide (Furosemide), 20 MG PO DAILY, (Reported) Lactulose (Lactulose), 15 ML PO QPM, (Reported) Metoprolol Tartrate (Lopressor), 1 TAB PO DAILY, (Reported) Montelukast Sodium (Montelukast Sodium), 1 TAB PO DAILY, (Reported) Nitrofurantoin (Nitrofurantoin), 1 CAP PO BID Pantoprazole Sodium Sesquihydr (Protonix), 1 TAB PO DAILY, (Reported) Pantoprazole Sodium Sesquihydr (Pantoprazole Sodium), 40 MG PO DAILY Polyethylene Glycol 3350 (Goodsense Clearlax), 17 GM PO DAILY Potassium Chloride (Potassium Chloride ER), 10 MEQ PO DAILY Sacubitril-Valsartan (Entresto 24-26 mg), 1 TAB PO BID Sucralfate (Carafate), 1 TAB PO BID, (Reported) Sucralfate (Carafate), 1 GM OR TID Scheduled PRN Albuterol Sulfate (Albuterol Sulfate Hfa), 2 PUFF INH Q4-6HR PRN for WHEEZING, (Reported) Dicyclomine Hcl (Bentyl Capsule), 1 CAP PO TID PRN for UPSET STOMACH, (Reported) Hydrocodone-Acetaminophen (Hydrocodone Bitartrate/AC 5-325 mg), 1 TAB PO Q8HP PRN Ondansetron HCl (Ondansetron Hydrochloride), 1 TAB PO Q8HR PRN for NAUSEA / VOMITING, (Reported) Discharge Statement: "Patient was advised to return to the ER or call 911 if any headaches, dizziness, shortness of breath, chest pain, abdominal pain, bleeding, fevers, or worsening of medical condition. Patient was counseled about treatment plan, medications, possible side effects, patientverbalized understanding. All questions were answered to the best of my ability. This discharge took greater then 30 minutes in planning, reviewing documentation, counseling the patient, and discussing with other team members." ASSESSMENT ASSESSMENT Assessment Acute Gastritis, Chest pain noncardiac. Date of Service: Mar 15, 2025 Billing Provider: EMILY GARCIA MD Common Visit Codes: 29359-OXP/OBS DISCH DAY >30min YARI REID RESIDENT Mar 15, 2025 15:12
[2025-03-15 17:00] VITALS: BP 163/81; PULSE 74; RESP 19; TEMP 97.3; O2SAT 99
[2025-03-15] MEDS ORDERED: SACUBITRIL-VALSARTAN 24mg/26mg TAB PO SCH (22:00)
== END 2025-03-15 17:52 | disposition home or self-care (01) | DRG 241 ==
LOC: EDBD 12:22 → EDUNIT# 12:22 → EDSEX 12:22 → ER 12:22 → OVERFLOW 18:00 → TELE-WESTW 21:22 → WEST WING 03-15 11:15
PROVIDERS: ADMIT Internal Medicine Geriatric Medicine; ATTEND Internal Medicine Geriatric Medicine
DX: K29.00 Acute gastritis without bleeding (principal); I11.0 Hypertensive heart disease with heart failure; I50.9 Heart failure, unspecified; E78.5 Hyperlipidemia, unspecified; K21.9 Gastro-esophageal reflux disease without esophagitis; K44.9 Diaphragmatic hernia without obstruction or gangrene; F41.9 Anxiety disorder, unspecified; Z20.822 Contact with and (suspected) exposure to COVID-19; R11.16 Cannabis hyperemesis syndrome; R07.89 Other chest pain; J44.89 Other specified chronic obstructive pulmonary disease; I25.10 Atherosclerotic heart disease of native coronary artery without angina pectoris; Z90.49 Acquired absence of other specified parts of digestive tract; I25.2 Old myocardial infarction; Z88.5 Allergy status to narcotic agent; Z91.018 Allergy to other foods; Z82.49 Family history of ischemic heart disease and other diseases of the circulatory system; Z80.41 Family history of malignant neoplasm of ovary
CPT/HCPCS: 36415; 71045; 74176; 80048; 80053; 80307; 81001; 83605; 83690; 83880; 84443; 84484; 85025; 85379; 85652; 86141; 87086; 87426; 87804; 93005; 93970; 96361; 96374; G0378; J2405; J2470

== ENCOUNTER 2025-03-19 07:01 | Inpatient (IN) | payer MEDICAID ==
[2025-03-19] VITALS (7 sets, daily range): BP systolic 120–134; BP diastolic 93–96; PULSE 75–119; RESP 16–20; TEMP 99; O2SAT 96–99
[~2025-03-19] VITALS: Ht 157.5 cm; Wt 75.3 kg
[~2025-03-19 07:01] MED LIST changes: +NITR-52 PO; +PANT40T PO; +SUCR1TAB31 OR
--- NOTE | 2025-03-19 07:29 | ED.PDOC ---
GI ASSESSMENT HPI Comments 65 y/o F, BIBA, with PMHx of gastritis, cannabis hyperemesis syndrome, GERD, HTN, COPD, and MIx3 presents to the ED for CC of abdominal pain. EMS reports, patient is coming from home where she c/o diffuse abdominal pain with associated nausea and vomiting following, having a bowel movement. Per EMS, patient has same symptoms following every bowel movement. Patient was recently D/C from [facility] on 03/15/25 for Dx:Gastritis. At this time patient is unable to answer question appropriately or give an accurate history. No other symptoms or modifying factors are present at this time. Chief Complaint: Abdominal Pain Time Seen by MD: 07:30 Primary Care Provider: NONE Reviewed Notes: Nurses Notes, Director Operations Notes, Medications, Allergies Allergies: Coded Allergies: Codeine (Verified Allergy, Unknown, 03/19/25) Hydrocodone (Verified Allergy, Unknown, 04/08/23) Mushroom Extract Complex (Verified Allergy, Unknown, MUSHROOMS, 04/08/23) Uncoded Allergies: ACID FRUITS, MUSHROOMS (Allergy, Unknown, 03/28/14) Home Meds Active Scripts Sucralfate (CARAFATE) 1 Gm Tab, 1 GM OR TID for 30 Days, #90 TAB Prov:REYNALDO JONES [facility] 03/15/25 Pantoprazole Sodium Sesquihydr (Pantoprazole Sodium) 40 Mg Tab, 40 MG PO DAILY for 30 Days, #30 TAB Prov:REYNALDO JONES 03/15/25 Nitrofurantoin (Nitrofurantoin) 100 Mg Cap, 1 CAP PO BID for 7 Days, #14 CAP Prov:REYNALDO JONES [facility] 03/15/25 Docusate Sodium (Docusate Sodium) 100 Mg Cap, 100 MG PO BID for 14 Days, #30 CAP 0 Refills Prov:RUDY RENTERIA MD 01/10/25 Polyethylene Glycol 3350 (Goodsense Clearlax) 17 Gm/Scoop Pow, 17 GM PO DAILY fo r 7 Days, #14 POW 0 Refills Prov:RUDY RENTERIA MD 01/10/25 Amoxicillin & Pot Clavulanate (AUGMENTIN TABLET) 875 Mg Tb, 875 MG PO BID for 5 Days, #10 TAB 0 Refills Prov:RUDY RENTERIA MD 01/10/25 Hydrocodone-Acetaminophen (Hydrocodone Bitartrate/AC 5-325 mg) 1 Tab Tab, 1 TAB PO Q8HP PRN, #12 TAB Prov:RUSSELL HARRELL MD 12/19/23 Sacubitril-Valsartan (Entresto 24-26 mg) 1 Tab Tab, 1 TAB PO BID, #60 TAB Prov:ANISHA WILD MD 10/15/22 Aspirin (Aspirin Low Dose) 81 Mg Tab, 81 MG PO DAILY, #30 TAB Prov:ANISHA WILD MD 10/15/22 Potassium Chloride (Potassium Chloride ER) 10 Meq Tab, 10 MEQ PO DAILY, #30 Prov:ANISHA WILD MD 09/21/18 Reported Medications Fezolinetant (Veozah) 45 Mg Tab, 1 TAB PO DAILY 12/15/23 Albuterol Sulfate (Albuterol Sulfate Hfa) 108 Mcg/Act Aer, 2 PUFF INH Q4-6HR PRN for WHEEZING 12/15/23 Dicyclomine Hcl (BENTYL CAPSULE) 10 Mg Cp, 1 CAP PO TID PRN for UPSET STOMACH 12/15/23 Lactulose (Lactulose) 10 Gm/15 Ml Anali, 15 ML PO QPM for 15 Days, #237 12/15/23 Escitalopram Oxalate (Lexapro) 10 Mg Tab, 1 TAB PO DAILY 12/15/23 Metoprolol Tartrate (Lopressor) 25 Mg Tb, 1 TAB PO DAILY 12/15/23 Pantoprazole Sodium Sesquihydr (Protonix) 40 Mg Tab, 1 TAB PO DAILY 12/15/23 Ondansetron HCl (Ondansetron Hydrochloride) 4 Mg Tab, 1 TAB PO Q8HR PRN for NAUSEA / VOMITING for 15 Days, #30 12/15/23 Montelukast Sodium (MONTELUKAST SODIUM) 10 Mg Tab, 1 TAB PO DAILY, #30 TAB 5 Refills 12/12/20 Furosemide (Furosemide) 20 Mg Tab, 20 MG PO DAILY for 30 Days, MG 12/12/20 Atorvastatin Calcium (ATORVASTATIN CALCIUM) 20 Mg Tab, 1 TAB PO DAILY, #30 TAB 5 Refills 09/18/18 Sucralfate (Carafate) 1 Gm Tb, 1 TAB PO BID, #90 TAB 11 Refills 08/10/15 Information Source: Emergency Med Personnel Mode of Arrival: EMS Timing: Days Duration: Since onset Prehospital treatment: None Quality: None Vomitus: Watery Stool: Watery Severity: Moderate Recent: None Recent Hx of: None Pain Location: Diffuse Modifying Factors: Nothing Associated sign and symptoms: Nausea, Vomiting, Abdominal Pain Past Medical History PAST MEDICAL HISTORY: CAD, COPD, HTN, IN Surgical History: Unknown 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 History Family History Family History: Reviewed,noncontributory to illness, Unknown Social History Smoker: Unknown Alcohol: Unknown Drugs: Unknown Lives In: Home Constitutional: denies: chills, diaphoresis, fatigue, fever, malaise, sweats, weakness, others EENTM: denies: blurred vision, double vision, ear bleeding, ear discharge, ear drainage, ear pain, ear ringing, eye pain, eye redness, hearing loss, mouth pa in, mouth swelling, nasal discharge, nose bleeding, nose congestion, nose pain, photophobia, tearing, throat pain, throat swelling, voice changes, others Respiratory: denies: cough, hemoptysis, orthopnea, SOB at rest, shortness of breath, SOB with excertion, stridor, wheezing, others Cardiovascular: denies: chest pain, dizzy spells, diaphoresis, Dyspnea on exertion, edema, irregular heart beat, left arm pain, lightheadedness, palpitations, PND, syncope, others Gastrointestinal: reports: abdominal pain, nausea, vomiting; denies: abdomen distended, blood streaked bowels, constipated, diarrhea, dysphagia, difficulty swallowing, hematemesis, melena, poor appetite, poor fluid intake, rectal bleeding, rectal pain, others Genitourinary: denies: abnormal vagina bleeding, burning, dyspareunia, dysuria, flank pain, frequency, hematuria, incontinence, pain, , vagina discharge, urgency, others Neurological: denies: dizziness, fainting, headache, left sided numbness, left sided weakness, numbness, paresthesia, pre-existing deficit, right sided numbness, right sided weakness, seizure, speech problems, tingling, tremors, weakness, others Musculoskeletal: denies: back pain, gout, joint pain, joint swelling, muscle pain, muscle stiffness, neck pain, others Integumetry: denies: bruises, change in color, change in hair/nails, dryness, laceration, lesions, lumps, rash, wounds, others Allergic/Immunocompromised: denies: Difficulty Healing, Frequent Infections, Hives, Itching, others Hematologic/Lymphatic: denies: anemia, blood clots, easy bleeding, easy bruising, swollen glands, others Endocrine: denies: excessive hunger, excessive sweating, excessive thirst, excessive urination, flushing, intolerance to cold, intolerance to heat, unexplained weight gain, unexplained weight loss, others Psychiatric: denies: anxiety, bipolar disorder, depression, hopeless, panic disorder, schizophrenia, sleepless, suicidal, others All Other Systems: Reviewed and Negative Physical Exam General Appearance: Moderate Distress HEENT: Normal ENT Inspection, Pharynx Normal, TMs Normal Neck: Full Range of Motion, Non-Tender, Normal, Normal Inspection Respiratory: Chest Non-Tender, Lungs Clear, No Accessory Muscle Use, No Respiratory Distress, Normal Breath Sounds Cardiovascular: No Edema, No JVD, No Murmur, No Gallop, Normal Peripheral Pulses, Regular Rate/Rhythm Breast Exam: Deferred Gastrointestinal: Diffuse Genitalia: Deferred Pelvic: Deferred Rectal: Deferred Extremities: No calf tenderness, Normal capillary refill, Normal inspection, Normal range of motion, Non-tender, No pedal edema Musculoskeletal : Apperance: Normal Neurologic: Alert, 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 Was a procedure done?: No GI differential Dx Differential Diagnosis: Constipation, Diverticular disease, Gastritis/PUD, Gastroenteritis, Hernia, Inflammatory BD, Bacterial, Viral X-Ray, Labs, Meds, VS Vital Signs Date Time Temp Pulse Resp B/P (MAP) Pulse Ox O2 Delivery O2 Flow Rate FiO2 03/19/25 10:00 86 16 134/96 (109) 96 03/19/25 09:02 123 30 95/74 03/19/25 08:16 123 16 152/85 03/19/25 07:31 119 16 98 Room Air* 0 21 03/19/25 07:30 97.3 119 16 171/126 (141) 98 97.3 03/19/25 07:14 97.6 101 20 151/111 99 97.6 Lab Test 03/19/25 07:43 Range/Units White Blood Count 14.4 #H 4.4-10.8 10^3/uL Red Blood Count 4.81 4.0-5.20 10^6/uL Hemoglobin 14.3 12.2-16.2 g/dL Hematocrit 44.5 36.0-46.0 % Mean Corpuscular Volume 92.4 80.0-100.0 fL Mean Corpuscular Hemoglobin 29.8 28.0-32.0 pg Mean Corpuscular Hemoglobin Concent 32.2 32.0-36.0 g/dL Red Cell Distribution Width 14.8 H 11.8-14.3 % Platelet Count 211 140-450 10^3/uL Mean Platelet Volume 9.4 6.9-10.8 fL Neutrophils (%) (Auto) 77.0 37.0-80.0 % Lymphocytes (%) (Auto) 15.5 10.0-50.0 % Monocytes (%) (Auto) 5.1 0.0-12.0 % Eosinophils (%) (Auto) 1.7 0.0-7.0 % Basophils (%) (Auto) 0.7 0.0-2.0 % Neutrophils # (Auto) 11.1 H 1.6-8.6 10 ^3/uL Lymphocytes # (Auto) 2.2 0.4-5.4 10 ^3/uL Monocytes # (Auto) 0.7 0-1.3 10 ^3/uL Eosinophils # (Auto) 0.2 0-0.8 10 ^3/uL Basophils # (Auto) 0.1 0-0.2 10 ^3/uL Nucleated Red Blood Cells 0.0 % Sodium Level 144 136-145 mmol/L Potassium Level 3.6 3.5-5.1 mmol/L Chloride Level 112 H 98-107 mmol/L Carbon Dioxide Level 19 L 20-31 mmol/L Anion Gap 13 5-15 Blood Urea Nitrogen 15 9-23 mg/dL Creatinine 1.00 # 0.550-1.02 mg/dL Glomerular Filtration Rate Calc 63 >90 mL/min BUN/Creatinine Ratio 15.0 10.0-20.0 Serum Glucose 170 H 74-106 mg/dL Calcium Level 10.0 8.7-10.4 mg/dL Total Bilirubin 0.6 0.2-1.0 mg/dL Aspartate Amino Transferase (AST) 24 13-40 U/L Alanine Aminotransferase (ALT) 19 7-40 U/L Alkaline Phosphatase 93 46-116 U/L Ammonia < 10 L 11-32 umol/L Total Protein 8.0 5.7-8.2 g/dL Albumin 4.9 H 3.2-4.8 g/dL Current Medications Medications (Trade) Dose Ordered Sig/Nathan Route Start Time Stop Time Status Last Admin Ondansetron HCl (Zofran) 4 mg ONCE ONCE IV 03/19/25 07:30 03/19/25 07:32 DC 03/19/25 08:16 Sodium Chloride 1,000 ml @ 1,000 mls/hr Q1H ONCE IVB 03/19/25 07:30 03/19/25 08:29 DC 03/19/25 08:17 Morphine Sulfate 2 mg ONCE ONCE IV 03/19/25 07:30 03/19/25 07:32 DC 03/19/25 08:16 Lorazepam (Ativan Inj) 1 mg ONCE ONCE IV 03/19/25 09:15 03/19/25 09:16 DC 03/19/25 09:13 [place] [id number] Ph: [phone] DIAGNOSTIC IMAGING Diagnostic Imaging Report : [id number] Signed PATIENT: LUIS BENTLEY ACCT: [id number] UNIT: [id number] : 1960 LOC: ER ROOM / BED: / AGE / SEX: 65 / F ADM STATUS: REG ER SERVICE 9 ORDERING PHYSICIAN: KORY SULLIVAN MD PROCEDURE(s): ABPL - CT AB PEL WO CON-NO ORAL OR IV REASON: colitisvsconstipation ORDER NUMBER(s): [id number], ACCESSION NUMBER(s): [id number] CT CT AB PEL WO CON-NO ORAL OR IV INDICATION: colitisvsconstipation EXAM DATE: 03/19/2025 09:16 AM COMPARISON: CT CT AB PEL WO CON-NO ORAL OR IV on DOS: 03/13/25, CT CT AB PEL WO CON-NO ORAL OR IV on DOS: 01/06/25, CT CT AB PEL WO CON-NO ORAL OR IV on DOS: 11/06/24 RADIATION DOSE: CTDIvol: 9 mGy, DLP: 471 mGy*cm PROCEDURE: Helical CT images were obtained of the abdomen and pelvis without IV contrast Sagittal and coronal reconstructions are provided. ORAL CONTRAST: None. ADDITIONAL IMAGES / REFORMATS: None All CT scans at this medical facility are performed using dose modulation techniques as appropriate to a performed exam including the following: Automated exposure control was utilized; adjustment of the MA and/or KV according to patient size; and use of iterative reconstruction technique. FINDINGS: LUNG BASE: Normal. LIVER: Normal. GALLBLADDER AND BILIARY TREE: Absent gallbladder. No intra- or extrahepatic biliary ductal dilation. PANCREAS: Normal. SPLEEN: Normal. BOWEL: Normal. Normal appendix. ADRENALS: Normal. KIDNEYS AND URETER: Punctate nonobstructive right kidney stone. BLADDER: Normal. REPRODUCTIVE ORGANS: Small calcified fibroids. LYMPH NODES:No lymphadenopathy. PERITONEUM: No ascites or free air. No other fluid collection. VESSELS: Scattered atherosclerotic calcifications are noted. RETROPERITONEUM: Normal. ABDOMINAL WALL: Complex ventral hernia contains fat. BONES: Scattered osseous degenerative changes are noted. IMPRESSION: No acute intraabdominal abnormality. ATED BY: YOU QUINTANILLA MD DICTATED DATE/TIME: 03/19/25944 SIGNED BY: YOU QUINTANILLA MD SIGNED DATE/TIME: 03/19/25944 CC: Patient alert. Complaining of abdominal pain. CT scan of the abdomen reviewed does not show any acute changes. Blood sugar elevated. WBC elevated. Possible colitis. Establish intravenous access. Was given fluids. Blood pressure elevated. Explained to the patient. Continue monitoring. Time of 1ST Reevaluation: 08:00 Reevaluation 1ST: Unchanged Patient Education/Counseling: Diagnosis, Treatment Family Education/Counseling: No Family Present SEPSIS Sepsis Screen Date sepsis recognized/suspect: Mar 19, 2025 Time Sepsis recognized/suspect: 716 Recent Procedure: No On Antibiotic Therapy: No Respiratory Rate >20: No Heart Rate >90: Yes Temp<36 C (96.8 F) or >38.3 C: No SBP <90 or MAP <65 mmHG: No New Acute Mental Status Change: No Is the patient on CPAP, BIPAP,: No Physician Orders Urinalysis (03/19/25 07:30) Ct Ab Pel Wo Con-No Oral Or Iv (03/19/25 07:30) Vital Signs Date Time Temp Pulse Resp B/P (MAP) Pulse Ox O2 Delivery O2 Flow Rate FiO2 03/19/25 10:00 86 16 134/96 (109) 96 03/19/25 09:02 123 30 95/74 03/19/25 08:16 123 16 152/85 03/19/25 07:31 119 16 98 Room Air* 0 21 03/19/25 07:30 97.3 119 16 171/126 (141) 98 97.3 03/19/25 07:14 97.6 101 20 151/111 99 97.6 Laboratory Tests Test 03/19/25 07:43 White Blood Count 14.4 10^3/uL (4.4-10.8) #H Medications Medications Dose Ordered Sig/Nathan Route Start Time Stop Time Status Last Admin Dose Admin Lorazepam 1 mg ONCE ONCE IV 03/19/25 09:15 03/19/25 09:16 DC 03/19/25 09:13 Morphine Sulfate 2 mg ONCE ONCE IV 03/19/25 07:30 03/19/25 07:32 DC 03/19/25 08:16 Ondansetron HCl 4 mg ONCE ONCE IV 03/19/25 07:30 03/19/25 07:32 DC 03/19/25 08:16 Sodium Chloride 1,000 ml @ 1,000 mls/hr Q1H ONCE IVB 03/19/25 07:30 03/19/25 08:29 DC 03/19/25 08:17 Departure 1 Departure Time of Disposition: 11:16 Impression: Primary Impression: Acute abdominal pain Additional Impressions: Non-specific colitis Uncontrolled diabetes mellitus Qualified Codes: E13.65 - Other specified diabetes mellitus with hyperglycemia HTN (hypertension) Qualified Codes: I10 - Essential (primary) hypertension Disposition: ADMITTED INPATIENT Admit to: Med Surg Condition: Guarded Critical Care Note Critical Care Time?: Yes (90 min-critical care time only) Stability Stability form required: No Heart Score Heart Score: Heart Score Response (Comments) Value History N/A 0 EKG N/A 0 Age N/A 0 Risk Factors N/A 0 Troponin N/A 0 Total 0 I personally scribed for KORY SULLIVAN MD ([email or web address]) on 03/19/25 at 07:29. Electronically submitted by Lilia Brown [email or web address]). I personally scribed for KORY SULLIVAN MD ([email or web address]) on 03/19/25 at 07:44. Electronically submitted by Lilia Brown [email or web address]). I personally scribed for KORY SULLIVAN MD ([email or web address]) on 03/19/25 at 10:03. Electronically submitted by Lilia Brown [email or web address]). KORY SULLIVAN MD Mar 19, 2025 07:29
[2025-03-19] MEDS: MORPHINE SULFATE 4 MG/ML SYR/VIAL IV ONE (08:16)
[2025-03-19] MEDS: ONDANSETRON HCL 4 MG/2 ML VIAL IV ONE (08:16)
[2025-03-19] MEDS: SODIUM CHLORIDE 0.9% 1,000 ML IVB ONE (08:17)
[2025-03-19 08:24] LABS: Hematocrit 44.5 % (36.0-46.0); Hemoglobin 14.3 g/dL (12.2-16.2); Mean Corpuscular Hemoglobin 29.8 pg (28.0-32.0); Mean Corpuscular Volume 92.4 fL (80.0-100.0); Nucleated Red Blood Cells % 0.0 %
[2025-03-19 08:37] LABS: Alanine Aminotransferase 19 U/L (7-40); Albumin 4.9 g/dL (3.2-4.8); Alkaline Phosphatase 93 U/L (46-116); Anion Gap 13 (5-15); BUN/Creatinine Ratio 15.0 (10.0-20.0); Bilirubin, Total 0.6 mg/dL (0.2-1.0); Blood Urea Nitrogen 15 mg/dL (9-23); Calcium 10.0 mg/dL (8.7-10.4); Carbon Dioxide 19 mmol/L (20-31); Chloride 112 mmol/L (98-107); Glucose 170 mg/dL (74-106); Potassium 3.6 mmol/L (3.5-5.1); Sodium 144 mmol/L (136-145); Total Protein 8.0 g/dL (5.7-8.2)
[2025-03-19] MEDS: LORazepam 2MG/ML-1ML VIAL IV ONE ×2 (09:13→16:30)
--- NOTE | 2025-03-19 09:48 | DVH ---
CT CT AB PEL WO CON-NO ORAL OR IV INDICATION: colitisvsconstipation EXAM DATE: 03/19/2025 09:16 AM COMPARISON: CT CT AB PEL WO CON-NO ORAL OR IV on DOS: 03/13/25, CT CT AB PEL WO CON-NO ORAL OR IV on DOS: 01/06/25, CT CT AB PEL WO CON-NO ORAL OR IV on DOS: 11/06/24 RADIATION DOSE: CTDIvol: 9 mGy, DLP: 471 mGy*cm PROCEDURE: Helical CT images were obtained of the abdomen and pelvis without IV contrast Sagittal and coronal reconstructions are provided. ORAL CONTRAST: None. ADDITIONAL IMAGES / REFORMATS: None All C T scans at this medical facility are performed using dose modulation techniques as appropriate to a p erformed exam including the following: Automated exposure control was utilized; adjustment of the MA and/or KV according to patient size; and use of iterative reconstruction technique. FINDINGS: LUNG BASE: Normal. LIVER: Normal. GALLBLADDER AND BILIARY TREE: Absent gallbladder. No intra- or extrahepatic biliary ductal dilation. PANCREAS: Normal. SPLEEN: Normal. BOWEL: Normal. Normal appendix. ADRENALS: Normal. KIDNEYS AND URETER: Punctate nonobstructive right kidney stone. BLADDER: Normal. REPRODUCTIVE ORGANS: Small calcified fibroids. LYMPH NODES:No lymphadenopathy. PERITONEUM: No ascites or free air. No other fluid collection. VESSELS: Scattered atherosclerotic calcifications are noted. RETROPERITONEUM: Normal. ABDOMINAL WALL: Complex ventral hernia contains fat. BONES: Scattered osseous degenerative changes are noted. IMPRESSION: No acute intraabdominal abnormality.
[2025-03-19] MEDS ORDERED: ALBUTEROL SULF 2.5 MG/0.5ML(0.5%) NEB SOLN NEB PRN (12:15)
[2025-03-19] MEDS: PANTOPRAZOLE 40 MG/10 ML VIAL INJ IV ONE (12:39)
[2025-03-19] MEDS: SODIUM CHLORIDE 0.9% 1,000 ML IV SCH (12:39)
[2025-03-19 12:58] LABS: Lactic Acid w/Reflex 4.4 mmol/L (0.4-2.0)
--- NOTE | 2025-03-19 13:19 | DVHHP2 ---
History of Present Illness Reason for Visit: Sepsis History of Present Illness This is a 65-year-old female with history of hypertension, ME, CAD, COPD, cannabis hyperemesis syndrome, GERD and gastritis who presents to ED with chief complaint of abdominal pain associated with nausea, vomiting and diarrhea times several days. The patient was recently discharged from this facility on 03/15/2025 for gastritis. Upon evaluation patient is able to answer questions but is very fidgety while in bed and states that her anxiety is very high. She states that when she gets sick her anxiety rises. When speaking to the primary RN states that patient was seen by ER physician in this manner and was given morphine and Ativan IV. The patient denies taking illicit drugs. The patient will be admitted under hospitalist care to the medical-surgical unit for further evaluation and recommendation. The patient denies fever, chills, headache, dizziness, palpitation, chest pain, shortness of breath, constipation and other associated symptoms. The plan has been discussed with the patient and primary RN in which all questions concerns have been addressed. Cardiovascular: CAD, HTN, ME Pulmonary: COPD (Not on home oxygen) Past Surgical History Unknown Family History: None Smoke: No ALCOHOL: none Drugs: Marijuana Lives: with Family Domestic Violence: Neg Review of Systems Gastrointestinal: Nausea, Vomiting, Abdominal Pain, Diarrhea Allergies: Coded Allergies: Codeine (Verified Allergy, Unknown, 03/19/25) Hydrocodone (Verified Allergy, Unknown, 04/08/23) Mushroom Extract Complex (Verified Allergy, Unknown, MUSHROOMS, 04/08/23) Uncoded Allergies: ACID FRUITS, MUSHROOMS (Allergy, Unknown, 03/28/14) Medications Current Medications Medications Dose Ordered Sig/Nathan Route Start Time Stop Time Status Last Admin Dose Admin Sodium Chloride 1,000 ml @ 60 mls/hr [id number] IV 03/19/25 12:15 03/19/25 12:39 60 MLS/HR Ondansetron HCl 4 mg Q4HP PRN IV 03/19/25 12:15 Enoxaparin Sodium 40 mg DAILY SC 03/20/25 10:00 UNV Acetaminophen 650 mg Q6HP PRN PO 03/19/25 12:15 UNV Morphine Sulfate 2 mg Q4HPRN PRN IV 03/19/25 12:15 UNV Pantoprazole Sodium 40 mg DAILY IV 03/20/25 10:00 Ceftriaxone Sodium 50 ml @ 100 mls/hr DAILY@09 IV 03/20/25 09:00 Aspirin 81 mg DAILY PO 03/20/25 10:00 Atorvastatin Calcium 20 mg HS PO 03/20/25 22:00 Dicyclomine HCl 10 mg TID PRN PO 03/19/25 12:15 Docusate Sodium 100 mg BID PO 03/19/25 22:00 Furosemide 20 mg DAILY PO 03/20/25 10:00 Acetaminophen/ Hydrocodone Bitart 1 tab Q8HP PRN PO 03/19/25 12:15 UNV Metoprolol Tartrate 25 mg DAILY PO 03/20/25 10:00 Montelukast Sodium 10 mg HS PO 03/19/25 22:00 Sacubitril/ Valsartan 1 tab BID PO 03/19/25 22:00 Sucralfate 1 gm TID PO 03/19/25 14:00 Patient Own Medication 1 tab DAILY PO 03/20/25 10:00 UNV Patient Own Medication 1 tab DAILY PO 03/20/25 10:00 UNV Albuterol 2.5 mg Q2HPRN PRN NEB 03/19/25 12:15 Exam Vital Signs Vital Signs Date Time Temp Pulse Resp B/P (MAP) Pulse Ox O2 Delivery O2 Flow Rate FiO2 03/19/25 12:33 86 20 134/96 98 03/19/25 12:32 Room Air 03/19/25 12:32 0 21 03/19/25 07:30 97.3 97.3 General Appearance: Alert, Oriented X3, Other (Very restless and fidgety) HEENT: Atraumatic, Mucous membr. moist/pink Respiratory: Normal air movement Cardiovascular: Normal S1, Normal S2, No murmurs Abdominal: Normal bowel sounds, Soft, No hepatospenomegaly, No masses Extremities: No clubbing, No cyanosis, No edema, Normal pulses, No tenderness/swelling Skin: No rashes, No breakdown Neuro: Normal gait, Normal speech Labs/Xrays Labs Test 03/19/25 12:23 03/19/25 07:43 Range/Units Lactic Acid Level 4.4 *H 0.4-2.0 mmol/L White Blood Count 14.4 #H 4.4-10.8 10^3/uL Red Blood Count 4.81 4.0-5.20 10^6/uL Hemoglobin 14.3 12.2-16.2 g/dL Hematocrit 44.5 36.0-46.0 % Mean Corpuscular Volume 92.4 80.0-100.0 fL Mean Corpuscular Hemoglobin 29.8 28.0-32.0 pg Mean Corpuscular Hemoglobin Concent 32.2 32.0-36.0 g/dL Red Cell Distribution Width 14.8 H 11.8-14.3 % Platelet Count 211 140-450 10^3/uL Mean Platelet Volume 9.4 6.9-10.8 fL Neutrophils (%) (Auto) 77.0 37.0-80.0 % Lymphocytes (%) (Auto) 15.5 10.0-50.0 % Monocytes (%) (Auto) 5.1 0.0-12.0 % Eosinophils (%) (Auto) 1.7 0.0-7.0 % Basophils (%) (Auto) 0.7 0.0-2.0 % Neutrophils # (Auto) 11.1 H 1.6-8.6 10 ^3/uL Lymphocytes # (Auto) 2.2 0.4-5.4 10 ^3/uL Monocytes # (Auto) 0.7 0-1.3 10 ^3/uL Eosinophils # (Auto) 0.2 0-0.8 10 ^3/uL Basophils # (Auto) 0.1 0-0.2 10 ^3/uL Nucleated Red Blood Cells 0.0 % Sodium Level 144 136-145 mmol/L Potassium Level 3.6 3.5-5.1 mmol/L Chloride Level 112 H 98-107 mmol/L Carbon Dioxide Level 19 L 20-31 mmol/L Anion Gap 13 5-15 Blood Urea Nitrogen 15 9-23 mg/dL Creatinine 1.00 # 0.550-1.02 mg/dL Glomerular Filtration Rate Calc 63 >90 mL/min BUN/Creatinine Ratio 15.0 10.0-20.0 Serum Glucose 170 H 74-106 mg/dL Calcium Level 10.0 8.7-10.4 mg/dL Total Bilirubin 0.6 0.2-1.0 mg/dL Aspartate Amino Transferase (AST) 24 13-40 U/L Alanine Aminotransferase (ALT) 19 7-40 U/L Alkaline Phosphatase 93 46-116 U/L Ammonia < 10 L 11-32 umol/L Total Protein 8.0 5.7-8.2 g/dL Albumin 4.9 H 3.2-4.8 g/dL ORDERING PHYSICIAN: KORY SULLIVAN MD PROCEDURE(s): ABPL - CT AB PEL WO CON-NO ORAL OR IV REASON: colitisvsconstipation ORDER NUMBER(s): [id number], ACCESSION NUMBER(s): [id number] CT CT AB PEL WO CON-NO ORAL OR IV INDICATION: colitisvsconstipation EXAM DATE: 03/19/2025 09:16 AM COMPARISON: CT CT AB PEL WO CON-NO ORAL OR IV on DOS: 03/13/25, CT CT AB PEL WO CON-NO ORAL OR IV on DOS: 01/06/25, CT CT AB PEL WO CON-NO ORAL OR IV on DOS: 11/06/24 RADIATION DOSE: CTDIvol: 9 mGy, DLP: 471 mGy*cm PROCEDURE: Helical CT images were obtained of the abdomen and pelvis without IV contrast Sagittal and coronal reconstructions are provided. ORAL CONTRAST: None. ADDITIONAL IMAGES / REFORMATS: None All CT scans at this medical facility are performed using dose modulation techniques as appropriate to a performed exam including the following: Automated exposure control was utilized; adjustment of the MA and/or KV according to patient size; and use of iterative reconstruction technique. FINDINGS: LUNG BASE: Normal. LIVER: Normal. GALLBLADDER AND BILIARY TREE: Absent gallbladder. No intra- or extrahepatic biliary ductal dilation. PANCREAS: Normal. SPLEEN: Normal. BOWEL: Normal. Normal appendix. ADRENALS: Normal. KIDNEYS AND URETER: Punctate nonobstructive right kidney stone. BLADDER: Normal. REPRODUCTIVE ORGANS: Small calcified fibroids. LYMPH NODES:No lymphadenopathy. PERITONEUM: No ascites or free air. No other fluid collection. VESSELS: Scattered atherosclerotic calcifications are noted. RETROPERITONEUM: Normal. ABDOMINAL WALL: Complex ventral hernia contains fat. BONES: Scattered osseous degenerative changes are noted. IMPRESSION: No acute intraabdominal abnormality. ATED BY: YOU ROSADO MD DICTATED DATE/TIME: 03/19/25944 SIGNED BY: YOU ROSADO MD SIGNED DATE/TIME: 03/19/25944 CC: SEPSIS Sepsis Screen Date sepsis recognized/suspect: Mar 19, 2025 Time Sepsis recognized/suspect: 1109 Recent Procedure: No On Antibiotic Therapy: Yes Respiratory Rate >20: No Heart Rate >90: Yes Temp<36 C (96.8 F) or >38.3 C: No SBP <90 or MAP <65 mmHG: No New Acute Mental Status Change: No Is the patient on CPAP, BIPAP,: No IV fluid challenge completed?: Yes Physician Orders Urinalysis (03/19/25 07:30) Ct Ab Pel Wo Con-No Oral Or Iv (03/19/25 07:30) Admit (03/19/25 12:01) Sodium Chloride 0.9% (03/19/25 12:15) Ondansetron Hcl (Zofran) (03/19/25 12:15) Enoxaparin Sodium (Lovenox) (03/20/25 10:00) Complete Blood Count (03/20/25 04:00) Comprehensive Metabolic Panel (03/20/25 04:00) Condition: Fair (03/19/25 12:01) Acetaminophen Tablet (Tylenol Tablet) (03/19/25 12:15) Clear Liq Diet (03/19/25 Lunch) Bedrest With Bathroom Privileg (03/19/25 12:01) Morphine Sulfate Injection (03/19/25 12:15) Pantoprazole (Protonix) (03/20/25 10:00) Ceftriaxone 1gm/50ml (Rocephin) (03/20/25 09:00) Aspirin Enteric Coated Tablet (Ecotrin E (03/20/25 10:00) Atorvastatin (Lipitor) (03/20/25 22:00) Dicyclomine Capsule (Bentyl Capsule) (03/19/25 12:15) Docusate Sodium Capsule (Colace Capsule) (03/19/25 22:00) Furosemide Tablet (Lasix Tablet) (03/20/25 10:00) Hydrocodone-Acet 5/325mg Tab (Welch 5/32 (03/19/25 12:15) Metoprolol Tartrate Tablet (Lopressor Ta (03/20/25 10:00) Sacubitril-Valsartan (Entresto 24-26 Mg (03/19/25 22:00) Sucralfate Tab (Carafate Tab) (03/19/25 14:00) (Nf) Escitalopram Oxalate (Lexapro) (03/20/25 10:00) (Nf) Fezolinetant (Veozah) (03/20/25 10:00) Albuterol Medneb (Ventolin Medneb) (03/19/25 12:15) Clostridium Difficile Toxin (03/19/25 12:06) Ova & Parasite Exam (03/19/25 12:06) Stool Bacterial Culture (03/19/25 12:06) Montelukast Tablet (Singulair Tablet) (03/19/25 22:00) Metronidazole Ivpb Flagyl (03/19/25 13:15) Metronidazole Ivpb Flagyl (03/19/25 14:00) Communication Order (03/19/25 13:02) Blood Culture (03/19/25 13:02) Vital Signs Date Time Temp Pulse Resp B/P (MAP) Pulse Ox O2 Delivery O2 Flow Rate FiO2 03/19/25 12:33 86 20 134/96 98 03/19/25 12:32 98 Room Air 03/19/25 12:32 98 Room Air* 0 21 03/19/25 12:29 104 16 156/88 (110) 98 03/19/25 10:00 86 16 134/96 (109) 96 03/19/25 09:02 123 30 95/74 03/19/25 08:16 123 16 152/85 03/19/25 07:31 119 16 98 Room Air* 0 21 03/19/25 07:30 97.3 119 16 171/126 (141) 98 97.3 03/19/25 07:14 97.6 101 20 151/111 99 97.6 Laboratory Tests Test 03/19/25 07:43 03/19/25 12:23 White Blood Count 14.4 10^3/uL (4.4-10.8) #H Lactic Acid Level 4.4 mmol/L (0.4-2.0) *H Medications Medications Dose Ordered Sig/Nathan Route Start Time Stop Time Status Last Admin Dose Admin Ceftriaxone Sodium 50 ml @ 100 mls/hr ONCE ONCE IV 03/19/25 12:15 03/19/25 12:44 DC 03/19/25 12:39 100 MLS/HR Lorazepam 1 mg ONCE ONCE IV 03/19/25 09:15 03/19/25 09:16 DC 03/19/25 09:13 1 MG Morphine Sulfate 2 mg ONCE ONCE IV 03/19/25 07:30 03/19/25 07:32 DC 03/19/25 08:16 2 MG Ondansetron HCl 4 mg ONCE ONCE IV 03/19/25 07:30 03/19/25 07:32 DC 03/19/25 08:16 4 MG Pantoprazole Sodium 40 mg ONCE ONCE IV 03/19/25 12:15 03/19/25 12:28 DC 03/19/25 12:39 40 MG Sodium Chloride 1,000 ml @ 60 mls/hr [id number] IV 03/19/25 12:15 03/19/25 12:39 60 MLS/HR Sodium Chloride 1,000 ml @ 1,000 mls/hr Q1H ONCE IVB 03/19/25 07:30 03/19/25 08:29 DC 03/19/25 08:17 1,000 MLS/HR Assessment/Plan Assessment/Plan Sepsis--patient complain of abdominal pain associated with nausea, vomiting and diarrhea times several days Recently discharged from this facility on 03/15/2025 for gastritis Upon evaluation patient extremely restless can not keep still but able to answer all questions Patient reports severe anxiety when she does not feel well Admit to medical-surgical unit Reviewed CBC shows leukocytosis Reviewed BMP within normal limits Reviewed CT abdomen which is normal Reviewed lactic acid elevated greater than four IV aggressive hydration IV antibiotic Flagyl and ceftriaxone IV Zofran for nausea Lactic acid in a.m. Blood culture pending Urinalysis pending COPD-controlled Albuterol q.2h p.r.n. shortness of breath Hypertension-controlled Continue antihypertensive agent Continue to monitor ? C diff-patient reports diarrhea times several days C diff pending Ova and parasite pending Stool culture pending Gastritis Continue Carafate as prescribed IV Protonix now and daily Reconcile home meds DVT prophylaxis PUD prophylaxis Labs in a.m. Discussed plan of care with the patient in which all questions concerns have been addressed Plan discussed with: Patient My Orders Orders - THUY SR FACILITY SERVICE MANAGER Procedure Category Date Status Time Admit ADMIT 03/19/25 Transmitted 12:01 Sodium Chloride 0.9% PHA 03/19/25 In Process 12:15 Ondansetron Hcl PHA 03/19/25 In Process (Zofran) 12:15 Enoxaparin Sodium PHA 03/20/25 Logged (Lovenox) 10:00 Complete Blood Count LAB 03/20/25 Verified 04:00 Comprehensive LAB 03/20/25 Verified Metabolic Panel 04:00 Condition: Fair PRAVEEN 03/19/25 In Process 12:01 Acetaminophen Tablet PHA 03/19/25 Logged (Tylenol Tablet) 12:15 Clear Liq Diet DIET 03/19/25 Transmitted Lunch Bedrest With Bathroom PRAVEEN 03/19/25 In Process Privileg 12:01 Morphine Sulfate PHA 03/19/25 Logged Injection 12:15 Pantoprazole PHA 03/20/25 In Process (Protonix) 10:00 Ceftriaxone 1gm/50ml PHA 03/20/25 In Process (Rocephin) 09:00 Aspirin Enteric PHA 03/20/25 In Process Coated Tablet 10:00 Atorvastatin (Lipitor) PHA 03/20/25 In Process 22:00 Dicyclomine Capsule PHA 03/19/25 In Process (Bentyl Capsule) 12:15 Docusate Sodium PHA 03/19/25 In Process Capsule (Colace 22:00 Furosemide Tablet PHA 03/20/25 In Process (Lasix Tablet) 10:00 Hydrocodone-Acet PHA 03/19/25 Logged 5/325mg Tab (Welch 12:15 Metoprolol Tartrate PHA 03/20/25 In Process Tablet (Lopressor Ta 10:00 Sacubitril-Valsartan PHA 03/19/25 In Process (Entresto 24-26 Mg 22:00 Sucralfate Tab PHA 03/19/25 In Process (Carafate Tab) 14:00 (Nf) Escitalopram PHA 03/20/25 Logged Oxalate (Lexapro) 10:00 (Nf) Fezolinetant PHA 03/20/25 Logged (Veozah) 10:00 Albuterol Medneb PHA 03/19/25 In Process (Ventolin Medneb) 12:15 Clostridium Difficile GERRI 03/19/25 Logged Toxin 12:06 Ova & Parasite Exam GERRI 03/19/25 Logged 12:06 Stool Bacterial GERRI 03/19/25 Logged Culture 12:06 Montelukast Tablet PHA 03/19/25 In Process (Singulair Tablet) 22:00 Metronidazole Ivpb PHA 03/19/25 Verified Flagyl 13:15 Metronidazole Ivpb PHA 03/19/25 Verified Flagyl 14:00 Communication Order ORDERS 03/19/25 Verified 13:02 Blood Culture GERRI 03/19/25 Verified 13:02 Date of Service: Mar 19, 2025 Billing Provider: THUY SR Common Visit Codes: [id number] INP/OBS CARE (HIGH) THUY SR Mar 19, 2025 13:19
[2025-03-19] MEDS: SUCRALFATE 1 GM TAB PO SCH (14:00)
[2025-03-19 16:50] LABS: Urine Protein, UAD 1+ (Negative)
[2025-03-19 17:00] LABS: Amphetamine Screen, Urine Neg (NEGATIVE); Barbiturate Scree,Urine Neg (NEGATIVE); Benzodiazephine Screen, Urine Neg (NEGATIVE); Cannabinoid Screen, Urine Pos (NEGATIVE); Cocaine Screen, Urine Neg (NEGATIVE); Opiate Scree,Urine Pos (NEGATIVE); Phencyclidine Screen, Urine Neg (NEGATIVE)
[2025-03-19] MEDS: DOCUSATE SOD 100 MG CAP PO SCH (22:00)
[2025-03-20] VITALS (10 sets, daily range): BP systolic 106–154; BP diastolic 67–85; PULSE 55–104; RESP 15–18; TEMP 97.7–98.7; O2SAT 94–99
[2025-03-20] MEDS: MORPHINE SULFATE INJ 2 MG/ml SYRG IV PRN (00:04)
[2025-03-20] MEDS: MELATONIN 5 MG TAB PO SCH (01:33)
[2025-03-20] MEDS: MONTELUKAST SODIUM 10 MG TAB PO SCH (01:33)
[2025-03-20] MEDS: SACUBITRIL-VALSARTAN 24mg/26mg TAB PO SCH (01:33)
[2025-03-20] MEDS: ONDANSETRON HCL 4 MG/2 ML VIAL IV PRN (03:49)
[2025-03-20 06:53] LABS: Hematocrit 36.8 % (36.0-46.0); Hemoglobin 12.5 g/dL (12.2-16.2); Mean Corpuscular Hemoglobin 30.6 pg (28.0-32.0); Mean Corpuscular Volume 90.0 fL (80.0-100.0); Nucleated Red Blood Cells % 0.1 %
[2025-03-20 07:24] LABS: Alanine Aminotransferase 16 U/L (7-40); Albumin 4.2 g/dL (3.2-4.8); Alkaline Phosphatase 73 U/L (46-116); Anion Gap 12 (5-15); BUN/Creatinine Ratio 17.5 (10.0-20.0); Bilirubin, Total 1.1 mg/dL (0.2-1.0); Blood Urea Nitrogen 14 mg/dL (9-23); Calcium 9.1 mg/dL (8.7-10.4); Chloride 107 mmol/L (98-107); Glucose 93 mg/dL (74-106); Sodium 139 mmol/L (136-145); Total Protein 6.8 g/dL (5.7-8.2)
[2025-03-20 07:25] LABS: Carbon Dioxide 20 mmol/L (20-31); Potassium 2.9 mmol/L (3.5-5.1)
[2025-03-20] MEDS: ENOXAPARIN SOD 40 MG/0.4 ML SYRINGE SC SCH (09:50)
[2025-03-20] MEDS: PANTOPRAZOLE 40 MG/10 ML VIAL INJ IV SCH (09:50)
[2025-03-20] MEDS: ASPirin-EC 81 mg tab PO SCH (09:51)
[2025-03-20] MEDS: FUROSEMIDE 20 MG TAB PO SCH (09:57)
[2025-03-20] MEDS: METOPROLOL TARTRATE 25 MG TAB PO SCH (09:57)
--- NOTE | 2025-03-20 12:10 | DVHPN2 ---
Progress Note Date Seen: Mar 20, 2025 Medical Necessity Reason Pt with a Central, PICC or Fol: No Subjective Patient reports: No new complaints Review of Systems: HEENT:Normal, CVS:Normal, RESPIRATORY:Normal, GI:Normal, :Normal, MSK:Normal, NEURO:Normal Objective vital signs Vital Sign Date Time Temp Pulse Resp B/P (MAP) Pulse Ox O2 Delivery O2 Flow Rate FiO2 03/20/25 09:57 73 123/70 03/20/25 09:30 97.8 16 97.8 03/20/25 08:45 99 Room Air 0.0 03/20/25 08:45 21 Total Intake and Output 03/19/25 03/19/25 03/20/25 15:00 23:00 07:00 Intake Total 1110 ml 800 ml Output Total 50 ml 450 ml Balance 1110 ml -50 ml 350 ml medications Current Medications Medications Dose Ordered Sig/Nathan Route Start Time Stop Time Status Last Admin Dose Admin Sodium Chloride 1,000 ml @ 60 mls/hr [id number] IV 03/19/25 12:15 03/20/25 04:55 60 MLS/HR Ondansetron HCl 4 mg Q4HP PRN IV 03/19/25 12:15 03/20/25 03:49 4 MG Enoxaparin Sodium 40 mg DAILY SC 03/20/25 10:00 03/20/25 09:50 40 MG Acetaminophen 650 mg Q6HP PRN PO 03/19/25 12:15 Morphine Sulfate 2 mg Q4HPRN PRN IV 03/19/25 12:15 03/20/25 00:04 2 MG Pantoprazole Sodium 40 mg DAILY IV 03/20/25 10:00 03/20/25 09:50 40 MG Ceftriaxone Sodium 50 ml @ 100 mls/hr DAILY@09 IV 03/20/25 09:00 03/20/25 09:50 100 MLS/HR Aspirin 81 mg DAILY PO 03/20/25 10:00 03/20/25 09:51 81 MG Atorvastatin Calcium 20 mg HS PO 03/20/25 22:00 Dicyclomine HCl 10 mg TID PRN PO 03/19/25 12:15 Docusate Sodium 100 mg BID PO 03/19/25 22:00 03/20/25 09:50 100 MG Furosemide 20 mg DAILY PO 03/20/25 10:00 11/3/25 09:57 20 MG Acetaminophen/ Hydrocodone Bitart 1 tab Q8HP PRN PO 03/19/25 12:15 Metoprolol Tartrate 25 mg DAILY PO 03/20/25 10:00 03/20/25 09:57 25 MG Montelukast Sodium 10 mg HS PO 03/19/25 22:00 03/20/25 01:33 10 MG Sacubitril/ Valsartan 1 tab BID PO 03/19/25 22:00 03/20/25 09:57 1 TAB Sucralfate 1 gm TID PO 03/19/25 14:00 03/20/25 06:04 1 GM Patient Own Medication 1 tab DAILY PO 03/20/25 10:00 Patient Own Medication 1 tab DAILY PO 03/20/25 10:00 Albuterol 2.5 mg Q2HPRN PRN NEB 03/19/25 12:15 Metronidazole 100 ml @ 100 mls/hr Q8HR IV 03/19/25 14:00 03/20/25 05:54 100 MLS/HR Melatonin 5 mg HS PO 03/20/25 01:30 03/20/25 01:33 5 MG Examination: GENERAL:Normal, HEENT:Normal, NECK:Normal, LUNGS:Normal, CVS:Normal, ABDOMEN:Normal, MSK:Normal, SKIN:Normal, NEURO:Normal, :Normal laboratory and microbiology Laboratory Tests 03/20/25 05:43 Test 03/20/25 05:43 Range/Units Serum Glucose 93 74-106 mg/dL Problem List/Assessment/Plan Problem List/Assessment/Plan #1 abd pain/vomiting: ivf, ppi, gi eval #2 htn #3 chronic diastolic heart failure #4 anxiety/depression #5 cannabis use #6 tobacco abuse: advised to quit, nicotine patch- time spent 11 mins #7 hypokalemia: replace #8 ?sirs ?sepsis: iv antibiotics advance care planning- full code- time spent 18 mins Plan discussed with: Patient My Orders My Orders Orders - JENNIFER PETERSEN MD Procedure Category Date Status Time Lorazepam 2mg/Ml Inj PHA 03/20/25 Verified (Ativan Inj) 12:15 Date of Service: Mar 20, 2025 Billing Provider: JENNIFER PETERSEN MD Common Visit Codes: [id number] INP/OBS CARE(HIGH) Secondary Visit Codes: [id number] CHNG SMOKING >10MIN, [id number] CARE PLAN 30 MINUTES JENNIFER PETERSEN MD Mar 20, 2025 12:10
--- NOTE | 2025-03-20 12:57 | DVH ---
EXAM: XY CHEST PORTABLE Indication: chf Technique: Single frontal view of the chest was obtained Comparison: XY CHEST PORTABLE on DOS: 03/13/25, XY CHEST PORTABLE on DOS: 01/06/25, XY CHEST PORTABLE on DOS: 11/06/24, XR CHEST 1 VIEW on DOS: 08/04/24, XR CHEST 1 VIEW on DOS: 03/04/23 FINDINGS: Lines and Tubes: None Lungs: No focal consolidation. Pleura: No effusion. No pneumothorax. Cardiomediastinal contours: Unremarkable Bones: No acute osseous abnormality. IMPRESSION: No acute cardiopulmonary disease.
[2025-03-20] MEDS: NICOTINE 14 MG/24HR TOPICAL PATCH TD ONE (14:50)
--- NOTE | 2025-03-20 15:28 | MEDREC ---
[facility] Intervention Section I [facility] Intervention: Review chester of ABX 48h AIO (PLEASE CONSIDER D/C ANTIBIOTIC IN ABSENCE OF BACTERIAL INFECTION) SUMIT REY PHARMACIST Mar 20, 2025 15:27
[2025-03-20] MEDS: DICYCLOMINE HCL 10 MG CAP PO PRN (15:43)
[2025-03-20] MEDS: HYDROcodone-ACET 5/325MG TAB PO PRN (15:43)
--- NOTE | 2025-03-20 16:34 | DVHCONRES ---
Date Seen: Mar 20, 2025 Resident Creating Document: JHAJJ,SARPUNEET RESIDENT Referring Physician Dr Esquivel Reason for Consultation abd pain, vomiting History of Present Illness Patient is a 65-year-old female with a medical history of hypertension, COPD, GERD, gastritis, hiatal hernia, chronic marijuana use presents to the hospital with a chief complaint of intractable abdominal pain in the epigastrium associated with nausea or vomiting and unable to tolerate p.o. for the last week. Patient was recently discharged from the facility when she was admitted with a similar complaint and was discharged home but reported that she continued to have abdominal pain and intractable nausea vomiting. On reviewing the records the last time patient underwent EGD was in October 2019 which showed duodenitis and gastritis. During this admission patient had elevated WBC count with a left shift, lactic acidosis which resolved, CT abdomen pelvis resulted showing no acute intra-abdominal abnormality Past Medical History As per HPI Past Surgical History Left heart catheterization, multiple EGDs Family History: Cancer G8 MOTHER (thyroid) Family history: Cardiovascular disease G8 FATHER (murmur) G8 SISTER (murmur) Family history: Thyroid disorder G8 MOTHER Malignant neoplasm of ovary Family History No significant Social History Patient currently smokes about 5 cigarettes per day, marijuana every night, denies alcohol or any other drug use Allergies: Coded Allergies: Codeine (Verified Allergy, Unknown, 03/19/25) Hydrocodone (Verified Allergy, Unknown, 04/08/23) Mushroom Extract Complex (Verified Allergy, Unknown, MUSHROOMS, 04/08/23) Uncoded Allergies: ACID FRUITS, MUSHROOMS (Allergy, Unknown, 03/28/14) Home Meds Active Scripts Sucralfate (CARAFATE) 1 Gm Tab, 1 GM OR TID for 30 Days, #90 TAB Prov:REYNALDO JONES 03/15/25 Pantoprazole Sodium Sesquihydr (Pantoprazole Sodium) 40 Mg Tab, 40 MG PO DAILY for 30 Days, #30 TAB Prov:REYNALDO JONES RESIDENT 03/15/25 Docusate Sodium (Docusate Sodium) 100 Mg Cap, 100 MG PO BID for 14 Days, #30 CAP 0 Refills Prov:RUDY RENTERIA MD 01/10/25 Hydrocodone-Acetaminophen (Hydrocodone Bitartrate/AC 5-325 mg) 1 Tab Tab, 1 TAB PO Q8HP PRN, #12 TAB Prov:RUSSELL HARRELL MD 12/19/23 Sacubitril-Valsartan (Entresto 24-26 mg) 1 Tab Tab, 1 TAB PO BID, #60 TAB Prov:ANISHA WILD MD 10/15/22 Aspirin (Aspirin Low Dose) 81 Mg Tab, 81 MG PO DAILY, #30 TAB Prov:ANISHA WILD MD 10/15/22 Reported Medications Fezolinetant (Veozah) 45 Mg Tab, 1 TAB PO DAILY 12/15/23 Albuterol Sulfate (Albuterol Sulfate Hfa) 108 Mcg/Act Aer, 2 PUFF INH Q4-6HR PRN for WHEEZING 12/15/23 Dicyclomine Hcl (BENTYL CAPSULE) 10 Mg Cp, 1 CAP PO TID PRN for UPSET STOMACH 12/15/23 Escitalopram Oxalate (Lexapro) 10 Mg Tab, 1 TAB PO DAILY 12/15/23 Metoprolol Tartrate (Lopressor) 25 Mg Tb, 1 TAB PO DAILY 12/15/23 Montelukast Sodium (MONTELUKAST SODIUM) 10 Mg Tab, 1 TAB PO DAILY, #30 TAB 5 Refills 12/12/20 Furosemide (Furosemide) 20 Mg Tab, 20 MG PO DAILY for 30 Days, MG 12/12/20 Atorvastatin Calcium (ATORVASTATIN CALCIUM) 20 Mg Tab, 1 TAB PO DAILY, #30 TAB 5 Refills 09/18/18 Current Medications Current Medications Medications (Trade) Dose Ordered Sig/Nathan Route PRN Reason Start Time Stop Time Status Last Admin Enoxaparin Sodium (Lovenox) 40 mg DAILY SC 03/20/25 10:00 03/20/25 12:07 DC 03/20/25 09:50 Pantoprazole Sodium (Protonix) 40 mg DAILY IV 03/20/25 10:00 03/20/25 09:50 Ceftriaxone Sodium 50 ml @ 100 mls/hr DAILY@ IV 03/20/25 09:00 03/20/25 09:50 Aspirin (Ecotrin Enteric Coated Tablet) 81 mg DAILY PO 03/20/25 10:00 03/20/25 12:07 DC 03/20/25 09:51 Atorvastatin Calcium (Lipitor) 20 mg HS PO 03/20/25 22:00 03/20/25 12:07 DC Docusate Sodium (Colace Capsule) 100 mg BID PO 03/19/25 22:00 03/20/25 09:50 Furosemide (Lasix Tablet) 20 mg DAILY PO 03/20/25 10:00 03/20/25 12:07 DC 03/20/25 09:57 Metoprolol Tartrate (Lopressor Tablet) 25 mg DAILY PO 03/20/25 10:00 03/20/25 09:57 Montelukast Sodium (Singulair Tablet) 10 mg HS PO 03/19/25 22:00 03/20/25 01:33 Sacubitril/ Valsartan (Entresto 24-26 Mg tab) 1 tab BID PO 03/19/25 22:00 03/20/25 09:57 Patient Own Medication 1 tab DAILY PO 03/20/25 10:00 03/20/25 12:07 DC Patient Own Medication 1 tab DAILY PO 03/20/25 10:00 Melatonin (Melatonin) 5 mg HS PO 03/20/25 22:00 03/20/25 01:22 DC Melatonin (Melatonin) 5 mg HS PO 03/20/25 01:30 03/20/25 01:33 Lorazepam (Ativan Inj) 0.5 mg Q8HP PRN IV ANXIETY 03/20/25 12:15 Citalopram Hydrobromide (CeleXA TABLET) 20 mg DAILY PO 03/21/25 10:00 Nicotine (Nicoderm 14MG/ 24HR) 1 patch DAILY TD 03/21/25 10:00 Review of Systems Patient reports of moderate epigastric abdominal pain which gets worse with the eating Nausea Does not report of vomiting Unable to tolerate p.o. Complains of dysphagia and sensation of food getting stuck in the chest when she swallows Vital Signs Vital Signs Date Time Temp Pulse Resp B/P (MAP) Pulse Ox O2 Delivery O2 Flow Rate FiO2 03/20/25 13:30 98.1 55 16 116/74 (88) 98 98.1 03/20/25 08:45 Room Air 0.0 03/20/25 08:45 21 Physical Exam Gen - no pallor, no scleral icterus Skin - Patients skin is warm and dry. HEENT - normocephalic, atraumatic, dry mucous membranes. Neck - supple, no lymphadenopathy Pulmonary - B/L equal breath sounds cardiovascular - regular S1,S2 heard GI - soft abdomen with tenderness to palpation in the epigastrium. Bowel sounds normoactive. Neurological - Patient is alert and oriented x4 and is following commands Labs/Diagnostic Data Labs Test 03/20/25 05:43 03/19/25 16:00 03/19/25 07:43 Range/Units White Blood Count 15.1 H 4.4-10.8 10^3/uL Red Blood Count 4.09 4.0-5.20 10^6/uL Hemoglobin 12.5 12.2-16.2 g/dL Hematocrit 36.8 # 36.0-46.0 % Mean Corpuscular Volume 90.0 80.0-100.0 fL Mean Corpuscular Hemoglobin 30.6 28.0-32.0 pg Mean Corpuscular Hemoglobin Concent 34.0 32.0-36.0 g/dL Red Cell Distribution Width 14.5 H 11.8-14.3 % Platelet Count 214 140-450 10^3/uL Mean Platelet Volume 8.4 6.9-10.8 fL Neutrophils (%) (Auto) 80.9 H 37.0-80.0 % Lymphocytes (%) (Auto) 9.8 L 10.0-50.0 % Monocytes (%) (Auto) 8.9 0.0-12.0 % Eosinophils (%) (Auto) 0.1 0.0-7.0 % Basophils (%) (Auto) 0.3 0.0-2.0 % Neutrophils # (Auto) 12.2 H 1.6-8.6 10 ^3/uL Lymphocytes # (Auto) 1.5 0.4-5.4 10 ^3/uL Monocytes # (Auto) 1.4 H 0-1.3 10 ^3/uL Eosinophils # (Auto) 0 0-0.8 10 ^3/uL Basophils # (Auto) 0 0-0.2 10 ^3/uL Nucleated Red Blood Cells 0.1 % Sodium Level 139 # 136-145 mmol/L Potassium Level 2.9 L 3.5-5.1 mmol/L Chloride Level 107 98-107 mmol/L Carbon Dioxide Level 20 20-31 mmol/L Anion Gap 12 5-15 Blood Urea Nitrogen 14 9-23 mg/dL Creatinine 0.80 0.550-1.02 mg/dL Glomerular Filtration Rate Calc 83 >90 mL/min BUN/Creatinine Ratio 17.5 10.0-20.0 Serum Glucose 93 74-106 mg/dL Lactic Acid Level 1.5 0.4-2.0 mmol/L Calcium Level 9.1 8.7-10.4 mg/dL Total Bilirubin 1.1 H 0.2-1.0 mg/dL Aspartate Amino Transferase (AST) 50 H 13-40 U/L Alanine Aminotransferase (ALT) 16 7-40 U/L Alkaline Phosphatase 73 46-116 U/L Total Protein 6.8 5.7-8.2 g/dL Albumin 4.2 3.2-4.8 g/dL Lipase 25 12-53 U/L Urine Color Yellow Yellow Urine Clarity Turbid H Clear Urine pH 5.5 5.0-9.0 Urine Specific [place] 1.020 1.001-1.035 Urine Protein 1+ H Negative Urine Ketones 1+ H Negative Urine Blood 3+ H Negative /uL Urine Nitrite Negative Negative Urine Bilirubin Negative Negative Urine Urobilinogen Normal Negative mg/dL Urine Leukocyte Esterase Negative Negative /uL Urine RBC 324 0 - 4 /hpf Urine Microscopic WBC 11 H 0-5 /HPF Urine Squamous Epithelial Cells Few <5 /hpf Urine Bacteria None seen None Seen /hpf Urine Hyaline Casts Few 0 - 2 /lpf Urine Mucus Few None Seen Urine Glucose Normal Normal mg/dL Urine Opiates Screen Pos NEGATIVE Urine Fentanyl Screen Neg NEGATIVE Urine Barbiturates Screen Neg NEGATIVE Urine Phencyclidine Screen Neg NEGATIVE Urine Amphetamines Screen Neg NEGATIVE Urine Benzodiazepines Screen Neg NEGATIVE Urine Cocaine Screen Neg NEGATIVE Urine Cannabinoids Screen Pos NEGATIVE Ammonia < 10 L 11-32 umol/L Microbiology Date/Time Source Procedure Growth Status 03/19/25 16:00 Nose MRSA Screen - Final Complete 03/19/25 13:54 Blood Blood Culture - Preliminary NO GROWTH AFTER 24 HOURS OF INCUBATION. Resulted Assessment Acute intractable abdominal pain Epigastric pain GERD Possible acute gastritis h/o hiatal hernia Cannabis use Sirs Plan - continue on Protonix daily and Carafate - monitor H&H - EGD tomorrow - clear liquid diet and NPO after midnight Plan discussed with Dr. Bazzi Plan discussed with: Patient, Other (Iona Manuel) NEGRIT[employer]OD RESIDENT Mar 20, 2025 16:34
[2025-03-20] MEDS: POTASSIUM CHLORIDE 60 MEQ, LIDOCAINE 1% (LOCAL ANESTH.) 6 ML in SODIUM CHL 0.9% 500 ML IV ONE (17:06)
[2025-03-20] MEDS: SUCRALFATE 1 GM/10 ML ORAL SUSP PO SCH (17:51)
[2025-03-20] MEDS: HYDROmorphone HCL 2 MG/ML VL/or syr IV PRN (17:55)
[2025-03-20] MEDS: LORazepam 2MG/ML-1ML VIAL IV PRN (20:20)
[2025-03-20] MEDS ORDERED: MELATONIN 5 MG TAB PO SCH (22:00)
[2025-03-20] MEDS ORDERED: ATORVASTATIN 20 MG TAB PO SCH (22:00)
[2025-03-21] VITALS (9 sets, daily range): BP systolic 108–148; BP diastolic 70–98; PULSE 58–72; RESP 15–20; TEMP 97.5–98.9; O2SAT 91–100
[2025-03-21] MEDS: ACETAMINOPHEN 325 MG TAB PO PRN (00:41)
[2025-03-21 06:29] LABS: Hematocrit 35.6 % (36.0-46.0); Hemoglobin 12.1 g/dL (12.2-16.2); Mean Corpuscular Hemoglobin 30.3 pg (28.0-32.0); Mean Corpuscular Volume 89.3 fL (80.0-100.0); Nucleated Red Blood Cells % 0.0 %
[2025-03-21 06:44] LABS: Anion Gap 11 (5-15); Carbon Dioxide 21 mmol/L (20-31); Sodium 141 mmol/L (136-145)
[2025-03-21 06:50] LABS: BUN/Creatinine Ratio 11.3 (10.0-20.0); Glucose 77 mg/dL (74-106)
[2025-03-21 06:51] LABS: Magnesium 1.6 mg/dL (1.6-2.6)
[2025-03-21 06:53] LABS: Blood Urea Nitrogen 8 mg/dL (9-23); Calcium 8.6 mg/dL (8.7-10.4); Chloride 109 mmol/L (98-107); Potassium 3.3 mmol/L (3.5-5.1)
[2025-03-21] MEDS: CITALOPRAM HYDROBR 20 MG TAB PO SCH (09:33)
[2025-03-21] MEDS: NICOTINE 14 MG/24HR TOPICAL PATCH TD SCH (09:34)
[2025-03-21] MEDS ORDERED: POTASSIUM CHLORIDE 40 MEQ, LIDOCAINE 1% (LOCAL ANESTH.) 4 ML in SODIUM CHL 0.9% 250 ML IV ONE (11:15)
--- NOTE | 2025-03-21 11:21 | DVHPN2 ---
Progress Note Date Seen: Mar 21, 2025 Medical Necessity Reason Pt with a Central, PICC or Fol: No Subjective Patient reports: No new complaints Review of Systems: HEENT:Normal, CVS:Normal, RESPIRATORY:Normal, GI:Normal, :Normal, MSK:Normal, NEURO:Normal Objective vital signs Vital Sign Date Time Temp Pulse Resp B/P (MAP) Pulse Ox O2 Delivery O2 Flow Rate FiO2 03/21/25 10:33 71 135/98 03/21/25 09:00 98.6 16 97 98.6 03/21/25 08:00 Room Air* 0 21 Total Intake and Output 03/20/25 03/20/25 03/21/25 15:00 23:00 07:00 Intake Total 150 ml 100 ml Output Total 600 ml 300 ml Balance -450 ml -200 ml medications Current Medications Medications Dose Ordered Sig/Nathan Route Start Time Stop Time Status Last Admin Dose Admin Sodium Chloride 1,000 ml @ 60 mls/hr [id number] IV 03/19/25 12:15 03/20/25 04:55 60 MLS/HR Ondansetron HCl 4 mg Q4HP PRN IV 03/19/25 12:15 03/20/25 20:19 4 MG Acetaminophen 650 mg Q6HP PRN PO 03/19/25 12:15 03/21/25 00:41 650 MG Pantoprazole Sodium 40 mg DAILY IV 03/20/25 10:00 03/21/25 09:33 40 MG Ceftriaxone Sodium 50 ml @ 100 mls/hr DAILY@09 IV 03/20/25 09:00 03/21/25 09:33 100 MLS/HR Dicyclomine HCl 10 mg TID PRN PO 03/19/25 12:15 03/20/25 15:43 10 MG Docusate Sodium 100 mg BID PO 03/19/25 22:00 03/21/25 09:33 100 MG Metoprolol Tartrate 25 mg DAILY PO 03/20/25 10:00 03/21/25 09:33 25 MG Montelukast Sodium 10 mg HS PO 03/19/25 22:00 03/20/25 22:35 10 MG Sacubitril/ Valsartan 1 tab BID PO 03/19/25 22:00 03/21/25 09:33 1 TAB Patient Own Medication 1 tab DAILY PO 03/20/25 10:00 Albuterol 2.5 mg Q2HPRN PRN NEB 03/19/25 12:15 Cancel Metronidazole 100 ml @ 100 mls/hr Q8HR IV 03/19/25 14:00 03/21/25 05:56 100 MLS/HR Melatonin 5 mg HS PO 03/20/25 01:30 03/20/25 22:35 5 MG Lorazepam 0.5 mg Q8HP PRN IV 03/20/25 12:15 03/20/25 20:20 0.5 MG Citalopram Hydrobromide 20 mg DAILY PO 03/21/25 10:00 03/21/25 09:33 20 MG Nicotine 1 patch DAILY TD 03/21/25 10:00 03/21/25 09:34 1 PATCH Hydromorphone HCl 0.25 mg Q4HPRN PRN IV 03/20/25 16:30 03/20/25 22:31 0.25 MG Sucralfate 1 gm QID@0600,1130,1700,2200 PO 03/20/25 17:00 03/21/25 05:56 1 GM Examination: GENERAL:Normal, HEENT:Normal, NECK:Normal, LUNGS:Normal, CVS:Normal, ABDOMEN:Normal, MSK:Normal, SKIN:Normal, NEURO:Normal, :Normal laboratory and microbiology Laboratory Tests 03/21/25 04:44 Test 03/21/25 04:44 Range/Units Serum Glucose 77 74-106 mg/dL Microbiology Date/Time Source Procedure Growth Status 03/19/25 16:00 Nose MRSA Screen - Final Complete 03/19/25 13:54 Blood Blood Culture - Preliminary NO GROWTH AFTER 24 HOURS OF INCUBATION. Resulted Problem List/Assessment/Plan Problem List/Assessment/Plan #1 abd pain/vomiting: ivf, ppi, egd today #2 htn #3 chronic diastolic heart failure #4 anxiety/depression #5 cannabis use #6 tobacco abuse: advised to quit, nicotine patch- time spent 11 mins #7 hypokalemia: replace #8 ?sirs ?sepsis: iv antibiotics advance care planning- full code- time spent 18 mins Plan discussed with: Patient My Orders My Orders Orders - JENNIFER PETERSEN MD Procedure Category Date Status Time Lorazepam 2mg/Ml Inj PHA 03/20/25 In Process (Ativan Inj) 12:15 Citalopram Tablet PHA 03/21/25 In Process (Celexa Tablet) 10:00 Chest Portable XY 03/20/25 Resulted 12:01 Nicotine 14mg/24hr PHA 03/21/25 In Process (Nicoderm 14mg/24hr) 10:00 * Gi Dvh Event Mgr CONS 03/20/25 Transmitted 12:01 Hydromorphone PHA 03/20/25 In Process Injection (Dilaudid 16:30 Potassium Chl Víctor PHA 03/21/25 Verified KCL 11:15 Magnesium Víctor PHA 03/21/25 Verified 12:00 Basic Metabolic Panel LAB 03/22/25 Verified 06:00 Complete Blood Count LAB 03/22/25 Verified 06:00 Magnesium LAB 03/22/25 Verified 05:00 Date of Service: Mar 21, 2025 Billing Provider: JENNIFER PETERSEN MD Common Visit Codes: [id number] INP/OBS CARE(HIGH) JENNIFER PETERSEN MD Mar 21, 2025 11:21
[2025-03-21] MEDS ORDERED: MAGNESIUM SULFATE 1GM/100ML 100 ML IV SCH (12:00)
[2025-03-21] MEDS ORDERED: METOCLOPRAMIDE HCL 5MG/ml INJ 2ml VIAL IV PRN (13:15)
[2025-03-21] MEDS: KETOROLAC TROMETH 30 MG/ML 1ML VIAL IV ONE (13:15)
[2025-03-21] MEDS ORDERED: MORPHINE SULFATE INJ 2 MG/ml SYRG IV PRN (13:15)
[2025-03-21] MEDS ORDERED: MORPHINE SULFATE 4 MG/ML SYR/VIAL IV PRN (13:15)
[2025-03-21] MEDS ORDERED: HYDROmorphone HCL 2 MG/ML VL/or syr IV PRN ×2 (13:15)
[2025-03-21] MEDS ORDERED: MIDAZOLAM HCL 2MG/2ML 2ml VIAL (1mg/ml) ONE (13:53)
[2025-03-21] MEDS ORDERED: fentaNYL CITRATE 100 MCG/2 ML VL ONE (13:53)
[2025-03-21] MEDS ORDERED: ONDANSETRON HCL 4 MG/2 ML VIAL ONE (13:53)
[2025-03-21] MEDS ORDERED: SODIUM CHLORIDE LOCK 10 ML ONE (13:53)
[2025-03-21] MEDS ORDERED: KETAMINE 50mg/ML 1ml syringe ONE (13:53)
[2025-03-21] MEDS ORDERED: LIDOCAINE 1% INJ PF 5ML AMP ONE (13:53)
[2025-03-21] MEDS ORDERED: PROPOFOL 10 MG/ML 20 ML IV ONE (13:53)
--- NOTE | 2025-03-21 14:45 | DVHOP2 ---
Operative Report DATE OF OPERATION: 03/21/25 PROCEDURE: Upper Endoscopy with biopsy. PREOPERATIVE INDICATION: The patient is a 65 -year-old female undergoing endoscopy for epigastric pain and dyspepsia POSTOPERATIVE DIAGNOSES: 1. 2 cm sliding-type hiatal hernia with grade B erosive esophagitis and some whitish plaques from which biopsies were obtained to rule out Taina 2. Mild gastritis with some flecks of old blood otherwise normal examination up to the 2nd and 3rd part of the duodenum PROCEDURE PERFORMED BY: Artemio Bazzi GI NURSE: Tanner SCOPE: Olympus videoendoscope. ASA CLASS: 3 PREOPERATIVE MEDICATIONS: Mac sedation, Dr. Whitney PROCEDURE IN DETAIL: After obtaining an informed consent, the patient was placed on left lateral decubitus position. The patient was then sedated with the above medications. A bite block was placed between her teeth. The endoscope was then passed through the oropharynx, into the esophagus, and through the stomach and pylorus up to the second and third part of the duodenum. The endoscope was then withdrawn. The 2nd and 3rd part of the duodenum were normal and the duodenal bulb showed minimal duodenitis. Duodenal and gastric biopsies were obtained The pre-pyloric area antrum and body showed mild gastritis with some flecks of old blood. On retroflexion the fundus and cardia were normal except for mild gastritis with flecks of blood The endoscope was then withdrawn into the distal esophagus where the patient had a 2-3 cm sliding-type hiatal hernia with grade B erosive esophagitis Distal esophageal biopsies were obtained. The the remaining distal and proximal esophagus and oropharynx were unremarkable The patient tolerated the procedure well without difficulty. COMPLICATIONS : None SPECIMENS: Duodenal biopsies Gastric biopsies Esophageal biopsies DISPOSITION: Transfer back to the floor Stable PLAN: 1. Await for biopsy result 2. Will place pt on Protonix 40 mg bid p.o. 3. Carafate suspension 1 g p.o. q.i.d. 4. Nystatin swish and swallow 5 mL p.o. three times a day 5. Start with soft mechanical diet advance as tolerated 6. DC aspirin NSAIDs smoking alcohol 7. Outpatient follow up with me in 2-4 weeks to review results and discuss further management ARTEMIO BAZZI MD Mar 21, 2025 14:45
[2025-03-21] MEDS ORDERED: LIDOCAINE VISCOUS 2% 15ML UD ONE (15:17)
[2025-03-21] MEDS: PANTOPRAZOLE 40 MG TAB PO SCH (16:22)
[2025-03-21] MEDS: MAGNESIUM SULFATE 1GM/100ML 100 ML IV SCH (16:22)
[2025-03-21] MEDS: SUCRALFATE 1 GM/10 ML ORAL SUSP PO SCH (17:00)
[2025-03-21] MEDS: NYSTATIN (MOUTH-THROAT) 500,000 UNITS/5 ML SUSP MT SCH (18:51)
[2025-03-21] MEDS: POTASSIUM CHLORIDE 40 MEQ, LIDOCAINE 1% (LOCAL ANESTH.) 4 ML in SODIUM CHL 0.9% 250 ML IV ONE (19:55)
[2025-03-22 01:00] VITALS: BP 146/88; PULSE 58; RESP 15; TEMP 97.5; O2SAT 98
[2025-03-22 05:00] VITALS: BP 141/95; PULSE 60; RESP 16; TEMP 97.6; O2SAT 96
[2025-03-22 07:02] LABS: Anion Gap 10 (5-15); Carbon Dioxide 23 mmol/L (20-31); Chloride 107 mmol/L (98-107); Sodium 140 mmol/L (136-145)
[2025-03-22 07:03] LABS: Hematocrit 38.7 % (36.0-46.0); Hemoglobin 12.9 g/dL (12.2-16.2); Mean Corpuscular Hemoglobin 29.9 pg (28.0-32.0); Mean Corpuscular Volume 89.4 fL (80.0-100.0); Nucleated Red Blood Cells % 0.0 %
[2025-03-22 07:08] LABS: BUN/Creatinine Ratio 7.9 (10.0-20.0); Blood Urea Nitrogen < 5 mg/dL (9-23); Calcium 8.4 mg/dL (8.7-10.4); Glucose 94 mg/dL (74-106); Magnesium 1.8 mg/dL (1.6-2.6); Potassium 3.5 mmol/L (3.5-5.1)
[2025-03-22 08:00] VITALS: PULSE 59; RESP 17; O2SAT 98
[2025-03-22 09:00] VITALS: BP 133/95; PULSE 59; RESP 17; TEMP 97.9; O2SAT 98
--- NOTE | 2025-03-22 11:30 | DVHDS2 ---
Discharge Summary Date of Admission Mar 19, 2025 at 12:01 Date of Discharge: Mar 22, 2025 Labs/Diagnostic Data: Laboratory Results Test 03/22/25 05:15 03/20/25 05:43 03/19/25 16:00 03/19/25 07:43 White Blood Count 9.2 10^3/uL (4.4-10.8) Red Blood Count 4.33 10^6/uL (4.0-5.20) Hemoglobin 12.9 g/dL (12.2-16.2) Hematocrit 38.7 % (36.0-46.0) Mean Corpuscular Volume 89.4 fL (80.0-100.0) Mean Corpuscular Hemoglobin 29.9 pg (28.0-32.0) Mean Corpuscular Hemoglobin Concent 33.4 g/dL (32.0-36.0) Red Cell Distribution Width 14.2 % (11.8-14.3) Platelet Count 220 10^3/uL (140-450) Mean Platelet Volume 8.0 fL (6.9-10.8) Neutrophils (%) (Auto) 57.7 % (37.0-80.0) Lymphocytes (%) (Auto) 29.2 % (10.0-50.0) Monocytes (%) (Auto) 8.1 % (0.0-12.0) Eosinophils (%) (Auto) 4.4 % (0.0-7.0) Basophils (%) (Auto) 0.6 % (0.0-2.0) Neutrophils # (Auto) 5.3 10 ^3/uL (1.6-8.6) Lymphocytes # (Auto) 2.7 10 ^3/uL (0.4-5.4) Monocytes # (Auto) 0.7 10 ^3/uL (0-1.3) Eosinophils # (Auto) 0.4 10 ^3/uL (0-0.8) Basophils # (Auto) 0.1 10 ^3/uL (0-0.2) Nucleated Red Blood Cells 0.0 % Sodium Level 140 mmol/L (136-145) Potassium Level 3.5 mmol/L (3.5-5.1) Chloride Level 107 mmol/L (98-107) Carbon Dioxide Level 23 mmol/L (20-31) Anion Gap 10 (5-15) Blood Urea Nitrogen < 5 mg/dL (9-23) Creatinine 0.63 mg/dL (0.550-1.02) Glomerular Filtration Rate Calc 100 mL/min (>90) BUN/Creatinine Ratio 7.9 (10.0-20.0) Serum Glucose 94 mg/dL (74-106) Calcium Level 8.4 mg/dL (8.7-10.4) Magnesium Level 1.8 mg/dL (1.6-2.6) Lactic Acid Level 1.5 mmol/L (0.4-2.0) Total Bilirubin 1.1 mg/dL (0.2-1.0) Aspartate Amino Transferase (AST) 50 U/L (13-40) Alanine Aminotransferase (ALT) 16 U/L (7-40) Alkaline Phosphatase 73 U/L (46-116) Total Protein 6.8 g/dL (5.7-8.2) Albumin 4.2 g/dL (3.2-4.8) Lipase 25 U/L (12-53) Urine Color Yellow (Yellow) Urine Clarity Turbid (Clear) Urine pH 5.5 (5.0-9.0) Urine Specific [place] 1.020 (1.001-1.035) Urine Protein 1+ (Negative) Urine Ketones 1+ (Negative) Urine Blood 3+ /uL (Negative) Urine Nitrite Negative (Negative) Urine Bilirubin Negative (Negative) Urine Urobilinogen Normal mg/dL (Negative) Urine Leukocyte Esterase Negative /uL (Negative) Urine RBC 324 /hpf (0 - 4) Urine Microscopic WBC 11 /HPF (0-5) Urine Squamous Epithelial Cells Few /hpf (<5) Urine Bacteria None seen /hpf (None Seen) Urine Hyaline Casts Few /lpf (0 - 2) Urine Mucus Few (None Seen) Urine Glucose Normal mg/dL (Normal) Urine Opiates Screen Pos (NEGATIVE) Urine Fentanyl Screen Neg (NEGATIVE) Urine Barbiturates Screen Neg (NEGATIVE) Urine Phencyclidine Screen Neg (NEGATIVE) Urine Amphetamines Screen Neg (NEGATIVE) Urine Benzodiazepines Screen Neg (NEGATIVE) Urine Cocaine Screen Neg (NEGATIVE) Urine Cannabinoids Screen Pos (NEGATIVE) Ammonia < 10 umol/L (11-32) Other Laboratory Tests 03/22/25 05:15 Brief Hx & Hospital Course: see dictated note Condition at Discharge: Fair Final Diagnosis/Problems List abd pain Discharge Disposition: Home Discharge Instruct/Medications Diet: Cardiac 2g Na,low cholest Activity: No Restrictions, As Tolerated Follow Up/Referral: fu with pcp/gi Medications: resume home meds script to pharmacy avoid nsaids Scheduled Aspirin (Aspirin Low Dose), 81 MG PO DAILY Atorvastatin Calcium (Atorvastatin Calcium), 1 TAB PO DAILY, (Reported) Docusate Sodium (Docusate Sodium), 100 MG PO BID Escitalopram Oxalate (Lexapro), 1 TAB PO DAILY, (Reported) Fezolinetant (Veozah), 1 TAB PO DAILY, (Reported) Furosemide (Furosemide), 20 MG PO DAILY, (Reported) Metoprolol Tartrate (Lopressor), 1 TAB PO DAILY, (Reported) Montelukast Sodium (Montelukast Sodium), 1 TAB PO DAILY, (Reported) Pantoprazole Sodium Sesquihydr (Pantoprazole Sodium), 40 MG PO DAILY Sacubitril-Valsartan (Entresto 24-26 mg), 1 TAB PO BID Sucralfate (Carafate), 1 GM OR TID Scheduled PRN Albuterol Sulfate (Albuterol Sulfate Hfa), 2 PUFF INH Q4-6HR PRN for WHEEZING, (Reported) Dicyclomine Hcl (Bentyl Capsule), 1 CAP PO TID PRN for UPSET STOMACH, (Reported) Hydrocodone-Acetaminophen (Hydrocodone Bitartrate/AC 5-325 mg), 1 TAB PO Q8HP PRN Discharge Statement: "Patient was advised to return to the ER or call 911 if any headaches, dizziness, shortness of breath, chest pain, abdominal pain, bleeding, fevers, or worsening of medical condition. Patient was counseled about treatment plan, medications, possible side effects, patientverbalized understanding. All questions were answered to the best of my ability. This discharge took greater then 30 minutes in planning, reviewing documentation, counseling the patient, and discussing with other team members." ASSESSMENT ASSESSMENT Assessment abd pain Date of Service: Mar 22, 2025 Billing Provider: JENNIFER PETERSEN MD Common Visit Codes: [id number] DISCH DAY >30min JENNIFER PETERSEN MD Mar 22, 2025 11:30
[2025-03-22] MEDS ORDERED: SUCR1SUS26 PO (11:33)
[2025-03-22] MEDS ORDERED: PANT40TA2 PO (11:33)
[2025-03-22] MEDS ORDERED: NYS5LQ MT (11:33)
--- NOTE | 2025-03-22 11:45 | DVHDS ---
DATE OF DISCHARGE: 03/22/2025 HISTORY OF PRESENT ILLNESS: The patient is a 65-year-old lady who is admitted with complaints of abdominal pain, nausea, and vomiting and has history of coronary artery disease, hypertension, COPD, gastritis, and GERD. HOSPITAL COURSE: The patient had a CT of the abdomen and pelvis that showed no acute abnormality. The patient was seen in GI consult by Dr. Bazzi. The patient underwent upper endoscopy that showed a hiatal hernia with erosive esophagitis and mild gastritis. Biopsies were obtained as well. The patient will now be discharged home, to resume her home medications as well as to avoid nonsteroidals. She will also be placed on nystatin 5 mL swish and swallow p.o. q.i.d. for 5 days, Protonix 40 mg b.i.d. and Carafate suspension 1 gram q.i.d. for 30 days. She will follow up with her primary and GI. FINAL DIAGNOSES: Therefore: * Abdominal pain with vomiting, with gastritis, with erosive esophagitis. * Hypertension. * Chronic diastolic heart failure. * Anxiety/depression. * Tobacco abuse. * Hypokalemia. * Questionable SIRS, questionable sepsis. * Cannabis use. Time spent in discharge planning and review of plan with the patient and nursing was 38 minutes. MD RIGOBERTO Stewart/EKT TID: [id number] RECEIPT: [id number]
--- NOTE | 2025-03-22 12:47 | DVHPN2 ---
Progress Note - Dictate Date Seen: Mar 22, 2025 Medical Necessity Reason Pt with a Central, PICC or Fol: No Subjective No new complaints, patient is feeling better She is sitting up in bed on a mechanical soft diet which she is tolerating Abdominal pain has improved vital signs Vital Sign Date Time Temp Pulse Resp B/P (MAP) Pulse Ox O2 Delivery O2 Flow Rate FiO2 03/22/25 09:33 59 133/95 03/22/25 09:00 97.9 17 98 97.9 03/22/25 08:00 Room Air* 0 21 Total Intake and Output 03/21/25 03/21/25 03/22/25 15:00 23:00 07:00 Intake Total 10 ml 225 ml 850 ml Output Total 600 ml 900 ml Balance 10 ml -375 ml -50 ml medications Current Medications Medications Dose Ordered Sig/Nathan Route Start Time Stop Time Status Last Admin Dose Admin Sodium Chloride 1,000 ml @ 60 mls/hr [id number] IV 03/19/25 12:15 03/20/25 04:55 60 MLS/HR Ondansetron HCl 4 mg Q4HP PRN IV 03/19/25 12:15 03/22/25 12:31 4 MG Acetaminophen 650 mg Q6HP PRN PO 03/19/25 12:15 03/21/25 00:41 650 MG Pantoprazole Sodium 40 mg DAILY IV 03/20/25 10:00 03/22/25 09:33 40 MG Ceftriaxone Sodium 50 ml @ 100 mls/hr DAILY@09 IV 03/20/25 09:00 03/22/25 09:33 100 MLS/HR Dicyclomine HCl 10 mg TID PRN PO 03/19/25 12:15 03/20/25 15:43 10 MG Docusate Sodium 100 mg BID PO 03/19/25 22:00 03/21/25 09:33 100 MG Metoprolol Tartrate 25 mg DAILY PO 03/20/25 10:00 03/22/25 09:33 25 MG Montelukast Sodium 10 mg HS PO 03/19/25 22:00 03/21/25 21:26 10 MG Sacubitril/ Valsartan 1 tab BID PO 03/19/25 22:00 03/22/25 09:32 1 TAB Patient Own Medication 1 tab DAILY PO 03/20/25 10:00 Albuterol 2.5 mg Q2HPRN PRN NEB 03/19/25 12:15 Cancel Metronidazole 100 ml @ 100 mls/hr Q8HR IV 03/19/25 14:00 03/22/25 06:14 100 MLS/HR Melatonin 5 mg HS PO 03/20/25 01:30 03/21/25 21:26 5 MG Lorazepam 0.5 mg Q8HP PRN IV 03/20/25 12:15 03/22/25 01:26 0.5 MG Citalopram Hydrobromide 20 mg DAILY PO 03/21/25 10:00 03/22/25 09:32 20 MG Nicotine 1 patch DAILY TD 03/21/25 10:00 03/22/25 09:33 1 PATCH Hydromorphone HCl 0.25 mg Q4HPRN PRN IV 03/20/25 16:30 03/22/25 06:33 0.25 MG Sucralfate 1 gm QID@0600,1130,1700,2200 PO 03/20/25 17:00 03/22/25 12:21 1 GM Magnesium Sulfate/ Dextrose 100 ml @ 100 mls/hr Q1HR IV 03/21/25 12:00 03/21/25 13:59 Cancel Pantoprazole Sodium 40 mg BID@0600,1700 PO 03/21/25 17:00 03/22/25 06:14 40 MG Sucralfate 1 gm QID@0600,1130,1700,2200 PO 03/21/25 17:00 03/22/25 06:14 1 GM Nystatin 5 ml QID MT 03/21/25 18:00 03/22/25 12:21 5 ML objective Gen - no pallor, no scleral icterus Skin - Patients skin is warm and dry. HEENT - normocephalic, atraumatic, dry mucous membranes. Neck - supple, no lymphadenopathy Pulmonary - B/L equal breath sounds cardiovascular - regular S1,S2 heard GI - soft abdomen with tenderness to palpation in the epigastrium. Bowel sounds normoactive. Neurological - Patient is alert and oriented x4 and is following commands laboratory and microbiology Laboratory Tests 03/22/25 05:15 Test 03/22/25 05:15 Range/Units Serum Glucose 94 74-106 mg/dL Problems(with codes): (1) Hiatal hernia with GERD and esophagitis (2) NAUSEA WITH VOMITING (3) Epigastric pain (4) Gastritis Prognosis Plan Protonix 40 mg p.o. twice a day Carafate 1 g p.o. twice a day Nystatin swish and swallow 5 mL p.o. three times a day for 10 days Discharge planning is in progress Outpatient follow up with me in 2-4 weeks to review results and discuss further management Plan discussed with: Patient, Other (Nurse) ARTEMIO BROOKE MD Mar 22, 2025 12:47
== END 2025-03-22 15:06 | disposition home or self-care (01) | DRG 243 ==
LOC: ER 07:01 → EDUNIT# 07:01 → EDBD 07:01 → OVERFLOW 12:01 → WEST WING 14:06
PROVIDERS: ADMIT Internal Medicine; ATTEND Internal Medicine
PROC: 0DB68ZX Excision of Stomach, Via Natural or Artificial Opening Endoscopic, Diagnostic (ICD-10-PCS; 2025-03-21)
PROC: 0DB58ZX Excision of Esophagus, Via Natural or Artificial Opening Endoscopic, Diagnostic (ICD-10-PCS; 2025-03-21)
PROC: 0DB98ZX Excision of Duodenum, Via Natural or Artificial Opening Endoscopic, Diagnostic (ICD-10-PCS; principal; 2025-03-21 14:12)
DX: K22.10 Ulcer of esophagus without bleeding (principal); R65.11 Systemic inflammatory response syndrome (SIRS) of non-infectious origin with acute organ dysfunction; I11.0 Hypertensive heart disease with heart failure; E11.65 Type 2 diabetes mellitus with hyperglycemia; F32.A Depression, unspecified; E87.6 Hypokalemia; N12 Tubulo-interstitial nephritis, not specified as acute or chronic; J44.9 Chronic obstructive pulmonary disease, unspecified; I50.32 Chronic diastolic (congestive) heart failure; K52.9 Noninfective gastroenteritis and colitis, unspecified; K29.70 Gastritis, unspecified, without bleeding; K44.9 Diaphragmatic hernia without obstruction or gangrene; K21.9 Gastro-esophageal reflux disease without esophagitis; F41.9 Anxiety disorder, unspecified; I25.10 Atherosclerotic heart disease of native coronary artery without angina pectoris; Z72.0 Tobacco use; Z88.5 Allergy status to narcotic agent; Z91.018 Allergy to other foods
CPT/HCPCS: 36415; 43239; 71045; 74176; 80048; 80053; 80307; 81001; 82140; 83605; 83690; 83735; 85025; 87040; 87081; 96374; 99291; 99292; G0378; J2003; J2250; J2405; J2470; J2704; J3490

== ENCOUNTER 2025-03-24 08:31 | Inpatient (IN) | payer MEDICAID ==
[~2025-03-24] VITALS: Ht 162.6 cm; Wt 61.2 kg
[~2025-03-24 08:31] MED LIST changes: -AUG875T PO; -LACT10SO3 PO; -NITR-52 PO; +NYS5LQ MT; -ONDA-188 PO; -POLYPOW59 PO; -POTA-228 PO; +SUCR1SUS26 PO; -SUCR1TAB36 PO
--- NOTE | 2025-03-24 09:25 | ED.PDOC ---
GI ASSESSMENT HPI Comments 65 y.o female to the ED via EMS for a chief complaint of lower abdominal pain radiating to her right flank and back that started today at 4:00am. Patient reports pain began after urinating in which she also mentioned a burning sensation with output. Patient states recent diagnose of a right sided kidney stone and pain she is experiencing at this time is similar to when she was diagnosed with the stone. Patient denies any other symptoms such as hematuria, fever, chills, or diarrhea. Chief Complaint: Abdominal Pain Time Seen by MD: 12:16 Primary Care Provider: NONE Reviewed Notes: Nurses Notes, Injection Molder Notes, Medications, Allergies Allergies: Coded Allergies: Codeine (Verified Allergy, Unknown, 03/19/25) Hydrocodone (Verified Allergy, Unknown, 04/08/23) Mushroom Extract Complex (Verified Allergy, Unknown, MUSHROOMS, 04/08/23) Uncoded Allergies: ACID FRUITS, MUSHROOMS (Allergy, Unknown, 03/28/14) Home Meds Active Scripts Pantoprazole Sodium Sesquihydr (Protonix) 40 Mg Tab, 40 MG PO BID for 30 Days, #60 TAB Prov:JENNIFER PETERSEN MD 03/22/25 Sucralfate (CARAFATE SUSP) 1 Gm/10 Ml Ss, 10 ML PO QID for 30 Days, #1200 ML Prov:JENNIFER PETERSEN MD 03/22/25 Nystatin (Mouth-Throat) (Mycostatin (Mouth-Throat)) 500,000 Units/5 Ml Ss, 5 ML MT QID for 5 Days, #100 ML Prov:JENNIFER PETERSEN MD 03/22/25 Sucralfate (CARAFATE) 1 Gm Tab, 1 GM OR TID for 30 Days, #90 TAB Prov:REYNALDO JONES 03/15/25 Pantoprazole Sodium Sesquihydr (Pantoprazole Sodium) 40 Mg Tab, 40 MG PO DAILY for 30 Days, #30 TAB Prov:REYNALDO JONES RESIDENT 03/15/25 Docusate Sodium (Docusate Sodium) 100 Mg Cap, 100 MG PO BID for 14 Days, #30 CAP 0 Refills Prov:RUDY RENTERIA MD 01/10/25 Hydrocodone-Acetaminophen (Hydrocodone Bitartrate/AC 5-325 mg) 1 Tab Tab, 1 TAB PO Q8HP PRN, #12 TAB Prov:RUSSELL HARRELL MD 12/19/23 Sacubitril-Valsartan (Entresto 24-26 mg) 1 Tab Tab, 1 TAB PO BID, #60 TAB Prov:ANISHA WILD MD 10/15/22 Aspirin (Aspirin Low Dose) 81 Mg Tab, 81 MG PO DAILY, #30 TAB Prov:ANISHA WILD MD 10/15/22 Reported Medications Fezolinetant (Veozah) 45 Mg Tab, 1 TAB PO DAILY 12/15/23 Albuterol Sulfate (Albuterol Sulfate Hfa) 108 Mcg/Act Aer, 2 PUFF INH Q4-6HR PRN for WHEEZING 12/15/23 Dicyclomine Hcl (BENTYL CAPSULE) 10 Mg Cp, 1 CAP PO TID PRN for UPSET STOMACH 12/15/23 Escitalopram Oxalate (Lexapro) 10 Mg Tab, 1 TAB PO DAILY 12/15/23 Metoprolol Tartrate (Lopressor) 25 Mg Tb, 1 TAB PO DAILY 12/15/23 Montelukast Sodium (MONTELUKAST SODIUM) 10 Mg Tab, 1 TAB PO DAILY, #30 TAB 5 Refills 12/12/20 Furosemide (Furosemide) 20 Mg Tab, 20 MG PO DAILY for 30 Days, MG 12/12/20 Atorvastatin Calcium (ATORVASTATIN CALCIUM) 20 Mg Tab, 1 TAB PO DAILY, #30 TAB 5 Refills 09/18/18 Information Source: Patient, Emergency Med Personnel Mode of Arrival: EMS Timing: Days (1) Duration: Since onset Quality: Sharp Vomitus: None Stool: Normal Severity: Moderate Pain Location: Suprapubic Modifying Factors: Nothing Associated sign and symptoms: Abdominal Pain Past Medical History PAST MEDICAL HISTORY: CAD, COPD, HTN, NM Past Medical History (Other): Kidney stones Surgical History: Unknown 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 Family History Family History: Reviewed,noncontributory to illness, Unknown Social History Smoker: Non-Smoker Alcohol: Denies ETOH Use Drugs: Denies Drug Use Lives In: Home Constitutional: denies: chills, diaphoresis, fatigue, fever, malaise, sweats, weakness, others EENTM: denies: blurred vision, double vision, ear bleeding, ear discharge, ear drainage, ear pain, ear ringing, eye pain, eye redness, hearing loss, mouth pain, mouth swelling, nasal discharge, nose bleeding, nose congestion, nose pain, photophobia, tearing, throat pain, throat swelling, voice changes, others Respiratory: denies: cough, hemoptysis, orthopnea, SOB at rest, shortness of breath, SOB with excertion, stridor, wheezing, others Cardiovascular: denies: chest pain, dizzy spells, diaphoresis, Dyspnea on exertion, edema, irregular heart beat, left arm pain, lightheadedness, palpitations, PND, syncope, others Gastrointestinal: reports: abdominal pain; denies: abdomen distended, blood streaked bowels, constipated, diarrhea, dysphagia, difficulty swallowing, hematemesis, melena, nausea, poor appetite, poor fluid intake, rectal bleeding, rectal pain, vomiting, others Genitourinary: denies: abnormal vagina bleeding, burning, dyspareunia, dysuria, flank pain, frequency, hematuria, incontinence, pain, , vagina discharge, urgency, others Neurological: denies: dizziness, fainting, headache, left sided numbness, left sided weakness, numbness, paresthesia, pre-existing deficit, right sided numbness, right sided weakness, seizure, speech problems, tingling, tremors, weakness, others Musculoskeletal: denies: back pain, gout, joint pain, joint swelling, muscle pain, muscle stiffness, neck pain, others Integumetry: denies: bruises, change in color, change in hair/nails, dryness, laceration, lesions, lumps, rash, wounds, others Allergic/Immunocompromised: denies: Difficulty Healing, Frequent Infections, Hives, Itching, others Hematologic/Lymphatic: denies: anemia, blood clots, easy bleeding, easy bruising, swollen glands, others Endocrine: denies: excessive hunger, excessive sweating, excessive thirst, excessive urination, flushing, intolerance to cold, intolerance to heat, unexplained weight gain, unexplained weight loss, others Psychiatric: denies: anxiety, bipolar disorder, depression, hopeless, panic disorder, schizophrenia, sleepless, suicidal, others All Other Systems: Reviewed and Negative Physical Exam General Appearance: Severe Distress, Other (Diaphoretic, actively vomiting) HEENT: Normal ENT Inspection, Pharynx Normal Neck: Full Range of Motion, Non-Tender, Normal, Normal Inspection Respiratory: Chest Non-Tender, Lungs Clear, Normal Breath Sounds Cardiovascular: Normal Peripheral Pulses, Regular Rate/Rhythm Breast Exam: Deferred Gastrointestinal: Non Tender, Normal Bowel Sounds, Soft Genitalia: Deferred Pelvic: Deferred Rectal: Deferred Extremities: No calf tenderness, Normal capillary refill, Normal inspection, Normal range of motion, Non-tender, No pedal edema Musculoskeletal : Apperance: Normal Neurologic: Alert, No Motor Deficits, Normal Affect, Normal Mood, No Sensory Deficits Cerebellar Function: Normal Reflexes: Normal Skin: Dry, Normal Color, Warm Lymphatic: No Adenopathy Was a procedure done? Was a procedure done?: No GI differential Dx Differential Diagnosis: AAA, Bowel Obstruction, Ischemic Bowel, Urinary Obstruction, UTI, Urolithiasis, Dehydration, Food Poisoning, Hypovolemia, Renal Failure, Kidney Stone X-Ray, Labs, Meds, VS Vital Signs Date Time Temp Pulse Resp B/P (MAP) Pulse Ox O2 Delivery O2 Flow Rate FiO2 03/24/25 09:35 120 20 177/107 03/24/25 08:35 97.9 68 20 145/90 99 97.9 Lab Test 03/24/25 12:20 03/24/25 09:53 Range/Units Urine Color Yellow Yellow Urine Clarity Turbid H Clear Urine pH 5.5 5.0-9.0 Urine Specific [place] 1.017 1.001-1.035 Urine Protein 1+ H Negative Urine Ketones 2+ H Negative Urine Blood 3+ H Negative /uL Urine Nitrite Negative Negative Urine Bilirubin Negative Negative Urine Urobilinogen Normal Negative mg/dL Urine Leukocyte Esterase 1+ Negative /uL Urine RBC 301 0 - 4 /hpf Urine Microscopic WBC 36 H 0-5 /HPF Urine Squamous Epithelial Cells Few <5 /hpf Urine Bacteria None seen None Seen /hpf Urine Hyaline Casts Many 0 - 2 /lpf Urine Mucus Few None Seen Urine Yeast (Budding) Occasional None Seen /hpf Urine Glucose Normal Normal mg/dL White Blood Count 12.3 #H 4.4-10.8 10^3/uL Red Blood Count 4.37 4.0-5.20 10^6/uL Hemoglobin 13.0 12.2-16.2 g/dL Hematocrit 40.1 36.0-46.0 % Mean Corpuscular Volume 91.8 80.0-100.0 fL Mean Corpuscular Hemoglobin 29.8 28.0-32.0 pg Mean Corpuscular Hemoglobin Concent 32.5 32.0-36.0 g/dL Red Cell Distribution Width 14.1 11.8-14.3 % Platelet Count 254 140-450 10^3/uL Mean Platelet Volume 7.9 6.9-10.8 fL Neutrophils (%) (Auto) 87.6 H 37.0-80.0 % Lymphocytes (%) (Auto) 5.9 L 10.0-50.0 % Monocytes (%) (Auto) 6.2 0.0-12.0 % Eosinophils (%) (Auto) 0.1 0.0-7.0 % Basophils (%) (Auto) 0.2 0.0-2.0 % Neutrophils # (Auto) 10.8 H 1.6-8.6 10 ^3/uL Lymphocytes # (Auto) 0.7 0.4-5.4 10 ^3/uL Monocytes # (Auto) 0.8 0-1.3 10 ^3/uL Eosinophils # (Auto) 0 0-0.8 10 ^3/uL Basophils # (Auto) 0 0-0.2 10 ^3/uL Nucleated Red Blood Cells 0.0 % Sodium Level 145 # 136-145 mmol/L Potassium Level 3.1 L 3.5-5.1 mmol/L Chloride Level 112 H 98-107 mmol/L Carbon Dioxide Level 19 L 20-31 mmol/L Anion Gap 14 5-15 Blood Urea Nitrogen 6 L 9-23 mg/dL Creatinine 1.24 #H 0.550-1.02 mg/dL Glomerular Filtration Rate Calc 49 >90 mL/min BUN/Creatinine Ratio 4.8 L 10.0-20.0 Serum Glucose 138 H 74-106 mg/dL Hemoglobin A1c 4.9 <5.7 % A1C Calcium Level 10.0 8.7-10.4 mg/dL Magnesium Level 1.6 1.6-2.6 mg/dL Total Bilirubin 0.7 0.2-1.0 mg/dL Aspartate Amino Transferase (AST) 38 13-40 U/L Alanine Aminotransferase (ALT) 25 7-40 U/L Alkaline Phosphatase 68 46-116 U/L Total Protein 7.1 5.7-8.2 g/dL Albumin 4.3 3.2-4.8 g/dL Lipase 30 12-53 U/L Current Medications Medications (Trade) Dose Ordered Sig/Nathan Route Start Time Stop Time Status Last Admin Ondansetron HCl (Zofran) 4 mg ONCE ONCE IV 03/24/25 09:30 03/24/25 09:31 DC 03/24/25 09:35 Hydromorphone HCl (Dilaudid Injection) 0.5 mg ONCE ONCE IV 03/24/25 09:30 03/24/25 09:31 DC 03/24/25 09:35 [place] [address] Ph: [phone] DIAGNOSTIC IMAGING Diagnostic Imaging Report : [id number] Signed PATIENT: LUIS BENTLEY ACCT: [id number] UNIT: [id number] : 1960 LOC: ER ROOM / BED: / AGE / SEX: 65 / F ADM STATUS: REG ER SERVICE 1234 ORDERING PHYSICIAN: GUILLERMO BECERRA MD PROCEDURE(s): ABPL - CT AB PEL WO CON-NO ORAL OR IV REASON: RULE OUT NEPHROLITHIASIS ORDER NUMBER(s): [id number], ACCESSION NUMBER(s): [id number] Indication: RULE OUT NEPHROLITHIASIS Technique: CT axial images of the abdomen and pelvis are obtained without contrast. Coronal and sagittal reformats were obtained. Radiation Dose Information: CTDI volume is 7.85 mGy. Dose-length product is 348.42 mGy*cm Comparison: CT CT AB PEL WO CON-NO ORAL OR IV on DOS: 03/19/25 FINDINGS: There is limited interpretation of the abdomen and pelvis without administration of intravenous contrast. Lung bases demonstrate atelectasis. Adrenal glands, spleen and pancreas unremarkable in shape. Cholecystectomy. Hypodense region along the falciform measuring 2 cm most consistent with fatty infiltration. There is right perinephric edema / stranding and mild right hydroureteronephrosism secondary to a distal right ureteral calculus measuring 5 mm, axial image 56 of 90. This calculus was previously in the mid to distal right ureter and is slightly moved distally since the previous examination. Punctate nonobstructing right renal calculus measuring 2 mm. Left kidney demonstrates no hydronephrosis/ nephrolithiasis. Stomach is partially distended. Small bowel loops are normal in caliber. Moderate volume stool throughout the colon. Normal appendix. Abdominal aortic atherosclerotic disease. Bladder partially distended. Calcified uterine leiomyomas. No inguinal lymphadenopathy. Moderate bilateral sacroiliac degenerative joint disease. Moderate lumbar degenerative disc disease most pronounced at L5-S1.6 mm anterolisthesis L4 upon L5. IMPRESSION: Limited evaluation without contrast. Mild right hydroureteronephrosis secondary to a distal right ureteral calculus measuring 5 mm. Associated right perinephric edema / stranding which may represent Resultant urinary tract infection/pyelonephritis. Hypodense region along the falciform in the liver measuring 2 cm most likely representing focal fatty infiltration. This can be better characterized with MRI abdomen with and without contrast in the nonemergent setting. Atherosclerotic disease. Calcified uterine leiomyomas. Other findings as described ATED BY: TANG LOPEZ MD DICTATED DATE/TIME: 03/24/25 1324 SIGNED BY: TANG LOPEZ MD SIGNED DATE/TIME: 03/24/25 1324 CC: 65-year-old female here with right flank pain. Suspect likely nephrolithiasis. Initially when I saw the patient she was diaphoretic actively vomiting and then significant pain. With a pulse of 120 Patient was immediately given Dilaudid and Zofran. Blood work including a CBC, CMP, urinalysis and a CT noncontrast of the abdomen were ordered. At this time CBC demonstrates a leukocytosis of 12.9, CMP demonstrates low potassium of 3.1, high sodium of 145, increased creatinine of 1.24. At this time I have reviewed her past creatinine, just a few days ago her creatinine was 0.68. At this time given her significant change in kidney function, patient would benefit from inpatient admission. I am still pending her urine and CT abdomen pelvis results. Urine positive for UTI CT abdomen pelvis demonstrates mild right hydroureteronephrosis secondary to a distal right ureteral calculus measuring 5 mm with associated right perinephric edema stranding which may represent UTI/pyelonephritis. This is consistent with her examination. At this time blood cultures has been drawn and patient has been started on Rocephin IV. Hospitalist team has been contacted for admission. Time of 1ST Reevaluation: 12:23 Reevaluation 1ST: Improved Patient Education/Counseling: Diagnosis, Treatment, Prognosis Family Education/Counseling: No Family Present SEPSIS Sepsis Screen Date sepsis recognized/suspect: Mar 24, 2025 Time Sepsis recognized/suspect: 0835 Recent Procedure: No On Antibiotic Therapy: Yes Respiratory Rate >20: No Heart Rate >90: No Temp<36 C (96.8 F) or >38.3 C: No SBP <90 or MAP <65 mmHG: No New Acute Mental Status Change: No Is the patient on CPAP, BIPAP,: No Physician Orders Ct Ab Pel Wo Con-No Oral Or Iv (03/24/25 12:34) Vital Signs Date Time Temp Pulse Resp B/P (MAP) Pulse Ox O2 Delivery O2 Flow Rate FiO2 03/24/25 09:35 120 20 177/107 03/24/25 08:35 97.9 68 20 145/90 99 97.9 Laboratory Tests Test 03/24/25 09:53 White Blood Count 12.3 10^3/uL (4.4-10.8) #H Medications Medications Dose Ordered Sig/Nathan Route Start Time Stop Time Status Last Admin Dose Admin Hydromorphone HCl 0.5 mg ONCE ONCE IV 03/24/25 09:30 03/24/25 09:31 DC 03/24/25 09:35 Ondansetron HCl 4 mg ONCE ONCE IV 03/24/25 09:30 03/24/25 09:31 DC 03/24/25 09:35 Departure 1 Departure Time of Disposition: 13:09 Impression: Primary Impression: Hypernatremia Additional Impressions: Hypokalemia Acute kidney injury Nephrolithiasis Pyelonephritis Disposition: ADMITTED INPATIENT Condition: Fair Critical Care Note Critical Care Time?: Yes (35 min-critical care time only) Critical care comment: I was asked to immediately see the patient given she was in significant distress. Time seen seeing the patient, speaking to nursing staff the patient, reviewing imaging studies and lab work, speaking to hospitalist team Stability Stability form required: No Heart Score Heart Score: Heart Score Response (Comments) Value History N/A 0 EKG N/A 0 Age N/A 0 Risk Factors N/A 0 Troponin N/A 0 Total 0 I personally scribed for GUILLERMO BECERRA MD ([email or web address]) on 03/24/25 at 09:24. Electronically submitted by Deisy Liu ([facility]). I personally scribed for GUILLERMO BECERRA MD ([email or web address]) on 03/24/25 at 12:28. Electronically submitted by Deisy Liu ([facility]). I personally scribed for GUILLERMO BECERRA MD ([email or web address]) on 03/24/25 at 13:34. Electronically submitted by Deisy Liu ([facility]). GUILLERMO BECERRA MD Mar 24, 2025 09:24
[2025-03-24] MEDS: ONDANSETRON HCL 4 MG/2 ML VIAL IV ONE ×2 (09:35→20:12)
[2025-03-24] MEDS: HYDROmorphone HCL 2 MG/ML VL/or syr IV ONE ×2 (09:35→18:16)
[2025-03-24 10:25] LABS: Alanine Aminotransferase 25 U/L (7-40); Albumin 4.3 g/dL (3.2-4.8); Alkaline Phosphatase 68 U/L (46-116); Anion Gap 14 (5-15); BUN/Creatinine Ratio 4.8 (10.0-20.0); Calcium 10.0 mg/dL (8.7-10.4); Lipase 30 U/L (12-53); Total Protein 7.1 g/dL (5.7-8.2)
[2025-03-24 10:26] LABS: Bilirubin, Total 0.7 mg/dL (0.2-1.0); Blood Urea Nitrogen 6 mg/dL (9-23); Carbon Dioxide 19 mmol/L (20-31); Chloride 112 mmol/L (98-107); Glucose 138 mg/dL (74-106); Potassium 3.1 mmol/L (3.5-5.1); Sodium 145 mmol/L (136-145)
[2025-03-24 10:30] LABS: Hematocrit 40.1 % (36.0-46.0); Hemoglobin 13.0 g/dL (12.2-16.2); Mean Corpuscular Hemoglobin 29.8 pg (28.0-32.0); Mean Corpuscular Volume 91.8 fL (80.0-100.0); Nucleated Red Blood Cells % 0.0 %
--- NOTE | 2025-03-24 13:21 | DVH ---
Indication: RULE OUT NEPHROLITHIASIS Technique: CT axial images of the abdomen and pelvis are obtained without contrast. Coronal and sagittal reformats were obtained. Radiation Dose Information: CTDI volume is 7.85 mGy. Dose-length product is 348.42 mGy*cm Comparison: CT CT AB PEL WO CON-NO ORAL OR IV on DOS: 03/19/25 FINDINGS: There is limited interpretation of the abdomen and pelvis without administration of intravenous contrast. Lung bases demonstrate atelectasis. Adrenal glands, spleen and pancreas unremarkable in shape. Cholecystectomy. Hypodense region along the falciform measuring 2 cm most consistent with fatty infiltration. There is right perinephric edema / stranding and mild right hydroureteronephrosism secondary to a distal right ureteral calculus measuring 5 mm, axial image 56 of 90. This calculus was previously in the mid to distal right ureter and is slightly moved distally since the previous examination. Punctate nonobstructing right renal calculus measuring 2 mm. Left kidney demonstrates no hydronephrosis/ nephrolithiasis. Stomach is partially distended. Small bowel loops are normal in caliber. Moderate volume stool throughout the colon. Normal appendix. Abdominal aortic atherosclerotic disease. Bladder partially distended. Calcified uterine leiomyomas. No inguinal lymphadenopathy. Moderate bilateral sacroiliac degenerative joint disease. Moderate lumbar degenerative disc disease most pronounced at L5-S1.6 mm anterolisthesis L4 upon L5. IMPRESSION: Limited evaluation without contrast. Mild right hydroureteronephrosis secondary to a distal right ureteral calculus measuring 5 mm. Associated right perinephric edema / stranding which may represent Resultant urinary tract infection/pyelonephritis. Hypodense region along the falciform in the liver measuring 2 cm most likely representing focal fatty infiltration. This can be better characterized with MRI abdomen with and without contrast in the nonemergent setting. Atherosclerotic disease. Calcified uterine leiomyomas. Other findings as described
[2025-03-24 14:12] LABS: Urine Budding Yeast OCCASIONAL /hpf (None Seen); Urine Protein, UAD 1+ (Negative)
--- NOTE | 2025-03-24 14:24 | DVHHPRES ---
History of Present Illness Resident Creating Document: МАРИЯ ELLIOTT RESIDENT History of Present Illness This is a 65-year-old female with past medical history of hypertension, type 2 diabetes mellitus, GERD, CAD, CHF, anxiety disorder, presented to the ED with a chief complaint of right flank pain with nausea and vomiting for 1 day prior to this visit. The patient stated that since last night she started having right flank pain which was 10/10, sharp in nature, radiates to right groin and suprapubic region, without any aggravating and relieving factors and associated with chills, nausea, vomiting and burning sensation in the urine. She denies fever, shortness of breath, chest pain, dizziness, lightheadedness, hematemesis, bloody stool, altered bowel habit, recent sick contact or any recent traveling. PCP : Fred Hardin Past Medical History Hypertension, type 2 diabetes mellitus, GERD, CAD, CHF, anxiety disorder Past Surgical History , cholecystectomy Past Social History Lives with family Smokes marijuana, nonalcoholic and never tried any other drugs Review of Systems Constitutional: Yes: Chills; No: Fever, Sweats, Weakness, Malaise, Other Eyes: No: Pain, Vision change, Conjunctivae inflammation, Eyelid inflammation, Other, Redness ENT: No: Ear pain, Ear discharge, Nose pain, Nose discharge, Nose congestion, Mouth pain, Mouth swelling, Throat pain, Throat swelling, Other Respiratory: No: Cough, Dry, Shortness of breath, SOB with excertion, Wheezing, Hemoptysis, Pleuritic Pain, Sputum, Wheezing, Other Cardiovascular: No: Chest Pain, Palpitations, Orthopnea, Paroxysmal Noc. Dyspnea, Edema, Lt Headedness, Other Gastrointestinal: Nausea, Vomiting, Abdominal Pain; No: Diarrhea, Constipation, Melena, Hematochezia, Other Genitourinary: Dysuria, Frequency; No Incontinence, No Hematuria, No Retention, No Other Musculoskeletal: back pain; No: other, neck pain, shoulder pain, arm pain, hand pain, leg pain, foot pain Skin: No: Rash, Lesions, Jaundice, Bruising, Other Neurological: No: Weakness, Numbness, Incoordination, Change in speech, Confusion, Seizures, Other Allergies: Coded Allergies: Codeine (Verified Allergy, Unknown, 03/19/25) Hydrocodone (Verified Allergy, Unknown, 04/08/23) Mushroom Extract Complex (Verified Allergy, Unknown, MUSHROOMS, 04/08/23) Uncoded Allergies: ACID FRUITS, MUSHROOMS (Allergy, Unknown, 03/28/14) Exam Vital Signs Vital Signs Date Time Temp Pulse Resp B/P (MAP) Pulse Ox O2 Delivery O2 Flow Rate FiO2 03/24/25 09:35 120 20 177/107 03/24/25 08:35 97.9 99 97.9 Exam Physical examination: General Appearance: Alert, Oriented X3, Cooperative, No acute distress HEENT: Atraumatic, PERRLA, EOMI, Mucous membrane dry. Respiratory: Clear to auscultation, Normal air movement Cardiovascular: Regular rate, Normal S1, Normal S2, No murmurs, no chest wall tenderness Abdominal: Right CVA tenderness, Normal bowel sounds, Soft, No hepatospenomegaly, No masses Extremities: No clubbing, No cyanosis, No edema, Normal pulses, No tenderness/swelling Skin: No rashes, No breakdown, No significant lesion Neuro: Normal speech, Strength at 5/5 X4 ext, Normal tone, Sensation intact, grossly intact cranial nerves. Psych/Mental Status: Mental status NL, Mood NL Labs/Xrays Labs Test 03/24/25 12:20 03/24/25 09:53 Range/Units White Blood Count 12.3 #H 4.4-10.8 10^3/uL Red Blood Count 4.37 4.0-5.20 10^6/uL Hemoglobin 13.0 12.2-16.2 g/dL Hematocrit 40.1 36.0-46.0 % Mean Corpuscular Volume 91.8 80.0-100.0 fL Mean Corpuscular Hemoglobin 29.8 28.0-32.0 pg Mean Corpuscular Hemoglobin Concent 32.5 32.0-36.0 g/dL Red Cell Distribution Width 14.1 11.8-14.3 % Platelet Count 254 140-450 10^3/uL Mean Platelet Volume 7.9 6.9-10.8 fL Neutrophils (%) (Auto) 87.6 H 37.0-80.0 % Lymphocytes (%) (Auto) 5.9 L 10.0-50.0 % Monocytes (%) (Auto) 6.2 0.0-12.0 % Eosinophils (%) (Auto) 0.1 0.0-7.0 % Basophils (%) (Auto) 0.2 0.0-2.0 % Neutrophils # (Auto) 10.8 H 1.6-8.6 10 ^3/uL Lymphocytes # (Auto) 0.7 0.4-5.4 10 ^3/uL Monocytes # (Auto) 0.8 0-1.3 10 ^3/uL Eosinophils # (Auto) 0 0-0.8 10 ^3/uL Basophils # (Auto) 0 0-0.2 10 ^3/uL Nucleated Red Blood Cells 0.0 % Sodium Level 145 # 136-145 mmol/L Potassium Level 3.1 L 3.5-5.1 mmol/L Chloride Level 112 H 98-107 mmol/L Carbon Dioxide Level 19 L 20-31 mmol/L Anion Gap 14 5-15 Blood Urea Nitrogen 6 L 9-23 mg/dL Creatinine 1.24 #H 0.550-1.02 mg/dL Glomerular Filtration Rate Calc 49 >90 mL/min BUN/Creatinine Ratio 4.8 L 10.0-20.0 Serum Glucose 138 H 74-106 mg/dL Calcium Level 10.0 8.7-10.4 mg/dL Total Bilirubin 0.7 0.2-1.0 mg/dL Aspartate Amino Transferase (AST) 38 13-40 U/L Alanine Aminotransferase (ALT) 25 7-40 U/L Alkaline Phosphatase 68 46-116 U/L Total Protein 7.1 5.7-8.2 g/dL Albumin 4.3 3.2-4.8 g/dL Lipase 30 12-53 U/L SEPSIS Sepsis Screen Date sepsis recognized/suspect: Mar 24, 2025 Time Sepsis recognized/suspect: 08 Recent Procedure: No On Antibiotic Therapy: Yes Respiratory Rate >20: No Heart Rate >90: No Temp<36 C (96.8 F) or >38.3 C: No SBP <90 or MAP <65 mmHG: No New Acute Mental Status Change: No Is the patient on CPAP, BIPAP,: No Physician Orders Urinalysis (03/24/25 09:23) Ct Ab Pel Wo Con-No Oral Or Iv (03/24/25 12:34) Hydromorphone Injection (Dilaudid Inject (03/24/25 14:15) Ondansetron Hcl (Zofran) (03/24/25 14:15) Admit (03/24/25 14:12) Code Status (03/24/25 14:12) Npo (Nothing By Mouth) Diet (03/24/25 Dinner) NS (03/24/25 14:15) Morphine Sulfate Injection (03/24/25 18:00) Lactic Acid W/ Reflex Order (03/24/25 14:15) Hemoglobin A1c (03/24/25 14:15) Zosyn Extended Infusion (03/24/25 14:15) Zosyn Extended Infusion (03/24/25 22:00) Tamsulosin Hydrochloride (Flomax) (03/24/25 14:15) Tamsulosin Hydrochloride (Flomax) (03/25/25 10:00) Ondansetron Hcl (Zofran) (03/24/25 14:15) Vital Signs Date Time Temp Pulse Resp B/P (MAP) Pulse Ox O2 Delivery O2 Flow Rate FiO2 03/24/25 09:35 120 20 177/107 03/24/25 08:35 97.9 68 20 145/90 99 97.9 Laboratory Tests Test 03/24/25 09:53 White Blood Count 12.3 10^3/uL (4.4-10.8) #H Medications Medications Dose Ordered Sig/Nathan Route Start Time Stop Time Status Last Admin Dose Admin Hydromorphone HCl 0.5 mg ONCE ONCE IV 03/24/25 09:30 03/24/25 09:31 DC 03/24/25 09:35 0.5 MG Ondansetron HCl 4 mg ONCE ONCE IV 03/24/25 09:30 03/24/25 09:31 DC 03/24/25 09:35 4 MG Assessment/Plan Assessment/Plan Assessment and plan: # Acute pyelonephritis # Acute complicated cystitis # Right ureteric stone with mild right hydroureteronephrosis # DEYANIRA likely hemodynamically mediated/VMN - CT abdomen pelvis without contrast demonstrated mild right hydroureteronephrosis secondary to a distal right ureteral calculus measuring 5 mm with right perinephric edema . - U/A demonstrated hematuria and pyuria - pending urine bacterial culture - NPO - IV Dilaudid 0.5 mg once - IV morphine 2 mg q.6 p.r.n. - IV ondansetron 4 mg Q 8 p.r.n. - IV normal saline 75 cc/hour daily - IV Zosyn 3.375 g Q 8 hours - Tamsulosin 0.4 mg HS daily - IV mannitol 25%, 12.5 g once - Strain urine for stone # Hypertensive urgency # Hypertensive heart disease with possible chronic diastolic heart failure # Pulmonary hypertension - echo on 01/09 EF 50% with RVSP 58 mm Hg - nifedipine 60 mg p.o. daily and metoprolol tartrate 25 mg b.i.d. # Hypokalemia - Replaced # GERD - EGD on 03/21/25 showed 2 cm sliding-type hiatal hernia with grade B erosive esophagitis and mild gastritis - Protonix 40 mg p.o. b.i.d. and Carafate 1 g b.i.d. # Type 2 diabetes mellitus, HbA1c 4.9 - mild sliding scale of insulin # DVT prophylaxis - Lovenox 40 mg SC daily Goal of care discussed with the patient for more than 20 minutes full code Plan discussed with Dr. Falcon Plan discussed with: Patient, Other My Orders Orders - МАРИЯ ELLIOTT RESIDENT Procedure Category Date Status Time Hydromorphone PHA 03/24/25 Logged Injection (Dilaudid 14:15 Ondansetron Hcl PHA 03/24/25 Logged (Zofran) 14:15 Admit ADMIT 03/24/25 Transmitted 14:12 Code Status CODE 03/24/25 Transmitted 14:12 Npo (Nothing By DIET 03/24/25 Transmitted Mouth) Diet Dinner NS PHA 03/24/25 Transmitted 14:15 Morphine Sulfate PHA 03/24/25 Transmitted Injection 18:00 Lactic Acid W/ Reflex LAB 03/24/25 Logged Order 14:15 Hemoglobin A1c LAB 03/24/25 Logged 14:15 Zosyn Extended PHA 03/24/25 Transmitted Infusion 14:15 Zosyn Extended PHA 03/24/25 Transmitted Infusion 22:00 Tamsulosin PHA 03/24/25 Transmitted Hydrochloride (Flomax) 14:15 Tamsulosin PHA 03/25/25 Transmitted Hydrochloride (Flomax) 10:00 Ondansetron Hcl PHA 03/24/25 Transmitted (Zofran) 14:15 Date of Service: Mar 24, 2025 Billing Provider: KALINA FALCON MD Common Visit Codes: [id number] INP/OBS CARE (HIGH) МАРИЯ ELLIOTT RESIDENT Mar 24, 2025 14:24
--- NOTE | 2025-03-24 17:09 | DVH ---
CHEST RADIOGRAPH Indication: sob Technique: Single frontal view of the chest was obtained Comparison: XY CHEST PORTABLE on DOS: 03/20/25, XY CHEST PORTABLE on DOS: 03/13/25, XY CHEST PORTABLE on DOS: 01/06/25 FINDINGS: Lines and Tubes: None Lungs: No focal consolidation. Pleura: No effusion. No pneumothorax. Cardiomediastinal contours: Unremarkable Bones: No acute osseous abnormality. IMPRESSION: 1. No acute cardiopulmonary disease. 2. No significant change from 03/20/2025.
[2025-03-24] MEDS: SODIUM CHLORIDE 0.9% 1,000 ML IV ONE (18:08)
[2025-03-24] MEDS: SODIUM CHLORIDE 0.9% 1,000 ML IV SCH (18:08)
[2025-03-24] MEDS: POTASSIUM EFFERVESENT TAB 25 MEQ PO ONE (18:13)
[2025-03-24] MEDS: METOPROLOL TARTRATE 25 MG TAB PO ONE (18:14)
[2025-03-24] MEDS: TAMSULOSIN HYDROCHLORIDE 0.4 MG CAP PO ONE (18:14)
[2025-03-24] MEDS: PANTOPRAZOLE 40 MG TAB PO SCH (18:14)
[2025-03-24] MEDS: SUCRALFATE 1 GM TAB PO SCH (18:15)
[2025-03-24] MEDS: MANNITOL FTV 25% 12.5 GM/50 ML 50 ML IV ONE (18:16)
[2025-03-24] MEDS: MORPHINE SULFATE INJ 2 MG/ml SYRG IV SCH (20:12)
[2025-03-24 20:26] VITALS: PULSE 74; RESP 18; O2SAT 96
[2025-03-24] MEDS: PIPERACILLIN-TAZOB 3.375GM 100 ML IV ONE (21:00)
[2025-03-24 22:17] VITALS: BP 130/74; PULSE 60; RESP 18; TEMP 99.5; O2SAT 100
[2025-03-24 23:31] VITALS: PULSE 78; RESP 16; O2SAT 100
[2025-03-24] MEDS: PIPERACILLIN-TAZOB 3.375GM 100 ML IV SCH (23:53)
[2025-03-25] VITALS (7 sets, daily range): BP systolic 108–120; BP diastolic 57–77; PULSE 55–60; RESP 6–19; TEMP 97.8–99.4; O2SAT 96–99
[2025-03-25] MEDS: METOPROLOL TARTRATE 25 MG TAB PO SCH (00:01)
[2025-03-25 06:21] LABS: COVID19 ANTIGEN SOFIA FIA NEGATIVE (NEGATIVE)
[2025-03-25 07:30] LABS: Anion Gap 9 (5-15); Carbon Dioxide 26 mmol/L (20-31); Chloride 104 mmol/L (98-107); Sodium 139 mmol/L (136-145)
[2025-03-25 07:36] LABS: Glucose 91 mg/dL (74-106)
[2025-03-25 07:37] LABS: Hematocrit 34.6 % (36.0-46.0); Hemoglobin 11.8 g/dL (12.2-16.2); Mean Corpuscular Hemoglobin 30.7 pg (28.0-32.0); Mean Corpuscular Volume 90.4 fL (80.0-100.0); Nucleated Red Blood Cells % 0.0 %
[2025-03-25 07:41] LABS: BUN/Creatinine Ratio 8.2 (10.0-20.0); Blood Urea Nitrogen < 5 mg/dL (9-23); Calcium 8.5 mg/dL (8.7-10.4); Potassium 2.9 mmol/L (3.5-5.1)
[2025-03-25] MEDS: ENOXAPARIN SOD 40 MG/0.4 ML SYRINGE SC SCH (10:12)
[2025-03-25] MEDS: MAGNESIUM OXIDE 400 MG TAB PO ONE (10:13)
[2025-03-25] MEDS: TAMSULOSIN HYDROCHLORIDE 0.4 MG CAP PO SCH (10:16)
[2025-03-25] MEDS: ONDANSETRON HCL 4 MG/2 ML VIAL IV PRN (11:04)
[2025-03-25] MEDS: POTASSIUM EFFERVESENT TAB 25 MEQ PO ONE ×2 (12:03→21:40)
[2025-03-25] MEDS: MAGNESIUM SULFATE 1GM/100ML 100 ML IV ONE (12:04)
[2025-03-25] MEDS: POTASSIUM CHL 20MEQ/100ML 100 ML IV SCH ×2 (12:30→14:30)
[2025-03-25] MEDS: NYSTATIN (MOUTH-THROAT) 500,000 UNITS/5 ML SUSP MT ONE (13:00)
--- NOTE | 2025-03-25 13:03 | DVHPNRES ---
Progress Note Date Seen: Mar 25, 2025 Resident Creating Document: МАРИЯ ELLIOTT RESIDENT Medical Necessity Reason Pt with a Central, PICC or Fol: No Subjective Review of Systems This is a 65-year-old female with past medical history of hypertension, type 2 diabetes mellitus, GERD, CAD, CHF, anxiety disorder, presented to the ED with a chief complaint of right flank pain with nausea and vomiting for 1 day prior to this visit. The patient stated that since last night she started having right flank pain which was 10/10, sharp in nature, radiates to right groin and suprapubic region, without any aggravating and relieving factors and associated with chills, nausea, vomiting and burning sensation in the urine. She denies fever, shortness of breath, chest pain, dizziness, lightheadedness, hematemesis, bloody stool, altered bowel habit, recent sick contact or any recent traveling. Patient was seen and examined on the bedside. She is alert oriented x3. Complaint of pain in the right flank and suprapubic region and denies any nausea or vomiting. No other active complaint. Objective vital signs Vital Sign Date Time Temp Pulse Resp B/P (MAP) Pulse Ox O2 Delivery O2 Flow Rate FiO2 03/25/25 11:17 55 115/76 03/25/25 09:00 98.5 6 98 98.5 03/24/25 23:31 Room Air* 0 21 Total Intake and Output 03/24/25 03/24/25 03/25/25 15:00 23:00 07:00 Intake Total 1600 ml Balance 1600 ml medications Current Medications Medications Dose Ordered Sig/Nathan Route Start Time Stop Time Status Last Admin Dose Admin Sodium Chloride 1,000 ml @ 75 mls/hr [id number] IV 03/24/25 14:15 03/24/25 18:08 75 MLS/HR Morphine Sulfate 2 mg Q6HPRN IV 03/24/25 18:00 03/24/25 20:12 2 MG Piperacillin Sod/ Tazobactam Sod 100 ml @ 100 mls/hr Q8HR IV 03/24/25 22:00 03/25/25 06:12 100 MLS/HR Tamsulosin HCl 0.4 mg DAILY PO 03/25/25 10:00 03/25/25 10:16 0.4 MG Ondansetron HCl 4 mg Q8HPRN PRN IV 03/24/25 14:15 03/25/25 11:04 4 MG Pantoprazole Sodium 40 mg BID@0600,1700 PO 03/24/25 17:00 03/25/25 06:12 40 MG Sucralfate 1 gm BID PO 03/24/25 22:00 03/25/25 10:16 1 GM Nifedipine 60 mg DAILY PO 03/25/25 10:00 03/25/25 10:15 60 MG Metoprolol Tartrate 25 mg BID PO 03/24/25 22:00 03/25/25 10:17 25 MG Enoxaparin Sodium 40 mg DAILY SC 03/25/25 10:00 03/25/25 10:12 40 MG Potassium Chloride 100 ml @ 50 mls/hr Q2H IV 03/25/25 10:30 03/25/25 14:29 Nystatin 5 ml QID MT 03/25/25 18:00 UNV Examination Physical examination: General Appearance: Alert, Oriented X3, Cooperative, No acute distress HEENT: Atraumatic, PERRLA, EOMI, Mucous membrane dry. Respiratory: Clear to auscultation, Normal air movement Cardiovascular: Regular rate, Normal S1, Normal S2, No murmurs, no chest wall tenderness Abdominal: Right CVA tenderness, Normal bowel sounds, Soft, No hepatospenomegaly, No masses Extremities: No clubbing, No cyanosis, No edema, Normal pulses, No tenderness/swelling Skin: No rashes, No breakdown, No significant lesion Neuro: Normal speech, Strength at 5/5 X4 ext, Normal tone, Sensation intact, grossly intact cranial nerves. Psych/Mental Status: Mental status NL, Mood NL laboratory and microbiology Laboratory Tests 03/25/25 06:53 Test 03/25/25 06:53 Range/Units Serum Glucose 91 74-106 mg/dL Labs and/or images reviewed: Labs reviewed by me, Image(s) reviewed by me Problem List/Assessment/Plan Problem List/Assessment/Plan Assessment and plan: # Acute pyelonephritis # Acute complicated cystitis # Right ureteric stone with mild right hydroureteronephrosis # DEYANIRA likely hemodynamically mediated/VMN - CT abdomen pelvis without contrast demonstrated mild right hydroureteronephrosis secondary to a distal right ureteral calculus measuring 5 mm with right perinephric edema . - U/A demonstrated hematuria and pyuria - pending urine bacterial culture - NPO - IV Dilaudid 0.5 mg once - IV morphine 2 mg q.6 p.r.n. - IV ondansetron 4 mg Q 8 p.r.n. - IV normal saline 75 cc/hour daily - IV Zosyn 3.375 g Q 8 hours - Tamsulosin 0.4 mg HS daily - IV mannitol 25%, 12.5 g once - Strain urine for stone # Hypertensive urgency # Hypertensive heart disease with possible chronic diastolic heart failure # Pulmonary hypertension - echo on 01/09 EF 50% with RVSP 58 mm Hg - nifedipine 60 mg p.o. daily and metoprolol tartrate 25 mg b.i.d. # Hypokalemia # Hypomagnesemia - Replaced # GERD - EGD on 03/21/25 showed 2 cm sliding-type hiatal hernia with grade B erosive esophagitis , mild gastritis and some whitish plaques represent esophageal candidiasis - Protonix 40 mg p.o. b.i.d. and Carafate 1 g b.i.d. - Nystatin mouth- throat solution. # DVT prophylaxis - Lovenox 40 mg SC daily Goal of care discussed with the patient for more than 20 minutes full code Plan discussed with Dr. Falcon Plan discussed with: Patient, Other My Orders My Orders Orders - МАРИЯ ELLIOTT RESIDENT Procedure Category Date Status Time Admit ADMIT 03/24/25 Transmitted 14:12 Code Status CODE 03/24/25 Transmitted 14:12 Sodium Chloride 0.9% PHA 03/24/25 In Process 14:15 Morphine Sulfate PHA 03/24/25 In Process Injection 18:00 Piperacillin-Tazob PHA 03/24/25 In Process 3.375gm (Zosyn 3.375g 22:00 Tamsulosin PHA 03/25/25 In Process Hydrochloride (Flomax) 10:00 Ondansetron Hcl PHA 03/24/25 In Process (Zofran) 14:15 Urine Bacterial GERRI 03/25/25 In Process Culture 08:52 Strain All Urine For PRAVEEN 03/24/25 In Process Stones 14:58 Chest Portable XY 03/24/25 Resulted 15:01 Mrsa Screen GERRI 03/25/25 In Process 08:05 Pantoprazole Tablet PHA 03/24/25 In Process (Protonix Tablet) 17:00 Sucralfate Tab PHA 03/24/25 In Process (Carafate Tab) 22:00 Nifedipine Er PHA 03/25/25 In Process (Procardia Xl 10:00 Metoprolol Tartrate PHA 03/24/25 In Process Tablet (Lopressor Ta 22:00 Enoxaparin Sodium PHA 03/25/25 In Process (Lovenox) 10:00 Potassium Chl PHA 03/25/25 In Process 20meq/100ml 10:30 Clear Liq Diet DIET 03/25/25 Transmitted Lunch Potassium LAB 03/25/25 Logged 13:00 Transfer Orders XFER 03/25/25 Transmitted 10:37 Nystatin PHA 03/25/25 Logged (Mouth-Throat) 13:00 Nystatin PHA 03/25/25 Logged (Mouth-Throat) 18:00 Date of Service: Mar 25, 2025 Billing Provider: KALINA FALCON MD Common Visit Codes: [id number] INP/OBS CARE(MOD) МАРИЯ ELLIOTT RESIDENT Mar 25, 2025 13:03 KALINA FALCON MD Mar 26, 2025 09:30
[2025-03-25] MEDS ORDERED: ACETAMINOPHEN 325 MG TAB PO PRN (14:45)
[2025-03-25] MEDS: HYDROmorphone HCL 2 MG/ML VL/or syr IV ONE ×2 (14:45→21:41)
[2025-03-25] MEDS: NYSTATIN (MOUTH-THROAT) 500,000 UNITS/5 ML SUSP MT SCH (18:37)
[2025-03-26 01:00] VITALS: BP 108/71; PULSE 55; RESP 19; TEMP 97.2; O2SAT 97
[2025-03-26 08:00] VITALS: PULSE 61; RESP 61; O2SAT 96
[2025-03-26 08:12] LABS: Calcium 8.9 mg/dL (8.7-10.4)
[2025-03-26 08:13] LABS: Carbon Dioxide 24 mmol/L (20-31)
[2025-03-26 08:19] LABS: Glucose 105 mg/dL (74-106); Magnesium 1.7 mg/dL (1.6-2.6)
[2025-03-26 08:21] LABS: BUN/Creatinine Ratio 7.5 (10.0-20.0); Blood Urea Nitrogen < 5 mg/dL (9-23)
[2025-03-26 08:50] LABS: Anion Gap 11 (5-15); Chloride 103 mmol/L (98-107); Potassium 3.6 mmol/L (3.5-5.1); Sodium 138 mmol/L (136-145)
[2025-03-26 09:00] VITALS: BP 130/71; PULSE 61; RESP 18; TEMP 98.2; O2SAT 96
[2025-03-26] MEDS: HYDROmorphone HCL 2 MG/ML VL/or syr IV PRN (10:49)
[2025-03-26 13:00] VITALS: BP 139/82; PULSE 53; RESP 18; TEMP 98; O2SAT 99
--- NOTE | 2025-03-26 15:44 | DVH ---
Date: 03/26/2025 02:55 PM Examination: XY KUB ABDOMEN SINGLE VIEW History: Kidney Stone Comparison: XY KUB ABDOMEN SINGLE VIEW on DOS: 01/09/25, XY KUB ABDOMEN SINGLE VIEW on DOS: 11/06/24, CR ABDOMEN 1 VIEW (KUB) on DOS: 01/06/24 TECHNIQUE: Frontal views of the abdomen was obtained. FINDINGS: Bowel gas pattern is unremarkable. Surgical clips in the right upper quadrant suggest previous cholecystectomy. The lung bases are unremarkable. No acute osseous abnormality identified. IMPRESSION: 1. Nonobstructive bowel gas pattern. 2. Findings may represent ileus. 3. CT abdomen and pelvis from 03/24/2025 suggested a 5 mm calculus in the distal right ureter. Calculus is not definitively identified on the KUB. There are multiple calculi in the pelvis on the right and left. Extensive stool and bowel gas is scattered throughout the abdomen and pelvis. 4. Consider repeat CT abdomen and pelvis if follow-up is of clinical concern
[2025-03-26 17:00] VITALS: BP 108/68; PULSE 58; RESP 17; TEMP 98.2; O2SAT 97
--- NOTE | 2025-03-26 19:36 | DVHPNRES ---
Progress Note Date Seen: Mar 26, 2025 Resident Creating Document: ARLENE OCAMPO RESIDENT Medical Necessity Reason Pt with a Central, PICC or Fol: No Subjective Review of Systems Sharri Abrams is a 65-year-old female, with past medical history of nephrolothiasis (2023) hypertension, type 2 diabetes mellitus, GERD, CAD, CHF and anxiety disorder. The patient presented to the [facility]- ED with a chief complaint of 1 day of right flank pain, 10/10, colicky-like, irradiate to the right groin, without alleviating or aggravating factors; Associated with chills, nausea, vomiting and dysuria. On further questioning, the patient was recently admitted in the [facility] due to erosive gastritis. Also, she report she had nephrolithiasis on the left kidney in 2023 that was treated with lithotripsy. The patient denies fever, shortness of breath, chest pain, dizziness, lightheadedness, hematemesis, bloody stool, altered bowel habit, recent sick contact or any recent traveling. In the ED the CT abdominal showed: Mild right hydroureteronephrosis secondary to a distal right ureteral calculus measuring 5 mm. Associated right perinephric edema / stranding which may represent Resultant urinary tract infection/pyelonephritis. Hypodense region along the falciform in the liver measuring 2 cm most likely representing focal fatty infiltration. This can be better characterized with MRI abdomen with and without contrast in the nonemergent setting. The patient was admitted for further diagnosed and management. Past Medical History: As per HPI Past Surgical History Left heart catheterization, multiple EGDs Family History: Cancer: mother (thyroid) Family history: Cardiovascular disease. Thyroid disorder, Malignant neoplasm of ovary Social History: Patient currently smokes about 5 cigarettes per day, marijuana every night, denies alcohol or any other drug use Hospital course: On 03/26/25, the patient was evaluated and examined at bedside. VS, Labs and chart was reviewed. The patient reports back pain 8/10, denies fever or chills during the night. The patient continues with Zocy IV and tamsulosin. Urine is being strain for the stone. The patient has not passed the kidney calculi yet. KUB showed: Calculus is not definitively identified on the KUB. There are multiple calculi in the pelvis on the right and left. Extensive stool and bowel gas is scattered throughout the abdomen and pelvis. We will continue following up the progress of this patient. ROS: Constitutional: No: Fever, Chills, Sweats, Weakness, Malaise, Other Eyes: No: Pain, Vision change, Conjunctivae inflammation, Eyelid inflammation, Other, Redness ENT: No: Ear pain, Ear discharge, Nose pain, Nose discharge, Nose congestion, Mouth pain, Mouth swelling, Throat pain, Throat swelling, Other Respiratory: mild Shortness of breath; No: Cough, Dry, SOB with excertion, Wheezing, Hemoptysis, Pleuritic Pain, Sputum, Wheezing, Other Cardiovascular: Chest Pain; No: Palpitations, Orthopnea, Paroxysmal Noc. Dyspnea, Edema, Lt Headedness, Other Gastrointestinal: No: Nausea, Vomiting, Abdominal Pain, Diarrhea, Constipation, Melena, Hematochezia, Other Genitourinary: Dysuria, groin and pelvic pain. No Frequency, No Incontinence, No Hematuria, No Retention, No Other Musculoskeletal: back pain. No: other, neck pain, shoulder pain, arm pain, , hand pain, leg pain, foot pain Skin: No: Rash, Lesions, Jaundice, Bruising, Other Neurological: No: Weakness, Numbness, Incoordination, Change in speech, Confusion, Seizures, Other Allergies: Acid fruits, Mushrooms, Codeine, hydrocodone, mushroom extract complex. Objective vital signs Vital Sign Date Time Temp Pulse Resp B/P (MAP) Pulse Ox O2 Delivery O2 Flow Rate FiO2 03/26/25 18:08 60 17 110/70 03/26/25 17:00 98.2 97 98.2 03/26/25 08:00 Room Air* 0 21 Total Intake and Output 03/25/25 03/25/25 03/26/25 15:00 23:00 07:00 Intake Total 400 ml 400 ml Balance 400 ml 400 ml medications Current Medications Medications Dose Ordered Sig/Nathan Route Start Time Stop Time Status Last Admin Dose Admin Sodium Chloride 1,000 ml @ 75 mls/hr [id number] IV 03/24/25 14:15 03/26/25 06:10 75 MLS/HR Piperacillin Sod/ Tazobactam Sod 100 ml @ 100 mls/hr Q8HR IV 03/24/25 22:00 03/26/25 14:37 100 MLS/HR Tamsulosin HCl 0.4 mg DAILY PO 03/25/25 10:00 03/26/25 10:43 0.4 MG Ondansetron HCl 4 mg Q8HPRN PRN IV 03/24/25 14:15 03/26/25 18:07 4 MG Pantoprazole Sodium 40 mg BID@0600,1700 PO 03/24/25 17:00 03/26/25 18:06 40 MG Sucralfate 1 gm BID PO 03/24/25 22:00 03/26/25 10:43 1 GM Nifedipine 60 mg DAILY PO 03/25/25 10:00 03/26/25 10:44 60 MG Metoprolol Tartrate 25 mg BID PO 03/24/25 22:00 03/26/25 10:44 25 MG Enoxaparin Sodium 40 mg DAILY SC 03/25/25 10:00 03/26/25 10:45 40 MG Nystatin 5 ml QID MT 03/25/25 18:00 03/26/25 18:06 5 ML Acetaminophen 650 mg Q6HP PRN PO 03/25/25 14:45 Hold Hydromorphone HCl 0.125 mg Q6HP PRN IV 03/26/25 10:00 03/26/25 18:08 0.125 MG Ketorolac Tromethamine 15 mg Q4HPRN PRN IV 03/26/25 10:00 03/31/25 09:59 Magnesium Oxide 800 mg BID PO 03/26/25 22:00 Examination General Appearance: Mild distress due to pain. Alert, Oriented X3, Cooperative. HEENT: Atraumatic, PERRLA, EOMI, Mucous membrane dry. Respiratory: Clear to auscultation, Normal air movement Cardiovascular: Regular rate, Normal S1, Normal S2, No murmurs, no chest wall tenderness Abdominal: Right CVA tenderness to percusion, pelvic pain on deep palpation. Normal bowel sounds, Soft, No hepatospenomegaly, No masses Extremities: No clubbing, No cyanosis, No edema, Normal pulses, No tenderness/swelling Skin: No rashes, No breakdown, No significant lesion Neuro: Normal speech, Strength at 5/5 X4 ext, Normal tone, Sensation intact, grossly intact cranial nerves. Psych/Mental Status: Mental status NL, Mood NL laboratory and microbiology Laboratory Tests 03/26/25 06:08 03/25/25 06:53 Test 03/26/25 06:08 Range/Units Serum Glucose 105 74-106 mg/dL Microbiology Date/Time Source Procedure Growth Status 03/25/25 04:30 Nose MRSA Screen - Final Complete 03/24/25 12:20 Voided Urine Urine Culture - Preliminary Resulted Problem List/Assessment/Plan Problem List/Assessment/Plan # Acute complicate UTI, due to pyelonephritis # Acute complicated cystitis # Acute right ureteric calculi with mild right hydroureteronephrosis # Acute Left renal pelvis calculi # DEYANIRA likely hemodynamically mediated/VMN - CT abdomen pelvis without contrast demonstrated mild right hydroureteronephrosis secondary to a distal right ureteral calculus measuring 5 mm with right perinephric edema . - U/A demonstrated hematuria and pyuria - pending urine bacterial culture - clear liquid diet - IV Dilaudid 0.5 mg once - IV morphine 2 mg q.6 p.r.n. - IV ondansetron 4 mg Q 8 p.r.n. - IV normal saline 75 cc/hour daily - IV Zosyn 3.375 g Q 8 hours - Tamsulosin 0.4 mg HS daily - IV mannitol 25%, 12.5 g once - Strain urine for stone -KUB: Calculus is not definitively identified on the KUB. There are multiple calculi in the pelvis on the right and left. Extensive stool and bowel gas is scattered throughout the abdomen and pelvis. -We will Consider Urology evaluation. # Hypertensive urgency # Chronic Hypertensive heart disease with possible chronic diastolic heart failure # Chronic Pulmonary hypertension, no in exacerbation. - Echo on 01/09 EF 50% with RVSP 58 mm Hg - nifedipine 60 mg p.o. daily and metoprolol tartrate 25 mg b.i.d. # Hypokalemia # Hypomagnesemia - Replenish # GERD - EGD on 03/21/25 showed 2 cm sliding-type hiatal hernia with grade B erosive esophagitis , mild gastritis and some whitish plaques represent esophageal candidiasis - Protonix 40 mg p.o. b.i.d. and Carafate 1 g b.i.d. - Nystatin mouth- throat solution. Diet: Clear liquids, advance per tolerance DVT prophylaxis PUD prophylaxis Goals of care discussed with the patient > 35 min. Discussed plan of care with Dr. Falcon Code status: Full code PCP: Plan discussed with: Patient, the patient agrees with the plan. Plan discussed with: Patient My Orders My Orders Orders - ARLENE OCAMPO Procedure Category Date Status Time Magnesium Oxide PHA 03/26/25 In Process Tablet (Mag-Ox Tablet) 22:00 Date of Service: Mar 26, 2025 Billing Provider: KALINA FALCON MD Common Visit Codes: [id number] INP/OBS CARE(HIGH) ARLENE OCAMPO RESIDENT Mar 26, 2025 19:36
[2025-03-26 20:00] VITALS: PULSE 54; RESP 18; O2SAT 98
[2025-03-26] MEDS: MAGNESIUM OXIDE 400 MG TAB PO SCH (21:51)
[2025-03-26] MEDS: KETOROLAC TROMETH 30 MG/ML 1ML VIAL IV PRN (21:51)
[2025-03-26] MEDS: ZOLPIDEM TARTRATE 5 MG TAB PO ONE (21:51)
[2025-03-27] VITALS (8 sets, daily range): BP systolic 99–151; BP diastolic 53–94; PULSE 56–68; RESP 16–20; TEMP 96.8–98.7; O2SAT 97–99
[2025-03-27 10:49] LABS: Potassium 3.4 mmol/L (3.5-5.1)
[2025-03-27 10:54] LABS: Magnesium 1.6 mg/dL (1.6-2.6)
[2025-03-27] MEDS: MAGNESIUM OXIDE 400 MG TAB PO ONE (14:00)
[2025-03-27] MEDS: LACTULOSE 20Gm/30ML SOLN PO ONE ×2 (14:31→15:15)
[2025-03-27] MEDS: POTASSIUM EFFERVESENT TAB 25 MEQ GT ONE (14:32)
[2025-03-27] MEDS: BISACODYL 5 MG EC TAB PO ONE (14:32)
[2025-03-27] MEDS: MANNITOL FTV 25% 12.5 GM/50 ML 50 ML IV ONE (17:39)
[2025-03-27] MEDS: METOCLOPRAMIDE HCL 5MG/ml INJ 2ml VIAL IV ONE (17:39)
--- NOTE | 2025-03-27 19:06 | DVHPNRES ---
Progress Note Date Seen: Mar 27, 2025 Resident Creating Document: ARLENE OCAMPO RESIDENT Medical Necessity Reason Pt with a Central, PICC or Fol: No Subjective Review of Systems Sharri Abrams is a 65-year-old female, with past medical history of nephrolothiasis (2023) hypertension, type 2 diabetes mellitus, GERD, CAD, CHF and anxiety disorder. The patient presented to the [facility]- ED with a chief complaint of 1 day of right flank pain, 10/10, colicky-like, irradiate to the right groin, without alleviating or aggravating factors; Associated with chills, nausea, vomiting and dysuria. On further questioning, the patient was recently admitted in the [facility] due to erosive gastritis. Also, she report she had nephrolithiasis on the left kidney in 2023 that was treated with lithotripsy. The patient denies fever, shortness of breath, chest pain, dizziness, lightheadedness, hematemesis, bloody stool, altered bowel habit, recent sick contact or any recent traveling. In the ED the CT abdominal showed: Mild right hydroureteronephrosis secondary to a distal right ureteral calculus measuring 5 mm. Associated right perinephric edema / stranding which may represent Resultant urinary tract infection/pyelonephritis. Hypodense region along the falciform in the liver measuring 2 cm most likely representing focal fatty infiltration. This can be better characterized with MRI abdomen with and without contrast in the nonemergent setting. The patient was admitted for further diagnosed and management. Past Medical History: As per HPI Past Surgical History Left heart catheterization, multiple EGDs Family History: Cancer: mother (thyroid) Family history: Cardiovascular disease. Thyroid disorder, Malignant neoplasm of ovary Social History: Patient currently smokes about 5 cigarettes per day, marijuana every night, denies alcohol or any other drug use Hospital course: On 03/26/25, the patient was evaluated and examined at bedside. VS, Labs and chart was reviewed. The patient reports back pain 8/10, denies fever or chills during the night. The patient continues with Zocy IV and tamsulosin. Urine is being strain for the stone. The patient has not passed the kidney calculi yet. KUB showed: Calculus is not definitively identified on the KUB. There are multiple calculi in the pelvis on the right and left. Extensive stool and bowel gas is scattered throughout the abdomen and pelvis. We will continue following up the progress of this patient. On 03/27/25, the patient was evaluated and examined at bedside. VS, Labs and chart was reviewed. The patient had hypokalemia and hypomagnesemia this morning, potassium and magnesium was replenish. The patient reports back pain 11/24, denies fever or chills during the night. The patient continues with Zocy IV and tamsulosin. Urine is being strain, but the patient has not pass the calculi yet. New KUB will be ordered tomorrow. We will continue following up the progress of this patient. ROS: Constitutional: No: Fever, Chills, Sweats, Weakness, Malaise, Other Eyes: No: Pain, Vision change, Conjunctivae inflammation, Eyelid inflammation, Other, Redness ENT: No: Ear pain, Ear discharge, Nose pain, Nose discharge, Nose congestion, Mouth pain, Mouth swelling, Throat pain, Throat swelling, Other Respiratory: mild Shortness of breath; No: Cough, Dry, SOB with excertion, Wheezing, Hemoptysis, Pleuritic Pain, Sputum, Wheezing, Other Cardiovascular: Chest Pain; No: Palpitations, Orthopnea, Paroxysmal Noc. Dyspnea, Edema, Lt Headedness, Other Gastrointestinal: No: Nausea, Vomiting, Abdominal Pain, Diarrhea, Constipation, Melena, Hematochezia, Other Genitourinary: Dysuria improving, groin and pelvic pain improving. No Frequency, No Incontinence, No Hematuria, No Retention, No Other Musculoskeletal: back pain improving. No: other, neck pain, shoulder pain, arm pain, , hand pain, leg pain, foot pain Skin: No: Rash, Lesions, Jaundice, Bruising, Other Neurological: No: Weakness, Numbness, Incoordination, Change in speech, Confusion, Seizures, Other Allergies: Acid fruits, Mushrooms, Codeine, hydrocodone, mushroom extract complex. Objective vital signs Vital Sign Date Time Temp Pulse Resp B/P (MAP) Pulse Ox O2 Delivery O2 Flow Rate FiO2 03/27/25 17:01 97.4 65 20 121/83 (96) 98 97.4 03/27/25 08:00 Room Air* 0 21 Total Intake and Output 03/26/25 03/26/25 03/27/25 15:00 23:00 07:00 Intake Total 1450 ml 300 ml Balance 1450 ml 300 ml medications Current Medications Medications Dose Ordered Sig/Nathan Route Start Time Stop Time Status Last Admin Dose Admin Sodium Chloride 1,000 ml @ 75 mls/hr [id number] IV 03/24/25 14:15 03/27/25 08:55 75 MLS/HR Piperacillin Sod/ Tazobactam Sod 100 ml @ 100 mls/hr Q8HR IV 03/24/25 22:00 03/27/25 14:39 100 MLS/HR Tamsulosin HCl 0.4 mg DAILY PO 03/25/25 10:00 03/27/25 10:40 0.4 MG Ondansetron HCl 4 mg Q8HPRN PRN IV 03/24/25 14:15 03/27/25 10:53 4 MG Pantoprazole Sodium 40 mg BID@0600,1700 PO 03/24/25 17:00 03/27/25 18:17 40 MG Sucralfate 1 gm BID PO 03/24/25 22:00 03/27/25 10:40 1 GM Nifedipine 60 mg DAILY PO 03/25/25 10:00 03/27/25 14:33 60 MG Metoprolol Tartrate 25 mg BID PO 03/24/25 22:00 03/26/25 10:44 25 MG Enoxaparin Sodium 40 mg DAILY SC 03/25/25 10:00 03/27/25 10:40 40 MG Nystatin 5 ml QID MT 03/25/25 18:00 03/27/25 18:17 5 ML Acetaminophen 650 mg Q6HP PRN PO 03/25/25 14:45 Hold Hydromorphone HCl 0.125 mg Q6HP PRN IV 03/26/25 10:00 03/27/25 14:34 0.125 MG Ketorolac Tromethamine 15 mg Q4HPRN PRN IV 03/26/25 10:00 03/31/25 09:59 03/27/25 18:17 15 MG Magnesium Oxide 800 mg BID PO 03/26/25 22:00 03/27/25 10:41 800 MG Clotrimazole 1 applic Q12HR TOP 03/27/25 22:00 Lactulose 15 ml DAILY PO 03/28/25 10:00 Examination General Appearance: Mild distress due to pain. Alert, Oriented X3, Cooperative. HEENT: Atraumatic, PERRLA, EOMI, Mucous membrane dry. Respiratory: Clear to auscultation, Normal air movement Cardiovascular: Regular rate, Normal S1, Normal S2, No murmurs, no chest wall tenderness Abdominal: Right CVA tenderness to percussion, pelvic pain on deep palpation. Normal bowel sounds, Soft, No hepatospenomegaly, No masses Extremities: No clubbing, No cyanosis, No edema, Normal pulses, No tenderness/swelling Skin: No rashes, No breakdown, No significant lesion Neuro: Normal speech, Strength at 5/5 X4 ext, Normal tone, Sensation intact, grossly intact cranial nerves. Psych/Mental Status: Mental status NL, Mood NL laboratory and microbiology Laboratory Tests 03/27/25 10:09 03/26/25 06:08 03/25/25 06:53 Test 03/26/25 06:08 Range/Units Serum Glucose 105 74-106 mg/dL Microbiology Date/Time Source Procedure Growth Status 03/25/25 04:30 Nose MRSA Screen - Final Complete 03/24/25 12:20 Voided Urine Urine Culture - Final Complete Problem List/Assessment/Plan Problem List/Assessment/Plan # Acute complicate UTI, due to pyelonephritis # Acute complicated cystitis # Acute right ureteric calculi with mild right hydroureteronephrosis # Acute Left renal pelvis calculi # DEYANIRA likely hemodynamically mediated/VMN - CT abdomen pelvis without contrast demonstrated mild right hydroureteronephrosis secondary to a distal right ureteral calculus measuring 5 mm with right perinephric edema . - U/A demonstrated hematuria and pyuria - pending urine bacterial culture - clear liquid diet - IV Dilaudid 0.5 mg once - IV morphine 2 mg q.6 p.r.n. - IV ondansetron 4 mg Q 8 p.r.n. - IV normal saline 75 cc/hour daily - IV Zosyn 3.375 g Q 8 hours - Tamsulosin 0.4 mg HS daily - New IV mannitol 25%, 12.5 g - Strain urine for stone -KUB: Calculus is not definitively identified on the KUB. There are multiple calculi in the pelvis on the right and left. Extensive stool and bowel gas is scattered throughout the abdomen and pelvis. -lactulose 60ml po once, Dulcolax 10mg po once. # Hypertensive urgency # Chronic Hypertensive heart disease with possible chronic diastolic heart failure # Chronic Pulmonary hypertension, no in exacerbation. - Echo on 01/09 EF 50% with RVSP 58 mm Hg - nifedipine 60 mg p.o. daily and metoprolol tartrate 25 mg b.i.d. # Hypokalemia # Hypomagnesemia - Replenish -repeat K and Mg # GERD - EGD on 03/21/25 showed 2 cm sliding-type hiatal hernia with grade B erosive esophagitis , mild gastritis and some whitish plaques represent esophageal candidiasis - Protonix 40 mg p.o. b.i.d. and Carafate 1 g b.i.d. - Nystatin mouth- throat solution. Diet: Clear liquids, advance per tolerance DVT prophylaxis PUD prophylaxis Goals of care discussed with the patient > 35 min. Discussed plan of care with Dr. Falcon Code status: Full code PCP: Plan discussed with: Patient, the patient agrees with the plan. Plan discussed with: Patient My Orders My Orders Orders - ARLENE OCAMPO Procedure Category Date Status Time Clotrimazole 1% PHA 03/27/25 In Process Topical Cream 22:00 Mechanical Soft Diet DIET 03/27/25 Transmitted Lunch Date of Service: Mar 27, 2025 Billing Provider: KALINA FALCON MD Common Visit Codes: [id number] INP/OBS CARE(HIGH) ARLENE OCAMPO RESIDENT Mar 27, 2025 19:06
[2025-03-27] MEDS ORDERED: MAGNESIUM OXIDE 400 MG TAB PO SCH (22:00)
[2025-03-27] MEDS: ZOLPIDEM TARTRATE 5 MG TAB PO PRN (22:10)
[2025-03-27] MEDS: CLOTRIMAZOLE 1 % CREAM 15GM TOP SCH (22:12)
[2025-03-28] VITALS (9 sets, daily range): BP systolic 110–143; BP diastolic 73–92; PULSE 54–78; RESP 16–20; TEMP 96.4–98.6; O2SAT 96–100
--- NOTE | 2025-03-28 05:56 | DVH ---
Exam: XY KUB ABDOMEN SINGLE VIEW Indication: Abdominal pain. Comparison: XY KUB ABDOMEN SINGLE VIEW on DOS: 03/26/25, XY KUB ABDOMEN SINGLE VIEW on DOS: 01/09/25, XY KUB ABDOMEN SINGLE VIEW on DOS: 11/06/24, CT ABD/PEL on DOS: 08/04/24, CR ABDOMEN 1 VIEW (KUB) on DOS: 01/06/24 Technique: Single radiographic views of the abdomen. Findings: Nonobstructive bowel gas pattern noted. There is no definite evidence for pneumoperitoneum. No abnormal calcifications noted. No significant fecal loading. Impression: Nonobstructive bowel gas pattern noted.
[2025-03-28 06:50] LABS: Potassium 3.2 mmol/L (3.5-5.1)
[2025-03-28 06:58] LABS: Magnesium 1.6 mg/dL (1.6-2.6)
[2025-03-28] MEDS ORDERED: TAMS0.4C39 PO (09:44)
[2025-03-28] MEDS ORDERED: CEFD300C2 PO (09:44)
[2025-03-28] MEDS ORDERED: LACTULOSE 20Gm/30ML SOLN PO SCH (10:00)
[2025-03-28] MEDS: POTASSIUM EFFERVESENT TAB 25 MEQ PO ONE (10:09)
[2025-03-28] MEDS: LOPERAMIDE HCL 2 MG CAP/TAB PO ONE (10:10)
--- NOTE | 2025-03-28 11:17 | DVHDSRES ---
Discharge Summary Date of Admission Resident Creating Document: ARLENE OCAMPO RESIDENT Mar 24, 2025 at 14:12 Date of Discharge: Mar 28, 2025 Admitting Diagnosis # Acute complicate UTI, due to pyelonephritis possible SIRS with AOD # Acute complicated cystitis # Acute right ureteric calculi with mild right hydroureteronephrosis # Acute Left renal pelvis calculi # DEYANIRA likely hemodynamically mediated/VMN Wounds: None Labs/Diagnostic Data: Laboratory Results Test 03/28/25 05:49 03/26/25 06:08 03/25/25 06:53 03/24/25 14:31 Potassium Level 3.2 mmol/L (3.5-5.1) Magnesium Level 1.6 mg/dL (1.6-2.6) Sodium Level 138 mmol/L (136-145) Chloride Level 103 mmol/L (98-107) Carbon Dioxide Level 24 mmol/L (20-31) Anion Gap 11 (5-15) Blood Urea Nitrogen < 5 mg/dL (9-23) Creatinine 0.67 mg/dL (0.550-1.02) Glomerular Filtration Rate Calc 98 mL/min (>90) BUN/Creatinine Ratio 7.5 (10.0-20.0) Serum Glucose 105 mg/dL (74-106) Calcium Level 8.9 mg/dL (8.7-10.4) White Blood Count 7.9 10^3/uL (4.4-10.8) Red Blood Count 3.83 10^6/uL (4.0-5.20) Hemoglobin 11.8 g/dL (12.2-16.2) Hematocrit 34.6 % (36.0-46.0) Mean Corpuscular Volume 90.4 fL (80.0-100.0) Mean Corpuscular Hemoglobin 30.7 pg (28.0-32.0) Mean Corpuscular Hemoglobin Concent 34.0 g/dL (32.0-36.0) Red Cell Distribution Width 14.4 % (11.8-14.3) Platelet Count 201 10^3/uL (140-450) Mean Platelet Volume 7.9 fL (6.9-10.8) Neutrophils (%) (Auto) 59.2 % (37.0-80.0) Lymphocytes (%) (Auto) 27.3 % (10.0-50.0) Monocytes (%) (Auto) 9.8 % (0.0-12.0) Eosinophils (%) (Auto) 3.1 % (0.0-7.0) Basophils (%) (Auto) 0.6 % (0.0-2.0) Neutrophils # (Auto) 4.7 10 ^3/uL (1.6-8.6) Lymphocytes # (Auto) 2.2 10 ^3/uL (0.4-5.4) Monocytes # (Auto) 0.8 10 ^3/uL (0-1.3) Eosinophils # (Auto) 0.2 10 ^3/uL (0-0.8) Basophils # (Auto) 0.1 10 ^3/uL (0-0.2) Nucleated Red Blood Cells 0.0 % Lactic Acid Level 1.5 mmol/L (0.4-2.0) Test 03/24/25 12:20 03/24/25 09:53 03/24/25 04:30 Urine Color Yellow (Yellow) Urine Clarity Turbid (Clear) Urine pH 5.5 (5.0-9.0) Urine Specific [place] 1.017 (1.001-1.035) Urine Protein 1+ (Negative) Urine Ketones 2+ (Negative) Urine Blood 3+ /uL (Negative) Urine Nitrite Negative (Negative) Urine Bilirubin Negative (Negative) Urine Urobilinogen Normal mg/dL (Negative) Urine Leukocyte Esterase 1+ /uL (Negative) Urine RBC 301 /hpf (0 - 4) Urine Microscopic WBC 36 /HPF (0-5) Urine Squamous Epithelial Cells Few /hpf (<5) Urine Bacteria None seen /hpf (None Seen) Urine Hyaline Casts Many /lpf (0 - 2) Urine Mucus Few (None Seen) Urine Yeast (Budding) Occasional /hpf (None Urine Glucose Normal mg/dL (Normal) Hemoglobin A1c 4.9 % A1C (<5.7) Total Bilirubin 0.7 mg/dL (0.2-1.0) Aspartate Amino Transferase (AST) 38 U/L (13-40) Alanine Aminotransferase (ALT) 25 U/L (7-40) Alkaline Phosphatase 68 U/L (46-116) Total Protein 7.1 g/dL (5.7-8.2) Albumin 4.3 g/dL (3.2-4.8) Lipase 30 U/L (12-53) Influenza Type A Antigen Negative (Negative) Influenza Type B Antigen Negative (Negative) SARS-CoV-2 Antigen (Rapid) Negative (NEGATIVE) Other Laboratory Tests 03/28/25 05:49 03/26/25 06:08 03/25/25 06:53 Brief Hx & Hospital Course: Sharri Abrams is a 65-year-old female, with past medical history of nephrolothiasis (2023) hypertension, type 2 diabetes mellitus, GERD, CAD, CHF and anxiety disorder. The patient presented to the [facility] ED with a chief complaint of 1 day of right flank pain, 02/24, colicky-like, irradiate to the right groin, without alleviating or aggravating factors; Associated with chills, nausea, vomiting and dysuria. On further questioning, the patient was recently admitted in the [facility] due to erosive gastritis. Also, she report she had nephrolithiasis on the left kidney in 2023 that was treated with lithotripsy. The patient denies fever, shortness of breath, chest pain, dizziness, lightheadedness, hematemesis, bloody stool, altered bowel habit, recent sick contact or any recent traveling. In the ED the CT abdominal showed: Mild right hydroureteronephrosis secondary to a distal right ureteral calculus measuring 5 mm. Associated right perinephric edema / stranding which may represent Resultant urinary tract infection/pyelonephritis. Hypodense region along the falciform in the liver measuring 2 cm most likely representing focal fatty infiltration. This can be better characterized with MRI abdomen with and without contrast in the nonemergent setting. The patient was admitted for further diagnosed and management. Past Medical History: As per HPI Past Surgical History Left heart catheterization, multiple EGDs Family History: Cancer: mother (thyroid) Family history: Cardiovascular disease. Thyroid disorder, Malignant neoplasm of ovary Social History: Patient currently smokes about 5 cigarettes per day, marijuana every night, denies alcohol or any other drug use Hospital course: On 03/26/25, the patient was evaluated and examined at bedside. VS, Labs and chart was reviewed. The patient reports back pain /10, denies fever or chills during the night. The patient continues with Zocy IV and tamsulosin. Urine is being strain for the stone. The patient has not passed the kidney calculi yet. KUB showed: Calculus is not definitively identified on the KUB. There are multiple calculi in the pelvis on the right and left. Extensive stool and bowel gas is scattered throughout the abdomen and pelvis. We will continue following up the progress of this patient. On 03/27/25, the patient was evaluated and examined at bedside. VS, Labs and chart was reviewed. The patient had hypokalemia and hypomagnesemia this morning, potassium and magnesium was replenish. The patient reports back pain 11/24, denies fever or chills during the night. The patient continues with Zocy IV and tamsulosin. Urine is being strain, but the patient has not pass the calculi yet. New KUB will be ordered tomorrow. We will continue following up the progress of this patient. On 03/29/25, The patient was evaluated at bedside. The patient reports feeling better, her pain has improved. WBC are within normal limits. Due to significant clinical improvement the patient will be discharge home today. The patient will follow up with PCP within one week. ROS: Constitutional: No: Fever, Chills, Sweats, Weakness, Malaise, Other Eyes: No: Pain, Vision change, Conjunctivae inflammation, Eyelid inflammation, Other, Redness ENT: No: Ear pain, Ear discharge, Nose pain, Nose discharge, Nose congestion, Mouth pain, Mouth swelling, Throat pain, Throat swelling, Other Respiratory: mild Shortness of breath; No: Cough, Dry, SOB with excertion, Wheezing, Hemoptysis, Pleuritic Pain, Sputum, Wheezing, Other Cardiovascular: Chest Pain; No: Palpitations, Orthopnea, Paroxysmal Noc. Dyspnea, Edema, Lt Headedness, Other Gastrointestinal: No: Nausea, Vomiting, Abdominal Pain, Diarrhea, Constipation, Melena, Hematochezia, Other Genitourinary: No Frequency, No Incontinence, No Hematuria, No Retention, No Other Musculoskeletal: back pain is better. No: other, neck pain, shoulder pain, arm pain, , hand pain, leg pain, foot pain Skin: No: Rash, Lesions, Jaundice, Bruising, Other Neurological: No: Weakness, Numbness, Incoordination, Change in speech, Confusion, Seizures, Other Allergies: Acid fruits, Mushrooms, Codeine, hydrocodone, mushroom extract complex. Physical exam General Appearance: Alert, Oriented X3, Cooperative. HEENT: Atraumatic, PERRLA, EOMI, Mucous membrane dry. Respiratory: Clear to auscultation, Normal air movement Cardiovascular: Regular rate, Normal S1, Normal S2, No murmurs, no chest wall tenderness Abdominal: No tenderness. Normal bowel sounds, Soft, No hepatospenomegaly, No masses Extremities: No clubbing, No cyanosis, No edema, Normal pulses, No tenderness/swelling Skin: No rashes, No breakdown, No significant lesion Neuro: Normal speech, Strength at 5/5 X4 ext, Normal tone, Sensation intact, grossly intact cranial nerves. Psych/Mental Status: Mental status NL, Mood NL Consults/Reason for consult No Operations or Procedures PROCEDURE(s): ABPL - CT AB PEL WO CON-NO ORAL OR IV REASON: RULE OUT NEPHROLITHIASIS ORDER NUMBER(s): [id number], ACCESSION NUMBER(s): [id number] Indication: RULE OUT NEPHROLITHIASIS Technique: CT axial images of the abdomen and pelvis are obtained without contrast. Coronal and sagittal reformats were obtained. Radiation Dose Information: CTDI volume is 7.85 mGy. Dose-length product is 348.42 mGy*cm Comparison: CT CT AB PEL WO CON-NO ORAL OR IV on DOS: 03/19/25 FINDINGS: There is limited interpretation of the abdomen and pelvis without administration of intravenous contrast. Lung bases demonstrate atelectasis. Adrenal glands, spleen and pancreas unremarkable in shape. Cholecystectomy. Hypodense region along the falciform measuring 2 cm most consistent with fatty infiltration. There is right perinephric edema / stranding and mild right hydroureteronephrosism secondary to a distal right ureteral calculus measuring 5 mm, axial image 56 of 90. This calculus was previously in the mid to distal right ureter and is slightly moved distally since the previous examination. Punctate nonobstructing right renal calculus measuring 2 mm. Left kidney demonstrates no hydronephrosis/ nephrolithiasis. Stomach is partially distended. Small bowel loops are normal in caliber. Moderate volume stool throughout the colon. Normal appendix. Abdominal aortic atherosclerotic disease. Bladder partially distended. Calcified uterine leiomyomas. No inguinal lymphadenopathy. Moderate bilateral sacroiliac degenerative joint disease. Moderate lumbar degenerative disc disease most pronounced at L5-S1.6 mm anterolisthesis L4 upon L5. IMPRESSION: Limited evaluation without contrast. Mild right hydroureteronephrosis secondary to a distal right ureteral calculus measuring 5 mm. Associated right perinephric edema / stranding which may represent Resultant urinary tract infection/pyelonephritis. Hypodense region along the falciform in the liver measuring 2 cm most likely representing focal fatty infiltration. This can be better characterized with MRI abdomen with and without contrast in the nonemergent setting. Atherosclerotic disease. Calcified uterine leiomyomas. Other findings as described EDURE(s): CXRP - CHEST PORTABLE REASON: sob ORDER NUMBER(s): [id number], ACCESSION NUMBER(s): [id number] CHEST RADIOGRAPH Indication: sob Technique: Single frontal view of the chest was obtained Comparison: XY CHEST PORTABLE on DOS: 03/20/25, XY CHEST PORTABLE on DOS: 03/13/25, XY CHEST PORTABLE on DOS: 01/06/25 FINDINGS: Lines and Tubes: None Lungs: No focal consolidation. Pleura: No effusion. No pneumothorax. Cardiomediastinal contours: Unremarkable Bones: No acute osseous abnormality. IMPRESSION: 1. No acute cardiopulmonary disease. 2. No significant change from 03/20/2025. EDURE(s): KUB - KUB ABDOMEN SINGLE VIEW REASON: Kidney Stone ORDER NUMBER(s): [id number], ACCESSION NUMBER(s): [id number] Date: 03/26/2025 02:55 PM Examination: XY KUB ABDOMEN SINGLE VIEW History: Kidney Stone Comparison: XY KUB ABDOMEN SINGLE VIEW on DOS: 01/09/25, XY KUB ABDOMEN SINGLE VIEW on DOS: 11/06/24, CR ABDOMEN 1 VIEW (KUB) on DOS: 01/06/24 TECHNIQUE: Frontal views of the abdomen was obtained. FINDINGS: Bowel gas pattern is unremarkable. Surgical clips in the right upper quadrant suggest previous cholecystectomy. The lung bases are unremarkable. No acute osseous abnormality identified. IMPRESSION: 1. Nonobstructive bowel gas pattern. 2. Findings may represent ileus. 3. CT abdomen and pelvis from 03/24/2025 suggested a 5 mm calculus in the distal right ureter. Calculus is not definitively identified on the KUB. There are multiple calculi in the pelvis on the right and left. Extensive stool and bowel gas is scattered throughout the abdomen and pelvis. 4. Consider repeat CT abdomen and pelvis if follow-up is of clinical concern EDURE(s): KUB - KUB ABDOMEN SINGLE VIEW REASON: Abdominal pain. ORDER NUMBER(s): [id number], ACCESSION NUMBER(s): [id number] Exam: XY KUB ABDOMEN SINGLE VIEW Indication: Abdominal pain. Comparison: XY KUB ABDOMEN SINGLE VIEW on DOS: 03/26/25, XY KUB ABDOMEN SINGLE VIEW on DOS: 01/09/25, XY KUB ABDOMEN SINGLE VIEW on DOS: 11/06/24, CT ABD/PEL on DOS: 08/04/24, CR ABDOMEN 1 VIEW (KUB) on DOS: 01/06/24 Technique: Single radiographic views of the abdomen. Findings: Nonobstructive bowel gas pattern noted. There is no definite evidence for pneumoperitoneum. No abnormal calcifications noted. No significant fecal loading. Impression: Nonobstructive bowel gas pattern noted. Condition at Discharge: Stable Final Diagnosis/Problems List # Acute complicate UTI, due to pyelonephritis possible SIRS with AOD # Acute complicated cystitis # Acute right ureteric calculi with mild right hydroureteronephrosis # Acute Left renal pelvis calculi # DEYANIRA likely hemodynamically mediated/VMN # Hypertensive urgency # Chronic Hypertensive heart disease with possible chronic diastolic heart failure # Chronic Pulmonary hypertension, no in exacerbation. # Acute Hypokalemia # Acute Hypomagnesemia # Chronic GERD Discharge Disposition: Home SNF Discharge Will this Physician continue t: No Discharge Instruct/Medications Diet: Cardiac 2g Na,low cholest Activity: No Restrictions, As Tolerated Follow Up/Referral: F/U with PCP in 1 week, repeat CT abd/pelvis as an outpatient. Medications: Cefdenir 300 mg po bid for 10 days Tamsulosin 0.4mg po daily Continue home medications: Scheduled Aspirin (Aspirin Low Dose), 81 MG PO DAILY Atorvastatin Calcium (Atorvastatin Calcium), 1 TAB PO DAILY, (Reported) Cefdinir (Cefdinir), 1 CAP PO BID Docusate Sodium (Docusate Sodium), 100 MG PO BID Escitalopram Oxalate (Lexapro), 1 TAB PO DAILY, (Reported) Fezolinetant (Veozah), 1 TAB PO DAILY, (Reported) Furosemide (Furosemide), 20 MG PO DAILY, (Reported) Metoprolol Tartrate (Lopressor), 1 TAB PO DAILY, (Reported) Montelukast Sodium (Montelukast Sodium), 1 TAB PO DAILY, (Reported) Nystatin (Mouth-Throat) (Mycostatin (Mouth-Throat)), 5 ML MT QID Pantoprazole Sodium Sesquihydr (Pantoprazole Sodium), 40 MG PO DAILY Pantoprazole Sodium Sesquihydr (Protonix), 40 MG PO BID Sacubitril-Valsartan (Entresto 24-26 mg), 1 TAB PO BID Sucralfate (Carafate), 1 GM OR TID Sucralfate (Carafate Susp), 10 ML PO QID Tamsulosin Hcl (Tamsulosin Hcl), 1 CAP PO DAILY Scheduled PRN Albuterol Sulfate (Albuterol Sulfate Hfa), 2 PUFF INH Q4-6HR PRN for WHEEZING, (Reported) Dicyclomine Hcl (Bentyl Capsule), 1 CAP PO TID PRN for UPSET STOMACH, (Reported) Hydrocodone-Acetaminophen (Hydrocodone Bitartrate/AC 5-325 mg), 1 TAB PO Q8HP PRN Discharge Statement: "Patient was advised to return to the ER or call 911 if any headaches, dizziness, shortness of breath, chest pain, abdominal pain, bleeding, fevers, or worsening of medical condition. Patient was counseled about treatment plan, medications, possible side effects, patientverbalized understanding. All questions were answered to the best of my ability. This discharge took greater then 30 minutes in planning, reviewing documentation, counseling the patient, and discussing with other team members." Discharge Care Plan Instructions Take Rx medications, Notify MD of any issues, Keep list of meds w/ you, Do not drink ETOH/smoke, Call 911 in an emergency, F/U w/ PCP ASSESSMENT ASSESSMENT Assessment # Acute complicate UTI, due to pyelonephritis possible SIRS with AOD # Acute complicated cystitis # Acute right ureteric calculi with mild right hydroureteronephrosis # Acute Left renal pelvis calculi # DEYANIRA likely hemodynamically mediated/VMN # Hypertensive urgency # Chronic Hypertensive heart disease with possible chronic diastolic heart failure # Chronic Pulmonary hypertension, no in exacerbation. # Acute Hypokalemia # Acute Hypomagnesemia # Chronic GERD Goals of care discussed with the patient for more than 35 minutes Code Status: Full code PCP: Dr. Renay Ibarra Case discussed with Dr. Falcon The patient agrees with the discharge plan. Date of Service: Mar 28, 2025 Billing Provider: KALINA FALCON MD Common Visit Codes: 95059-EUJ/OBS DISCH DAY >30min ARLENE OCAMPO RESIDENT Mar 28, 2025 11:17
[2025-03-28] MEDS: METOCLOPRAMIDE HCL 5MG/ml INJ 2ml VIAL IV ONE (13:51)
[2025-03-28] MEDS ORDERED: HYDROcodone-ACET 5/325MG TAB PO PRN (14:15)
--- NOTE | 2025-03-28 15:02 | DVH ---
CLINICAL HISTORY: Nephrolithiasis TECHNIQUE: Complete ultrasound exam of the kidneys and bladder was performed. COMPARISON: US RENAL AND BLADDER on DOS: 01/18/25, US RENAL AND BLADDER on DOS: 01/06/24, US KIDNEY on DOS: 12/21/23, US ABDOMEN COMPLETE on DOS: 03/05/23 FINDINGS: The right kidney has normal echogenicity and measures 11.1 cm. There are a few stones measuring up to 2 mm. There is no hydronephrosis. The left kidney has normal echogenicity and measures 10.8 cm. There is no focal parenchymal abnormality or evidence for stone. There is no hydronephrosis. The bladder is grossly unremarkable. IMPRESSION: Few small right renal stones measuring up to 2 mm. No hydronephrosis.
[2025-03-29 01:00] VITALS: BP 129/69; PULSE 55; RESP 17; TEMP 98.1; O2SAT 98
[2025-03-29 05:00] VITALS: BP 133/78; PULSE 54; RESP 17; TEMP 98; O2SAT 100
[2025-03-29 05:45] LABS: Potassium 3.7 mmol/L (3.5-5.1)
[2025-03-29 05:52] LABS: Magnesium 1.7 mg/dL (1.6-2.6)
[2025-03-29 08:00] VITALS: RESP 20; O2SAT 97
[2025-03-29 09:30] VITALS: BP 143/88; PULSE 57; RESP 19; TEMP 97.9; O2SAT 100
--- NOTE | 2025-03-29 16:15 | DVHPNRES ---
Progress Note Date Seen: Mar 29, 2025 Resident Creating Document: ARLENE OCAMPO RESIDENT Medical Necessity Reason Pt with a Central, PICC or Fol: No Subjective Review of Systems Sharri Abrams is a 65-year-old female, with past medical history of nephrolothiasis (2023) hypertension, type 2 diabetes mellitus, GERD, CAD, CHF and anxiety disorder. The patient presented to the [facility] ED with a chief complaint of 1 day of right flank pain, 10/10, colicky-like, irradiate to the right groin, without alleviating or aggravating factors; Associated with chills, nausea, vomiting and dysuria. On further questioning, the patient was recently admitted in the [facility] due to erosive gastritis. Also, she report she had nephrolithiasis on the left kidney in 2023 that was treated with lithotripsy. The patient denies fever, shortness of breath, chest pain, dizziness, lightheadedness, hematemesis, bloody stool, altered bowel habit, recent sick contact or any recent traveling. In the ED the CT abdominal showed: Mild right hydroureteronephrosis secondary to a distal right ureteral calculus measuring 5 mm. Associated right perinephric edema / stranding which may represent Resultant urinary tract infection/pyelonephritis. Hypodense region along the falciform in the liver measuring 2 cm most likely representing focal fatty infiltration. This can be better characterized with MRI abdomen with and without contrast in the nonemergent setting. The patient was admitted for further diagnosed and management. Past Medical History: As per HPI Past Surgical History Left heart catheterization, multiple EGDs Family History: Cancer: mother (thyroid) Family history: Cardiovascular disease. Thyroid disorder, Malignant neoplasm of ovary Social History: Patient currently smokes about 5 cigarettes per day, marijuana every night, denies alcohol or any other drug use Hospital course: On 03/26/25, the patient was evaluated and examined at bedside. VS, Labs and chart was reviewed. The patient reports back pain 8/10, denies fever or chills during the night. The patient continues with Zocy IV and tamsulosin. Urine is being strain for the stone. The patient has not passed the kidney calculi yet. KUB showed: Calculus is not definitively identified on the KUB. There are multiple calculi in the pelvis on the right and left. Extensive stool and bowel gas is scattered throughout the abdomen and pelvis. We will continue following up the progress of this patient. On 03/27/25, the patient was evaluated and examined at bedside. VS, Labs and chart was reviewed. The patient had hypokalemia and hypomagnesemia this morning, potassium and magnesium was replenish. The patient reports back pain /, denies fever or chills during the night. The patient continues with Zocy IV and tamsulosin. Urine is being strain, but the patient has not pass the calculi yet. New KUB will be ordered tomorrow. We will continue following up the progress of this patient. On 03/28/25, The patient was evaluated at bedside. The patient reports feeling better, her pain has improved. WBC are within normal limits. Due to significant clinical improvement the patient will be discharge home today. The patient will follow up with PCP within one week. After discharge the patient started presenting severe nausea, back and pelvic pain, feeling clammy and reports she was possibly passing a kidney stone. The patient stayed during the night for observation. On 03/29/25, The patient was evaluated at bedside. The patient reports feeling better, reports her pain has improved WBC are within normal limits. Due to significant clinical improvement the patient will be discharge home today with oral antibiotics Cefdinir 300mg po QID for 10 days and also with tamsulosin 0.4mg po daily. The patient will follow up with discharge clinic and PCP within one week. ROS: Constitutional: No: Fever, Chills, Sweats, Weakness, Malaise, Other Eyes: No: Pain, Vision change, Conjunctivae inflammation, Eyelid inflammation, Other, Redness ENT: No: Ear pain, Ear discharge, Nose pain, Nose discharge, Nose congestion, Mouth pain, Mouth swelling, Throat pain, Throat swelling, Other Respiratory: mild Shortness of breath; No: Cough, Dry, SOB with excertion, Wheezing, Hemoptysis, Pleuritic Pain, Sputum, Wheezing, Other Cardiovascular: Chest Pain; No: Palpitations, Orthopnea, Paroxysmal Noc. Dyspnea, Edema, Lt Headedness, Other Gastrointestinal: No: Nausea, Vomiting, Abdominal Pain, Diarrhea, Constipation, Melena, Hematochezia, Other Genitourinary: No Frequency, No Incontinence, No Hematuria, No Retention, No Other Musculoskeletal: back pain is better. No: other, neck pain, shoulder pain, arm pain, , hand pain, leg pain, foot pain Skin: No: Rash, Lesions, Jaundice, Bruising, Other Neurological: No: Weakness, Numbness, Incoordination, Change in speech, Confusion, Seizures, Other Allergies: Acid fruits, Mushrooms, Codeine, hydrocodone, mushroom extract complex. Objective vital signs Vital Sign Date Time Temp Pulse Resp B/P (MAP) Pulse Ox O2 Delivery O2 Flow Rate FiO2 03/29/25 10:42 85 133/65 03/29/25 09:30 97.9 19 100 97.9 03/29/25 08:00 Room Air* 0 21 Total Intake and Output 03/28/25 03/28/25 03/29/25 15:00 23:00 07:00 Intake Total 100 ml 1020 ml 2050 ml Balance 100 ml 1020 ml 2050 ml Examination General Appearance: Alert, Oriented X3, Cooperative. HEENT: Atraumatic, PERRLA, EOMI, Mucous membrane dry. Respiratory: Clear to auscultation, Normal air movement Cardiovascular: Regular rate, Normal S1, Normal S2, No murmurs, no chest wall tenderness Abdominal: No tenderness. Normal bowel sounds, Soft, No hepatospenomegaly, No masses Extremities: No clubbing, No cyanosis, No edema, Normal pulses, No tenderness/swelling Skin: No rashes, No breakdown, No significant lesion Neuro: Normal speech, Strength at 5/5 X4 ext, Normal tone, Sensation intact, grossly intact cranial nerves. Psych/Mental Status: Mental status NL, Mood NL laboratory and microbiology Laboratory Tests 03/29/25 05:00 03/26/25 06:08 03/25/25 06:53 Test 03/26/25 06:08 Range/Units Serum Glucose 105 74-106 mg/dL Microbiology Date/Time Source Procedure Growth Status 03/25/25 04:30 Nose MRSA Screen - Final Complete 03/24/25 12:20 Voided Urine Urine Culture - Final Complete Problem List/Assessment/Plan Problem List/Assessment/Plan # Acute complicate UTI, due to pyelonephritis # Acute complicated cystitis # Acute right ureteric calculi with mild right hydroureteronephrosis # Acute Left renal pelvis calculi # DEYANIRA likely hemodynamically mediated/VMN - CT abdomen pelvis without contrast demonstrated mild right hydroureteronephrosis secondary to a distal right ureteral calculus measuring 5 mm with right perinephric edema . - U/A demonstrated hematuria and pyuria - pending urine bacterial culture - clear liquid diet - IV Dilaudid 0.5 mg once - IV morphine 2 mg q.6 p.r.n. - IV ondansetron 4 mg Q 8 p.r.n. - IV normal saline 75 cc/hour daily - IV Zosyn 3.375 g Q 8 hours - Tamsulosin 0.4 mg HS daily - New IV mannitol 25%, 12.5 g - Strain urine for stone -KUB: Calculus is not definitively identified on the KUB. There are multiple calculi in the pelvis on the right and left. Extensive stool and bowel gas is scattered throughout the abdomen and pelvis. -lactulose 60ml po once, Dulcolax 10mg po once. # Hypertensive urgency # Chronic Hypertensive heart disease with possible chronic diastolic heart failure # Chronic Pulmonary hypertension, no in exacerbation. - Echo on 01/09 EF 50% with RVSP 58 mm Hg - nifedipine 60 mg p.o. daily and metoprolol tartrate 25 mg b.i.d. # Hypokalemia # Hypomagnesemia - Replenish -repeat K and Mg # GERD - EGD on 03/21/25 showed 2 cm sliding-type hiatal hernia with grade B erosive esophagitis , mild gastritis and some whitish plaques represent esophageal candidiasis - Protonix 40 mg p.o. b.i.d. and Carafate 1 g b.i.d. - Nystatin mouth- throat solution. Diet: Clear liquids, advance per tolerance DVT prophylaxis PUD prophylaxis Goals of care discussed with the patient > 35 min. Discussed plan of care with Dr. Falcon Code status: Full code PCP: Plan discussed with: Patient, the patient agrees with the plan. Plan discussed with: Patient Dietary Evaluation Review Comments: Nutrition Recommendation: 1) CCHO 45gm + cardiac diet 2) Monitor PO intake, lab values, weight trend, and I/O Expected Outcomes/Goals: Intake to meet >75% estimated needs FU 3-5 days Date of Service: Mar 29, 2025 Billing Provider: KALINA FALCON MD Common Visit Codes: 65434-[id number] INP/OBS CARE(HIGH) ARLENE OCAMPO RESIDENT Mar 29, 2025 16:15
== END 2025-03-29 12:00 | disposition home or self-care (01) | DRG 463 ==
LOC: EDBD 08:31 → ER 08:31 → OVERFLOW 14:12 → EAST 22:17 → TELE-EAST 03-25 10:38 → EAST 03-25 20:50
PROVIDERS: ADMIT Internal Medicine; ATTEND Internal Medicine
DX: N13.6 Pyonephrosis (principal); N17.0 Acute kidney failure with tubular necrosis; R65.11 Systemic inflammatory response syndrome (SIRS) of non-infectious origin with acute organ dysfunction; I27.20 Pulmonary hypertension, unspecified; I11.0 Hypertensive heart disease with heart failure; I16.0 Hypertensive urgency; E87.0 Hyperosmolality and hypernatremia; N30.00 Acute cystitis without hematuria; E11.9 Type 2 diabetes mellitus without complications; J44.9 Chronic obstructive pulmonary disease, unspecified; I50.32 Chronic diastolic (congestive) heart failure; Z20.822 Contact with and (suspected) exposure to COVID-19; K21.9 Gastro-esophageal reflux disease without esophagitis; E87.6 Hypokalemia; E83.42 Hypomagnesemia; F41.9 Anxiety disorder, unspecified; I25.10 Atherosclerotic heart disease of native coronary artery without angina pectoris; Z88.5 Allergy status to narcotic agent; Z88.8 Allergy status to other drugs, medicaments and biological substances; Z91.018 Allergy to other foods; Z87.442 Personal history of urinary calculi; Z90.49 Acquired absence of other specified parts of digestive tract; Z80.41 Family history of malignant neoplasm of ovary; Z83.49 Family history of other endocrine, nutritional and metabolic diseases
CPT/HCPCS: 36415; 71045; 74018; 74176; 76775; 80048; 80053; 81001; 83036; 83605; 83690; 83735; 84132; 85025; 87081; 87086; 87426; 87804; 99291; G0378; J1885; J2405; J2543; J3480